=== PATIENT | female | born 1950 | race Caucasian/White ===

== ENCOUNTER → 2016-11-18 | Outpatient (CLI) | payer MEDICARE, BC ==
[2016-11-18 08:10] LABS: Blood Urea Nitrogen 23 mg/dL (7-17); Non-African American GFR(MDRD) 58 (>60 ml/min/1.73 sqM)
--- NOTE | 2016-11-18 09:01 | CT ---
EXAMINATION TYPE: CT chest w con DATE OF EXAM: 11/18/2016 8:43 AM COMPARISON: Previous study dated 09/03/2013 HISTORY: Patient complains of difficulty breathing. CT DLP: 230.9 mGycm Automated exposure control for dose reduction was used. CONTRAST: CT scan of the chest is performed with IV Contrast, patient injected with 80 mL of Visipaque 320. FINDINGS: Masslike density in the right apex is stable and has been considerable scarring in the past . There is diffuse emphysematous change throughout the lungs. This is unchanged from previous. There is dependent atelectasis at the lung bases. No parenchymal mass is seen. There is no significant axillary, internal mammary, mediastinal or hilar adenopathy. There is no pleu ral or pericardial fluid. The heart is not enlarged. There is colonic interposition on the right. The right kidney is not imaged. No osseous lesion is seen. IMPRESSION: 1. Stable right apical scarring. 2. Emphysematous change. 3. Colonic interposition on the right. 4. Failure to visualize the right kidney.
== END | disposition home or self-care (01) ==
LOC: RADCTMAIN 07:23
PROVIDERS: ATTEND Internal Medicine Critical Care Medicine
DX: J43.9 Emphysema, unspecified (principal); J98.4 Other disorders of lung
CPT/HCPCS: 82565; 84520; 71260; 36415; Q9967

== ENCOUNTER → 2017-07-12 | Outpatient (CLI) | payer MEDICARE, BC ==
[2017-07-12 08:39] LABS: Blood Urea Nitrogen 18 mg/dL (7-17); Non-African American GFR(MDRD) 51 (>60 ml/min/1.73 sqM)
--- NOTE | 2017-07-12 10:30 | CT ---
EXAMINATION TYPE: CT abdomen pelvis w con DATE OF EXAM: 07/12/2017 HISTORY: Abd pain. Status post right-sided nephrectomy. CT DLP: 555.6mGycm Automated Exposure Control for Dose Reduction was Utilized. CONTRAST: CT scan of the abdomen and pelvis is performed with IV Contrast, patient injected with 80 mL of Visip aque 320. COMPARISON: None. FINDINGS: LUNG BASES: Minimal bibasilar subsegmental dependent atelectasis is noted. LIVER/GB: Colonic interposition deviates the liver medially. Hepatic parenchyma enhances homogeneousl y. No intrahepatic biliary ductal dilatation. Hepatic contour is smooth. Gallbladder is unremarkable. Additionally the liver is shifted medially due to surgical absence of the right kidney and prolapse. PANCREAS: No significant abnormality is seen. No ductal dilatation. SPLEEN: No significant abnormality is seen. ADRENALS: No significant abnormality is seen. KIDNEYS: Right kidney is surgically absent. Descending duodenum and liver prolapse into the postsurgi osvaldo bed. No abnormal new soft tissue density is seen within the postsurgical bed. The left kidney is unremarkable without evidence of hydronephrosis and enhances as well as excretes normally. BOWEL: Small hiatal hernia is noted. Numerous sigmoid diverticula are present without pericolonic fat stranding. Appendix is within normal limits. No evidence of dilated bowel to indicate obstruction. UTERUS/ADNEXA: Uterus is either surgically absent or severely atrophied. Nonvisualization of the ovar ies is also either related to postsurgical absence or atrophy. LYMPH NODES: No greater than 1cm abdominal or pelvic lymph nodes are appreciated. OSSEOUS STRUCTURES: Mild multilevel degenerative changes of the thoracolumbar spine are noted. OTHER: Small fat filled umbilical hernia is present. Moderate calcific atheromatous changes are seen of the abdominal aorta and its branches. IMPRESSION: 1. No CT finding to correlate with the patient's clinical symptom of left upper quadrant pain. 2. Small hiatal hernia. 3. Sigmoid diverticulosis without evidence of diverticulitis. 4. Surgical absence of the right kidney with no new soft tissue nodularity within the posterior surgi osvaldo bed.
== END | disposition home or self-care (01) ==
LOC: RADCTMAIN 07:49
PROVIDERS: ATTEND Family Medicine
DX: K44.9 Diaphragmatic hernia without obstruction or gangrene (principal); K57.30 Diverticulosis of large intestine without perforation or abscess without bleeding; Z90.5 Acquired absence of kidney
CPT/HCPCS: 82565; 84520; 74177; 36415; Q9967

== ENCOUNTER → 2017-09-29 | Outpatient (CLI) | payer MEDICARE, BC ==
--- NOTE | 2017-09-30 10:35 | MM ---
Reason for exam: screening (asymptomatic). Last mammogram was performed 1 year and 6 months ago. History: Patient is postmenopausal. Took estrogen for 20 years beginning at age 30. Took unspecified hormones beginning at age 47. Physical Findings: A clinical breast exam by your physician is recommended on an annual basis and results should be correlated with mammographic findings. MG 3D Screening Mammo W/Cad Bilateral CC and MLO view(s) were taken. Prior study comparison: April 06, 2016, mammogram, performed at [facility]. October 27, 2014, mammogram, performed at [facility]. August 04, 2009, bilateral digital screening mammogram. May 16, 2008, bilateral digital screening mammogram. No significant changes when compared with prior studies. ASSESSMENT: Benign, BI-RAD 2 RECOMMENDATION: Routine screening mammogram of both breasts in 1 year.
== END | disposition home or self-care (01) ==
LOC: RADMAMWWP 07:51
PROVIDERS: ATTEND Obstetrics & Gynecology
DX: Z12.31 Encounter for screening mammogram for malignant neoplasm of breast (principal)
CPT/HCPCS: 77063; 77067

== ENCOUNTER → 2017-10-27 | Outpatient (CLI) | payer MEDICARE, BC ==
--- NOTE | 2017-10-27 14:35 | CT ---
EXAMINATION TYPE: CT chest w con DATE OF EXAM: 10/27/2017 COMPARISON: NONE HISTORY: Patient complains of difficulty breathing. CT DLP: 259.8 mGycm, Automated exposure control for dose reduction was used. CONTRAST: Performed injected with 80 mL of Visipaque 320. TECHNIQUE: Axial images were obtained at 5 mm thick sections. Reconstructed images are reviewed on [employer] computer in the coronal plane. FINDINGS: Portion of the thyroid visualized is normal. No suspicious lung nodules or focal infiltrates are present. There right apical focal scarring is unc hanged. No enlarged mediastinal or hilar adenopathy is evident. 0.7 cm lymph node is near the level of the carmen in the pretracheal space. The ascending aorta diameter at the level of the main pulmonary chloé ry is 2.8 cm. The main pulmonary artery diameter at the bifurcation is 2.1 cm. Coronary artery calci fications present. Limited CT sections are obtained through the upper abdomen. Abdomen is essentially unremarkable. IMPRESSIONS: 1. No acute pulmonary embolism.
== END | disposition home or self-care (01) ==
LOC: RADCTMAIN 12:03
PROVIDERS: ATTEND Internal Medicine Critical Care Medicine
DX: J44.9 Chronic obstructive pulmonary disease, unspecified (principal)
CPT/HCPCS: 82565; 84520; 71260; 36415; Q9967

== ENCOUNTER → 2018-05-09 | Outpatient (CLI) | payer MEDICARE, BC ==
--- NOTE | 2018-05-09 10:23 | US ---
EXAMINATION TYPE: US gallbladder DATE OF EXAM: 05/09/2018 COMPARISON: CT ABD CLINICAL HISTORY: R10.11 RUQ Abdominal Pain. Epigastric and RUQ pain; right kidney removed; previous stomach ulcers per patient EXAM MEASUREMENTS: Liver Length: 9.7 cm Gallbladder Wall: 0.2 cm CBD: 0.5 cm Right Kidney: surgically removed Pancreas: Hyperechoic as seen. Liver: wnl Gallbladder: wnl Evidence for sonographic John's sign: yes CBD: wnl There is no ascites. IMPRESSION: Positive sonographic John's sign. Postop change.
== END | disposition home or self-care (01) ==
LOC: RADUSWWP 08:05
PROVIDERS: ATTEND Surgery
DX: R10.11 Right upper quadrant pain (principal); Z98.890 Other specified postprocedural states
CPT/HCPCS: 76705

== ENCOUNTER → 2018-05-17 | Outpatient (CLI) | payer MEDICARE, BC ==
--- NOTE | 2018-05-17 16:48 | NM ---
EXAMINATION TYPE: NM hepatobiliary w CCK DATE OF EXAM: 05/17/2018 COMPARISON: NONE HISTORY: TECHNIQUE: After the intravenous administration of 5.07 mCi Tc 99m Mebrofenin hepatobiliary scintigra phy is performed. Immediate images post injection. FINDINGS: There is satisfactory initial accumulation of tracer by the liver. The gallbladder is visualized wit hin 6 minutes. The small bowel activity is noted within 14 minutes. At one hour CCK was administere d, patient was injected with 1.3 mcg of Kinevac, and gallbladder ejection fraction is calculated at 9 0 %, in the normal range. Therefore there is no scintigraphic evidence of cystic or common bile duct obstruction to suggest acute cholecystitis or gallbladder dyskinesia. There is no focal liver defect. IMPRESSION: Normal exam. Normal gallbladder ejection fraction.
== END ==
LOC: RADNMMAIN 14:22
PROVIDERS: ATTEND Surgery
DX: R10.11 Right upper quadrant pain (principal)
CPT/HCPCS: 78227; A9537; J2805

== ENCOUNTER → 2018-07-10 | Outpatient (CLI) | payer MEDICARE, BC ==
[2018-07-10 14:27] LABS: Basophils # (A) 0.1 k/uL (0-0.2); Basophils % (A) 1 %; Eosinophils # (A) 0.1 k/uL (0-0.7); Eosinophils % (A) 1 %; HCT 43.7 % (34.0-46.0); HGB 14.1 gm/dL (11.4-16.0); Lymphocytes % (A) 40 %; MCH 30.2 pg (25.0-35.0); MCHC 32.3 g/dL (31.0-37.0); MCV 93.5 fL (80.0-100.0); Mean Platelet Volume 6.8; Monocytes # (A) 0.4 k/uL (0-1.0); Monocytes % (A) 5 %; Neutrophils # (A) 3.8 k/uL (1.3-7.7); Neutrophils % (A) 51 %; Platelet Count 237 k/uL (150-450); RBC 4.67 m/uL (3.80-5.40); RDW 13.8 % (11.5-15.5); WBC 7.4 k/uL (3.8-10.6)
[2018-07-10 14:34] LABS: Albumin 3.7 g/dL (3.5-5.0); Potassium 4.6 mmol/L (3.5-5.1); Total Bilirubin 0.5 mg/dL (0.2-1.3); Total Protein 6.3 g/dL (6.3-8.2)
--- NOTE | 2018-07-10 14:34 | CT ---
EXAMINATION TYPE: CT abdomen pelvis wo con DATE OF EXAM: 07/10/2018 COMPARISON: 07/12/2017 HISTORY: Lower abdominal pain. hx of diverticulosis CT DLP: 393.9 mGycm Examination of the solid and hollow viscera is limited given the lack of contrast. FINDINGS: LUNG BASES: No evidence for nodule. No evidence for infiltrate. LIVER/GB: The gallbladder is unremarkable. No space-occupying hepatic lesion. PANCREAS: No pancreatic mass identified. No inflammatory process seen. SPLEEN: No evidence for splenomegaly. No intrasplenic lesions seen. ADRENALS: No adrenal nodules identified. No evidence for thickening. KIDNEYS: Surgical absence of the right kidney without recurrent or residual mass at the level of the right renal fossa. No evidence for renal mass. No nephrolithiasis. No hydronephrosis. BOWEL: Appendix has a normal appearance. No evidence of bowel obstruction. No inflammatory process. S mall hiatal hernia. Sigmoid diverticulosis without diverticulitis. Lymph nodes: No evidence for adenopathy greater than 1 cm. Abdominal aorta: Atheromatous changes seen. No evidence for aneurysm. Genital organs: No significant abnormality. Other: No significant abnormality. IMPRESSION: 1. No acute process identified at this time.
== END | disposition home or self-care (01) ==
LOC: RADCTMAIN 13:53
PROVIDERS: ATTEND Nurse Practitioner Family
DX: R10.30 Lower abdominal pain, unspecified (principal); Z88.1 Allergy status to other antibiotic agents; Z88.6 Allergy status to analgesic agent
CPT/HCPCS: 36415; 74176; 80053; 82150; 83690; 85025

== ENCOUNTER → 2018-10-03 | Outpatient (CLI) | payer MEDICARE, BC | LOC: CPPFTMAIN 09:57 | PROVIDERS: ATTEND Family Medicine | DX: I99.8 Other disorder of circulatory system (principal); D50.9 Iron deficiency anemia, unspecified | CPT/HCPCS: 94060; 94726; 94729 ==

== ENCOUNTER → 2018-12-06 | Outpatient (CLI) | payer MEDICARE, BC ==
--- NOTE | 2018-12-06 14:10 | MM ---
Reason for exam: screening (asymptomatic). Last mammogram was performed 1 year and 2 months ago. History: Patient is postmenopausal. Took estrogen for 20 years beginning at age 30. Took unspecified hormones beginning at age 47. Physical Findings: A clinical breast exam by your physician is recommended on an annual basis and results should be correlated with mammographic findings. MG 3D Screening Mammo W/Cad Bilateral CC and MLO view(s) were taken. Prior study comparison: September 29, 2017, bilateral MG 3d screening mammo w/cad. April 06, 2016, mammogram, performed at [facility]. There are scattered fibroglandular densities. There are benign appearing vascular calcifications bilaterally. Asymmetric breast tissue in the left breast, stable. There is no discrete abnormality. ASSESSMENT: Benign, BI-RAD 2 RECOMMENDATION: Routine screening mammogram of both breasts in 1 year.
== END ==
LOC: RADMAMWWP 07:32
PROVIDERS: ATTEND Obstetrics & Gynecology
DX: Z12.31 Encounter for screening mammogram for malignant neoplasm of breast (principal)
CPT/HCPCS: 77063; 77067

== ENCOUNTER → 2018-12-27 | Outpatient (CLI) | payer MEDICARE, BC ==
--- NOTE | 2018-12-27 16:35 | BD ---
EXAMINATION TYPE: Axial Bone Density DATE OF EXAM: 12/27/2018 COMPARISON; 2011 CLINICAL HISTORY: 68-year-old female specified disorders of bone density Height: 4'11 1/2 Weight: 144 FRAX RISK QUESTIONS: Secondary Osteoporosis: 3. Menopause before 45: y RISK FACTORS HISTORY OF: Postmenopausal woman: y Frequent falls: y MEDICATIONS: Thyroid Medications: Which medication: Levothyroxine How Lon years Additional Medications: potassium, Lasix, Additional History: EXAM MEASUREMENTS: Bone mineral densitometry was performed using the [employer]. Bone mineral density as measured about the Lumbar spine is: ----- L1-L4(G/cm2): 0.978 T Score Values are as follows: ----- L2: -2.0 ----- L3: -0.6 ----- L4: -1.6 ----- L1-L4: -1.7 Bone mineral density has: Decreased -3.4% since study of: 10/19/2011 Bone mineral density about the R hip (g/cm2): 0.898 Bone mineral density about the L hip (g/cm2): 0.973 T Score values are as follows: -----R Neck: -1.0 -----L Neck: -0.5 -----R Total: -0.9 -----L Total: -0.6 Bone mineral density has: Decreased -7.4% since study of: 10/19/2011 IMPRESSION: Osteopenia (T Score between -2.5 and -1). There is slightly increased risk of fracture and the patient may be considered for treatment. Re-Screen 2-5 years. NOTE: T-SCORE=SD OF THE YOUNG ADULT MEAN.
== END | disposition home or self-care (01) ==
LOC: RADBDWWP 07:50
PROVIDERS: ATTEND Obstetrics & Gynecology
DX: M85.80 Other specified disorders of bone density and structure, unspecified site (principal)
CPT/HCPCS: 77080

== ENCOUNTER → 2019-02-27 | Outpatient (CLI) | payer MEDICARE, BC ==
--- NOTE | 2019-02-27 12:48 | XR ---
EXAM TYPE: LUMBAR SPINE X RAY SERIES COMPARISON: 10/31/2015 HISTORY: Pain TECHNIQUE: 4 views are submitted. FINDINGS: Alignment is anatomic. The pedicles are intact. The transverse processes are intact. There is no s pondylolysis or spondylolisthesis. Diffuse osteopenia with multilevel degenerative disc disease and facet arthropathy. Vascular calcifications noted. IMPRESSION: 1. Diffuse osteopenia and multilevel degenerative disc disease with facet arthropathy.
--- NOTE | 2019-02-27 12:50 | XR ---
EXAMINATION TYPE: XR sacrum coccyx DATE OF EXAM: 02/27/2019 COMPARISON: NONE HISTORY: Pain Three views are submitted. Sacrum is intact. SI joints are symmetric. There is mild sclerosis invo lving the SI joints. Arthropathy of the hip joints. Coccyx appears to be intact. Visualized pelvic s tructures intact. IMPRESSION: 1. Correlate for sacroiliitis..
== END | disposition home or self-care (01) ==
LOC: RADXRMAIN 11:56
PROVIDERS: ATTEND Nurse Practitioner Family
DX: M51.36 Other intervertebral disc degeneration, lumbar region (principal); M46.96 Unspecified inflammatory spondylopathy, lumbar region; M85.88 Other specified disorders of bone density and structure, other site; M54.5 Low back pain
CPT/HCPCS: 72110; 72220

== ENCOUNTER → 2019-03-26 | Outpatient (CLI) | payer MEDICARE, BC ==
--- NOTE | 2019-03-26 07:42 | MR ---
EXAMINATION TYPE: MR lumbar spine wo con DATE OF EXAM: 03/26/2019 COMPARISON: 01/31/2016 HISTORY: Low back pain, Fall CONTRAST: 0 mL intravenous Gadavist. TECHNIQUE: Multiplanar, multisequence images of the lumbar spine were acquired. FINDINGS: Cord terminates at the L1 level. Disc heights are preserved. Disc desiccation is present t hroughout the lumbar spine. L5-S1: Minimal disc bulge is present with anterior thecal sac contact. No AP spinal canal stenosis pr esent. Neural foramen are patent. Facet hypertrophy is present, greater on the left. L4-L5: Minimal disc bulge is anterior thecal sac flattening. No AP spinal canal stenosis is present. On T2-weighted images there is some minimal linear signal present along the posterior right disc spac e could represent a small annular tear. Facet hypertrophy is present. This causes moderate bilateral posterior lateral thecal sac compression. Some lateral canal narrowing from ligamentum flavum laxity is present. Neural foramen are patent. L3-L4: No significant disc bulge is evident. No spinal canal stenosis present. Facet hypertrophy is p osterior lateral thecal sac compression. Neural foramen are patent. L2-L3: No significant disc bulge or disc herniation. No spinal canal stenosis. No foraminal stenosi s. L1-L2: No significant disc bulge or disc herniation. No spinal canal stenosis. No foraminal stenosi s. T12-L1: No significant disc bulge or disc herniation. No spinal canal stenosis. No foraminal stenos is. IMPRESSION: 1. Facet hypertrophy and ligamentum flavum laxity present L3-4, L4-5 and is causing some lateral pepe l narrowing at the L4-5 level. These Findings are stable from comparison. 2. Minimal disc bulge L4-5 with possible annular tear. This may be new although no significant thecal sac compression is evident.
== END | disposition home or self-care (01) ==
LOC: RADMRIMAIN 06:04
PROVIDERS: ATTEND Family Medicine
DX: M48.061 Spinal stenosis, lumbar region without neurogenic claudication (principal); M51.26 Other intervertebral disc displacement, lumbar region
CPT/HCPCS: 72148

== ENCOUNTER 2019-08-16 07:20 | Emergency (ER) | payer MEDICARE, BC ==
[2019-08-16 07:26] VITALS: TEMP 97.8
--- NOTE | 2019-08-16 07:38 | ED ---
Extremity Problem HPI - General Chief complaint: Extremity Problem,Nontraumatic Stated complaint: Knee pain, fall Time Seen by Provider: 08/16/19 07:26 Source: patient Mode of arrival: wheelchair Limitations: no limitations - History of Present Illness Initial comments: 68-year-old female with history of varicose veins, TIA, one kidney, presenting to the ER for cc of b/l below the knee pain both at rest and with movement. Patient states that for the past 2-3 days she noticed a slight discomfort in the LE b/l just below the knee. SHe states she has difficulty describing the pain but states that last night it was 10/10 at rest and with walking >10. She states it kept her up at night and she couldnt fall asleep. This morning patient fell due to the pain below the knees her legs gave out. Patient states she fell on the rigth side of her body, mostly right hip. Patient denies any numbness tingling or loss sensation of the lower extremities denies loss of bowel/bladder control, urinary retention. Patient denies any recent fevers she states she has had a recent upper respiratory infection. Flu and pneumonia vaccinations UTD> Denies symptoms of the hands. States she has chronic back pain with no change. Patient denies any other specific alleviating or aggrevating factors. - Related Data Home Medications Medication Instructions Recorded Confirmed ALPRAZolam [Xanax] 0.5 mg PO HS PRN 02/25/14 08/02/17 Esomeprazole Magnesium [NexIUM] 40 mg PO HS 02/25/14 08/02/17 Levothyroxine Sodium [Synthroid] 50 mcg PO DAILY 02/25/14 08/02/17 Aspirin EC [Ecotrin Low Dose] 81 mg PO DAILY 06/27/14 08/02/17 Budesonide-Formot 160-4.5 Mcg 2 puff INHALATION RT-BID PRN 06/27/14 08/02/17 [Symbicort 160-4.5 Mcg Inhaler] Eszopiclone [Lunesta] 3 mg PO HS PRN 06/27/14 08/02/17 Furosemide [Lasix] 20 mg PO DAILY 07/28/17 08/02/17 Magnesium Oxide 400 mg PO DAILY 07/28/17 08/02/17 Pitavastatin Calcium [Livalo] 4 mg PO HS 07/28/17 08/02/17 Potassium Chloride ER [K-Dur 10] 20 meq PO BID 07/28/17 08/02/17 predniSONE See Taper PO DAILY 07/28/17 08/02/17 Previous Rx's Medication Instructions Recorded Isosorbide Mononitrate ER [Imdur] 60 mg PO DAILY #30 tab.er.24h 07/29/17 Allergies Allergy/AdvReac Type Severity Reaction Status Date / Time acetaminophen Allergy Itching Verified 07/28/17 23:07 [From Tylenol-Codeine #3] albuterol Allergy Rapid Verified 07/28/17 23:07 Heart Rate barium sulfate Allergy Rash/Hives Verified 07/28/17 23:07 codeine phosphate Allergy Itching Verified 07/28/17 23:07 [From Tylenol-Codeine #3] Iodinated Contrast Media Allergy Rash/Hives Verified 07/28/17 23:07 [Iodinated Contrast Media - Oral and] nitrofurantoin Allergy Itching Verified 07/28/17 23:07 [From Macrobid] nitrofurantoin Allergy Itching Verified 07/28/17 23:07 macrocrystalline [From Macrobid] Review of Systems ROS Statement: Those systems with pertinent positive or pertinent negative responses have been documented in the HPI. ROS Other: All systems not noted in ROS Statement are negative. Past Medical History Past Medical History: Asthma, COPD, CVA/TIA, GERD/Reflux, Osteoarthritis (OA), Skin Disorder, Thyroid Disorder Additional Past Medical History / Comment(s): Heart palpitations, Varicose veins, Hx of kidney stones (only Lt kidney), diverticulitis, hiatal hernia, hemorrhoids, "under active gallbladder", sun damaged skin, pt states she had a TIA on 2015. History of Any Multi-Drug Resistant Organisms: None Reported Past Surgical History: Hysterectomy, Orthopedic Surgery, Tonsillectomy Additional Past Surgical History / Comment(s): L and R foot surgery, right nephrectomy, laparascopy, skin lesions, rt hand trigger finger, rt shoulder rotator cuff Past Anesthesia/Blood Transfusion Reactions: No Reported Reaction Past Psychological History: Anxiety Smoking Status: Former smoker Past Alcohol Use History: None Reported Past Drug Use History: None Reported - Past Family History Father Family Medical History: Cancer General Exam - General Exam Comments Initial Comments: General: The patient is awake and alert, in no distress Eye: Pupils are equal, round and reactive to light, extra-ocular movements are intact. No nystagmus. There is normal conjunctiva bilaterally. No signs of icterus. Ears, nose, mouth and throat: There are moist mucous membranes and no oral lesions. Neck: The neck is supple, there is no tenderness or JVD. Cardiovascular: There is a regular rate and rhythm. No murmur, rub or gallop is appreciated. Respiratory: Lungs are clear to auscultation, respirations are non-labored, breath sounds are equal. No wheezes, stridor, rales, or rhonchi. Gastrointestinal: Soft, non-distended, non-tender abdomen without masses or organomegaly noted. There is no rebound or guarding present. Musculoskeletal: No point localized pain to palpation of the legs above or below the knee. Normal inspection, warm no pallor. Normal ROM at the knees b/l. Strength 5/5 of the LE b/l including distal to the knees. Sensation intact proximal and distal to knees b/l and UE b/l. Radial and DP pulses equal bilaterally 2+. Normal inspection of thoracic and lumbar spine some midline tenderness noted of the upper lumbar aspect. Neurological: A&O x 3. CN II-XII intact grossly, There are no obvious motor or sensory deficits. Coordination appears grossly intact. Speech is normal. Skin: Skin is warm and dry and no rashes or lesions are noted. Psychiatric: Cooperative, appropriate mood & affect, normal judgment. Limitations: no limitations Course Vital Signs 08/16/19 07:23 Temperature 97.8 F Pulse Rate 82 Respiratory 20 Rate Blood Pressure 155/67 O2 Sat by Pulse 96 Oximetry - Reevaluation(s) Reevaluation #1: After reevaluation patient is able to fully weight-bear walk and states the pain is gone. This is after one small dose of morphine. Patient states she feels this is due to go back as she has had issues with this in the past. Patient requesting discharge laboratory studies canceled. 08/16/19 09:15 Medical Decision Making - Medical Decision Making 68-year-old female presenting for bilateral leg pain distal to the knees. History of chronic back pain. Patient has no symptoms or clinical findings suggestive of cauda equina. Patient able to walk and ambulate without difficulty after one dose of IV medication. Patient states she is agreeable to discharge at this time she will try to rest apply heat to the area and was given orthopedic follow-up. Return parameters were discussed at length the patient verbalized understanding and she was discharged appearing well after discussed the case at length with my attending provider Dr. Kapadia Disposition Clinical Impression: Back pain, Leg pain, bilateral Disposition: HOME SELF-CARE Condition: Good Instructions (If sedation given, give patient instructions): Lumbar Radiculopathy (ED) Additional Instructions: PLease follow-up in [address] Lucero. Take medications as discussed. Return for any worsening or persistent symptoms, loss of bowel bladder control or inability to urinate, feel legs, fevers as discussed Is patient prescribed a controlled substance at d/c from ED?: No Referrals: Avery Epps Jr, DO [Primary Care Provider] - 1-2 days Miri Lucero DO [Doctor of Osteopathic Medicine] - 1-2 days Time of Disposition: 09:00
[2019-08-16] MEDS ORDERED: MORPHINE SULFATE 4 MG/ML SYRINGE IVP STA (07:40)
--- NOTE | 2019-08-16 08:19 | XR ---
EXAMINATION TYPE: XR Hip Complete RT DATE OF EXAM: 08/16/2019 COMPARISON: NONE HISTORY: 68-year-old female fall and right hip pain TECHNIQUE: 2 views FINDINGS: Osteopenia. Mild degenerative spurring at the right hip. No acute fracture, subluxation, or dislocati on seen. IMPRESSION: Osteopenia without acute osseous abnormality seen. If the patient is nonweightbearing, MRI can provid e more sensitive evaluation.
--- NOTE | 2019-08-16 08:23 | XR ---
EXAMINATION TYPE: XR lumbar spine 2 or 3V DATE OF EXAM: 08/16/2019 Comparison: 02/27/2019 Clinical History: 68-year-old female PAIN AFTER FALL Findings: Osteopenia. 5 lumbar type vertebral bodies. Hypertrophic facet arthropathy mid and lower lumbar spine , particularly on the left. Mild multilevel degenerative disc disease. Vertebral body heights are pre served and alignment is maintained. At the scattered calcifications within the abdominal aorta. Impression: Advanced hypertrophic facet arthropathy and mild multilevel degenerative disc disease. No vertebral c ompression collapse or malalignment.
[2019-08-16 10:33] VITALS: BP 122/80; PULSE 67; RESP 18
== END 2019-08-16 10:28 | disposition home or self-care (01) ==
LOC: EC 07:20
DX: M25.561 Pain in right knee (principal); M25.562 Pain in left knee; M54.9 Dorsalgia, unspecified; J44.9 Chronic obstructive pulmonary disease, unspecified; K21.9 Gastro-esophageal reflux disease without esophagitis; E07.9 Disorder of thyroid, unspecified; Z86.73 Personal history of transient ischemic attack (TIA), and cerebral infarction without residual deficits; Z87.891 Personal history of nicotine dependence; Z87.39 Personal history of other diseases of the musculoskeletal system and connective tissue; Z79.890 Hormone replacement therapy; Z79.82 Long term (current) use of aspirin; Z79.51 Long term (current) use of inhaled steroids; Z79.52 Long term (current) use of systemic steroids; Z79.899 Other long term (current) drug therapy; Z88.6 Allergy status to analgesic agent; Z88.8 Allergy status to other drugs, medicaments and biological substances; Z88.5 Allergy status to narcotic agent; Z91.041 Radiographic dye allergy status; Z88.1 Allergy status to other antibiotic agents; W19.XXXA Unspecified fall, initial encounter
CPT/HCPCS: 72100; 73502; 99283; 96374; J2270

== ENCOUNTER → 2019-08-21 | Outpatient (CLI) | payer MEDICARE, BC ==
--- NOTE | 2019-08-21 11:47 | CT ---
EXAMINATION TYPE: CT chest wo con DATE OF EXAM: 08/21/2019 COMPARISON: 10/27/2017 CT chest, CT abdomen 07/10/2018, CT chest 09/03/2013 HISTORY: Chronic cough, raspy voice CT DLP: 563 mGycm. Automated Exposure Control for Dose Reduction was Utilized. TECHNIQUE: CT scan of the thorax is performed without IV contrast. FINDINGS: LUNGS: There is a right apical pleural-based 1.8 cm density stable from the prior exam. This may be p ostinflammatory. Neoplastic process not excluded. Additional 5 mm subpleural nodule or thickening in the right upper lobe laterally. There are additional scattered subpleural 1 to 2 mm nodules bilateral ly which are too small to characterize. Diffuse emphysematous changes are seen. Groundglass changes seen in the left upper lobe are noted on the prior examination have resolved on the current exam. There is interstitial septal interstitial th ickening compatible with chronic interstitial lung disease and likely a degree of pulmonary fibrosis. No consolidative pneumonia.. There is no pleural effusion or pneumothorax seen. The tracheobronch ial tree is patent. MEDIASTINUM: Lack of IV contrast is noted to limit evaluation for mediastinal and especially hilar ad enopathy. There are no definitive greater than 1 cm hilar or mediastinal lymph nodes. No cardiomega ly or pericardial effusion is seen. Coronary artery calcification noted. OTHER: Retroperitoneal calcification on the right stable likely postsurgical. Absence of the right ki dney and the visualized images suggest previous nephrectomy correlate clinically.. There is a small h iatal hernia. Hypertrophic changes of the vertebral column. IMPRESSION: 1. Diffuse COPD with no acute process. 2. Right apical 1.8 cm thickening or nodularity is stable dating back to 2013 and therefore likely in flammatory. 3. Coronary artery calcifications. 4. Stable subpleural 5 mm right apical pulmonary nodule or thickening. 5. Correlate for chronic interstitial lung disease. 6. There are additional scattered 1 to 2 mm subpleural nodules which are too small to characterize bu t likely benign.
== END | disposition home or self-care (01) ==
LOC: RADCTMAIN 11:05
PROVIDERS: ATTEND Internal Medicine Critical Care Medicine
DX: J44.9 Chronic obstructive pulmonary disease, unspecified (principal); J84.89 Other specified interstitial pulmonary diseases; R91.8 Other nonspecific abnormal finding of lung field; I25.10 Atherosclerotic heart disease of native coronary artery without angina pectoris; Z88.3 Allergy status to other anti-infective agents
CPT/HCPCS: 71250

== ENCOUNTER → 2019-10-04 | Outpatient (CLI) | payer MEDICARE, BC | END | disposition home or self-care (01) | LOC: LABWHC1 13:02 | PROVIDERS: ATTEND Nurse Practitioner Family | DX: Z01.818 Encounter for other preprocedural examination (principal); J44.1 Chronic obstructive pulmonary disease with (acute) exacerbation; J84.10 Pulmonary fibrosis, unspecified; J96.21 Acute and chronic respiratory failure with hypoxia; E78.00 Pure hypercholesterolemia, unspecified | CPT/HCPCS: 93005 ==

== ENCOUNTER → 2019-10-17 | Day surgery (SDC) | payer MEDICARE, BC ==
[2019-10-15 12:54] VITALS: BMI 29.0
[~2019-10-17] MED LIST: BUPIVACAINE (PF) 0.25% 30 ML VIAL SQ ONE; DEXAMETHASONE SOD PHOSPHATE 10 MG/ML 1 ML VIAL IV ONE; HYDROmorphone 0.5 MG/0.5 ML SYRINGE IVP PRN; LACTATED RINGERS 1,000 ML IV SCH; LIDOCAINE 1% 20 ML VIAL (10MG/ML) FOR IV START INTRADERMA PRN; MIDAZOLAM 2 MG/2 ML VIAL IV PRN; ONDANSETRON 4 MG/2 ML VIAL IVP ONE; Pre Op ABX Message 1 EACH MISC MISCELLANE ONE; SCOPOLAMINE 1.5MG/72HR PATCH TRANSDERM ONE
[2019-10-17 14:02] VITALS: TEMP 97.7
[2019-10-17 14:37] LABS: Glucose,Whole Blood 96 mg/dL (75-99)
--- NOTE | 2019-10-17 17:15 | P.OP ---
Date of Procedure: 10/17/19 Preoperative Diagnosis: Hypertrophied bone causing heloma molle lesion fifth digit left foot Postoperative Diagnosis: Same Procedure(s) Performed: Partial phalangectomy fifth digit left foot Anesthesia: local Surgeon: Kulwinder José Estimated Blood Loss (ml): 1 Indications for Procedure: Painful soft corn toe left foot Operative Findings: Unremarkable Description of Procedure: On the date of surgery the patient was taken to the operating room in good condition placed on the operating table supine position where 2 mL of 0.25% plain Marcaine were administered in a digital block fifth digit of the patient's left foot the patient's left foot and ankle were then prepped and draped the usual aseptic manner and over heavy web roll padding an ankle tourniquet was placed above the malleoli of the patient's left ankle patient's left foot and ankle were then elevated and exsanguinated of blood utilizing an Esmarch bandage and the ankle tourniquet was inflated to 200 mmHg. At this time attention was directed to the dorsal distal aspect of the distal interphalangeal joint area fifth digit left foot where an approximately neuro 0.5 cm linear incision was made the incision was deepened down through the level of subcutaneous tissue layers to the capsule and periosteal structures overlying the terminal tuft of the terminal phalanx fifth digit left foot rotary bur was introduced and the hyperostosis present craterized and adequate bone had been removed the surgical site was flushed with copious amounts sterile saline solution and the skin edges were coaptated and maintained utilizing 4-0 nylon simple interrupted suture Adaptic Kerlix fluffs four-inch conformer and 4 inch Coban was used to form a compression dressing and the ankle tourniquet to the left foot was deflated adequate hemostatic return was seen in all digits of the left foot the patient tolerated the surgery and anesthesia well was taken to the recovery room in good postoperative condition
[2019-10-17 17:17] VITALS: RESP 16
[2019-10-17 17:40] VITALS: BP 127/70; PULSE 81
== END ==
LOC: OR 13:29
PROVIDERS: ATTEND Podiatrist Foot & Ankle Surgery
DX: L84 Corns and callosities (principal); J44.9 Chronic obstructive pulmonary disease, unspecified; E07.9 Disorder of thyroid, unspecified; E78.5 Hyperlipidemia, unspecified; K21.9 Gastro-esophageal reflux disease without esophagitis; Z79.51 Long term (current) use of inhaled steroids; Z86.73 Personal history of transient ischemic attack (TIA), and cerebral infarction without residual deficits; Z87.891 Personal history of nicotine dependence; Z79.890 Hormone replacement therapy; Z79.899 Other long term (current) drug therapy; Z91.041 Radiographic dye allergy status; Z88.5 Allergy status to narcotic agent; Z88.6 Allergy status to analgesic agent; Z88.8 Allergy status to other drugs, medicaments and biological substances; Z90.710 Acquired absence of both cervix and uterus; Z98.41 Cataract extraction status, right eye; Z82.49 Family history of ischemic heart disease and other diseases of the circulatory system; Z80.9 Family history of malignant neoplasm, unspecified

== ENCOUNTER → 2020-03-03 | Outpatient (CLI) | payer MEDICARE, BC ==
--- NOTE | 2020-03-05 10:32 | MM ---
Reason for exam: screening (asymptomatic). Last mammogram was performed 1 year and 3 months ago. History: Patient is postmenopausal. Took hormonal contraceptives for 20 years. Took estrogen for 20 years beginning at age 30. Took unspecified hormones beginning at age 47. Physical Findings: A clinical breast exam by your physician is recommended on an annual basis and results should be correlated with mammographic findings. MG 3D Screening Mammo W/Cad Bilateral CC and MLO view(s) were taken. Prior study comparison: December 06, 2018, bilateral MG 3d screening mammo w/cad. September 29, 2017, bilateral MG 3d screening mammo w/cad. No significant changes when compared with prior studies. ASSESSMENT: Benign, BI-RAD 2 RECOMMENDATION: Routine screening mammogram of both breasts in 1 year.
== END | disposition home or self-care (01) ==
LOC: RADMAMWWP 08:31
PROVIDERS: ATTEND Family Medicine
DX: Z12.31 Encounter for screening mammogram for malignant neoplasm of breast (principal)
CPT/HCPCS: 77063; 77067

== ENCOUNTER → 2020-04-04 | Outpatient (CLI) | payer MEDICARE, BC ==
--- NOTE | 2020-04-05 06:00 | NM ---
EXAMINATION TYPE: NM hepatobiliary w CCK DATE OF EXAM: 04/04/2020 COMPARISON: Prior nuclear medicine HIDA scan May 17, 2018. HISTORY: Right upper quadrant pain per order. Additional symptoms of epigastric pain and heartburn re flux and nausea per patient. TECHNIQUE: After the intravenous administration of 4.4 mCi Tc 99m Mebrofenin hepatobiliary scintigrap hy is performed. Immediate images post injection. FINDINGS: There is satisfactory initial accumulation of tracer by the liver. The gallbladder is visualized wit hin 1 8 minutes. The small bowel activity is noted within 35 minutes. At one hour CCK was administe red, patient was injected with 1.3 mcg of Kinevac, and gallbladder ejection fraction is calculated at 93 %, not deviated from the normal range. Therefore there is no scintigraphic evidence of cystic or common bile duct obstruction to suggest acute cholecystitis or gallbladder dyskinesia. IMPRESSION: Ejection fraction remains greater than 90%, some consider this abnormal or a hyperkinetic response.
== END | disposition home or self-care (01) ==
LOC: RADNMMAIN 14:59
PROVIDERS: ATTEND Family Medicine
DX: R10.11 Right upper quadrant pain (principal); Z88.6 Allergy status to analgesic agent
CPT/HCPCS: 78227; A9537; J2805

== ENCOUNTER 2020-05-19 07:23 | Day surgery (SDC) | payer MEDICARE, BC ==
[2020-05-15 13:27] VITALS: BMI 28.1
[~2020-05-19 07:23] MED LIST changes: -BUPIVACAINE (PF) 0.25% 30 ML VIAL SQ ONE; +HEPARIN SODIUM,PORCINE 5,000 UNIT/ML 1 ML VIAL SQ ONE; -HYDROmorphone 0.5 MG/0.5 ML SYRINGE IVP PRN; -LACTATED RINGERS 1,000 ML IV SCH; -LIDOCAINE 1% 20 ML VIAL (10MG/ML) FOR IV START INTRADERMA PRN; -MIDAZOLAM 2 MG/2 ML VIAL IV PRN; -ONDANSETRON 4 MG/2 ML VIAL IVP ONE; -Pre Op ABX Message 1 EACH MISC MISCELLANE ONE
[2020-05-19] MEDS: LACTATED RINGERS 1,000 ML IV SCH ×2 (08:10→10:39)
[2020-05-19] MEDS ORDERED: LIDOCAINE 1% (10MG/ML) FOR IV START INTRADERMA ONE (08:10)
[2020-05-19] MEDS: ACETAMINOPHEN TAB 500 MG TAB PO ONE ×2 (08:18→14:22)
[2020-05-19] MEDS: ONDANSETRON 4 MG/2 ML VIAL IVP ONE ×2 (08:19→11:07)
[2020-05-19] MEDS ORDERED: NEOSTIGMINE 1 MG/ML 10 ML VIAL ONE (09:16)
[2020-05-19] MEDS ORDERED: PHENYLEPHRINE-0.9% NACL SYG 1 MG/10 ML SYRINGE ONE (09:16)
[2020-05-19] MEDS ORDERED: LIDOCAINE 1% INJ 10MG/ML (20 ML MDV) ONE (09:16)
[2020-05-19] MEDS ORDERED: fentaNYL (PF) 50 MCG/ML 2 ML AMP ONE (09:16)
[2020-05-19] MEDS ORDERED: MIDAZOLAM 2 MG/2 ML VIAL ONE (09:16)
[2020-05-19] MEDS ORDERED: SUCCINYLCHOLINE CHLORIDE 100 MG/5 ML SYR IV ONE (09:16)
[2020-05-19] MEDS ORDERED: PROPOFOL 10 MG/ML 20 ML VIAL IV ONE (09:16)
[2020-05-19] MEDS ORDERED: ROCURONIUM BROMIDE 10 MG/ML 5 ML VIAL IV ONE (09:16)
[2020-05-19] MEDS ORDERED: BUPIVACAINE (PF) 0.25% 30 ML VIAL SQ ONE (09:44)
[2020-05-19] MEDS: HYDROmorphone 0.5 MG/0.5 ML SYRINGE IVP PRN ×4 (10:20→10:36)
--- NOTE | 2020-05-19 10:30 | P.OP ---
Date of Procedure: 05/19/20 Procedure(s) Performed: PREOPERATIVE DIAGNOSIS: Chronic cholecystitis POSTOPERATIVE DIAGNOSIS: Same PROCEDURE: Laparoscopic cholecystectomy SURGEON: Fadumo EBL: Minimal see anesthesia record ANESTHESIA: Gen. COMPLICATIONS: None OPERATIVE PROCEDURE: The patient was brought and placed on the operating room table in the supine position. The patient was placed under general anesthesia at that time. The abdomen was prepped and draped in the usual sterile fashion. A small vertical infraumbilical incision was made. The fascia was grasped with the Maxim forceps. The fascia was retracted anteriorly. The Veress needle was advanced into the peritoneal cavity. The saline drop test was normal. Insufflation took place up to 15 mmHg. A 5 mm optical trocar was advanced and the peritoneal cavity. 2 additional 5 mm trochars were placed in the right upper quadrant under direct visualization. A 12 mm trocar was advanced into the epigastric incision site. The gallbladder was retracted superiorly and laterally. The peritoneum overlying the infundibulum was bluntly dissected. The patient's cystic duct was visualized. The junction between the cystic duct common and hepatic duct was identified. The cystic duct was then divided after placement of 3 12 mm clips on the patient's side and one on the specimen side. The cystic artery was identified and clipped as well. A small vessel was seen along the gallbladder fossa and clipped as well. The gallbladder was then removed from the liver bed using electrocautery. The gallbladder was then removed from the epigastric trocar site with an Endo Catch bag. The gallbladder fossa was irrigated with saline. There was no evidence of any bleeding or biliary drainage seen. The fascia at the 12 millimeter site was closed using a Vin-Alexander 0 Vicryl stitch. The trochars were then removed. The skin at all 4 sites was closed using a 4-0 Monocryl stitch. Skin glue was utilized on the incision sites. At the end of this procedure the sponge and needle counts were correct. DISPOSITION: Stable to the recovery room
[2020-05-19] MEDS ORDERED: fentaNYL (PF) 50 MCG/ML 2 ML AMP IV ONE (10:47)
[2020-05-19] MEDS ORDERED: PROMETHAZINE INJ 25 MG/ML 1 ML VIAL IVPB ONE (11:15)
[2020-05-19] MEDS: traMADol 50 MG TAB PO SCH ×3 (12:15→20:22)
[2020-05-19] MEDS ORDERED: FAMOTIDINE 20 MG/2 ML VIAL IVP ONE (13:00)
[2020-05-19] MEDS ORDERED: ACETAMINOPHEN TAB 500 MG TAB ONE (14:16)
[2020-05-19] MEDS ORDERED: CALCIUM CARBONATE 500 MG CHEWABLE PO PRN (15:00)
[2020-05-19] MEDS: IBUPROFEN 600 MG TAB PO SCH ×4 (15:35→23:45)
[2020-05-19] MEDS: ACETAMINOPHEN TAB 325 MG TAB PO SCH ×2 (15:36→20:21)
[2020-05-19] MEDS ORDERED: ALPRAZolam 0.5 MG TAB PO PRN (16:33)
[2020-05-19] MEDS: ISOSORBIDE MONONITRATE ER 60 MG TAB.ER.24H PO SCH (17:56)
[2020-05-19] MEDS: SYMBICORT 160-4.5 MCG INHALER INHALATION PRN (18:57)
[2020-05-19] MEDS ORDERED: ATORVASTATIN 10 MG TAB PO SCH (21:00)
[2020-05-19] MEDS ORDERED: PANTOPRAZOLE 40 MG TABLET PO SCH (21:00)
[2020-05-20] MEDS: ACETAMINOPHEN TAB 325 MG TAB PO SCH ×3 (02:18→15:20)
[2020-05-20] MEDS: IBUPROFEN 600 MG TAB PO SCH ×2 (05:19→07:23)
[2020-05-20] MEDS ORDERED: LEVOTHYROXINE 50 MCG TAB PO SCH (06:30)
[2020-05-20] MEDS: SYMBICORT 160-4.5 MCG INHALER INHALATION PRN (07:36)
[2020-05-20 07:59] VITALS: PULSE 69; RESP 16
[2020-05-20] MEDS: ISOSORBIDE MONONITRATE ER 60 MG TAB.ER.24H PO SCH (07:59)
[2020-05-20] MEDS: traMADol 50 MG TAB PO SCH ×2 (08:00→13:45)
[2020-05-20] MEDS ORDERED: CHOLECALCIFEROL 1,000 UNIT TAB PO SCH (09:00)
[2020-05-20] MEDS ORDERED: ASPIRIN 81 MG PO SCH (09:00)
[2020-05-20 11:00] LABS: ALT 31 U/L (4-34); AST 46 U/L (14-36); African American GFR (CKD) >90 (>60 ml/min/1.73 sqM); Albumin 3.2 g/dL (3.5-5.0); Alkaline Phosphatase 48 U/L (38-126); Anion Gap 4 mmol/L; Blood Urea Nitrogen 13 mg/dL (7-17); Carbon Dioxide 29 mmol/L (22-30); Chloride 102 mmol/L (98-107); Glucose 142 mg/dL (74-99); Non-African American GFR(CKD) 80 (>60 ml/min/1.73 sqM); Potassium 4.8 mmol/L (3.5-5.1); Sodium 135 mmol/L (137-145); Total Bilirubin 0.5 mg/dL (0.2-1.3); Total Protein 5.4 g/dL (6.3-8.2)
[2020-05-20 11:04] LABS: Basophils % (A) 0 %; Eosinophils % (A) 0 %; HCT 38.4 % (34.0-46.0); Lymphocytes # (A) 1.1 k/uL (1.0-4.8); Lymphocytes % (A) 9 %; MCH 30.2 pg (25.0-35.0); MCHC 31.3 g/dL (31.0-37.0); MCV 96.5 fL (80.0-100.0); Mean Platelet Volume 7.4; Monocytes # (A) 0.4 k/uL (0-1.0); Monocytes % (A) 3 %; Neutrophils # (A) 9.9 k/uL (1.3-7.7); Neutrophils % (A) 87 %; Platelet Count 166 k/uL (150-450); RBC 3.98 m/uL (3.80-5.40); RDW 13.5 % (11.5-15.5); WBC 11.4 k/uL (3.8-10.6)
[2020-05-20 15:21] VITALS: BP 125/68; TEMP 98.4
--- NOTE | 2020-05-20 15:38 | P.DS ---
<Lesia Pruitt - Last Filed: 05/20/20 15:35> Providers Expected date of discharge: 05/20/20 Hospital Course: Discharge diagnosis 1. Chronic cholecystitis status post laparoscopic cholecystectomy Hospital course This is a 69-year-old female who had worsening right upper quadrant abdominal p ain. Ultrasound showed a positive John sign. No stones. Recent HIDA scan showed an elevated ejection fraction of 93%. Patient underwent laparoscopic cholecystectomy for chronic cholecystitis with Dr. Zuleta. Patient's nausea has resolved. She's had no vomiting. She tolerated diet. She is afebrile. She is passing gas. She's been up and ambulating. She is stable for discharge. Physician Benefits Representative note has been reviewed by physician. Signing provider agrees with the documented findings, assessment, and plan of care. Patient Condition at Discharge: Stable Plan - Discharge Summary Discharge Rx Participant: No New Discharge Prescriptions: New traMADol HCl [Ultram] 50 mg PO Q6H PRN #6 tab PRN Reason: Pain Continue Levothyroxine Sodium [Synthroid] 50 mcg PO DAILY Esomeprazole Magnesium [NexIUM] 40 mg PO HS ALPRAZolam [Xanax] 0.5 mg PO HS PRN PRN Reason: sleep Eszopiclone [Lunesta] 3 mg PO HS PRN PRN Reason: sleep Budesonide-Formot 160-4.5 Mcg [Symbicort 160-4.5 Mcg Inhaler] 2 puff INHALATION RT-BID PRN PRN Reason: Shortness Of Breath Aspirin EC [Ecotrin Low Dose] 81 mg PO DAILY Pitavastatin Calcium [Livalo] 2 mg PO HS Isosorbide Mononitrate ER [Imdur] 60 mg PO DAILY #30 tab.er.24h Cholecalciferol (Vitamin D3) [Vitamin D3] 2,000 unit PO DAILY Lidocaine 5% Patch [Lidoderm 5% Patch] 1 patch TOPICAL DAILY PRN PRN Reason: Pain Discharge Medication List ALPRAZolam [Xanax] 0.5 mg PO HS PRN 02/25/14 [History] Esomeprazole Magnesium [NexIUM] 40 mg PO HS 02/25/14 [History] Levothyroxine Sodium [Synthroid] 50 mcg PO DAILY 02/25/14 [History] Aspirin EC [Ecotrin Low Dose] 81 mg PO DAILY 06/27/14 [History] Budesonide-Formot 160-4.5 Mcg [Symbicort 160-4.5 Mcg Inhaler] 2 puff INHALATION RT-BID PRN 06/27/14 [History] Eszopiclone [Lunesta] 3 mg PO HS PRN 06/27/14 [History] Pitavastatin Calcium [Livalo] 2 mg PO HS 07/28/17 [History] Isosorbide Mononitrate ER [Imdur] 60 mg PO DAILY #30 tab.er.24h 07/29/17 [Rx] Cholecalciferol (Vitamin D3) [Vitamin D3] 2,000 unit PO DAILY 10/15/19 [History] Lidocaine 5% Patch [Lidoderm 5% Patch] 1 patch TOPICAL DAILY PRN 10/15/19 [History] traMADol HCl [Ultram] 50 mg PO Q6H PRN #6 tab 05/19/20 [Rx] Follow up Appointment(s)/Referral(s): Aaron Zuleta MD [Medical Doctor] - 05/28/20 1:45 pm Patient Instructions/Handouts: *[facility] - Laparoscopic Cholecystectomy Discharge Instructions, *[facility] - Managing Your Pain After Surgery Without Opioids, *[facility] - (Anesthesia) Discharge Instructions Outpatient Surgery, Laparoscopic Cholecystectomy (DC) Activity/Diet/Wound Care/Special Instructions: REST AND NO DRIVING THE NEXT COUPLE OF DAYS, NO HEAVY LIFTING, BENDING, OR STRAINING. CALL DR ZULETA IF ANY PROBLEMS. MAY SHOWER IN 24-48 HOURS. LEAVE THE GLUE IN PLACE TILL IT FALLS OFF. soft diet Discharge Disposition: HOME SELF-CARE <Aaron Zuleta - Last Filed: 05/20/20 17:13> Providers Attending physician: Aaron Zuleta Primary care physician: [facility] Course: As above. Patient doing well. May discharge. Follow-up one week.
== END 2020-05-20 16:38 | disposition home or self-care (01) ==
LOC: OR 07:23 → 1SOBS 10:24 → OR 05-20 16:38
PROVIDERS: ATTEND Surgery
DX: K81.1 Chronic cholecystitis (principal); K82.8 Other specified diseases of gallbladder; J44.9 Chronic obstructive pulmonary disease, unspecified; K21.9 Gastro-esophageal reflux disease without esophagitis; E07.9 Disorder of thyroid, unspecified; F41.9 Anxiety disorder, unspecified; Z87.19 Personal history of other diseases of the digestive system; M19.90 Unspecified osteoarthritis, unspecified site; Z91.041 Radiographic dye allergy status; Z88.5 Allergy status to narcotic agent; Z88.6 Allergy status to analgesic agent; Z88.8 Allergy status to other drugs, medicaments and biological substances; Z86.73 Personal history of transient ischemic attack (TIA), and cerebral infarction without residual deficits; Z79.82 Long term (current) use of aspirin; Z79.890 Hormone replacement therapy; Z79.899 Other long term (current) drug therapy; Z90.710 Acquired absence of both cervix and uterus; Z90.89 Acquired absence of other organs; Z98.890 Other specified postprocedural states; Z90.5 Acquired absence of kidney; Z87.891 Personal history of nicotine dependence; Z80.9 Family history of malignant neoplasm, unspecified
CPT/HCPCS: 94640 ×2; 88304; 80053; 85025; 47562; J2250; J1644; J1100; J2550; J2710; J0690; J2405; J2001; J3010; J2370; J0330; J2704; J1170

== ENCOUNTER 2020-05-21 00:48 | Inpatient (IN) | payer MEDICARE, BC ==
[2020-05-21] MEDS ORDERED: IPRATROPIUM-ALBUTEROL 3 ML NEB INHALATION STA (01:05)
[2020-05-21 01:36] LABS: Basophils % (A) 0 %; Eosinophils % (A) 0 %; HCT 39.7 % (34.0-46.0); HGB 12.6 gm/dL (11.4-16.0); Lymphocytes # (A) 1.9 k/uL (1.0-4.8); Lymphocytes % (A) 16 %; MCH 30.1 pg (25.0-35.0); MCHC 31.7 g/dL (31.0-37.0); MCV 94.9 fL (80.0-100.0); Mean Platelet Volume 7.5; Monocytes # (A) 0.5 k/uL (0-1.0); Monocytes % (A) 4 %; Neutrophils # (A) 9.6 k/uL (1.3-7.7); Neutrophils % (A) 79 %; Platelet Count 197 k/uL (150-450); RBC 4.18 m/uL (3.80-5.40); RDW 13.3 % (11.5-15.5); WBC 12.1 k/uL (3.8-10.6)
[2020-05-21 01:47] LABS: Albumin 3.7 g/dL (3.5-5.0); Calcium 9.5 mg/dL (8.4-10.2); Partial Thromboplastin Time 22.2 sec (22.0-30.0); Potassium 4.4 mmol/L (3.5-5.1); Total Bilirubin 0.8 mg/dL (0.2-1.3)
--- NOTE | 2020-05-21 01:57 | XR ---
EXAMINATION TYPE: XR chest 2V DATE OF EXAM: 05/21/2020 COMPARISON: 05/09/2019 HISTORY: Chest pain TECHNIQUE: 2 views FINDINGS: There is pulmonary interstitial edema. Heart size is within normal limits. Thoracic aorta i s atheromatous. There is very minimal pleural fluid. IMPRESSION: There is new pulmonary interstitial edema compared to old exam. This could be acute heart failure.
--- NOTE | 2020-05-21 02:05 | ED ---
General Adult HPI - General Chief complaint: GI Bleed Stated complaint: Post Op Abd Pain Source: patient Mode of arrival: ambulatory Limitations: no limitations - History of Present Illness Initial comments: Luciana is a pleasant 69-year-old female with a history of COPD who is 2 days postop from a nonemergent lap jonathan for biliary dyskinesia. Patient had some complications postop and spent one night in the hospital she was discharged home yesterday. Patient reports that she was doing okay she had some persistent shortness of breath. She states that last night she had a coughing episode and noted that she coughed up 3 pea-sized blood clots. She got these were likely due to being intubated or having a bloody nose postoperatively. However patient persistent shortness of breath anesthetic come the ER for evaluation. She denies any chest pain or palpitations. She does have some pain in her abdomen postoperatively but it's not worsening. No fevers or chills. No nausea vomiting or diarrhea. - Related Data Home Medications Medication Instructions Recorded Confirmed ALPRAZolam [Xanax] 0.5 mg PO HS PRN 02/25/14 05/19/20 Esomeprazole Magnesium [NexIUM] 40 mg PO HS 02/25/14 05/15/20 Levothyroxine Sodium [Synthroid] 50 mcg PO DAILY 02/25/14 05/15/20 Aspirin EC [Ecotrin Low Dose] 81 mg PO DAILY 06/27/14 05/15/20 Budesonide-Formot 160-4.5 Mcg 2 puff INHALATION RT-BID PRN 06/27/14 05/15/20 [Symbicort 160-4.5 Mcg Inhaler] Eszopiclone [Lunesta] 3 mg PO HS PRN 06/27/14 05/19/20 Pitavastatin Calcium [Livalo] 2 mg PO HS 07/28/17 05/15/20 Cholecalciferol (Vitamin D3) 2,000 unit PO DAILY 10/15/19 05/15/20 [Vitamin D3] Lidocaine 5% Patch [Lidoderm 5% 1 patch TOPICAL DAILY PRN 10/15/19 05/15/20 Patch] Previous Rx's Medication Instructions Recorded Isosorbide Mononitrate ER [Imdur] 60 mg PO DAILY #30 tab.er.24h 07/29/17 traMADol HCl [Ultram] 50 mg PO Q6H PRN #6 tab 05/19/20 Allergies Allergy/AdvReac Type Severity Reaction Status Date / Time albuterol Allergy Rapid Verified 05/21/20 00:54 Heart Rate barium sulfate Allergy Rash/Hives Verified 05/21/20 00:54 codeine phosphate Allergy Itching Verified 05/21/20 00:54 [From Tylenol-Codeine #3] Iodinated Contrast Media Allergy Rash/Hives Verified 05/21/20 00:54 [Iodinated Contrast Media - Oral and] nitrofurantoin Allergy Itching Verified 05/21/20 00:54 [From Macrobid] nitrofurantoin Allergy Itching Verified 05/21/20 00:54 macrocrystalline [From Macrobid] ibuprofen AdvReac ONLY HAS 1 Verified 05/21/20 00:54 KIDNEY-TOLD NEVER TO TAKE Review of Systems ROS Statement: Those systems with pertinent positive or pertinent negative responses have been documented in the HPI. ROS Other: All systems not noted in ROS Statement are negative. Past Medical History Past Medical History: Asthma, COPD, CVA/TIA, GERD/Reflux, Osteoarthritis (OA), Skin Disorder, Thyroid Disorder Additional Past Medical History / Comment(s): Heart palpitations, Varicose veins, Hx of kidney stones (only Lt kidney), diverticulitis, hiatal hernia, hemorrhoids, "under active gallbladder", sun damaged skin, pt states she had a TIA on 2015, History of Any Multi-Drug Resistant Organisms: None Reported Past Surgical History: Cholecystectomy, Hysterectomy, Orthopedic Surgery, Tonsillectomy Additional Past Surgical History / Comment(s): L and R foot surgery, right nephrectomy, laparascopy, skin lesions, rt hand trigger finger, rt shoulder rotator cuff, CALLUS REMOVED FROM LT SMALL TOE, COLONOSCOPY, BILAT CATARACTS REMOVED WITH LENS IMPLANTS Past Anesthesia/Blood Transfusion Reactions: No Reported Reaction Past Psychological History: Anxiety Smoking Status: Former smoker Past Alcohol Use History: None Reported Past Drug Use History: None Reported - Past Family History Father Family Medical History: Cancer General Exam - General Exam Comments Initial Comments: Physical Exam GENERAL: Patient is well-developed and well-nourished. Patient is nontoxic and well-hydrated and is in no distress. HENT: Normocephalic, Atraumatic. EYES: PERRL, EOMI PULMONARY: Expiratory wheezing in upper lung harmon Rales bilaterally CARDIOVASCULAR: There is a regular rate and rhythm without any murmurs gallops or rubs. ABDOMEN: Soft, minimal tenderness to palpation Non peritoneal SKIN: Well healing surgical incisions : Deferred NEUROLOGIC: Patient is alert and oriented x3. Moving all extremities spontaneously MUSCULOSKELETAL: Normal extremities with adequate strength and full range of motion. No lower extremity swelling or edema. No calf tenderness. PSYCHIATRIC: Normal psychiatric evaluation. Limitations: no limitations Course Vital Signs 05/21/20 05/21/20 05/21/20 00:51 01:11 01:29 Temperature 98.4 F Pulse Rate 84 65 Respiratory 18 Rate Blood Pressure 177/52 O2 Sat by Pulse 88 L Oximetry 05/21/20 05/21/20 01:38 02:13 Temperature Pulse Rate 80 Respiratory Rate Blood Pressure O2 Sat by Pulse 94 L Oximetry EKG Findings - EKG Comments: EKG Findings:: EKG was obtained due to findings of heart failure, EKG was obtained at 2:55 AM, rate is 82 rhythm is sinus, normal axis, normal intervals IL 130, QRS 86, QTC [address] elevations or depressions no evidence of acute ischemia or infarction. Medical Decision Making - Medical Decision Making The patient was seen and evaluated history is obtained from patient Patient was noted to be hypoxic with oxygen saturation of 86-87% she reports she checked her home pulse ox and noted that it was 70% Breathing treatment and workup was initiated Patient's suplemental oxygen was increased to 3 L Patient's oxygenation improved mildly after breathing treatment Chest x-rays concerning for pulmonary congestion acute heart failure Labs with mild leukocytosis, BNP is elevated at 3200 this is new for the patient likely related to fluid overload due to surgery Patient's advanced age and findings of heart failure we will plan to admit her for respiratory support, Lasix and evaluation by cardiology, patient is agreeable Patient care was discussed with Dr. Roman who agrees with plan for admission for postoperative congestive heart failure Cardiology, pulmonology and Gen. surgery will be consult for this patient - Lab Data Result diagrams: 05/21/20 01:07 05/21/20 01:07 Lab Results 05/21/20 05/21/20 05/21/20 Range/Units 01:07 01:07 01:07 WBC 12.1 H (3.8-10.6) k/uL RBC 4.18 (3.80-5.40) m/uL Hgb 12.6 (11.4-16.0) gm/dL Hct 39.7 (34.0-46.0) % MCV 94.9 (80.0-100.0) fL MCH 30.1 (25.0-35.0) pg MCHC 31.7 (31.0-37.0) g/dL RDW 13.3 (11.5-15.5) % Plt Count 197 (150-450) k/uL Neutrophils % 79 % Lymphocytes % 16 % Monocytes % 4 % Eosinophils % 0 % Basophils % 0 % Neutrophils # 9.6 H (1.3-7.7) k/uL Lymphocytes # 1.9 (1.0-4.8) k/uL Monocytes # 0.5 (0-1.0) k/uL Eosinophils # 0.0 (0-0.7) k/uL Basophils # 0.0 (0-0.2) k/uL PT 10.0 (9.0-12.0) sec INR 1.0 (<1.2) APTT 22.2 (22.0-30.0) sec Sodium 136 L (137-145) mmol/L Potassium 4.4 (3.5-5.1) mmol/L Chloride 104 (98-107) mmol/L Carbon Dioxide 27 (22-30) mmol/L Anion Gap 5 mmol/L BUN 19 H (7-17) mg/dL Creatinine 0.88 (0.52-1.04) mg/dL Est GFR (CKD-EPI)AfAm 77 (>60 ml/min/1.73 sqM) Est GFR (CKD-EPI)NonAf 67 (>60 ml/min/1.73 sqM) Glucose 95 (74-99) mg/dL Calcium 9.5 (8.4-10.2) mg/dL Total Bilirubin 0.8 (0.2-1.3) mg/dL AST 43 H (14-36) U/L ALT 33 (4-34) U/L Alkaline Phosphatase 58 (38-126) U/L Troponin I (0.000-0.034) ng/mL NT-Pro-B Natriuret Pep pg/mL Total Protein 6.0 L (6.3-8.2) g/dL Albumin 3.7 (3.5-5.0) g/dL 05/21/20 05/21/20 Range/Units 01:07 01:07 WBC (3.8-10.6) k/uL RBC (3.80-5.40) m/uL Hgb (11.4-16.0) gm/dL Hct (34.0-46.0) % MCV (80.0-100.0) fL MCH (25.0-35.0) pg MCHC (31.0-37.0) g/dL RDW (11.5-15.5) % Plt Count (150-450) k/uL Neutrophils % % Lymphocytes % % Monocytes % % Eosinophils % % Basophils % % Neutrophils # (1.3-7.7) k/uL Lymphocytes # (1.0-4.8) k/uL Monocytes # (0-1.0) k/uL Eosinophils # (0-0.7) k/uL Basophils # (0-0.2) k/uL PT (9.0-12.0) sec INR (<1.2) APTT (22.0-30.0) sec Sodium (137-145) mmol/L Potassium (3.5-5.1) mmol/L Chloride (98-107) mmol/L Carbon Dioxide (22-30) mmol/L Anion Gap mmol/L BUN (7-17) mg/dL Creatinine (0.52-1.04) mg/dL Est GFR (CKD-EPI)AfAm (>60 ml/min/1.73 sqM) Est GFR (CKD-EPI)NonAf (>60 ml/min/1.73 sqM) Glucose (74-99) mg/dL Calcium (8.4-10.2) mg/dL Total Bilirubin (0.2-1.3) mg/dL AST (14-36) U/L ALT (4-34) U/L Alkaline Phosphatase (38-126) U/L Troponin I 0.023 (0.000-0.034) ng/mL NT-Pro-B Natriuret Pep 3280 pg/mL Total Protein (6.3-8.2) g/dL Albumin (3.5-5.0) g/dL Disposition Clinical Impression: Heart failure, COPD (chronic obstructive pulmonary disease) with chronic bronchitis Disposition: ADMITTED IP TO THIS HOSP Condition: Stable
[2020-05-21] MEDS: FUROSEMIDE 10 MG/ML 4 ML VIAL IV SCH ×2 (03:03→14:48)
[2020-05-21] MEDS ORDERED: traMADol 50 MG TAB PO PRN (06:00)
[2020-05-21] MEDS: LEVOTHYROXINE 50 MCG TAB PO SCH (06:35)
[2020-05-21] MEDS ORDERED: ACETAMINOPHEN TAB 500 MG TAB PO STA (08:35)
[2020-05-21] MEDS: lisinopriL 10 MG TAB PO SCH ×2 (08:38→08:42)
[2020-05-21] MEDS: METOPROLOL TARTRATE 25 MG TAB PO SCH ×3 (08:38→20:13)
[2020-05-21] MEDS: ASPIRIN 81 MG PO SCH (08:38)
[2020-05-21] MEDS ORDERED: ISOSORBIDE MONONITRATE ER 60 MG TAB.ER.24H PO SCH (09:00)
[2020-05-21] MEDS ORDERED: IPRATROPIUM-ALBUTEROL 3 ML NEB INHALATION PRN (10:58)
[2020-05-21] MEDS ORDERED: FLUTICASONE 50MCG/SPRAY NASAL 16GM EA NOSTRIL PRN (11:20)
[2020-05-21] MEDS ORDERED: TEMAZEPAM 15 MG CAP PO PRN (11:21)
[2020-05-21] MEDS ORDERED: LIDOCAINE 5% PATCH TOPICAL PRN (11:21)
[2020-05-21] MEDS ORDERED: ISOSORBIDE MONONITRATE ER 30 MG TAB.ER.24H PO SCH (11:30)
--- NOTE | 2020-05-21 12:00 | ECHOF ---
Referral Reason:chf MEASUREMENTS -------- HEIGHT: 152.4 cm WEIGHT: 65.3 kg BP: RVIDd: 2.6 cm (< 3.3) IVSd: 0.7 cm (0.6 - 1.1) LVIDd: 3.8 cm (3.9 - 5.3) LVPWd: 1.1 cm (0.6 - 1.1) IVSs: 1.4 cm LVIDs: 2.7 cm LVPWs: 1.2 cm LA Diam: 3.8 cm (2.7 - 3.8) LAESV Index (A-L): 27.72 ml/m Ao Diam: 2.8 cm (2.0 - 3.7) AV Cusp: 1.9 cm (1.5 - 2.6) LA Diam: 3.9 cm (2.7 - 3.8) MV EXCURSION: 19.436 mm (> 18.000) MV EF SLOPE: 100 mm/s (70 - 150) EPSS: 0.2 cm MV E Raul: 0.64 m/s MV DecT: 199 ms MV A Raul: 0.72 m/s MV E/A Ratio: 0.89 RAP: 5.00 mmHg RVSP: 26.33 mmHg TAPSE: 21.17 mm FINDINGS -------- Sinus rhythm. This was a technically good study. LV size, wall thickness and systolic function are normal, with an EF greater than 55%. The left tyrell tricular size is normal. The diastolic filling pattern is normal for the age of the patient 9.53. The right ventricle is normal in size. The left atrial size is normal. Normal LA size by volume 22+/-6 ml/m2. The right atrial size is normal. Aortic valve is trileaflet and is mildly thickened. Mild mitral regurgitation is present. Mild tricuspid regurgitation present. Right ventricular systolic pressure is normal at < 35 mmHg. There is no pulmonic regurgitation present. The aortic root size is normal. There is no pericardial effusion. CONCLUSIONS -------- 1. LV size, wall thickness and systolic function are normal, with an EF greater than 55%. 2. The left ventricular size is normal. 3. The diastolic filling pattern is normal for the age of the patient 9.53 4. The right ventricle is normal in size. 5. The left atrial size is normal. 6. Normal LA size by volume 22+/-6 ml/m2. 7. The right atrial size is normal. 8. Aortic valve is trileaflet and is mildly thickened. 9. Mild mitral regurgitation is present. 10. Mild tricuspid regurgitation present. 11. There is no pericardial effusion. ENT CONSULTANT: Bijal Funk RDCS
--- NOTE | 2020-05-21 12:06 | P.GSCN ---
History of Present Illness Consult date: 05/21/20 Reason for Consult: Cholecystitis History of present illness: Patient underwent laparoscopic cholecystectomy 2 days ago. She was kept overnight because of nausea and pain. Yesterday she was discharged. Last night she had a episode of hematemesis where she coughed up to small clots. She began experiencing some chest pain and some shortness of breath. She came to the hospital for evaluation. Being treated currently for CHF. Feels much better currently. Denies any significant pain. Tolerating diet. Review of Systems The patient denies any acute changes in vision or hearing, no dysphagia or odynophagia, no dysuria or hematuria, no headache, no runny nose, no rectal bleeding or melena, no unexplained weight loss Past Medical History Past Medical History: Asthma, COPD, CVA/TIA, GERD/Reflux, Osteoarthritis (OA), Skin Disorder, Thyroid Disorder Additional Past Medical History / Comment(s): Heart palpitations, Varicose veins, Hx of kidney stones (only Lt kidney), diverticulitis, hiatal hernia, hemorrhoids, "under active gallbladder", sun damaged skin, pt states she had a TIA on 2015, History of Any Multi-Drug Resistant Organisms: None Reported Past Surgical History: Cholecystectomy, Hysterectomy, Orthopedic Surgery, Tonsillectomy Additional Past Surgical History / Comment(s): L and R foot surgery, right nephrectomy, laparascopy, skin lesions, rt hand trigger finger, rt shoulder rotator cuff, CALLUS REMOVED FROM LT SMALL TOE, COLONOSCOPY, BILAT CATARACTS REMOVED WITH LENS IMPLANTS Past Anesthesia/Blood Transfusion Reactions: No Reported Reaction Past Psychological History: Anxiety Smoking Status: Former smoker Past Alcohol Use History: None Reported Past Drug Use History: None Reported - Past Family History Father Family Medical History: Cancer Additional Family Medical History / Comment(s): Prostate cancer, brain tumor. Father is . Mother Family Medical History: Cancer, Renal Disease Additional Family Medical History / Comment(s): Mother when pt was 9yrs old and pt does not know much of mother's health hx. Mother had cancer-pt unaware of type, had kidney removed. Medications and Allergies Home Medications Medication Instructions Recorded Confirmed Type ALPRAZolam [Xanax] 0.75 mg PO HS PRN 02/25/14 05/21/20 History Levothyroxine Sodium [Synthroid] 50 mcg PO DAILY 02/25/14 05/21/20 History Aspirin EC [Ecotrin Low Dose] 81 mg PO DAILY 06/27/14 05/21/20 History Budesonide-Formot 160-4.5 Mcg 2 puff INHALATION RT-BID 06/27/14 05/21/20 History [Symbicort 160-4.5 Mcg Inhaler] Eszopiclone [Lunesta] 3 mg PO HS PRN 06/27/14 05/21/20 History Pitavastatin Calcium [Livalo] 2 mg PO HS 07/28/17 05/21/20 History Cholecalciferol (Vitamin D3) 2,000 unit PO DAILY 10/15/19 05/21/20 History [Vitamin D3] Lidocaine 5% Patch [Lidoderm 5% 1 patch TOPICAL DAILY PRN 10/15/19 05/21/20 Hi story Patch] traMADol HCl [Ultram] 50 mg PO Q6H PRN #6 tab 05/19/20 05/21/20 Rx Famotidine/Ca Carb/Mag Hydrox 1 tab PO BID PRN 05/21/20 05/21/20 History [Pepcid Complete Tablet Chew] Fluticasone Nasal [place] [Flonase 2 spr EA NOSTRIL DAILY PRN 05/21/20 05/21/20 History Nasal [place]] Isosorbide Mononitrate ER [Imdur] 30 mg PO DAILY 05/21/20 05/21/20 History Levalbuterol HCl [Xopenex] 1.25 mg INHALATION RT-QID PRN 05/21/20 05/21/20 History Levalbuterol Hfa Inhaler [Xopenex 2 puff INHALATION RT-Q6H PRN 05/21/20 05/21/20 History Hfa Inhaler] Loratadine [Claritin] 10 mg PO DAILY 05/21/20 05/21/20 History Montelukast [Singulair] 10 mg PO HS 05/21/20 05/21/20 History Allergies Allergy/AdvReac Type Severity Reaction Status Date / Time barium sulfate Allergy Rash/Hives Verified 05/21/20 07:27 Iodinated Contrast Media Allergy Rash/Hives Verified 05/21/20 07:27 [Iodinated Contrast Media - Oral and] albuterol AdvReac Rapid Verified 05/21/20 07:27 Heart Rate codeine phosphate AdvReac Itching Verified 05/21/20 07:27 [From Tylenol-Codeine #3] ibuprofen AdvReac ONLY HAS 1 Verified 05/21/20 07:27 KIDNEY-TOLD NEVER TO TAKE nitrofurantoin AdvReac Itching Verified 05/21/20 07:27 [From Macrobid] nitrofurantoin AdvReac Itching Verified 05/21/20 07:27 macrocrystalline [From Macrobid] Surgical - Exam Vital Signs Pulse Resp BP Pulse Ox 84 18 177/52 88 L 05/21/20 00:51 05/21/20 00:51 05/21/20 00:51 05/21/20 00:51 Physical exam: General: Well-developed, well-nourished HEENT: Normocephalic, sclerae nonicteric Abdomen: Mild incisional tenderness, incisions clean and dry, nondistended Extremities: No edema Neuro: Alert and oriented Results - Labs 05/21/20 01:07 05/21/20 01:07 Abnormal Lab Results - Last 24 Hours (Table) 05/21/20 05/21/20 Range/Units 01:07 01:07 WBC 12.1 H (3.8-10.6) k/uL Neutrophils # 9.6 H (1.3-7.7) k/uL Sodium 136 L (137-145) mmol/L BUN 19 H (7-17) mg/dL AST 43 H (14-36) U/L Total Protein 6.0 L (6.3-8.2) g/dL Diabetes panel 05/21/20 Range/Units 01:07 Sodium 136 L (137-145) mmol/L Potassium 4.4 (3.5-5.1) mmol/L Chloride 104 (98-107) mmol/L Carbon Dioxide 27 (22-30) mmol/L BUN 19 H (7-17) mg/dL Creatinine 0.88 (0.52-1.04) mg/dL Glucose 95 (74-99) mg/dL Calcium 9.5 (8.4-10.2) mg/dL AST 43 H (14-36) U/L ALT 33 (4-34) U/L Alkaline Phosphatase 58 (38-126) U/L Total Protein 6.0 L (6.3-8.2) g/dL Albumin 3.7 (3.5-5.0) g/dL Calcium panel 05/21/20 Range/Units 01:07 Calcium 9.5 (8.4-10.2) mg/dL Albumin 3.7 (3.5-5.0) g/dL Pituitary panel 05/21/20 Range/Units 01:07 Sodium 136 L (137-145) mmol/L Potassium 4.4 (3.5-5.1) mmol/L Chloride 104 (98-107) mmol/L Carbon Dioxide 27 (22-30) mmol/L BUN 19 H (7-17) mg/dL Creatinine 0.88 (0.52-1.04) mg/dL Glucose 95 (74-99) mg/dL Calcium 9.5 (8.4-10.2) mg/dL Adrenal panel 05/21/20 Range/Units 01:07 Sodium 136 L (137-145) mmol/L Potassium 4.4 (3.5-5.1) mmol/L Chloride 104 (98-107) mmol/L Carbon Dioxide 27 (22-30) mmol/L BUN 19 H (7-17) mg/dL Creatinine 0.88 (0.52-1.04) mg/dL Glucose 95 (74-99) mg/dL Calcium 9.5 (8.4-10.2) mg/dL Total Bilirubin 0.8 (0.2-1.3) mg/dL AST 43 H (14-36) U/L ALT 33 (4-34) U/L Alkaline Phosphatase 58 (38-126) U/L Total Protein 6.0 L (6.3-8.2) g/dL Albumin 3.7 (3.5-5.0) g/dL Assessment and Plan (1) Cholecystitis Narrative/Plan: Overall patient doing fairly well. Continue low-fat diet. Await pulmonary and cardiac evaluation. We'll follow. Current Visit: Yes Status: Acute Code(s): K81.9 - CHOLECYSTITIS, UNSPECIFIED SNOMED Code(s): 77838068
[2020-05-21] MEDS: PANTOPRAZOLE 40 MG/10 ML VIAL IVP SCH (12:31)
--- NOTE | 2020-05-21 12:55 | P.HPIM ---
History of Present Illness H&P Date: 05/21/20 Chief Complaint: Shortness of breath This is a 69-year-old female with history of asthma, COPD, CVA/TIA, gastroesophageal reflux disease, osteoarthritis, right nephrectomy hypo thyroidism, anxiety, chronic hypoxic respiratory failureuses 1-2 L nasal cannula oxygen at night, former nicotine dependent, CAD, recent laparoscopic cholecystectomy .Patient reports she felt great on the day of discharge, later in the evening she proceeded to cough up 4 small sized blood clots-brown in color and attributed those to her postop nosebleed, went to bed and awakened by worsening shortness of breath, accompanied by coughing. On arrival to the ER ,O2 sat was 88% on room air, hypertensive with systolic blood pressure in the 170s. Denies any chest pain, palpitations. Denies lightheadedness, dizziness or focal deficits. Denies nausea vomiting or diarrhea. Reports surgical tenderness, no abdominal pain. Denies fever, chills. Denies cough congestion. BNP 3280. Chest x-ray reported new pulmonary interstitial edema, possible CHF. Echo ordered. EKG reported sinus rhythm with fusion complexes. Troponin 0.023. Afebrile, WBC 12.1, neutrophils 9.6. Hemoglobin 12.6, platelets 197, coagulation unremarkable, sodium 136 potassium 4.4, BUN 19, creatinine 0.88. T bili and LFTs within normal limits with the exception of mild elevation of AST,43. Received supplemental oxygen, nebulized bronchodilators, with IV push diuretics Initiated. Review of Systems ROS Statement: Those systems with pertinent positive or pertinent negative responses have been documented in the HPI. ROS Other: All systems not noted in ROS Statement are negative. Past Medical History Past Medical History: Asthma, COPD, CVA/TIA, GERD/Reflux, Osteoarthritis (OA), Skin Disorder, Thyroid Disorder Additional Past Medical History / Comment(s): Heart palpitations, Varicose veins, Hx of kidney stones (only Lt kidney), diverticulitis, hiatal hernia, hemorrhoids, "under active gallbladder", sun damaged skin, pt states she had a TIA on 2015, History of Any Multi-Drug Resistant Organisms: None Reported Past Surgical History: Cholecystectomy, Hysterectomy, Orthopedic Surgery, Tonsillectomy Additional Past Surgical History / Comment(s): L and R foot surgery, right nephr ectomy, laparascopy, skin lesions, rt hand trigger finger, rt shoulder rotator cuff, CALLUS REMOVED FROM LT SMALL TOE, COLONOSCOPY, BILAT CATARACTS REMOVED WITH LENS IMPLANTS Past Anesthesia/Blood Transfusion Reactions: No Reported Reaction Past Psychological History: Anxiety Smoking Status: Former smoker Past Alcohol Use History: None Reported Past Drug Use History: None Reported - Past Family History Father Family Medical History: Cancer Mother Family Medical History: Cancer, Renal Disease Additional Family Medical History / Comment(s): Mother when pt was 9yrs old and pt does not know much of mother's health hx. Mother had cancer-pt unaware of type, had kidney removed. Medications and Allergies Home Medications Medication Instructions Recorded Confirmed Type ALPRAZolam [Xanax] 0.75 mg PO HS PRN 02/25/14 05/21/20 History Levothyroxine Sodium [Synthroid] 50 mcg PO DAILY 02/25/14 05/21/20 History Aspirin EC [Ecotrin Low Dose] 81 mg PO DAILY 06/27/14 05/21/20 History Budesonide-Formot 160-4.5 Mcg 2 puff INHALATION RT-BID 06/27/14 05/21/20 History [Symbicort 160-4.5 Mcg Inhaler] Eszopiclone [Lunesta] 3 mg PO HS PRN 06/27/14 05/21/20 History Pitavastatin Calcium [Livalo] 2 mg PO HS 07/28/17 05/21/20 History Cholecalciferol (Vitamin D3) 2,000 unit PO DAILY 10/15/19 05/21/20 History [Vitamin D3] Lidocaine 5% Patch [Lidoderm 5% 1 patch TOPICAL DAILY PRN 10/15/19 05/21/20 History Patch] traMADol HCl [Ultram] 50 mg PO Q6H PRN #6 tab 05/19/20 05/21/20 Rx Famotidine/Ca Carb/Mag Hydrox 1 tab PO BID PRN 05/21/20 05/21/20 History [Pepcid Complete Tablet Chew] Fluticasone Nasal [place] [Flonase 2 spr EA NOSTRIL DAILY PRN 05/21/20 05/21/20 History Nasal [place]] Isosorbide Mononitrate ER [Imdur] 30 mg PO DAILY 05/21/20 05/21/20 History Levalbuterol HCl [Xopenex] 1.25 mg INHALATION RT-QID PRN 05/21/20 05/21/20 History Levalbuterol Hfa Inhaler [Xopenex 2 puff INHALATION RT-Q6H PRN 05/21/20 05/21/20 History Hfa Inhaler] Loratadine [Claritin] 10 mg PO DAILY 05/21/20 05/21/20 History Montelukast [Singulair] 10 mg PO HS 05/21/20 05/21/20 History Allergies Allergy/AdvReac Type Severity Reaction Status Date / Time barium sulfate Allergy Rash/Hives Verified 05/21/20 07:27 Iodinated Contrast Media Allergy Rash/Hives Verified 05/21/20 07:27 [Iodinated Contrast Media - Oral and] albuterol AdvReac Rapid Verified 05/21/20 07:27 Heart Rate codeine phosphate AdvReac Itching Verified 05/21/20 07:27 [From Tylenol-Codeine #3] ibuprofen AdvReac ONLY HAS 1 Verified 05/21/20 07:27 KIDNEY-TOLD NEVER TO TAKE nitrofurantoin AdvReac Itching Verified 05/21/20 07:27 [From Macrobid] nitrofurantoin AdvReac Itching Verified 05/21/20 07:27 macrocrystalline [From Macrobid] Physical Exam Vitals: Vital Signs Temp Pulse Resp BP Pulse Ox 05/21/20 08:39 82 18 120/52 94 L 05/21/20 07:57 98.3 F 82 16 132/92 93 L 05/21/20 02:13 94 L 05/21/20 01:38 80 05/21/20 01:29 65 05/21/20 01:11 98.4 F 05/21/20 00:51 84 18 177/52 88 L Intake and Output 05/20/20 05/21/20 05/21/20 22:59 06:59 14:59 Other: Weight 65.317 kg PHYSICAL EXAM: VITAL SIGNS: As above GENERAL: Sitting up in stretcher, no acute distress HEENT: Conjunctivae normal. eyes normal. NECK: No JVD. No thyroid enlargement. No LNs CARDIOVASCULAR: S1, S2 regular. No murmur RESPIRATION: Breath sounds diminished in the bases. No rhonchi , fine bibasilar crackles worse on the left. No bronchial breathing. ABDOMEN: Soft, status post laparoscopic surgery , laparoscopic sites clean ,dry, well approximated.surgical tenderness .No guarding.Bowel sounds heard. LEGS: Mild lower extremity edema, no calf tenderness. PSYCHIATRY: Alert and oriented X3, mood and affect normal. NERVOUS SYSTEM: Cranial N 2-12 grossly normal. Moves all 4 limbs. No focal deficits. Strength and sensation grossly intact.. Skin: Warm and dry, no rash Lymphatic system. No LN neck axilla. Results CBC & Chem 7: 05/21/20 01:07 05/21/20 01:07 Labs: Abnormal Lab Results - Last 24 Hours (Table) 05/21/20 05/21/20 Range/Units 01:07 01:07 WBC 12.1 H (3.8-10.6) k/uL Neutrophils # 9.6 H (1.3-7.7) k/uL Sodium 136 L (137-145) mmol/L BUN 19 H (7-17) mg/dL AST 43 H (14-36) U/L Total Protein 6.0 L (6.3-8.2) g/dL Assessment and Plan Assessment: Worsening shortness of breath, dyspnea, suspect acute CHF exacerbation secondary to fluid overload from recent surgery, possible COPD with bronchitis Acute on chronic hypoxic respiratory failure secondary to the above Recent laparoscopic cholecystectomy for chronic cholecystitis Chronic intermittent asthma History of CVA, TIA Gastroesophageal reflux disease Osteoarthritis Hypothyroidism History of right nephrectomy Anxiety Former nicotine dependence Plan: Continue on current medication regime ,monitoring and symptomatic treatment. Maintain diuresing. Close monitoring of renal function, electrolytes with repeat labs ordered for a.m. nebulized bronchodilators ordered. Aggressive pulmonary toileting with incentive spirometer ordered. Cardiology, pulmonary and surgery consults in place, recommendations pending. The impression and plan of care has been dictated as directed. : I performed a history and examination of this patient, discussed the same with the dictator. I agree with the dictator's note ,documented as a scribe. Any additional findings or plans will be noted.
--- NOTE | 2020-05-21 13:39 | CT ---
EXAMINATION TYPE: CT angio chest DATE OF EXAM: 05/21/2020 COMPARISON: Chest CT August 21, 2019 and older CTs HISTORY: Heart failure CT DLP: 286.7 mGycm. Automated Exposure Control for Dose Reduction was Utilized. CONTRAST: CTA scan of the thorax is performed with IV Contrast, patient injected with 100, wasted 40 ml mL of I sovue 370, pulmonary embolism protocol. MIP Images are created on CT scanner and reviewed. FINDINGS: LUNGS: There is increasing peripheral reticulation and fibrotic change bilaterally. There are additio nal multifocal areas of groundglass opacity throughout both lungs greatest in the lower lobes bilater ally well seen. No pleural effusion or pneumothorax. MEDIASTINUM: There is satisfactory enhancement of the pulmonary artery and its branches, there is no CT evidence for pulmonary embolism. There are no greater than 1 cm hilar or mediastinal lymph nodes. No cardiomegaly or pericardial effusion is seen. Small-sized thyroid OTHER: Cholecystectomy clips. IMPRESSION: 1. No CTA evidence for acute pulmonary embolism. 2. Worsening pulmonary fibrotic changes from most recent CT. New or worsening central multifocal grou ndglass opacities. Suspect acute infectious process including atypical infections on background chron ic fibrotic changes. Correlate clinically.
--- NOTE | 2020-05-21 15:12 | P.CRDCN ---
History of Present Illness Consult date: 05/21/20 Consult reason: shortness of breath Chief complaint: Shortness of breath History of present illness: This is a pleasant 69-year-old female who follows regularly with Dr. Mejia in the office. She has a known history of peripheral vascular disease, hyperlipidemia, carotid disease, COPD, hypothyroidism, prior TIA, patient also has history of cardiac catheterization in 2017 which revealed mild LAD and mild circumflex disease. She underwent a laparoscopic cholecystectomy on the of this month, went home and overall was feeling well. She states that she developed a cough, on 2 separate occasions coughed up a blood clot. She gave Dr. rivas a call, he asked her she was having any shortness of breath and at that time she denied having any. Shortly thereafter however patient states that she started to become quite short of breath and concerned, and came to the emergency room for further evaluation and treatment. Patient does state that she's been getting some left-sided chest pressure as well with or without exertion over the past couple of weeks. Her EKG on presentation here shows a normal sinus rhythm with no acute changes. Chest x-ray did show new pulmonary edema. Her blood pressure 132/90, heart rate in the 80s, respirations 16, temperature 98.3. Sodium 135 on admission, potassium 4.8, BUN 13, creatinine 0.7. White blood cell count 11.4, hemoglobin 12.0, platelet count 166. Troponin 0.023, BNP level 3280. A d-dimer was drawn which came back to be 0.9. Patient then underwent a CTA which did not reveal any evidence of a pulmonary embolism. It did show some worsening pulmonary fibrotic changes from most recent CT. She also had an echocardiogram with Doppler study performed which revealed a normal left ventricular systolic function, no evidence of pericardial effusion. At the time of my examination in the emergency room, patient states that her breathing was improving, however she had not ambulated much. She has been diuresing well on IV Lasix. She continues at this time to be on IV Lasix, baby aspirin, Imdur 60 mg daily, lisinopril 10 mg daily and metoprolol 25 mg one tablet by mouth twice a day. Past Medical History Past Medical History: Asthma, COPD, CVA/TIA, GERD/Reflux, Osteoarthritis (OA), Skin Disorder, Thyroid Disorder Additional Past Medical History / Comment(s): Heart palpitations, Varicose veins, Hx of kidney stones (only Lt kidney), diverticulitis, hiatal hernia, hemorrhoids, "under active gallbladder", sun damaged skin, pt states she had a TIA on 2015, History of Any Multi-Drug Resistant Organisms: None Reported Past Surgical History: Cholecystectomy, Hysterectomy, Orthopedic Surgery, Tonsillectomy Additional Past Surgical History / Comment(s): L and R foot surgery, right nephrectomy, laparascopy, skin lesions, rt hand trigger finger, rt shoulder rotator cuff, CALLUS REMOVED FROM LT SMALL TOE, COLONOSCOPY, BILAT CATARACTS REMOVED WITH LENS IMPLANTS Past Anesthesia/Blood Transfusion Reactions: No Reported Reaction Past Psychological History: Anxiety Smoking Status: Former smoker Past Alcohol Use History: None Reported Past Drug Use History: None Reported - Past Family History Father Family Medical History: Cancer Additional Family Medical History / Comment(s): Prostate cancer, brain tumor. Father is . Mother Family Medical History: Cancer, Renal Disease Additional Family Medical History / Comment(s): Mother when pt was 9yrs old and pt does not know much of mother's health hx. Mother had cancer-pt unaware of type, had kidney removed. Medications and Allergies Home Medications Medication Instructions Recorded Confirmed Type ALPRAZolam [Xanax] 0.75 mg PO HS PRN 02/25/14 05/21/20 History Levothyroxine Sodium [Synthroid] 50 mcg PO DAILY 02/25/14 05/21/20 History Aspirin EC [Ecotrin Low Dose] 81 mg PO DAILY 06/27/14 05/21/20 History Budesonide-Formot 160-4.5 Mcg 2 puff INHALATION RT-BID 06/27/14 05/21/20 History [Symbicort 160-4.5 Mcg Inhaler] Eszopiclone [Lunesta] 3 mg PO HS PRN 06/27/14 05/21/20 History Pitavastatin Calcium [Livalo] 2 mg PO HS 07/28/17 05/21/20 History Cholecalciferol (Vitamin D3) 2,000 unit PO DAILY 10/15/19 05/21/20 History [Vitamin D3] Lidocaine 5% Patch [Lidoderm 5% 1 patch TOPICAL DAILY PRN 10/15/19 05/21/20 History Patch] traMADol HCl [Ultram] 50 mg PO Q6H PRN #6 tab 05/19/20 05/21/20 Rx Famotidine/Ca Carb/Mag Hydrox 1 tab PO BID PRN 05/21/20 05/21/20 History [Pepcid Complete Tablet Chew] Fluticasone Nasal [place] [Flonase 2 spr EA NOSTRIL DAILY PRN 05/21/20 05/21/20 History Nasal [place]] Isosorbide Mononitrate ER [Imdur] 30 mg PO DAILY 05/21/20 05/21/20 History Levalbuterol HCl [Xopenex] 1.25 mg INHALATION RT-QID PRN 05/21/20 05/21/20 History Levalbuterol Hfa Inhaler [Xopenex 2 puff INHALATION RT-Q6H PRN 05/21/20 05/21/20 History Hfa Inhaler] Loratadine [Claritin] 10 mg PO DAILY 05/21/20 05/21/20 History Montelukast [Singulair] 10 mg PO HS 05/21/20 05/21/20 History Allergies Allergy/AdvReac Type Severity Reaction Status Date / Time barium sulfate Allergy Rash/Hives Verified 05/21/20 07:27 Iodinated Contrast Media Allergy Rash/Hives Verified 05/21/20 07:27 [Iodinated Contrast Media - Oral and] albuterol AdvReac Rapid Verified 05/21/20 07:27 Heart Rate codeine phosphate AdvReac Itching Verified 05/21/20 07:27 [From Tylenol-Codeine #3] ibuprofen AdvReac ONLY HAS 1 Verified 05/21/20 07:27 KIDNEY-TOLD NEVER TO TAKE nitrofurantoin AdvReac Itching Verified 05/21/20 07:27 [From Macrobid] nitrofurantoin AdvReac Itching Verified 05/21/20 07:27 macrocrystalline [From Macrobid] Physical Exam Vitals: Vital Signs Temp Pulse Pulse Resp BP BP Pulse Ox 05/21/20 14:46 70 16 123/63 98 05/21/20 11:25 73 18 115/60 95 05/21/20 10:30 75 16 132/62 05/21/20 10:00 70 16 151/62 05/21/20 09:30 76 16 151/62 05/21/20 09:27 80 16 151/62 94 L 05/21/20 09:00 74 16 120/52 05/21/20 08:39 82 18 120/52 94 L 05/21/20 08:30 75 16 121/46 05/21/20 08:00 76 16 132/92 05/21/20 07:57 98.3 F 82 16 132/92 93 L 05/21/20 07:30 153/70 05/21/20 07:00 153/70 05/21/20 06:30 153/70 05/21/20 06:00 153/70 05/21/20 05:30 153/70 05/21/20 05:00 153/70 05/21/20 04:30 153/70 05/21/20 04:00 153/70 05/21/20 03:30 153/70 05/21/20 03:00 153/70 88 L 05/21/20 02:30 153/70 88 L 05/21/20 02:13 94 L 05/21/20 02:00 153/70 95 05/21/20 01:38 80 05/21/20 01:30 153/70 94 L 05/21/20 01:29 65 05/21/20 01:11 98.4 F 05/21/20 01:00 88 L 05/21/20 00:51 84 18 177/52 88 L Intake and Output 05/21/20 05/21/20 05/21/20 06:59 14:59 22:59 Intake Total 200 Balance 200 Intake: Oral 200 Other: Weight 65.317 kg 65.317 kg PHYSICAL EXAMINATION: GENERAL: 69-year-old female in no acute distress at the time of my examination HEENT: Head is atraumatic, normocephalic. Pupils equal, round. Sclera anicteric. Conjunctiva are clear. Mucous membranes of the mouth are moist. Neck is supple. There is no elevated jugular venous pressure. No carotid bruit is heard. HEART EXAMINATION: Heart S1 S2 1 systolic ejection murmur is heard CHEST EXAMINATION: Lungs reveal diminished air entry to the bases bilaterally ABDOMEN: Soft, nontender. Bowel sounds are heard. No organomegaly noted. EXTREMITIES: 2+ peripheral pulses with no evidence of peripheral edema and no calf tenderness noted. NEUROLOGIC patient is awake, alert and oriented 3 . Results 05/21/20 01:07 05/21/20 01:07 Cardiac Enzymes 05/21/20 05/21/20 05/21/20 Range/Units 01:07 01:07 11:43 AST 43 H (14-36) U/L Troponin I 0.023 0.019 (0.000-0.034) ng/mL Coagulation 05/21/20 Range/Units 01:07 PT 10.0 (9.0-12.0) sec APTT 22.2 (22.0-30.0) sec CBC 05/21/20 Range/Units 01:07 WBC 12.1 H (3.8-10.6) k/uL RBC 4.18 (3.80-5.40) m/uL Hgb 12.6 (11.4-16.0) gm/dL Hct 39.7 (34.0-46.0) % Plt Count 197 (150-450) k/uL Comprehensive Metabolic Panel 05/21/20 Range/Units 01:07 Sodium 136 L (137-145) mmol/L Potassium 4.4 (3.5-5.1) mmol/L Chloride 104 (98-107) mmol/L Carbon Dioxide 27 (22-30) mmol/L BUN 19 H (7-17) mg/dL Creatinine 0.88 (0.52-1.04) mg/dL Glucose 95 (74-99) mg/dL Calcium 9.5 (8.4-10.2) mg/dL AST 43 H (14-36) U/L ALT 33 (4-34) U/L Alkaline Phosphatase 58 (38-126) U/L Total Protein 6.0 L (6.3-8.2) g/dL Albumin 3.7 (3.5-5.0) g/dL Current Medications Generic Name Dose Route Start Last Admin Trade Name Freq PRN Reason Stop Dose Admin Albuterol/Ipratropium 3 ml 05/21/20 12:00 Ipratropium-Albuterol 3 Ml Neb INHALATION RT-QID MAURICE Albuterol/Ipratropium 3 ml 05/21/20 10:58 Ipratropium-Albuterol 3 Ml Neb INHALATION RT-Q2H PRN Shortness Of Breath Or Wheezing Alprazolam 0.75 mg 05/21/20 11:21 Alprazolam 0.5 Mg Tab PO HS PRN sleep Aspirin 81 mg 05/21/20 09:00 05/21/20 08:38 Aspirin 81 Mg PO 81 mg DAILY MAURICE Administration Atorvastatin Calcium 10 mg 05/21/20 21:00 Atorvastatin 10 Mg Tab PO HS [facility] Budesonide/Formoterol Fumarate 2 puff 05/21/20 11:30 Symbicort 160-4.5 Mcg Inhaler INHALATION RT-BID [facility] Cholecalciferol 2,000 unit 05/22/20 09:00 Cholecalciferol 1,000 Unit Tab PO DAILY [facility] Fluticasone Propionate 2 spray 05/21/20 11:20 Fluticasone 50mcg/[place] Nasal 16gm EA NOSTRIL DAILY PRN Congestion Furosemide 40 mg 05/21/20 02:30 05/21/20 14:48 Furosemide 10 Mg/Ml 4 Ml Vial IV 40 mg Q12H [facility] Administration Isosorbide Mononitrate 30 mg 05/22/20 09:00 Isosorbide Mononitrate Er 30 Mg Tab.Er.24h PO DAILY [facility] Levothyroxine Sodium 50 mcg 05/21/20 06:30 05/21/20 06:35 Levothyroxine 50 Mcg Tab PO 50 mcg DAILY@0630 [facility] Administration Lidocaine 1 patch 05/21/20 11:21 Lidocaine 5% Patch TOPICAL DAILY PRN Pain Lisinopril 10 mg 05/21/20 09:00 05/21/20 08:42 Lisinopril 10 Mg Tab PO Not Given DAILY [facility] Loratadine 10 mg 05/22/20 09:00 Loratadine 10 Mg Tab PO DAILY [facility] Metoprolol Tartrate 25 mg 05/21/20 09:00 05/21/20 08:41 Metoprolol Tartrate 25 Mg Tab PO Not Given BID [facility] Montelukast Sodium 10 mg 05/21/20 21:00 Montelukast 10 Mg Tab PO HS [facility] Pantoprazole Sodium 40 mg 05/21/20 11:00 05/21/20 12:31 Pantoprazole 40 Mg/10 Ml Vial IVP 40 mg DAILY [facility] Administration Temazepam 15 mg 05/21/20 11:21 Temazepam 15 Mg Cap PO HS PRN sleep Tramadol HCl 50 mg 05/21/20 06:00 Tramadol 50 Mg Tab PO Q6H PRN Pain Intake and Output 05/21/20 05/21/20 05/21/20 06:59 14:59 22:59 Intake Total 200 Balance 200 Intake: Oral 200 Other: Weight 65.317 kg 65.317 kg Patient Weight 05/22/20 06:59 Weight 65.317 kg 05/21/20 01:07 05/21/20 01:07 EKG Interpretations (text) EKG shows a normal sinus rhythm with nonspecific ST-T wave changes Assessment and Plan Plan: Assessment and plan #1 diastolic congestive heart failure acute on chronic #2 recent laparoscopic cholecystectomy #3 hyperlipidemia #4 peripheral vascular disease # 5Family history of premature coronary artery disease #6 history of nicotine dependence #7 mild coronary artery disease by cardiac catheterization performed in 2017 #8 hypertension Plan We will continue current dose of IV Lasix, continue to monitor the intake and output along with daily weights and daily lytes BUN and creatinine. We will also order 2 subsequent troponins. Further recommendations to follow. DNP note has been reviewed, I agree with a documented findings and plan of care. Patient was seen and examined.
[2020-05-21] MEDS: SYMBICORT 160-4.5 MCG INHALER INHALATION SCH ×2 (15:56→19:38)
[2020-05-21] MEDS: IPRATROPIUM-ALBUTEROL 3 ML NEB INHALATION SCH ×3 (15:56→19:38)
[2020-05-21] MEDS ORDERED: SYMBICORT 160-4.5 MCG INHALER INHALATION SCH (20:00)
[2020-05-21] MEDS: ATORVASTATIN 10 MG TAB PO SCH (20:13)
[2020-05-21] MEDS: ALPRAZolam 0.5 MG TAB PO PRN (20:13)
[2020-05-21] MEDS: MONTELUKAST 10 MG TAB PO SCH (20:13)
--- NOTE | 2020-05-21 23:10 | CONS ---
CONSULTATION PULMONARY/CRITICAL CARE CONSULTATION: DATE OF SERVICE: 05/21/2020 This is a patient who presented to the emergency room on May 21. The patient apparently came in with complaints of shortness of breath and coughing up blood. The patient states that she coughed up blood 4 times. There were small dark brown or red clots. She was also very very short of breath. The patient had a laparoscopic cholecystectomy with Dr. Aaron Thorne on Tuesday. She stayed overnight and was discharged home on Tuesday. When she got home, she hopped into bed and then she developed shortness of breath and coughing up of blood, which caused her to come back into the hospital to be evaluated. She has been in the ER pretty much all day, waiting for a bed on the floor. Other than that, she is doing reasonably well. She denies any fever or chills. She is feeling much better now. She denies any chest pain or chest discomfort. The patient has never coughed up blood before. Chest x-ray and CT scan suggest some interstitial changes, possibly interstitial edema as well as some ground-glass changes. The patient did not have a pulmonary embolism. Other than that, the patient is doing reasonably well. Again, she is feeling much better now than she did when she first came into the emergency room. The patient was admitted to room 374. This is where I saw her. HOME MEDICATIONS: Home medications are reviewed. She is on Xanax, Nexium, Synthroid, Ecotrin, Symbicort, Lunesta, Livalo, vitamin D3, lidocaine patch and Imdur. ALLERGIES: ALLERGIES include ALBUTEROL, BARIUM, CODEINE, IVP DYE, MACROBID and IBUPROFEN. MEDICAL HISTORY: Medical history is positive for a mild case of asthma and COPD. She sees my partner Dr. White for that. She does use oxygen, only at nighttime. Other medical history includes CVA, GERD, osteoarthritis, hypothyroidism, varicose veins, palpitations, kidney stones, diverticular disease, hiatal hernia, hemorrhoids and sun-damaged skin. SURGICAL HISTORY: Surgical history includes cholecystectomy, hysterectomy, tonsillectomy, left and right foot surgery, right nephrectomy, right hand trigger finger release, right rotator cuff surgery, colonoscopy, bilateral cataract surgery with lens implants. SOCIAL HISTORY: Positive for previous tobacco use. She denies any alcohol or illicit drug use. FAMILY HISTORY: Positive for father with cancer. REVIEW OF SYSTEMS: CONSTITUTIONAL: Negative. NEUROLOGIC: Negative. HEENT: Negative. CARDIOVASCULAR: Negative. PULMONARY: Shortness of breath and hemoptysis. GI: Abdominal pain from recent laparoscopic cholecystectomy. : Negative. RHEUMATOLOGIC: Negative. IMMUNOLOGIC: Negative. ENDOCRINOLOGIC: Negative. DERMATOLOGIC: Negative. PHYSICAL EXAMINATION: VITAL SIGNS: Current vital signs are reviewed. Temperature is 98.3, heart rate is 80, respiratory rate 16, blood pressure 123/63, mean 83, two-liter saturation 98%. GENERAL APPEARANCE: She appears in absolutely no distress. There is no conversational dyspnea, use of accessory muscles or audible wheezing. HEENT: Examination is grossly unremarkable. NECK: Supple. Full range of motion. No adenopathy. Neck veins are flat. CARDIOVASCULAR: Examination reveals a regular rhythm and rate. S1, S2 normal. Heart rate about 80 beats per minute. No murmur. LUNGS: Lungs reveal a few scattered crackles at the bases. No wheezes. A few scattered rhonchi. Breath sounds equal bilaterally. ABDOMEN: Soft. Bowel sounds are heard. EXTREMITIES: Intact. No cyanosis, clubbing or edema. SKIN: Without rash. NEUROLOGIC: Neurologic examination is nonfocal. LABS/IMAGING: Reviewed. White count 12.1, hemoglobin 12.6, hematocrit 39.7, platelet count 197,000. PT/INR/PTT all normal. D-dimer 0.99. Sodium 136, potassium 4.4, chloride 104, CO2 27. Anion gap is 5. BUN and creatinine were 19 and 0.88. N-terminal proBNP 3280. Troponin was 0.015, 0.019 and 0.023. Microbiology is negative. A chest x-ray done on May 21 shows interstitial edema. CTA on May 21 failed to reveal any pulmonary embolism. Again there were seen interstitial changes. There was no evidence of PE as mentioned. The changes on CT scan are likely related to underlying fluid overload. CURRENT MEDICATIONS: Medications are reviewed. She is currently on Xanax, aspirin, Lipitor, Symbicort, vitamin D3, Flonase nasal spray, Lasix, DuoNeb, Imdur, levothyroxine, lidocaine, lisinopril, loratadine, metoprolol, Singulair, Protonix, Restoril and Tramadol. ASSESSMENT: 1. Shortness of breath with hemoptysis, likely related to underlying interstitial edema/fluid overload/congestive heart failure. 2. History of asthma and chronic obstructive pulmonary disease, both relatively mild according to patient. 3. History of cerebrovascular accident. 4. History of gastroesophageal reflux disease. 5. Osteoarthritis. 6. Hypothyroidism. 7. Hiatal hernia. 8. History of cardiac palpitations. 9. History of varicose veins. 10.Previous right nephrectomy. 11.Multiple other medical problems and comorbidities. PLAN: The patient seems to be doing relatively well. I suspect she had some fluid overload. If not recently done, the patient should have an echocardiogram to check cardiac function. Will continue to follow. Current breathing treatments are fine. No additional recommendations are made. Would suspect the patient could be discharged in the next 24 to 48 hours. MMODL / IJN: [id number] /
[2020-05-22] MEDS: FUROSEMIDE 10 MG/ML 4 ML VIAL IV SCH (03:19)
[2020-05-22] MEDS: LEVOTHYROXINE 50 MCG TAB PO SCH (06:21)
[2020-05-22] MEDS: SYMBICORT 160-4.5 MCG INHALER INHALATION SCH ×2 (07:08→19:29)
[2020-05-22] MEDS: IPRATROPIUM-ALBUTEROL 3 ML NEB INHALATION SCH ×4 (07:08→19:28)
[2020-05-22] MEDS ORDERED: FUROSEMIDE 10 MG/ML 4 ML VIAL IV SCH (09:00)
[2020-05-22] MEDS: METOPROLOL TARTRATE 25 MG TAB PO SCH ×2 (10:32→22:48)
[2020-05-22] MEDS: ISOSORBIDE MONONITRATE ER 30 MG TAB.ER.24H PO SCH (10:33)
[2020-05-22] MEDS: PANTOPRAZOLE 40 MG/10 ML VIAL IVP SCH (10:33)
[2020-05-22] MEDS: lisinopriL 10 MG TAB PO SCH (10:33)
[2020-05-22] MEDS: ACETAMINOPHEN TAB 325 MG TAB PO PRN (10:34)
[2020-05-22] MEDS: LORATADINE 10 MG TAB PO SCH (10:36)
[2020-05-22] MEDS: DOCUSATE 100 MG CAP PO SCH ×2 (10:37→22:47)
[2020-05-22] MEDS: ASPIRIN 81 MG PO SCH (10:37)
[2020-05-22] MEDS: predniSONE 20 MG TAB PO SCH (10:37)
[2020-05-22] MEDS: CHOLECALCIFEROL 1,000 UNIT TAB PO SCH (10:38)
[2020-05-22 11:36] VITALS: BMI 27.5
--- NOTE | 2020-05-22 12:10 | P.PN ---
Subjective Progress Note Date: 05/22/20 This is a pleasant 69-year-old female who follows regularly with Dr. Mejia in the office. She has a known history of peripheral vascular disease, hyperlipidemia, carotid disease, COPD, hypothyroidism, prior TIA, patient also has history of cardiac catheterization in 2017 which revealed mild LAD and mild circumflex disease. She underwent a laparoscopic cholecystectomy on the of this month, went home and overall was feeling well. She states that she developed a cough, on 2 separate occasions coughed up a blood clot. She gave Dr. rivas a call, he asked her she was having any shortness of breath and at that time she denied having any. Shortly thereafter however patient states that she started to become quite short of breath and concerned, and came to the emergency room for further evaluation and treatment. Patient does state that she's been getting some left-sided chest pressure as well with or without exertion over the past couple of weeks. Her EKG on presentation here shows a normal sinus rhythm with no acute changes. Chest x-ray did show new pulmonary edema. Her blood pressure 132/90, heart rate in the 80s, respirations 16, temperature 98.3. Sodium 135 on admission, potassium 4.8, BUN 13, creatinine 0.7. White blood cell count 11.4, hemoglobin 12.0, platelet count 166. Troponin 0.023, BNP level 3280. A d-dimer was drawn which came back to be 0.9. Patient then underwent a CTA which did not reveal any evidence of a pulmonary embolism. It did show some worsening pulmonary fibrotic changes from most recent CT. She also had an echocardiogram with Doppler study performed which revealed a normal left ventricular systolic function, no evidence of pericardial effusion. At the time of my examination in the emergency room, patient states that her breathing was improving, however she had not ambulated much. She has been diuresing well on IV Lasix. She continues at this time to be on IV Lasix, baby aspirin, Imdur 60 mg daily, lisinopril 10 mg daily and metoprolol 25 mg one tablet by mouth twice a day. 05/22/2020 Patient was seen and examined this morning, she states that she doesn't feel as well as she did yesterday however her breathing from admission is significantly improved. Blood pressure 116/56 with a heart rate in the 70s, 96% on 3 L of oxygen. Echocardiogram with Doppler study revealed an ejection fraction of 55%. We'll discontinue her IV Lasix today and start her on oral diuretics. Objective - Vital Signs Vital signs: Vital Signs Temp 97.9 F 05/22/20 08:25 Pulse 76 05/22/20 11:39 Resp 16 05/22/20 11:47 BP 116/56 05/22/20 08:25 Pulse Ox 96 05/22/20 08:25 Intake & Output 05/21/20 05/22/20 05/22/20 18:59 06:59 18:59 Intake Total 440 120 Output Total 2140 500 Balance 440 -2140 -380 Weight 65.317 kg 64 kg 64 kg Intake: Oral 440 120 Output: Urine 2140 500 - Exam PHYSICAL EXAMINATION: GENERAL: 69-year-old female in no acute distress at the time of my examination HEENT: Head is atraumatic, normocephalic. Pupils equal, round. Sclera anicteric. Conjunctiva are clear. Mucous membranes of the mouth are moist. Neck is supple. There is no elevated jugular venous pressure. No carotid bruit is heard. HEART EXAMINATION: Heart S1 S2 1 systolic ejection murmur is heard CHEST EXAMINATION: Lungs reveal diminished air entry to the bases bilaterally ABDOMEN: Soft, nontender. Bowel sounds are heard. No organomegaly noted. EXTREMITIES: 2+ peripheral pulses with no evidence of peripheral edema and no calf tenderness noted. NEUROLOGIC patient is awake, alert and oriented 3 . - Labs CBC & Chem 7: 05/21/20 01:07 05/21/20 01:07 Labs: Abnormal Lab Results - Last 24 Hours (Table) 05/21/20 Range/Units 11:43 D-Dimer 0.99 H (<0.60) mg/L FEU Assessment and Plan Plan: Assessment and plan #1 diastolic congestive heart failure acute on chronic #2 recent laparoscopic cholecystectomy #3 hyperlipidemia #4 peripheral vascular disease # 5Family history of premature coronary artery disease #6 history of nicotine dependence #7 mild coronary artery disease by cardiac catheterization performed in 2017 #8 hypertension Plan We will discontinue IV Lasix and start the patient on oral diuretics. Continue to monitor for 24 hours. DNP note has been reviewed, I agree with a documented findings and plan of care. Patient was seen and examined.
[2020-05-22] MEDS: AZITHROMYCIN 500 MG in SODIUM CHLORIDE 0.9% 250 ML IVPB SCH (12:14)
[2020-05-22] MEDS: INSULIN ASPART (NovoLOG) 100 UNIT/ML VIAL SQ SCH ×3 (12:37→22:47)
--- NOTE | 2020-05-22 12:38 | P.PN ---
Subjective Progress Note Date: 05/22/20 This is a 69-year-old female with history of asthma, COPD, CVA/TIA, gastroesophageal reflux disease, osteoarthritis, right nephrectomy hypothyroidism, anxiety, chronic hypoxic respiratory failureuses 1-2 L nasal cannula oxygen at night, former nicotine dependent, CAD, recent laparoscopic cholecystectomy .Patient reports she felt great on the day of discharge, later in the evening she proceeded to cough up 4 small sized blood clots-brown in color and attributed those to her postop nosebleed, went to bed and awakened by worsening shortness of breath, accompanied by coughing. On arrival to the ER ,O2 sat was 88% on room air, hypertensive with systolic blood pressure in the 170s. Denies any chest pain, palpitations. Denies lightheadedness, dizziness or focal deficits. Denies nausea vomiting or diarrhea. Reports surgical tenderness, no abdominal pain. Denies fever, chills. Denies cough congestion. BNP 3280. Chest x-ray reported new pulmonary interstitial edema, possible CHF. Echo ordered. EKG reported sinus rhythm with fusion complexes. Troponin 0.023. Afebrile, WBC 12.1, neutrophils 9.6. Hemoglobin 12.6, platelets 197, coagulation unremarkable, sodium 136 potassium 4.4, BUN 19, creatinine 0.88. T bili and LFTs within normal limits with the exception of mild elevation of AST,43. Received supplemental oxygen, nebulized bronchodilators, with IV push diuretics Initiated. Patient also stated she had been on Lasix and potassium for many years, which had been stopped over the last few months. Echo pending.\ 05/22/2020 patient reports feels worse this morning, increased fatigue, persistent nonproductive coughing with persistent bibasilar crackles worse on the left side. Requesting stool softener reporting no bowel movement since Tuesday. Denies chest pain, palpitations. Maintaining O2 sats in the 90s on 3 L nasal cannula. Blood pressure controlled. Echo reported normal LV function, EF 55% .diuresing well on Lasix IV push with 24-hour I&O reflecting a negative f luid balance. Afebrile, labs pending. Objective - Vital Signs Vital signs: Vital Signs Temp 97.9 F 05/22/20 08:25 Pulse 79 05/22/20 08:25 Resp 16 05/22/20 08:25 BP 116/56 05/22/20 08:25 Pulse Ox 96 05/22/20 08:25 Intake & Output 05/21/20 05/22/20 05/22/20 18:59 06:59 18:59 Intake Total 440 120 Output Total 2140 500 Balance 440 -2140 -380 Weight 65.317 kg 64 kg Intake: Oral 440 120 Output: Urine 2140 500 - Exam PHYSICAL EXAM: VITAL SIGNS: As above GENERAL: Alert and oriented 3, lying in bed, tired appearing, no acute distress HEENT: Conjunctivae normal. eyes normal. Oral mucosa moist. NECK: No JVD. No thyroid enlargement. No LNs CARDIOVASCULAR: S1, S2 regular. Systolic murmur. RESPIRATION: Breath sounds diminished in the bases. No rhonchi , fine bibasilar crackles worse on the left. ABDOMEN: Soft, status post laparoscopic surgery , laparoscopic sites clean ,dry, well approximated.surgical tenderness .No guarding.Bowel sounds heard. LEGS: Trace lower extremity edema, no calf tenderness. PSYCHIATRY: Alert and oriented X3, mood and affect normal. NERVOUS SYSTEM: Cranial N 2-12 grossly normal. Moves all 4 limbs. No focal deficits. Strength and sensation grossly intact.. Skin: Warm and dry, no rash - Labs CBC & Chem 7: 05/21/20 01:07 05/21/20 01:07 Labs: Abnormal Lab Results - Last 24 Hours (Table) 05/21/20 Range/Units 11:43 D-Dimer 0.99 H (<0.60) mg/L FEU Assessment and Plan Assessment: Acute CHF exacerbation,diastolic dysfunction and suspected underlying acute COPD exacerbation as well Acute on chronic hypoxic respiratory failure secondary to the above Recent laparoscopic cholecystectomy for chronic cholecystitis Chronic intermittent asthma History of CVA, TIA Gastroesophageal reflux disease Osteoarthritis Hypothyroidism History of right nephrectomy Anxiety Former nicotine dependence Peripheral vascular disease CAD Hypertension Plan: Continue on current medication regime ,monitoring and symptomatic treatment. Chest x-ray, antibiotics of Rocephin and Zithromax and prednisone initiated. Pulmonary consult in place, recommendations pending. Stool softener added to regimen. Diuretics as per cardiology-converted to oral. Maintain nebulized bronchodilators, aggressive pulmonary toileting with incentive spirometer reinforced. Labs pending. Discharge planning in the next 24-48 hours. The impression and plan of care has been dictated as directed. : I performed a history and examination of this patient, discussed the same with the dictator. I agree with the dictator's note ,documented as a scribe. Any additional findings or plans will be noted.
--- NOTE | 2020-05-22 12:38 | XR ---
EXAMINATION TYPE: XR chest 2V DATE OF EXAM: 05/22/2020 COMPARISON: 05/21/2020 TECHNIQUE: PA and lateral views submitted. HISTORY: Chest pain FINDINGS: The lungs are clear and there is no pneumothorax, pleural effusion, or focal pneumonia. Right apica l pleural thickening with diffuse hyperinflation and coarsened interstitium correlate for chronic int erstitial pulmonary fibrosis. Surgical clips in the upper abdomen. Atherosclerotic change aorta. IMPRESSION: 1. No acute process. Correlate for pulmonary fibrosis. Right apical nodular pleural asymmetric thicke mariam. Dilated this was also noted on the recent present on the right and chest CT. Appears stable fro 2017. 2. Correlate for COPD
[2020-05-22 12:41] LABS: HCT 45.1 % (34.0-46.0); HGB 14.3 gm/dL (11.4-16.0); MCH 30.1 pg (25.0-35.0); MCHC 31.7 g/dL (31.0-37.0); Mean Platelet Volume 7.8; Platelet Count 220 k/uL (150-450); RBC 4.75 m/uL (3.80-5.40); RDW 13.4 % (11.5-15.5); WBC 12.5 k/uL (3.8-10.6)
[2020-05-22 12:51] LABS: Calcium 9.6 mg/dL (8.4-10.2); Potassium 3.6 mmol/L (3.5-5.1)
--- NOTE | 2020-05-22 13:48 | P.PN ---
Subjective Progress Note Date: 05/22/20 Principal diagnosis: Shortness of breath, hemoptysis Patient is seen today 05/22/2020 in follow-up on the selective care unit. She is currently resting comfortably in bed. Awake and alert in no acute distress. No further episodes of hemoptysis. She is maintaining O2 saturations in the upper 90s on 2 L/m per nasal cannula. She's afebrile. Hemodynamically stable. White count 12.5. Hemoglobin 14.3. Sodium 136. Potassium 3.6. Creatinine 1.00. Currently on DuoNeb inhalations, Symbicort, antibiotics in the form of ceftriaxone and azithromycin, IV diuretics today. Objective - Vital Signs Vital signs: Vital Signs Temp 98.3 F 05/22/20 12:43 Pulse 75 05/22/20 12:43 Resp 14 05/22/20 13:19 BP 132/85 05/22/20 12:43 Pulse Ox 97 05/22/20 12:43 Intake & Output 05/21/20 05/22/20 05/22/20 18:59 06:59 18:59 Intake Total 440 120 Output Total 2140 900 Balance 440 -2140 -780 Weight 65.317 kg 64 kg 64 kg Intake: Oral 440 120 Output: Urine 2140 900 Other: # Voids 1 - Exam GENERAL EXAM: Alert, pleasant 69-year-old female patient on 2 L nasal cannula, comfortable in no apparent distress. HEAD: Normocephalic. EYES: Normal reaction of pupils, equal size. NOSE: Clear with pink turbinates. THROAT: No erythema or exudates. NECK: No masses, no JVD. CHEST: No chest wall deformity. LUNGS: Equal air entry with no crackles, wheeze, rhonchi or dullness. CVS: S1 and S2 normal with no audible murmur, regular rhythm. ABDOMEN: Recent laparoscopic surgery sites clean dry well approximated. No hepatosplenomegaly, normal bowel sounds, no guarding or rigidity. SPINE: No scoliosis or deformity SKIN: No rashes CENTRAL NERVOUS SYSTEM: No focal deficits, tone is normal in all 4 extremities. EXTREMITIES: There is no peripheral edema. No clubbing, no cyanosis. Peripheral pulses are intact. - Labs CBC & Chem 7: 05/22/20 11:45 05/22/20 11:45 Labs: Abnormal Lab Results - Last 24 Hours (Table) 05/22/20 05/22/20 Range/Units 11:45 11:45 WBC 12.5 H (3.8-10.6) k/uL Sodium 136 L (137-145) mmol/L Chloride 93 L (98-107) mmol/L Carbon Dioxide 32 H (22-30) mmol/L BUN 23 H (7-17) mg/dL Glucose 113 H (74-99) mg/dL Assessment and Plan Assessment: 1 Acute exacerbation of diastolic congestive heart failure 2 Acute exacerbation of chronic obstructive pulmonary disease 3 Hemoptysis, resolved 4 Acute on chronic hypoxic respiratory failure secondary to above 5 History of chronic mild intermittent chronic bronchial asthma 6 Peripheral vascular disease 7 History of right nephrectomy 8 Hypothyroidism 9 Esophageal reflux disease 10 Coronary disease 11 Hypertension Plan: The patient was seen and evaluated by Dr. Velasquez Chest x-ray reveals no acute process Improve from the pulmonary standpoint Continue the current treatment plan Increase her activity as tolerated We'll continue to follow I, the cosigning physician, performed a history & physical examination of the patient. Lungs sounds are clear. Maintaining good O2 saturations in the 90s on 2 L/m nasal cannula. I discussed the assessment and plan of care with my nurse practitioner, Sandra Lizarraga. I attest to the above note as dictated by her.
--- NOTE | 2020-05-22 15:42 | PN ---
PROGRESS NOTE Mrs. Mcgrath is a 69-year-old female who presented with symptoms of acute dyspnea and evidence of congestive heart failure. She is feeling better today but continues not to feel as well. She denies any chest discomfort. She has occasional palpitation. She has no dizziness. She continues to have some dyspnea when she is ambulating, although better compared to yesterday. She underwent CT scan of the chest that showed no evidence of pulmonary embolism. There was pulmonary fibrotic changes that are worsened. She continues to be on aspirin once a day, Lipitor 10 mg daily, furosemide 40 mg IV q.12 hours, lisinopril 10 mg daily, metoprolol tartrate 25 mg twice a day. PHYSICAL EXAMINATION: Blood pressure 116/60 with a heart rate in the 80s. LUNGS: With few crackles bilaterally, no wheezes. HEART: Regular rate and rhythm S1, S2. No S3. No rub. ABDOMEN: Soft. No organomegaly. Positive bowel sounds. EXTREMITIES: No edema. LAB DATA: Her echocardiogram revealed a normal systolic function with mild mitral and tricuspid regurgitation. IMPRESSION: 1. Symptoms of dyspnea with finding of congestive heart failure with fluid overload with preserved systolic function. 2. Abnormal CT scan of the chest. 3. History of asthma and chronic obstructive lung disease. 4. Recent cholecystectomy. 5. History of cerebrovascular accident. 6. History of osteoarthritis. 7. History of arrhythmia, stable. RECOMMENDATION: From the cardiac standpoint, I will switch her to oral diuretics. Continue to follow her renal function. Increase her level activity. Will await the input of Dr. Velasquez and depending on her progress, further recommendation will be made. MMODL / IJN: [id number] /
--- NOTE | 2020-05-22 16:27 | P.PN ---
Subjective Progress Note Date: 05/22/20 Principal diagnosis: Cholecystitis Patient feels better today. Terms of breath is improved. Denies abdominal pain. Tolerating diet. Objective - Vital Signs Vital signs: Vital Signs Temp 98.3 F 05/22/20 12:43 Pulse 72 05/22/20 15:45 Resp 14 05/22/20 13:19 BP 132/85 05/22/20 12:43 Pulse Ox 97 05/22/20 12:43 Intake & Output 05/21/20 05/22/20 05/22/20 18:59 06:59 18:59 Intake Total 440 120 Output Total 2140 900 Balance 440 -2140 -780 Weight 65.317 kg 64 kg 64 kg Intake: Oral 440 120 Output: Urine 2140 900 Other: # Voids 1 - Exam Abdomen: Soft, nondistended, incisions clean and dry - Labs CBC & Chem 7: 05/22/20 11:45 05/22/20 11:45 Labs: Abnormal Lab Results - Last 24 Hours (Table) 05/22/20 05/22/20 Range/Units 11:45 11:45 WBC 12.5 H (3.8-10.6) k/uL Sodium 136 L (137-145) mmol/L Chloride 93 L (98-107) mmol/L Carbon Dioxide 32 H (22-30) mmol/L BUN 23 H (7-17) mg/dL Glucose 113 H (74-99) mg/dL Assessment and Plan (1) Cholecystitis Narrative/Plan: Patient doing well from our standpoint. Continue diet as tolerated. Ambulate. Home per primary. Current Visit: Yes Status: Acute Code(s): K81.9 - CHOLECYSTITIS, UNSPECIFIED SNOMED Code(s): 12745332
[2020-05-22 16:56] LABS: Glucose,Whole Blood 210 mg/dL (75-99)
[2020-05-22] MEDS: FUROSEMIDE 20 MG TAB PO SCH (17:17)
[2020-05-22 20:49] LABS: Glucose,Whole Blood 152 mg/dL (75-99)
[2020-05-22] MEDS: ALPRAZolam 0.5 MG TAB PO PRN (22:41)
[2020-05-22] MEDS: MONTELUKAST 10 MG TAB PO SCH (22:48)
[2020-05-22] MEDS: ATORVASTATIN 10 MG TAB PO SCH (22:48)
[2020-05-22] MEDS: SENNOSIDES-DOCUSATE SODIUM 1 EACH TAB PO SCH (22:49)
[2020-05-23 06:02] LABS: Glucose,Whole Blood 119 mg/dL (75-99)
[2020-05-23] MEDS: LEVOTHYROXINE 50 MCG TAB PO SCH (07:02)
[2020-05-23] MEDS: INSULIN ASPART (NovoLOG) 100 UNIT/ML VIAL SQ SCH ×3 (07:55→17:17)
[2020-05-23] MEDS: predniSONE 20 MG TAB PO SCH (09:04)
[2020-05-23] MEDS: ISOSORBIDE MONONITRATE ER 30 MG TAB.ER.24H PO SCH (09:04)
[2020-05-23] MEDS: METOPROLOL TARTRATE 25 MG TAB PO SCH ×2 (09:04→23:26)
[2020-05-23] MEDS: FUROSEMIDE 20 MG TAB PO SCH ×2 (09:04→17:17)
[2020-05-23] MEDS: ASPIRIN 81 MG PO SCH (09:04)
[2020-05-23] MEDS: CHOLECALCIFEROL 1,000 UNIT TAB PO SCH (09:04)
[2020-05-23] MEDS: DOCUSATE 100 MG CAP PO SCH ×2 (09:04→23:26)
[2020-05-23] MEDS: lisinopriL 10 MG TAB PO SCH (09:04)
[2020-05-23] MEDS: LORATADINE 10 MG TAB PO SCH (09:04)
[2020-05-23] MEDS: PANTOPRAZOLE 40 MG/10 ML VIAL IVP SCH (09:05)
[2020-05-23] MEDS: AZITHROMYCIN 500 MG in SODIUM CHLORIDE 0.9% 250 ML IVPB SCH (09:05)
[2020-05-23 10:09] LABS: Calcium 9.4 mg/dL (8.4-10.2)
[2020-05-23] MEDS: SYMBICORT 160-4.5 MCG INHALER INHALATION SCH ×2 (10:09→20:31)
[2020-05-23] MEDS: IPRATROPIUM-ALBUTEROL 3 ML NEB INHALATION SCH ×4 (10:09→20:31)
[2020-05-23 10:14] LABS: Basophils # (A) 0.1 k/uL (0-0.2); Basophils % (A) 1 %; Eosinophils % (A) 0 %; HCT 47.2 % (34.0-46.0); HGB 14.8 gm/dL (11.4-16.0); Hypochromasia Slight; Lymphocytes # (A) 2.3 k/uL (1.0-4.8); Lymphocytes % (A) 20 %; MCH 30.5 pg (25.0-35.0); MCHC 31.3 g/dL (31.0-37.0); MCV 97.5 fL (80.0-100.0); Mean Platelet Volume 8.4; Monocytes # (A) 0.6 k/uL (0-1.0); Monocytes % (A) 5 %; Neutrophils # (A) 8.1 k/uL (1.3-7.7); Neutrophils % (A) 72 %; Platelet Count 146 k/uL (150-450); RBC 4.84 m/uL (3.80-5.40); RDW 13.1 % (11.5-15.5); WBC 11.3 k/uL (3.8-10.6)
[2020-05-23 12:21] LABS: Glucose,Whole Blood 126 mg/dL (75-99)
--- NOTE | 2020-05-23 13:19 | PN ---
PROGRESS NOTE Mrs. Mcgrath is a 69-year-old female who presented with symptoms of progressive dyspnea. She recently underwent cholecystectomy. She is feeling better today. She has a cough without any significant productive sputum. She denies any chest pain except when she coughs. She denies any dizziness. She feels that her breathing is better overall. She denies any nausea. She continues to be at this time on aspirin once a day, Lipitor 10 mg daily, Zithromax, Symbicort, Imdur, Zestril 10 mg daily, metoprolol tartrate 25 mg twice a day, prednisone and tramadol. PHYSICAL EXAMINATION: Blood pressure 104/50 with a heart rate in 70s. LUNGS: With scattered rhonchi, no wheezes. HEART: Regular rate and rhythm. S1, S2. No S3. No rub appreciated. ABDOMEN: Soft, nontender. EXTREMITIES: No edema. LAB DATA: Revealed BUN and creatinine 29 and 0.88, potassium 4.0, hemoglobin of 14.8. IMPRESSION: 1. Symptoms of progressive dyspnea with probable combination of exacerbation of chronic obstructive pulmonary disease and bronchitis with mild fluid overload related to diastolic dysfunction. 2. History of peripheral disease. 3. History of smoking. 4. Mild coronary artery disease. 5. Hypertension. RECOMMENDATION: From the cardiac standpoint, the patient is on oral diuretics. She is stable from the cardiac standpoint. Will continue present therapy. Will see her on an as-needed basis. I would expect she should be able to be discharged home soon and will see her in the office in followup. MMODL / IJN: [id number] /
--- NOTE | 2020-05-23 13:39 | P.PN ---
Subjective Progress Note Date: 05/23/20 This is a 69-year-old female with history of asthma, COPD, CVA/TIA, gastroesophageal reflux disease, osteoarthritis, right nephrectomy hypothyroidism, anxiety, chronic hypoxic respiratory failureuses 1-2 L nasal cannula oxygen at night, former nicotine dependent, CAD, recent laparoscopic cholecystectomy .Patient reports she felt great on the day of discharge, later in the evening she proceeded to cough up 4 small sized blood clots-brown in color and attributed those to her postop nosebleed, went to bed and awakened by worsening shortness of breath, accompanied by coughing. On arrival to the ER ,O2 sat was 88% on room air, hypertensive with systolic blood pressure in the 170s. Denies any chest pain, palpitations. Denies lightheadedness, dizziness or focal deficits. Denies nausea vomiting or diarrhea. Reports surgical tenderness, no abdominal pain. Denies fever, chills. Denies cough congestion. BNP 3280. Chest x-ray reported new pulmonary interstitial edema, possible CHF. Echo ordered. EKG reported sinus rhythm with fusion complexes. Troponin 0.023. Afebrile, WBC 12.1, neutrophils 9.6. Hemoglobin 12.6, platelets 197, coagulation unremarkable, sodium 136 potassium 4.4, BUN 19, creatinine 0.88. T bili and LFTs within normal limits with the exception of mild elevation of AST,43. Received supplemental oxygen, nebulized bronchodilators, with IV push diuretics Initiated. Patient also stated she had been on Lasix and potassium for many years, which had been stopped over the last few months. Echo pending.\ 05/22/2020 patient reports feels worse this morning, increased fatigue, persistent nonproductive coughing with persistent bibasilar crackles worse on the left side. Requesting stool softener reporting no bowel movement since Tuesday. Denies chest pain, palpitations. Maintaining O2 sats in the 90s on 3 L nasal cannula. Blood pressure controlled. Echo reported normal LV function, EF 55% .diuresing well on Lasix IV push with 24-hour I&O reflecting a negative f luid balance. Afebrile, labs pending. 05/23/20 reports she feels worse today. Hoarse with nonproductive cough. Diuresing well on oral Lasix with 24-hour I&O reporting a negative fluid balance, decreased weight. Denies chest pain, palpitations or increasing shortness of breath. Denies nausea or vomiting. Afebrile, WBC trending down to 11.3. Maintaining O2 sats in the 90s on 2 L nasal cannula. Objective - Vital Signs Vital signs: Vital Signs Temp 98 F 05/23/20 11:25 Pulse 76 05/23/20 11:25 Resp 14 05/23/20 11:27 BP 119/56 05/23/20 12:00 Pulse Ox 98 05/23/20 11:25 Intake & Output 05/22/20 05/23/20 05/23/20 18:59 06:59 18:59 Intake Total 240 596 Output Total 900 400 Balance -660 -400 596 Weight 64 kg 63.1 kg Intake: Oral 240 596 Output: Urine 900 400 Other: # Voids 1 - Exam PHYSICAL EXAM: VITAL SIGNS: As above GENERAL: Alert and oriented 3, sitting up in bed,NAD, hoarse voice HEENT: Conjunctivae normal. eyes normal. Oral mucosa moist. NECK: No JVD. No thyroid enlargement. CARDIOVASCULAR: S1, S2 regular. Systolic murmur. RESPIRATION: Increasing coarseness, bibasilar crackles improving. ABDOMEN: Soft, status post laparoscopic surgery , laparoscopic sites clean ,dry, well approximated.surgical tenderness .No guarding.Bowel sounds heard. LEGS: Trace lower extremity edema, no calf tenderness. NERVOUS SYSTEM: Cranial N 2-12 grossly normal. No focal deficits. Strength and sensation grossly intact. Skin: Warm and dry, no rash - Labs CBC & Chem 7: 05/23/20 08:42 05/23/20 08:42 Labs: Abnormal Lab Results - Last 24 Hours (Table) 05/22/20 05/22/20 05/23/20 Range/Units 16:51 20:48 06:00 WBC (3.8-10.6) k/uL Hct (34.0-46.0) % Plt Count (150-450) k/uL Neutrophils # (1.3-7.7) k/uL Sodium (137-145) mmol/L Chloride (98-107) mmol/L Carbon Dioxide (22-30) mmol/L BUN (7-17) mg/dL Glucose (74-99) mg/dL POC Glucose (mg/dL) 210 H 152 H 119 H (75-99) mg/dL 05/23/20 05/23/20 05/23/20 Range/Units 08:42 08:42 11:49 WBC 11.3 H (3.8-10.6) k/uL Hct 47.2 H (34.0-46.0) % Plt Count 146 L (150-450) k/uL Neutrophils # 8.1 H (1.3-7.7) k/uL Sodium 136 L (137-145) mmol/L Chloride 96 L (98-107) mmol/L Carbon Dioxide 32 H (22-30) mmol/L BUN 29 H (7-17) mg/dL Glucose 68 L (74-99) mg/dL POC Glucose (mg/dL) 126 H (75-99) mg/dL Assessment and Plan Assessment: Acute CHF exacerbation,diastolic dysfunction and suspect underlying acute COPD e xacerbation as well Acute on chronic hypoxic respiratory failure secondary to the above Recent laparoscopic cholecystectomy for chronic cholecystitis Chronic intermittent asthma History of CVA, TIA Gastroesophageal reflux disease Osteoarthritis Hypothyroidism History of right nephrectomy Anxiety Former nicotine dependence Peripheral vascular disease CAD Hypertension Plan: Continue on current medication regime ,monitoring and symptomatic treatment. Maintain antibiotics, nebulized bronchodilators. Currently on oral steroids, will convert to Solu-Medrol IV push. Diuretics as per cardiology. Discharge planning in the next 24-48 hours. The impression and plan of care has been dictated as directed. : I performed a history and examination of this patient, discussed the same with the dictator. I agree with the dictator's note ,documented as a scribe. Any additional findings or plans will be noted.
--- NOTE | 2020-05-23 13:59 | P.PN ---
<Lesia Pruitt - Last Filed: 05/23/20 13:53> Subjective Progress Note Date: 05/23/20 CHIEF COMPLAINT: Shortness of breath HISTORY OF PRESENT ILLNESS: We are following patient due to her recent laparoscopic cholecystectomy. She reports only minimal abdominal pain with movement. Reports having bowel movements. Denies any nausea or vomiting. She is tolerating diet. She is more hoarse today. Still having some shortness of breath. She is being treated for congestive heart failure exacerbation and COPD exacerbation. Medicine did place patient on IV Solu-Medrol today and cardiology is placed patient on oral Lasix PHYSICAL EXAM: VITAL SIGNS: Reviewed. GENERAL: Well-developed in no acute distress. HEENT: No sclera icterus. Extraocular movements grossly intact. Moist buccal mucosa. Head is atraumatic, normocephalic. ABDOMEN: Soft. Nondistended. Nontender. Incision sites clean dry and intact NEUROLOGIC: Alert and oriented. Cranial nerves II through XII grossly intact. ASSESSMENT: 1. Cholecystitis status post laparoscopic cholecystectomy on 05/19/2020 PLAN: -Patient is doing well from surgical standpoint -Continue heart healthy, low-fat diet -Encourage patient to ambulate Physician Technical Support Engineer note has been reviewed by physician. Signing provider agrees with the documented findings, assessment, and plan of care. Objective - Vital Signs Vital signs: Vital Signs Temp 98 F 05/23/20 11:25 Pulse 74 05/23/20 13:52 Resp 14 05/23/20 11:27 BP 119/56 05/23/20 12:00 Pulse Ox 98 05/23/20 11:25 Intake & Output 05/22/20 05/23/20 05/23/20 18:59 06:59 18:59 Intake Total 240 596 Output Total 900 400 Balance -660 -400 596 Weight 64 kg 63.1 kg Intake: Oral 240 596 Output: Urine 900 400 Other: # Voids 1 - Labs CBC & Chem 7: 05/23/20 08:42 05/23/20 08:42 Labs: Abnormal Lab Results - Last 24 Hours (Table) 05/22/20 05/22/20 05/23/20 Range/Units 16:51 20:48 06:00 WBC (3.8-10.6) k/uL Hct (34.0-46.0) % Plt Count (150-450) k/uL Neutrophils # (1.3-7.7) k/uL Sodium (137-145) mmol/L Chloride (98-107) mmol/L Carbon Dioxide (22-30) mmol/L BUN (7-17) mg/dL Glucose (74-99) mg/dL POC Glucose (mg/dL) 210 H 152 H 119 H (75-99) mg/dL 05/23/20 05/23/20 05/23/20 Range/Units 08:42 08:42 11:49 WBC 11.3 H (3.8-10.6) k/uL Hct 47.2 H (34.0-46.0) % Plt Count 146 L (150-450) k/uL Neutrophils # 8.1 H (1.3-7.7) k/uL Sodium 136 L (137-145) mmol/L Chloride 96 L (98-107) mmol/L Carbon Dioxide 32 H (22-30) mmol/L BUN 29 H (7-17) mg/dL Glucose 68 L (74-99) mg/dL POC Glucose (mg/dL) 126 H (75-99) mg/dL <Aaron Thorne - Last Filed: 05/23/20 15:46> Subjective As above. Patient doing well. No pain. Shortness of breath is improving. We'll sign off. Follow-up next week. Objective - Vital Signs Vital signs: Vital Signs Temp 98 F 05/23/20 11:25 Pulse 74 05/23/20 13:52 Resp 14 05/23/20 11:27 BP 119/56 05/23/20 12:00 Pulse Ox 98 05/23/20 11:25 Intake & Output 05/22/20 05/23/20 05/23/20 18:59 06:59 18:59 Intake Total 240 596 Output Total 900 400 900 Balance -660 -400 -304 Weight 64 kg 63.1 kg Intake: Oral 240 596 Output: Urine 900 400 900 Other: # Voids 1 2 - Labs CBC & Chem 7: 05/23/20 08:42 05/23/20 08:42 Labs: Abnormal Lab Results - Last 24 Hours (Table) 05/22/20 05/22/20 05/23/20 Range/Units 16:51 20:48 06:00 WBC (3.8-10.6) k/uL Hct (34.0-46.0) % Plt Count (150-450) k/uL Neutrophils # (1.3-7.7) k/uL Sodium (137-145) mmol/L Chloride (98-107) mmol/L Carbon Dioxide (22-30) mmol/L BUN (7-17) mg/dL Glucose (74-99) mg/dL POC Glucose (mg/dL) 210 H 152 H 119 H (75-99) mg/dL 05/23/20 05/23/20 05/23/20 Range/Units 08:42 08:42 11:49 WBC 11.3 H (3.8-10.6) k/uL Hct 47.2 H (34.0-46.0) % Plt Count 146 L (150-450) k/uL Neutrophils # 8.1 H (1.3-7.7) k/uL Sodium 136 L (137-145) mmol/L Chloride 96 L (98-107) mmol/L Carbon Dioxide 32 H (22-30) mmol/L BUN 29 H (7-17) mg/dL Glucose 68 L (74-99) mg/dL POC Glucose (mg/dL) 126 H (75-99) mg/dL Assessment and Plan (1) Cholecystitis Current Visit: Yes Status: Acute Code(s): K81.9 - CHOLECYSTITIS, UNSPECIFIED SNOMED Code(s): 29897774
--- NOTE | 2020-05-23 15:14 | PN ---
PROGRESS NOTE PULMONARY/CRITICAL CARE PROGRESS NOTE: DATE OF SERVICE: May 23, 2020 This is a 69-year-old female who we saw initially in consultation for acute exacerbation of diastolic congestive heart failure and acute exacerbation of COPD. She came in with hemoptysis. The patient had a laparoscopic cholecystectomy on Tuesday. She stayed overnight and was discharged home on Tuesday. Tuesday evening, she developed shortness of breath and started coughing up blood. She has had no further hemoptysis. She is feeling a bit better, but not back to baseline. In addition, she has a history of peripheral vascular occlusive disease, right nephrectomy, hypothyroidism, gastroesophageal reflux disease, coronary artery disease, and hypertension. The patient has been evaluated by Cardiology and medications have been adjusted accordingly. PHYSICAL EXAMINATION: VITAL SIGNS: Current vital signs are reviewed. Temperature is 98, heart rate 76, respiratory rate 14, blood pressure is 119/56, mean 77 and 2 L saturations 98%. GENERAL: She appears in no acute distress. HEENT: Examination is grossly unremarkable. NECK: Supple. Full range of motion. No adenopathy. Neck veins are flat. CARDIOVASCULAR: Examination reveals regular rhythm and rate. Heart rate 76 beats per minute. S1, S2 normal. No S3, S4, or murmur. LUNGS: Reveal some bibasilar crackles. A few scattered rhonchi. No wheezes. ABDOMEN: Soft. Bowel sounds are heard. EXTREMITIES are intact. No cyanosis, clubbing, or edema. SKIN: Without rash. NEUROLOGIC: Examination is nonfocal. LABS: Reviewed. White count 11.3, hemoglobin 14.8, hematocrit 27.2, platelet count is a 146,000, sodium 136, potassium 4, chloride 96, CO2 32, anion gap is 8, BUN and creatinine were 29 and 0.88. Microbiologic studies are negative. The most recent chest x-ray was dated May 22 and shows interstitial changes. There also may be some changes consistent with underlying COPD. Nothing acute was really seen. Medications are reviewed. ASSESSMENT: 1. Acute exacerbation of diastolic congestive heart failure, with interstitial edema and interstitial changes. 2. Acute exacerbation of chronic obstructive pulmonary disease, improved. 3. Hemoptysis, resolved. 4. Acute on chronic hypoxemic respiratory failure, stable. 5. Chronic mild intermittent chronic bronchial asthma. 6. Peripheral vascular occlusive disease. 7. History of right nephrectomy. 8. Hypothyroidism. 9. Gastroesophageal reflux disease. 10.Coronary artery disease. 11.Hypertension. PLAN: Currently, the patient seems to be doing better. She apparently did have a hypotensive episode last night. There are still in the process of adjusting her medications. She denies any further hemoptysis. No plans for discharge at this time. We will continue to follow. Prognosis is guarded. MMMELVIN / SIMN: [id number] /
[2020-05-23 16:39] LABS: Glucose,Whole Blood 148 mg/dL (75-99)
[2020-05-23] MEDS: methylPREDNISolone SOD SUCCI 125 MG/2 ML VIAL IV SCH ×2 (17:17→23:27)
[2020-05-23 21:03] LABS: Glucose,Whole Blood 138 mg/dL (75-99)
[2020-05-23] MEDS: ATORVASTATIN 10 MG TAB PO SCH (23:27)
[2020-05-23] MEDS: MONTELUKAST 10 MG TAB PO SCH (23:27)
[2020-05-23] MEDS: SENNOSIDES-DOCUSATE SODIUM 1 EACH TAB PO SCH (23:28)
[2020-05-23] MEDS: ALPRAZolam 0.5 MG TAB PO PRN (23:28)
[2020-05-24 06:21] LABS: Glucose,Whole Blood 161 mg/dL (75-99)
[2020-05-24] MEDS: LEVOTHYROXINE 50 MCG TAB PO SCH (07:04)
[2020-05-24] MEDS: ACETAMINOPHEN TAB 325 MG TAB PO PRN ×2 (07:04→20:47)
[2020-05-24] MEDS: INSULIN ASPART (NovoLOG) 100 UNIT/ML VIAL SQ SCH ×5 (07:05→22:49)
[2020-05-24] MEDS: IPRATROPIUM-ALBUTEROL 3 ML NEB INHALATION SCH ×4 (08:46→20:36)
[2020-05-24] MEDS: SYMBICORT 160-4.5 MCG INHALER INHALATION SCH ×2 (08:46→20:36)
[2020-05-24 09:16] LABS: Basophils % (A) 0 %; Eosinophils % (A) 0 %; HCT 44.8 % (34.0-46.0); HGB 14.5 gm/dL (11.4-16.0); Lymphocytes # (A) 0.6 k/uL (1.0-4.8); Lymphocytes % (A) 7 %; MCH 30.3 pg (25.0-35.0); MCHC 32.3 g/dL (31.0-37.0); MCV 93.8 fL (80.0-100.0); Monocytes # (A) 0.1 k/uL (0-1.0); Monocytes % (A) 2 %; Neutrophils # (A) 7.7 k/uL (1.3-7.7); Neutrophils % (A) 91 %; Platelet Count 221 k/uL (150-450); RBC 4.78 m/uL (3.80-5.40); RDW 13.3 % (11.5-15.5); WBC 8.4 k/uL (3.8-10.6)
[2020-05-24 09:29] LABS: Calcium 9.7 mg/dL (8.4-10.2)
[2020-05-24 09:37] LABS: Potassium 4.7 mmol/L (3.5-5.1)
[2020-05-24] MEDS: FUROSEMIDE 20 MG TAB PO SCH (10:08)
[2020-05-24] MEDS: DOCUSATE 100 MG CAP PO SCH ×2 (10:08→22:48)
[2020-05-24] MEDS: ASPIRIN 81 MG PO SCH (10:08)
[2020-05-24] MEDS: lisinopriL 10 MG TAB PO SCH (10:08)
[2020-05-24] MEDS: methylPREDNISolone SOD SUCCI 125 MG/2 ML VIAL IV SCH ×3 (10:08→22:48)
[2020-05-24] MEDS: ISOSORBIDE MONONITRATE ER 30 MG TAB.ER.24H PO SCH ×2 (10:09→10:10)
[2020-05-24] MEDS: AZITHROMYCIN 500 MG TAB PO SCH (10:09)
[2020-05-24] MEDS: METOPROLOL TARTRATE 25 MG TAB PO SCH ×2 (10:09→22:49)
[2020-05-24] MEDS: PANTOPRAZOLE 40 MG TABLET PO SCH (10:09)
[2020-05-24] MEDS: CHOLECALCIFEROL 1,000 UNIT TAB PO SCH (10:09)
[2020-05-24] MEDS: LORATADINE 10 MG TAB PO SCH (10:10)
--- NOTE | 2020-05-24 12:01 | P.PN ---
Subjective his is a 69-year-old female with history of asthma, COPD, CVA/TIA, gastroesophageal reflux disease, osteoarthritis, right nephrectomy hypothyroidism, anxiety, chronic hypoxic respiratory failureuses 1-2 L nasal cannula oxygen at night, former nicotine dependent, CAD, recent laparoscopic cholecystectomy .Patient reports she felt great on the day of discharge, later in the evening she proceeded to cough up 4 small sized blood clots-brown in color and attributed those to her postop nosebleed, went to bed and awakened by worsening shortness of breath, accompanied by coughing. On arrival to the ER ,O2 sat was 88% on room air, hypertensive with systolic blood pressure in the 170s. Denies any chest pain, palpitations. Denies lightheadedness, dizziness or focal deficits. Denies nausea vomiting or diarrhea. Reports surgical tenderness, no abdominal pain. Denies fever, chills. Denies cough congestion. BNP 3280. Chest x-ray reported new pulmonary interstitial edema, possible CHF. Echo ordered. EKG reported sinus rhythm with fusion complexes. Troponin 0.023. Afebrile, WBC 12.1, neutrophils 9.6. Hemoglobin 12.6, platelets 197, coag ulation unremarkable, sodium 136 potassium 4.4, BUN 19, creatinine 0.88. T bili and LFTs within normal limits with the exception of mild elevation of AST,43. Received supplemental oxygen, nebulized bronchodilators, with IV push diuretics Initiated. Patient also stated she had been on Lasix and potassium for many years, which had been stopped over the last few months. Echo pending.\ 05/22/2020 patient reports feels worse this morning, increased fatigue, persistent nonproductive coughing with persistent bibasilar crackles worse on the left side. Requesting stool softener reporting no bowel movement since Tuesday. Denies chest pain, palpitations. Maintaining O2 sats in the 90s on 3 L nasal cannula. Blood pressure controlled. Echo reported normal LV function, EF 55% .diuresing well on Lasix IV push with 24-hour I&O reflecting a negative fluid balance. Afebrile, labs pending. 05/23/20 reports she feels worse today. Hoarse with nonproductive cough. Diuresing well on oral Lasix with 24-hour I&O reporting a negative fluid balance, decreased weight. Denies chest pain, palpitations or increasing shortness of breath. Denies nausea or vomiting. Afebrile, WBC trending down to 11.3. Maintaining O2 sats in the 90s on 2 L nasal cannula. 05/24/2020: Patient feels slightly better today. She continues to be somewhat hoarse but it clears. She is to have nonproductive cough. Complains occasional chest heaviness after coughing. She remains on 2 L oxygen via nasal cannula. Sats are between 97 and 99% currently. She denies any nausea vomiting diarrhea constipation was time. She remains on azithromycin and ceftriaxone for antibiotic coverage. She has budesonide, ipratropium, singular, and Solu-Medrol 60 every 8 ordered for her breathing. She remains on furosemide for CHF. Objective - Vital Signs Vital signs: Vital Signs Temp 98.2 F 05/24/20 08:20 Pulse 72 05/24/20 09:02 Resp 18 05/24/20 08:20 BP 125/59 05/24/20 08:20 Pulse Ox 99 05/24/20 08:20 Intake & Output 05/23/20 05/24/20 05/24/20 18:59 06:59 18:59 Intake Total 1076 240 Output Total 900 750 Balance 176 -510 Weight 64 kg Intake: Oral 1076 240 Output: Urine 900 750 Other: # Voids 2 - Exam General: The patient is awake and alert, in no distress, and appears fatigued Neck: The neck is supple, there is no thyromegaly, lymphadenopathy, tenderness or JVD. Cardiovascular: S1S2 is normal, There is a regular rate and rhythm. No murmur, rub or gallop is appreciated. Respiratory: Lungs are coarse but improved aeration. There is left greater than right basilar crackles noted today. They're somewhat improved. This consi stent with her pulmonary fibrosis history. No fine crackles consistent with CHF are auscultated this time. Gastrointestinal: Soft, non-distended, non-tender abdomen without masses or organomegaly noted. There is no rebound or guarding present. Bowel sounds are unremarkable. Musculoskeletal: Normal ROM, no tenderness, There is no pedal edema. There is no calf tenderness or swelling. No cords were appreciated. Neurological: CN II-XII intact, there are no obvious motor or sensory deficits. Coordination appears grossly intact. Speech is normal. Skin: Skin is warm and dry and no rashes or lesions are noted. - Labs CBC & Chem 7: 05/24/20 08:14 05/24/20 08:14 Labs: Abnormal Lab Results - Last 24 Hours (Table) 05/23/20 05/23/20 05/23/20 Range/Units 11:49 16:31 21:01 Lymphocytes # (1.0-4.8) k/uL BUN (7-17) mg/dL Glucose (74-99) mg/dL POC Glucose (mg/dL) 126 H 148 H 138 H (75-99) mg/dL 05/24/20 05/24/20 05/24/20 Range/Units 06:20 08:14 08:14 Lymphocytes # 0.6 L (1.0-4.8) k/uL BUN 40 H (7-17) mg/dL Glucose 152 H (74-99) mg/dL POC Glucose (mg/dL) 161 H (75-99) mg/dL Assessment and Plan (1) Acute diastolic (congestive) heart failure Current Visit: Yes Status: Acute Priority: High Code(s): I50.31 - ACUTE DIASTOLIC (CONGESTIVE) HEART FAILURE SNOMED Code(s): 049127544 (2) Acute and chronic respiratory failure ([id number]) Current Visit: Yes Status: Acute Priority: High Code(s): J96.20 - ACUTE AND CHR RESP FAILURE, UNSP W HYPOXIA OR HYPERCAPNIA SNOMED Code(s): 39434344 (3) Hypothyroidism Current Visit: Yes Status: Chronic Priority: Low Code(s): E03.9 - HYPOTHYROIDISM, UNSPECIFIED SNOMED Code(s): 79589350 (4) GERD (gastroesophageal reflux disease) Current Visit: Yes Status: Chronic Priority: Low Code(s): K21.9 - GASTRO- ESOPHAGEAL REFLUX DISEASE WITHOUT ESOPHAGITIS SNOMED Code(s): 242272182 (5) H/O right nephrectomy Current Visit: Yes Status: Chronic Priority: Low Code(s): Z90.5 - ACQUIRED ABSENCE OF KIDNEY SNOMED Code(s): 53049899612303 (6) EVA (generalized anxiety disorder) Current Visit: Yes Status: Chronic Priority: Medium Code(s): F41.1 - GENERALIZED ANXIETY DISORDER SNOMED Code(s): 02203925 (7) Essential (primary) hypertension Current Visit: Yes Status: Chronic Priority: Low Code(s): I10 - ESSENTIAL (PRIMARY) HYPERTENSION SNOMED Code(s): 58524937 (8) Personal history of nicotine dependence Current Visit: Yes Status: Chronic Priority: Low Code(s): Z87.891 - PERSONAL HISTORY OF NICOTINE DEPENDENCE SNOMED Code(s): 423669861 (9) H/O: CVA (cerebrovascular accident) Current Visit: Yes Status: Chronic Priority: Medium Code(s): Z86.73 - PRSNL HX OF TIA (TIA), AND CEREB INFRC W/O RESID DEFICITS SNOMED Code(s): 496713146 (10) S/P laparoscopic cholecystectomy Current Visit: Yes Status: Acute Priority: Medium Code(s): Z90.49 - ACQUIRED ABSENCE OF OTHER SPECIFIED PARTS OF DIGESTIVE TRACT SNOMED Code(s): 050653003 (11) COPD (chronic obstructive pulmonary disease) with chronic bronchitis Current Visit: Yes Status: Acute Priority: High Code(s): J44.9 - CHRONIC OBSTRUCTIVE PULMONARY DISEASE, UNSPECIFIED SNOMED Code(s): 085365421 (12) Chest pain Current Visit: No Status: Acute Priority: Medium Code(s): R07.9 - CHEST PAIN, UNSPECIFIED SNOMED Code(s): 10583565 Plan: For her COPD: She'll remain on Rocephin and azithromycin, Solu-Medrol, Singulair, budesonide, weight on further pulmonology recommendations For her CHF, she'll remain on Lasix, wait on further cardiology recommendations Continue Accu-Cheks and NovoLog scale needed due to steroid use. Repeat labs in am. Continue her other home meds. We will reevaluate her in the next 24 hours.
[2020-05-24 12:26] LABS: Glucose,Whole Blood 87 mg/dL (75-99)
--- NOTE | 2020-05-24 15:15 | P.PN ---
Subjective Progress Note Date: 05/24/20 Principal diagnosis: Shortness of breath, hemoptysis The patient is seen today 05/24/2020 in follow-up on the selective care unit. She is currently resting comfortably in bed. Awake and alert in no acute distress. She does complain of a headache this morning. No worsening shortness of breath cough or congestion. Maintaining O2 saturations up to 100% on 2 L/m per nasal cannula. She's been afebrile. White count 8.4. Hemoglobin 14.5. Sodium 138. Potassium 4.7. Creatinine 0.82. She remains on antibiotics in form of ceftriaxone and azithromycin. Continue on Symbicort and DuoNeb inhalations, IV Solu-Medrol. Objective - Vital Signs Vital signs: Vital Signs Temp 98.2 F 05/24/20 08:20 Pulse 72 05/24/20 13:24 Resp 17 05/24/20 12:35 BP 130/63 05/24/20 12:35 Pulse Ox 100 05/24/20 12:35 Intake & Output 05/23/20 05/24/20 05/24/20 18:59 06:59 18:59 Intake Total 1076 240 Output Total 900 750 Balance 176 -510 Weight 64 kg Intake: Oral 1076 240 Output: Urine 900 750 Other: # Voids 2 - Exam GENERAL EXAM: Alert, pleasant 69-year-old female patient on 2 L nasal cannula, O2 saturation 100% comfortable in no apparent distress. HEAD: Normocephalic. EYES: Normal reaction of pupils, equal size. NOSE: Clear with pink turbinates. THROAT: No erythema or exudates. NECK: No masses, no JVD. CHEST: No chest wall deformity. LUNGS: Equal air entry with faint crackles in the posterior bases. CVS: S1 and S2 normal with no audible murmur, regular rhythm. ABDOMEN: Recent laparoscopic surgery sites clean dry well approximated. No hepatosplenomegaly, normal bowel sounds, no guarding or rigidity. SPINE: No scoliosis or deformity SKIN: No rashes CENTRAL NERVOUS SYSTEM: No focal deficits, tone is normal in all 4 extremities. EXTREMITIES: There is no peripheral edema. No clubbing, no cyanosis. Perip heral pulses are intact. - Labs CBC & Chem 7: 05/24/20 08:14 05/24/20 08:14 Labs: Abnormal Lab Results - Last 24 Hours (Table) 05/23/20 05/23/20 05/24/20 Range/Units 16:31 21:01 06:20 Lymphocytes # (1.0-4.8) k/uL BUN (7-17) mg/dL Glucose (74-99) mg/dL POC Glucose (mg/dL) 148 H 138 H 161 H (75-99) mg/dL 05/24/20 05/24/20 Range/Units 08:14 08:14 Lymphocytes # 0.6 L (1.0-4.8) k/uL BUN 40 H (7-17) mg/dL Glucose 152 H (74-99) mg/dL POC Glucose (mg/dL) (75-99) mg/dL Assessment and Plan Assessment: 1 Acute exacerbation of diastolic congestive heart failure 2 Acute exacerbation of chronic obstructive pulmonary disease 3 Hemoptysis, resolved 4 Acute on chronic hypoxic respiratory failure secondary to above 5 History of chronic mild intermittent chronic bronchial asthma 6 Peripheral vascular disease 7 History of right nephrectomy 8 Hypothyroidism 9 Esophageal reflux disease 10 Coronary disease 11 Hypertension Plan: The patient was seen and evaluated by Dr. Velasquez Improved from the pulmonary standpoint Continue the current treatment plan Increase her activity as tolerated Titrate down the FiO2 as tolerated Probable discharge in the a.m. We'll continue to follow I, the cosigning physician, performed a history & physical examination of the patient. Lungs sounds with faint crackles in the posterior bases Maintaining good O2 saturations in the 90s on 2 L/m nasal cannula. I discussed the assessment and plan of care with my nurse practitioner, Sandra Lizarraga. I attest to the above note as dictated by her.
--- NOTE | 2020-05-24 15:32 | PN ---
PROGRESS NOTE Mrs. Mcgrath is a 69-year-old female with a history of hypertension, history of chronic obstructive lung disease, who presented with symptoms of progressive dyspnea. She is feeling better today. She continues to cough but not as bad. She has hoarseness in her voice. She denies any dizziness or palpitation. Her cough is nonproductive. She continues to be at this time on aspirin once a day Lipitor 10 mg daily, furosemide 20 mg twice a day, isosorbide mononitrate 30 mg daily, lisinopril 10 mg daily, metoprolol tartrate 25 mg twice a day. PHYSICAL EXAMINATION: Blood pressure 125/59 with a heart rate in the 80s. LUNGS: With a few crackles at the right base. HEART: Regular rate and rhythm. S1, S2. No S3. No rub. ABDOMEN: Soft, nontender. EXTREMITIES: No edema. LAB DATA: BUN and creatinine of 40 and 0.82. Potassium 4.7, hemoglobin of 14.5. IMPRESSION: 1. Symptoms of progressive dyspnea, probably with exacerbation of chronic obstructive pulmonary disease and bronchitis. 2. Mild coronary artery disease. 3. Status recent cholecystectomy. 4. History of peripheral disease. RECOMMENDATION: I will cut down the dose of her Lasix. Continue the rest of her medical regimen. Increase her level activity. I am hopeful that she will be able to be discharged in the next 24 hours. MMODL / IJN: [id number] /
[2020-05-24 16:49] LABS: Glucose,Whole Blood 180 mg/dL (75-99)
[2020-05-24 17:34] VITALS: RESP 18
[2020-05-24 20:49] LABS: Glucose,Whole Blood 143 mg/dL (75-99)
[2020-05-24] MEDS: MONTELUKAST 10 MG TAB PO SCH (22:48)
[2020-05-24] MEDS: ATORVASTATIN 10 MG TAB PO SCH (22:49)
[2020-05-24] MEDS: SENNOSIDES-DOCUSATE SODIUM 1 EACH TAB PO SCH (23:03)
[2020-05-25 06:10] LABS: Glucose,Whole Blood 122 mg/dL (75-99)
[2020-05-25] MEDS: LEVOTHYROXINE 50 MCG TAB PO SCH (06:42)
[2020-05-25 07:56] LABS: Basophils % (A) 0 %; Eosinophils % (A) 0 %; HCT 43.4 % (34.0-46.0); HGB 14.1 gm/dL (11.4-16.0); Lymphocytes # (A) 0.6 k/uL (1.0-4.8); Lymphocytes % (A) 4 %; MCH 30.7 pg (25.0-35.0); MCHC 32.5 g/dL (31.0-37.0); MCV 94.6 fL (80.0-100.0); Mean Platelet Volume 7.5; Monocytes # (A) 0.2 k/uL (0-1.0); Monocytes % (A) 2 %; Neutrophils # (A) 13.8 k/uL (1.3-7.7); Neutrophils % (A) 94 %; Platelet Count 238 k/uL (150-450); RBC 4.59 m/uL (3.80-5.40); WBC 14.6 k/uL (3.8-10.6)
[2020-05-25 08:07] LABS: Calcium 9.4 mg/dL (8.4-10.2); Magnesium 1.9 mg/dL (1.6-2.3); Potassium 3.7 mmol/L (3.5-5.1)
[2020-05-25] MEDS ORDERED: FUROSEMIDE 20 MG TAB PO SCH (09:00)
[2020-05-25] MEDS: IPRATROPIUM-ALBUTEROL 3 ML NEB INHALATION SCH ×2 (09:28→09:37)
[2020-05-25] MEDS: SYMBICORT 160-4.5 MCG INHALER INHALATION SCH (09:28)
--- NOTE | 2020-05-25 09:55 | PN ---
PROGRESS NOTE Mrs. Mcgrath is a 69-year-old female with a history of bronchial asthma, history of recent cholecystectomy, who presented with symptoms of progressive dyspnea and cough. She is feeling much better at this time. Her breathing is better. She denies any dizziness. She denies any palpitation. She had a preserved systolic function. She feels that she is stable to go home. Continues to be on aspirin once a day, Lipitor 10 mg daily, furosemide 20 mg daily, isosorbide mononitrate 30 mg daily, lisinopril 10 mg daily, metoprolol tartrate 25 mg twice a day. PHYSICAL EXAMINATION: Blood pressure 113/50 with a heart rate in the 80s. LUNGS: A few crackles at the bases. No wheezes. HEART: Regular rate and rhythm S1, S2. No S3. No rub. ABDOMEN: Soft. Nontender. EXTREMITIES: No edema. LAB DATA: BUN and creatinine of 40 and 0.84. Potassium 3.7, hemoglobin 14.1. IMPRESSION: 1. Progressive dyspnea with a combination of exacerbation of chronic obstructive pulmonary disease and mild heart failure with preserved systolic function. 2. Status post recent cholecystectomy. 3. Mild coronary artery disease. 4. History of peripheral vascular disease. RECOMMENDATION: From the cardiac standpoint she is stable. She should be able to be discharged home today and followed as an outpatient. MMODL / IJN: [id number] /
[2020-05-25] MEDS: INSULIN ASPART (NovoLOG) 100 UNIT/ML VIAL SQ SCH ×2 (10:08→12:50)
[2020-05-25] MEDS: ISOSORBIDE MONONITRATE ER 30 MG TAB.ER.24H PO SCH (10:08)
[2020-05-25] MEDS: PANTOPRAZOLE 40 MG TABLET PO SCH (10:08)
[2020-05-25] MEDS: ASPIRIN 81 MG PO SCH (10:08)
[2020-05-25] MEDS: lisinopriL 10 MG TAB PO SCH (10:09)
[2020-05-25] MEDS: AZITHROMYCIN 500 MG TAB PO SCH (10:09)
[2020-05-25] MEDS: CHOLECALCIFEROL 1,000 UNIT TAB PO SCH (10:09)
[2020-05-25] MEDS: DOCUSATE 100 MG CAP PO SCH (10:09)
[2020-05-25] MEDS: METOPROLOL TARTRATE 25 MG TAB PO SCH (10:09)
[2020-05-25] MEDS: methylPREDNISolone SOD SUCCI 125 MG/2 ML VIAL IV SCH (10:10)
[2020-05-25] MEDS: LORATADINE 10 MG TAB PO SCH (10:11)
[2020-05-25 10:39] VITALS: TEMP 97.9
[2020-05-25 12:11] LABS: Glucose,Whole Blood 120 mg/dL (75-99)
--- NOTE | 2020-05-25 12:36 | P.DS ---
Providers Date of admission: 05/21/20 02:28 Expected date of discharge: 05/25/20 Attending physician: Jorge Luis Roman Consults: 05/21/20 02:28 Consult Physician Routine Consulting Provider: Ricarda White Consult Reason/Comments: COPD Do you want consulting provider notified?: Yes, Notify in am Consult Physician Routine Consulting Provider: [facility] Consult Reason/Comments: new heart failure, 2 days post op from lap jonathan Do you want consulting provider notified?: Yes, Notify in am 05/21/20 03:03 Consult Physician Routine Consulting Provider: Aaron Thorne Consult Reason/Comments: postop heart failure Do you want consulting provider notified?: Yes, Notify in am Primary care physician: Avery Epps - [place] Diagnosis(es) (1) Acute and chronic respiratory failure ([id number]) Current Visit: Yes Status: Acute Priority: High (2) Acute diastolic (congestive) heart failure Current Visit: Yes Status: Acute Priority: High (3) Acute exacerbation of COPD with asthma Current Visit: Yes Status: Acute (4) COPD (chronic obstructive pulmonary disease) with chronic bronchitis Current Visit: Yes Status: Acute Priority: High (5) Hypothyroidism Current Visit: Yes Status: Chronic Priority: Low (6) GERD (gastroesophageal reflux disease) Current Visit: Yes Status: Chronic Priority: Low (7) H/O right nephrectomy Current Visit: Yes Status: Chronic Priority: Low (8) EVA (generalized anxiety disorder) Current Visit: Yes Status: Chronic Priority: Medium (9) Essential (primary) hypertension Current Visit: Yes Status: Chronic Priority: Low (10) Personal history of nicotine dependence Current Visit: Yes Status: Chronic Priority: Low (11) H/O: CVA (cerebrovascular accident) Current Visit: Yes Status: Chronic Priority: Medium (12) S/P laparoscopic cholecystectomy Current Visit: Yes Status: Acute Priority: Medium (13) Chest pain Current Visit: No Status: Acute Priority: Medium Hospital Course: this is a 69-year-old female with history of asthma, COPD, CVA/TIA, gastroesophageal reflux disease, osteoarthritis, right nephrectomy hypothyroidism, anxiety, chronic hypoxic respiratory failureuses 1-2 L nasal cannula oxygen at night, former nicotine dependent, CAD, recent laparoscopic cholecystectomy .Patient reports she felt great on the day of discharge, later in the evening she proceeded to cough up 4 small sized blood clots-brown in color and attributed those to her postop nosebleed, went to bed and awakened by worsening shortness of breath, accompanied by coughing. On arrival to the ER ,O2 sat was 88% on room air, hypertensive with systolic blood pressure in the 170s. Denies any chest pain, palpitations. Denies lightheadedness, dizziness or focal deficits. Denies nausea vomiting or diarrhea. Reports surgical tenderness, no abdominal pain. Denies fever, chills. Denies cough congestion. BNP 3280. Chest x-ray reported new pulmonary interstitial edema, possible CHF. Echo ordered. EKG reported sinus rhythm with fusion complexes. Troponin 0.023. Afebrile, WBC 12.1, neutrophils 9.6. Hemoglobin 12.6, platelets 197, coagulation unremarkable, sodium 136 potassium 4.4, BUN 19, creatinine 0.88. T bili and LFTs within normal limits with the exception of mild elevation of AST,43. Received supplemental oxygen, nebulized bronchodilators, with IV push diuretics Initiated. Patient also stated she had been on Lasix and potassium for many years, which had been stopped over the last few months. Echo pending.\ 05/22/2020 patient reports feels worse this morning, increased fatigue, pers istent nonproductive coughing with persistent bibasilar crackles worse on the left side. Requesting stool softener reporting no bowel movement since Tuesday. Denies chest pain, palpitations. Maintaining O2 sats in the 90s on 3 L nasal cannula. Blood pressure controlled. Echo reported normal LV function, EF 55% .diuresing well on Lasix IV push with 24-hour I&O reflecting a negative fluid balance. Afebrile, labs pending. 05/23/20 reports she feels worse today. Hoarse with nonproductive cough. Diuresing well on oral Lasix with 24-hour I&O reporting a negative fluid balance, decreased weight. Denies chest pain, palpitations or increasing shortness of breath. Denies nausea or vomiting. Afebrile, WBC trending down to 11.3. Maintaining O2 sats in the 90s on 2 L nasal cannula. 05/24/2020: Patient feels slightly better today. She continues to be somewhat hoarse but it clears. She is to have nonproductive cough. Complains occasional chest heaviness after coughing. She remains on 2 L oxygen via nasal cannula. Sats are between 97 and 99% currently. She denies any nausea vomiting diarrhea constipation was time. She remains on azithromycin and ceftriaxone for antibiotic coverage. She has budesonide, ipratropium, singular, and Solu-Medrol 60 every 8 ordered for her breathing. She remains on furosemide for CHF. 05/25/2020: Patient is remained stable overnight and feels improved today. Pulse oximetry stayed above 95% With 2 L of oxygen for the past 24 hours. Lung sounds are improved today. Laboratory studies remained stable. She is been cleared by consultants for discharge. Patient Condition at Discharge: Stable Plan - Discharge Summary Discharge Rx Participant: No New Discharge Prescriptions: New predniSONE 10 mg PO DIRECTED #30 tab Furosemide [Lasix] 20 mg PO DAILY #30 tab Metoprolol Tartrate [Lopressor] 25 mg PO BID #60 tab Cefdinir [Omnicef] 300 mg PO Q12HR #10 capsule lisinopriL [Zestril] 10 mg PO DAILY #30 tab Continue Levothyroxine Sodium [Synthroid] 50 mcg PO DAILY ALPRAZolam [Xanax] 0.75 mg PO HS PRN PRN Reason: sleep Eszopiclone [Lunesta] 3 mg PO HS PRN PRN Reason: sleep Budesonide-Formot 160-4.5 Mcg [Symbicort 160-4.5 Mcg Inhaler] 2 puff INHALATION RT-BID Aspirin EC [Ecotrin Low Dose] 81 mg PO DAILY Pitavastatin Calcium [Livalo] 2 mg PO HS Cholecalciferol (Vitamin D3) [Vitamin D3] 2,000 unit PO DAILY Lidocaine 5% Patch [Lidoderm 5% Patch] 1 patch TOPICAL DAILY PRN PRN Reason: Pain traMADol HCl [Ultram] 50 mg PO Q6H PRN #6 tab PRN Reason: Pain Levalbuterol Hfa Inhaler [Xopenex Hfa Inhaler] 2 puff INHALATION RT-Q6H PRN PRN Reason: Shortness Of Breath Montelukast [Singulair] 10 mg PO HS Loratadine [Claritin] 10 mg PO DAILY Fluticasone Nasal [place] [Flonase Nasal [place]] 2 spr EA NOSTRIL DAILY PRN PRN Reason: Congestion Famotidine/Ca Carb/Mag Hydrox [Pepcid Complete Tablet Chew] 1 tab PO BID PRN PRN Reason: GERD Isosorbide Mononitrate ER [Imdur] 30 mg PO DAILY Levalbuterol HCl [Xopenex] 1.25 mg INHALATION RT-QID PRN PRN Reason: Shortness Of Breath Discharge Medication List ALPRAZolam [Xanax] 0.75 mg PO HS PRN 02/25/14 [History] Levothyroxine Sodium [Synthroid] 50 mcg PO DAILY 02/25/14 [History] Aspirin EC [Ecotrin Low Dose] 81 mg PO DAILY 06/27/14 [History] Budesonide-Formot 160-4.5 Mcg [Symbicort 160-4.5 Mcg Inhaler] 2 puff INHALATION RT-BID 06/27/14 [History] Eszopiclone [Lunesta] 3 mg PO HS PRN 06/27/14 [History] Pitavastatin Calcium [Livalo] 2 mg PO HS 07/28/17 [History] Cholecalciferol (Vitamin D3) [Vitamin D3] 2,000 unit PO DAILY 10/15/19 [History] Lidocaine 5% Patch [Lidoderm 5% Patch] 1 patch TOPICAL DAILY PRN 10/15/19 [History] traMADol HCl [Ultram] 50 mg PO Q6H PRN #6 tab 05/19/20 [Rx] Famotidine/Ca Carb/Mag Hydrox [Pepcid Complete Tablet Chew] 1 tab PO BID PRN 05/21/20 [History] Fluticasone Nasal [place] [Flonase Nasal [place]] 2 spr EA NOSTRIL DAILY PRN 05/21/20 [History] Isosorbide Mononitrate ER [Imdur] 30 mg PO DAILY 05/21/20 [History] Levalbuterol HCl [Xopenex] 1.25 mg INHALATION RT-QID PRN 05/21/20 [History] Levalbuterol Hfa Inhaler [Xopenex Hfa Inhaler] 2 puff INHALATION RT-Q6H PRN 05/21/20 [History] Loratadine [Claritin] 10 mg PO DAILY 05/21/20 [History] Montelukast [Singulair] 10 mg PO HS 05/21/20 [History] predniSONE 10 mg PO DIRECTED #30 tab 05/23/20 [Rx] Cefdinir [Omnicef] 300 mg PO Q12HR #10 capsule 05/25/20 [Rx] Furosemide [Lasix] 20 mg PO DAILY #30 tab 05/25/20 [Rx] Metoprolol Tartrate [Lopressor] 25 mg PO BID #60 tab 05/25/20 [Rx] lisinopriL [Zestril] 10 mg PO DAILY #30 tab 05/25/20 [Rx] Follow up Appointment(s)/Referral(s): Aaron Thorne MD [Medical Doctor] - 1 Week (Already has an appointment for next week made. ) Darrion Mejia MD [STAFF PHYSICIAN] - 2 Weeks Jorge Luis Roman MD [STAFF PHYSICIAN] - 1 Week Ricarda White MD [STAFF PHYSICIAN] - 1 Week Activity/Diet/Wound Care/Special Instructions: Continue to use oxygen at night and as needed Discharge Disposition: HOME SELF-CARE
[2020-05-25 13:29] VITALS: BP 133/61; PULSE 71
--- NOTE | 2020-05-25 14:56 | P.PN ---
Subjective Progress Note Date: 05/25/20 Principal diagnosis: Shortness of breath, hemoptysis The patient is seen today 05/24/2020 in follow-up on the selective care unit. She is currently resting comfortably in bed. Awake and alert in no acute distress. She does complain of a headache this morning. No worsening shortness of breath cough or congestion. Maintaining O2 saturations up to 100% on 2 L/m per nasal cannula. She's been afebrile. White count 8.4. Hemoglobin 14.5. Sodium 138. Potassium 4.7. Creatinine 0.82. She remains on antibiotics in form of ceftriaxone and azithromycin. Continue on Symbicort and DuoNeb inhalations, IV Solu-Medrol. The patient is seen today 05/25/2020 in follow-up on the selective care unit. She is currently sitting up in a chair at the bedside. Awake and alert in no acute distress. Tolerating her diet. Denies any worsening shortness of breath, cough or congestion. Still with a dry nonproductive cough. White count 14.6. Hemoglobin 14.1. Sodium 138. Potassium 3.7. Creatinine 0.84. Continued on Symbicort, DuoNeb inhalations, IV Solu-Medrol, antibiotics in the form of ceftriaxone and azithromycin. Objective - Vital Signs Vital signs: Vital Signs Temp 97.9 F 05/25/20 08:40 Pulse 71 05/25/20 12:15 Resp 18 05/25/20 12:15 BP 133/61 05/25/20 12:15 Pulse Ox 98 05/25/20 12:15 Intake & Output 05/24/20 05/25/20 05/25/20 18:59 06:59 18:59 Intake Total 530 240 240 Output Total 1050 1000 Balance -520 -760 240 Weight 64 kg Intake: Intake, IV Titration 50 Amount cefTRIAXone 1 gm In 50 Sodium Chloride 0.9% 50 ml @ 100 mls/hr IVPB Q24HR [facility] Rx#:[id number] Oral 480 240 240 Output: Urine 1050 1000 - Exam GENERAL EXAM: Alert, pleasant 69-year-old female patient on 2 L nasal cannula, O2 saturation 100% comfortable in no apparent distress. HEAD: Normocephalic. EYES: Normal reaction of pupils, equal size. NOSE: Clear with pink turbinates. THROAT: No erythema or exudates. NECK: No masses, no JVD. CHEST: No chest wall deformity. LUNGS: Equal air entry with faint crackles in the posterior bases. CVS: S1 and S2 normal with no audible murmur, regular rhythm. ABDOMEN: Recent laparoscopic surgery sites clean dry well approximated. No hepatosplenomegaly, normal bowel sounds, no guarding or rigidity. SPINE: No scoliosis or deformity SKIN: No rashes CENTRAL NERVOUS SYSTEM: No focal deficits, tone is normal in all 4 extremities. EXTREMITIES: There is no peripheral edema. No clubbing, no cyanosis. Peripheral pulses are intact. - Labs CBC & Chem 7: 05/25/20 07:12 05/25/20 07:12 Labs: Abnormal Lab Results - Last 24 Hours (Table) 05/24/20 05/24/20 05/25/20 Range/Units 16:48 20:48 06:09 WBC (3.8-10.6) k/uL Neutrophils # (1.3-7.7) k/uL Lymphocytes # (1.0-4.8) k/uL BUN (7-17) mg/dL Glucose (74-99) mg/dL POC Glucose (mg/dL) 180 H 143 H 122 H (75-99) mg/dL 05/25/20 05/25/20 05/25/20 Range/Units 07:12 07:12 11:47 WBC 14.6 H (3.8-10.6) k/uL Neutrophils # 13.8 H (1.3-7.7) k/uL Lymphocytes # 0.6 L (1.0-4.8) k/uL BUN 40 H (7-17) mg/dL Glucose 136 H (74-99) mg/dL POC Glucose (mg/dL) 120 H (75-99) mg/dL Assessment and Plan Assessment: 1 Acute exacerbation of diastolic congestive heart failure 2 Acute exacerbation of chronic obstructive pulmonary disease 3 Hemoptysis, resolved 4 Acute on chronic hypoxic respiratory failure secondary to above 5 History of chronic mild intermittent chronic bronchial asthma 6 Peripheral vascular disease 7 History of right nephrectomy 8 Hypothyroidism 9 Esophageal reflux disease 10 Coronary disease 11 Hypertension Plan: The patient was seen and evaluated by Dr. Velasquez For discharge from the pulmonary standpoint Complete a prednisone taper Complete a course of antibiotics Continue home pulmonary medications Follow-up in the office in 1-2 weeks' time I, the cosigning physician, performed a history & physical examination of the patient. Lungs sounds with faint crackles in the posterior bases Maintaining good O2 saturations in the 90s on 2 L/m nasal cannula. I discussed the assessment and plan of care with my nurse practitioner, Sandra Lizarraga. I attest to the above note as dictated by her.
== END 2020-05-25 14:28 | disposition home or self-care (01) | DRG 291 ==
LOC: EC 00:48 → 3SCARD 02:28
PROVIDERS: ADMIT Family Medicine; ATTEND Family Medicine
DX: I11.0 Hypertensive heart disease with heart failure (principal); J96.21 Acute and chronic respiratory failure with hypoxia; J44.1 Chronic obstructive pulmonary disease with (acute) exacerbation; J45.21 Mild intermittent asthma with (acute) exacerbation; R04.2 Hemoptysis; I50.33 Acute on chronic diastolic (congestive) heart failure; I95.9 Hypotension, unspecified; I08.1 Rheumatic disorders of both mitral and tricuspid valves; I73.9 Peripheral vascular disease, unspecified; Z20.828 Contact with and (suspected) exposure to other viral communicable diseases; F41.1 Generalized anxiety disorder; E03.9 Hypothyroidism, unspecified; E78.5 Hyperlipidemia, unspecified; I25.10 Atherosclerotic heart disease of native coronary artery without angina pectoris; R04.0 Epistaxis; K44.9 Diaphragmatic hernia without obstruction or gangrene; K21.9 Gastro-esophageal reflux disease without esophagitis; K57.90 Diverticulosis of intestine, part unspecified, without perforation or abscess without bleeding; K64.9 Unspecified hemorrhoids; I83.90 Asymptomatic varicose veins of unspecified lower extremity; M19.90 Unspecified osteoarthritis, unspecified site; L98.9 Disorder of the skin and subcutaneous tissue, unspecified; Z79.82 Long term (current) use of aspirin; Z79.51 Long term (current) use of inhaled steroids; Z79.890 Hormone replacement therapy; Z79.899 Other long term (current) drug therapy; Z87.891 Personal history of nicotine dependence; Z90.49 Acquired absence of other specified parts of digestive tract; Z87.19 Personal history of other diseases of the digestive system; Z86.73 Personal history of transient ischemic attack (TIA), and cerebral infarction without residual deficits; Z87.442 Personal history of urinary calculi; Z90.710 Acquired absence of both cervix and uterus; Z87.42 Personal history of other diseases of the female genital tract; Z90.89 Acquired absence of other organs; Z90.5 Acquired absence of kidney; Z87.448 Personal history of other diseases of urinary system; Z87.39 Personal history of other diseases of the musculoskeletal system and connective tissue; Z96.1 Presence of intraocular lens; Z98.41 Cataract extraction status, right eye; Z98.42 Cataract extraction status, left eye; Z98.890 Other specified postprocedural states; Z88.5 Allergy status to narcotic agent; Z88.8 Allergy status to other drugs, medicaments and biological substances; Z88.6 Allergy status to analgesic agent; Z88.1 Allergy status to other antibiotic agents; Z91.041 Radiographic dye allergy status; Z80.42 Family history of malignant neoplasm of prostate; Z80.8 Family history of malignant neoplasm of other organs or systems; Z80.9 Family history of malignant neoplasm, unspecified; Z82.49 Family history of ischemic heart disease and other diseases of the circulatory system
CPT/HCPCS: 36415; 71046; 71275; 80048; 80053; 83735; 83880; 84484; 85025; 85027; 85379; 85610; 85730; 93005; 93306; 94640; 96374; 99285

== ENCOUNTER → 2020-07-15 | Outpatient (CLI) | payer BC, MEDICARE ==
[2020-07-15 16:26] LABS: Total Volume 24 Hour,Urine 3120 mls (250-2400)
[2020-07-15 16:31] LABS: Total Protein 24 Hour,Urine 343 mg/24hr (42.0-225.0)
[2020-07-15 16:57] LABS: Basophils % (A) 1 %; Eosinophils # (A) 0.1 k/uL (0-0.7); Eosinophils % (A) 1 %; HCT 40.1 % (34.0-46.0); HGB 12.9 gm/dL (11.4-16.0); Lymphocytes # (A) 2.9 k/uL (1.0-4.8); Lymphocytes % (A) 35 %; MCH 30.4 pg (25.0-35.0); MCHC 32.1 g/dL (31.0-37.0); MCV 94.6 fL (80.0-100.0); Mean Platelet Volume 7.5; Monocytes # (A) 0.4 k/uL (0-1.0); Monocytes % (A) 5 %; Neutrophils # (A) 4.8 k/uL (1.3-7.7); Neutrophils % (A) 58 %; Platelet Count 216 k/uL (150-450); RBC 4.24 m/uL (3.80-5.40); RDW 13.7 % (11.5-15.5); WBC 8.3 k/uL (3.8-10.6)
[2020-07-15 17:05] LABS: Albumin 3.7 g/dL (3.5-5.0); Calcium 9.4 mg/dL (8.4-10.2); Phosphorus 2.8 mg/dL (2.5-4.5); Potassium 4.3 mmol/L (3.5-5.1); Total Bilirubin 0.6 mg/dL (0.2-1.3); Total Protein 6.3 g/dL (6.3-8.2)
[2020-07-15 17:09] LABS: Appearance,Urine Clear (Clear); Bacteria,Urine Rare /hpf; Bilirubin,Urine Negative (Negative); Blood,Urine Negative (Negative); Color,Urine Colorless; Glucose,Urine (UA) Negative (Negative); Ketones,Urine Negative (Negative); Leukocyte Esterase,Urine Moderate (Negative); Mucus,Urine Rare /hpf; Nitrite,Urine Negative (Negative); Protein,Urine Negative (Negative); RBC,Urine 2 /hpf (0-5); Specific Gravity,Urine 1.002 (1.001-1.035); Squamous Epithelial Cell,Urine 1 /hpf (0-4); Urobilinogen,Urine <2.0 mg/dL (<2.0); WBC,Urine 1 /hpf (0-5)
[2020-07-15 17:15] LABS: Creatinine 24 Hour,Urine 683.3 mg/24hr (800.0-1800.0)
--- NOTE | 2020-07-15 17:54 | US ---
EXAMINATION TYPE: US kidneys/renal and bladder DATE OF EXAM: 07/15/2020 COMPARISON: None CLINICAL HISTORY: 69-year-old female R94.4 ABN RENAL KIDNEY FUNCTION STUDIES. TECHNIQUE: Multiple sonographic images of the kidneys and bladder are obtained. FINDINGS: EXAM MEASUREMENTS: Left Kidney: 11.1 x 5.3 x 4.5 cm Right Kidney: surgically absent Left Kidney: no hydronephrosis. Bladder: wnl Bilateral Jets seen: no IMPRESSION: The skimmer scoop operator reports the right kidney to be surgically absent. No hydronephrosis on the left.
== END | disposition home or self-care (01) ==
LOC: RADUSWWP 15:08
PROVIDERS: ATTEND Family Medicine
DX: R94.4 Abnormal results of kidney function studies (principal); Z90.5 Acquired absence of kidney
CPT/HCPCS: 76770; 80053; 81001; 81050; 82575; 84100; 84156; 85025

== ENCOUNTER → 2020-07-29 | Outpatient (CLI) | payer MEDICARE ==
--- NOTE | 2020-08-18 09:30 | EM ---
14 day event monitor note: Procedure details: Patient wore an event monitor for a total of 12 days from 07/29/2020 until 08/09/2028. This represented 63% compliance. Findings: Patient had a total of 31 automatically captured and patient activated events. Patient activated events corresponded with normal sinus rhythm most part and occasional PVCs and PACs. There were 2 events of paroxysmal atrial tachycardia for 4 beats. There is no significant pauses greater than 2 seconds, no atrial fibrillation or atrial flutter. No significant ventricular tachycardia. Conclusions: 2 Very brief runs of paroxysmal atrial tachycardia for 4 beats. Rare PVCs and PACs. Majority of patient activated events corresponding with sinus rhythm and occasionally with PVCs. [facility]
== END | disposition home or self-care (01) ==
LOC: RADECHMAIN 12:10
PROVIDERS: ATTEND Family Medicine
DX: I49.3 Ventricular premature depolarization (principal); I49.1 Atrial premature depolarization; I47.1 Supraventricular tachycardia
CPT/HCPCS: 93270

== ENCOUNTER → 2020-09-10 | Outpatient (CLI) | payer MEDICARE ==
--- NOTE | 2020-09-10 15:48 | XR ---
EXAMINATION TYPE: XR chest 2V DATE OF EXAM: 09/10/2020 COMPARISON: Chest x-ray 05/22/[address] 05/21/2020 HISTORY: R07.89, J 44.9, R07.81 TECHNIQUE: Frontal and lateral views of the chest are obtained. FINDINGS: There is no focal air space opacity, pleural effusion, or pneumothorax seen. The cardiac silhouette size is within normal limits. The aorta is dense. There are overlying artifacts. Interstit ium is increased. Biapical pleural thickening is noted. Surgical clips present in the right upper osiris drant. There is thoracic spondylosis. The osseous structures are intact. IMPRESSION: There is interstitial lung disease. There is underlying emphysema.
== END | disposition home or self-care (01) ==
LOC: LABWHC1 14:37
PROVIDERS: ATTEND Family Medicine
DX: R07.81 Pleurodynia (principal); R07.89 Other chest pain; J43.9 Emphysema, unspecified; J84.9 Interstitial pulmonary disease, unspecified
CPT/HCPCS: 36415; 71046; 93005

== ENCOUNTER → 2020-09-15 | Outpatient (CLI) | payer MEDICARE ==
[~2020-09-15] MED LIST changes: -DEXAMETHASONE SOD PHOSPHATE 10 MG/ML 1 ML VIAL IV ONE; +DOBUTamine DRIP for NUC MED 500 MG in DEXTROSE/WATER 1 250ML.BAG IV PRN; -HEPARIN SODIUM,PORCINE 5,000 UNIT/ML 1 ML VIAL SQ ONE; -SCOPOLAMINE 1.5MG/72HR PATCH TRANSDERM ONE
--- NOTE | 2020-09-15 13:54 | ECHOS ---
STRESS ECHOCARDIOGRAM DATE OF SERVICE: 09/15/2020 AGE: 70 SEX: Female HT: 60" WT: 141 lbs. LUMASON: 0 Vial INDICATIONS: Chest pain. MEDICATIONS: See list. BASELINE HEART RATE: 82 BASELINE BLOOD PRESSURE: 96/44 MAXIMUM HEART RATE: 13. MAXIMUM BLOOD PRESSURE: 103/34 85% MPHR: 126 100% MPHR: 148 METS: MAXIMUM STAGE REACHED: TOTAL EXERCISE TIME: RESULTS: Baseline rhythm is sinus mechanism, rate of 76, normal axis and intervals, rare PVCs. Baseline blood pressure 96/44 mmHg. Patient received infusion of dobutamine per protocol reaching a peak rate of 138 beats per minute which is equal to 93% maximum predicted heart rate. Peak blood pressure 103/34 mmHg. Electrocardiograph monitoring revealed occasional PVCs. There was no evidence of diagnostic ischemic ST deviation. FINDINGS: Baseline echocardiogram revealed normal wall motion. At peak infusion, there was normal wall motion augmentation with no hypokinesis or dyskinesia. CONCLUSION: 1. Normal electrocardiograph response to dobutamine infusion with occasional PVCs. 2. Normal stress echocardiogram with no evidence of stress-induced ischemia. MMODL / IJN: [id number] /
== END | disposition home or self-care (01) ==
LOC: RADNMMAIN 08:51
PROVIDERS: ATTEND Family Medicine
DX: R07.89 Other chest pain (principal); Z88.1 Allergy status to other antibiotic agents; Z88.6 Allergy status to analgesic agent
CPT/HCPCS: 93351

== ENCOUNTER → 2020-12-02 | Outpatient (CLI) | payer MEDICARE ==
--- NOTE | 2020-12-03 08:53 | CT ---
EXAMINATION TYPE: CT chest w con DATE OF EXAM: 12/02/2020 COMPARISON: CT chest 05/21/2020, chest x-ray 11/19/2020 HISTORY: cough, SOB, COPD CT DLP: 473 mGycm Automated exposure control for dose reduction was used. CONTRAST: CT scan of the chest is performed with IV Contrast, patient injected with 100 mL of Isovue 300. FINDINGS: LUNGS: The lungs are remarkable for emphysematous changes, centrilobular emphysema is seen as on prio r exam, there is some apical scarring as on prior CT. Interlobular septal pleural thickening changes are again noted. Some minimal basilar traction bronchiectatic changes are present peripherally. There is no pleural effusion or pneumothorax seen. The tracheobronchial tree is patent. MEDIASTINUM: Prevascular nodes enlarged as on prior exam, some retrocaval pretracheal nodes are again noted with borderline enlargement noted in one of the nodes, aorticopulmonary window nodes are not e nlarged AORTA: No additional significant abnormality is seen. OTHER: There is a hiatal hernia. Colonic interposition noted incidentally anterior to the liver. Pat ient is post cholecystectomy.. IMPRESSION: Findings consistent with interstitial lung disease, idiopathic pulmonary fibrosis, emphy sema, additional findings above.
== END | disposition home or self-care (01) ==
LOC: RADCTMAIN 14:54
PROVIDERS: ATTEND Internal Medicine Critical Care Medicine
DX: J44.9 Chronic obstructive pulmonary disease, unspecified (principal)
CPT/HCPCS: 82565; 84520; 71260; 36415; Q9967

== ENCOUNTER → 2021-02-23 | Outpatient (CLI) | payer MEDICARE | END | disposition home or self-care (01) | CPT/HCPCS: 71250 ==

== ENCOUNTER → 2021-03-04 | Outpatient (CLI) | payer MEDICARE ==
--- NOTE | 2021-03-05 09:14 | MM ---
Reason for exam: screening (asymptomatic). Last mammogram was performed 1 year ago. History: Patient is postmenopausal. Took hormonal contraceptives for 20 years. Took estrogen for 20 years beginning at age 30. Took unspecified hormones beginning at age 47. Physical Findings: A clinical breast exam by your physician is recommended on an annual basis and results should be correlated with mammographic findings. MG 3D Screening Mammo W/Cad Bilateral CC and MLO view(s) were taken. Prior study comparison: March 03, 2020, bilateral MG 3d screening mammo w/cad. December 06, 2018, bilateral MG 3d screening mammo w/cad. The breast tissue is heterogeneously dense. This may lower the sensitivity of mammography. ASSESSMENT: Negative, BI-RAD 1 RECOMMENDATION: Routine screening mammogram of both breasts in 1 year.
== END | disposition home or self-care (01) ==
LOC: RADMAMWWP 07:10
PROVIDERS: ATTEND Obstetrics & Gynecology
DX: Z12.31 Encounter for screening mammogram for malignant neoplasm of breast (principal); Z78.0 Asymptomatic menopausal state; Z79.3 Long term (current) use of hormonal contraceptives
CPT/HCPCS: 77063; 77067

== ENCOUNTER → 2021-06-23 | Outpatient (CLI) | payer MEDICARE ==
[2021-06-23 15:43] LABS: Appearance,Urine Clear (Clear); Bilirubin,Urine Negative (Negative); Blood,Urine Negative (Negative); Color,Urine Colorless; Glucose,Urine (UA) Negative (Negative); Ketones,Urine Negative (Negative); Leukocyte Esterase,Urine Negative (Negative); Nitrite,Urine Negative (Negative); Protein,Urine Negative (Negative); Specific Gravity,Urine 1.003 (1.001-1.035); Urobilinogen,Urine <2.0 mg/dL (<2.0)
[2021-06-23 19:51] LABS: HGB 12.2 g/dL (12.0-15.0); MCH 31.1 pg (27.0-32.0); MCHC 31.3 g/dL (32.0-37.0); MCV 99.5 fL (80.0-97.0); Mean Platelet Volume 10.2 fL (9.5-12.2); Platelet Count 201 X 10*3/uL (140-440); RBC 3.92 X 10*6/uL (4.10-5.20); RDW 14.2 % (11.5-14.5); WBC 9.05 X 10*3/uL (4.50-10.00)
[2021-06-23 20:07] LABS: Uric Acid 5.3 mg/dL (2.9-7.7)
[2021-06-23 20:08] LABS: % Iron Saturation 19.65 (12.00-45.00); African American GFR (CKD) 58.1 (60.0-200.0); Albumin/Globulin Ratio 1.9 (1.60-3.17); Anion Gap 10.2 mmol/L (4.00-12.00); BUN/Creat Ratio 16.82 Ratio (12.00-20.00); Blood Urea Nitrogen 18.5 mg/dL (9.0-27.0); Calcium 9.4 mg/dL (8.7-10.3); Carbon Dioxide 23.8 mmol/L (21.6-31.8); Ferritin 95.6 ng/mL (10.0-291.0); Globulin 2.1 g/dL (1.6-3.3); Magnesium 1.8 mg/dL (1.5-2.4); Non-African American GFR(CKD) 50.1 (60.0-200.0); Phosphorus 3.2 mg/dL (2.4-5.1); Potassium 4.3 mmol/L (3.5-5.5); Total Bilirubin 0.3 mg/dL (0.30-1.20); Total Protein 6.1 g/dL (6.2-8.2)
[2021-06-24 13:49] LABS: Microalbumin Creatinine Ratio <30 mg/g Creat (0-30); Urine Creatinine 23.5 mg/dL (28.0-217.0)
== END | disposition home or self-care (01) ==
LOC: LABWHC1 14:36
PROVIDERS: ATTEND Internal Medicine
DX: N18.2 Chronic kidney disease, stage 2 (mild) (principal); M10.9 Gout, unspecified; E55.9 Vitamin D deficiency, unspecified; N25.81 Secondary hyperparathyroidism of renal origin; N39.0 Urinary tract infection, site not specified; D64.9 Anemia, unspecified
CPT/HCPCS: 36415; 80053; 81003; 82043; 82306; 82570; 82728; 83540; 83550; 83735; 83970; 84100; 84550; 85027

== ENCOUNTER → 2021-07-21 | Outpatient (CLI) | payer MEDICARE ==
[2021-07-21 13:20] LABS: Appearance,Urine Clear (Clear); Bilirubin,Urine Negative (Negative); Blood,Urine Negative (Negative); Color,Urine Light Yellow; Glucose,Urine (UA) Negative (Negative); Ketones,Urine Negative (Negative); Leukocyte Esterase,Urine Moderate (Negative); Mucus,Urine Rare /hpf; Nitrite,Urine Negative (Negative); Protein,Urine Negative (Negative); Specific Gravity,Urine 1.006 (1.001-1.035); Urobilinogen,Urine <2.0 mg/dL (<2.0); WBC,Urine 9 /hpf (0-5)
[2021-07-21 18:44] LABS: Basophils # (A) 0.03 X 10*3/uL (0.00-0.10); Basophils % (A) 0.3 %; Eosinophils # (A) 0.05 X 10*3/uL (0.04-0.35); Eosinophils % (A) 0.6 %; HCT 38.8 % (37.2-46.3); HGB 12.8 g/dL (12.0-15.0); Lymphocytes # (A) 1.97 X 10*3/uL (0.90-5.00); Lymphocytes % (A) 22.2 %; MCH 30.5 pg (27.0-32.0); MCV 92.6 fL (80.0-97.0); Mean Platelet Volume 10.3 fL (9.5-12.2); Monocytes # (A) 0.43 X 10*3/uL (0.20-1.00); Monocytes % (A) 4.8 %; Neutrophils # (A) 6.38 X 10*3/uL (1.80-7.70); Neutrophils % (A) 71.9 %; Platelet Count 219 X 10*3/uL (140-440); RBC 4.19 X 10*6/uL (4.10-5.20); RDW 13.7 % (11.5-14.5); WBC 8.88 X 10*3/uL (4.50-10.00)
[2021-07-21 20:58] LABS: African American GFR (CKD) 70.3 (60.0-200.0); Anion Gap 13.3 mmol/L (10.00-18.00); BUN/Creat Ratio 23.64 Ratio (12.00-20.00); Blood Urea Nitrogen 22.2 mg/dL (9.0-27.0); Calcium 9.6 mg/dL (8.7-10.3); Carbon Dioxide 20.8 mmol/L (20.0-27.5); Non-African American GFR(CKD) 60.7 (60.0-200.0); Potassium 4.7 mmol/L (3.5-5.5)
== END | disposition home or self-care (01) ==
LOC: LABWHC1 11:52
PROVIDERS: ATTEND Internal Medicine
DX: N18.31 Chronic kidney disease, stage 3a (principal)
CPT/HCPCS: 36415; 80048; 81001; 85025; 87086

== ENCOUNTER → 2021-08-05 | Outpatient (CLI) | payer MEDICARE ==
--- NOTE | 2021-08-05 14:12 | US ---
EXAMINATION TYPE: US kidneys/renal and bladder DATE OF EXAM: 08/05/2021 COMPARISON: 07/15/2020 CLINICAL HISTORY: N18.31 STAGE 3 CHR KIDNEY DISEASE. Hx right kidney removed 2008. EXAM MEASUREMENTS: Left Kidney: 9.8 x 4.2 x 5.0 cm Right Kidney: Surgically absent Left Kidney: No hydronephrosis or masses seen Bladder: mildly distended, anechoic Left jet seen IMPRESSION: Post right nephrectomy with no evidence of hydronephrosis or nephrolithiasis involving the left kidne y.
== END | disposition home or self-care (01) ==
LOC: RADUSWWP 13:17
PROVIDERS: ATTEND Internal Medicine
DX: N18.31 Chronic kidney disease, stage 3a (principal); Z90.5 Acquired absence of kidney
CPT/HCPCS: 76770

== ENCOUNTER → 2021-09-07 | Outpatient (CLI) | payer MEDICARE ==
--- NOTE | 2021-09-07 10:29 | XR ---
EXAMINATION TYPE: XR abdomen complete w decub DATE OF EXAM: 09/07/2021 COMPARISON: CT chest 02/23/2021 HISTORY: R 10.84 TECHNIQUE: Supine, upright, and left side down lateral decubitus views of the abdomen are obtained. FINDINGS: Suspect some interstitial changes at the lung bases. There is a spinal curvature, degenera tive disc change in the visualized spine, bone mineralization is reduced. Surgical clips are present in the right upper quadrant. There are overlying artifacts. There is no evidence for pneumoperitoneum. The bowel gas pattern is unremarkable as there is air throughout nondilated small and large bowel. No sizeable air fluid levels. No mass effects are seen. No unusual calcifications, suspect vascular calcifications within the pelvis, nephrolithiasis not duy ntified with certainty, calcifications seen in the left kidney on prior CT not seen definitively on t yoshi's exam. IMPRESSION: There is interstitial lung disease. Nonobstructed bowel gas pattern. Postop changes
== END | disposition home or self-care (01) ==
LOC: RADXRMAIN 08:50
PROVIDERS: ATTEND Family Medicine
DX: J84.9 Interstitial pulmonary disease, unspecified (principal); Z98.890 Other specified postprocedural states
CPT/HCPCS: 74021

== ENCOUNTER → 2021-10-08 | Outpatient (CLI) | payer MEDICARE ==
--- NOTE | 2021-10-08 11:12 | MR ---
EXAMINATION TYPE: MR angio head wo/neck wo/w con DATE OF EXAM: 10/08/2021 COMPARISON: NONE HISTORY: I65.23 [place] CAROTID STENOSIS, Memory loss, right hearing loss TECHNIQUE: Utilizing 3-D [id number] intracranial MRA of the [place] of [place] was performed. FINDINGS: The vertebrobasilar and carotid systems are patent. There is no sizable aneurysm or vascular malform ation. Left vertebral artery is dominant. Posterior cerebral artery in the right originates from the right internal carotid artery. Assessment of the right bifurcation is limited due to extreme motion artifact. Grossly the visualized portions of the common carotid arteries, vertebral artery and subclavian arteries are patent. Assess ment of the carotid bifurcation is limited. Suspect bilateral atherosclerotic changes greater on the left with approximately 50-60% stenosis. Less than 50% stenosis on the right. IMPRESSION: 1. No evidence of vascular malformation or sizable aneurysm. 2. Limited assessment of carotid bifurcations due to motion artifact. No definite significant stenosi s present. Suspect 50% or less stenosis on the right and 1560% or less stenosis on the left. Recommen d correlation with CTA of the carotid bifurcations given the limitation of the exam.
== END | disposition home or self-care (01) ==
LOC: RADMRIMAIN 08:53
PROVIDERS: ATTEND Psychiatry & Neurology Neurology
DX: H91.91 Unspecified hearing loss, right ear (principal); R41.3 Other amnesia
CPT/HCPCS: 70544; 70549; A9585

== ENCOUNTER → 2021-10-20 | Outpatient (CLI) | payer MEDICARE | END | disposition home or self-care (01) | LOC: LABWHC1 07:16 | PROVIDERS: ATTEND Psychiatry & Neurology Neurology | DX: Z00.00 Encounter for general adult medical examination without abnormal findings (principal); N18.31 Chronic kidney disease, stage 3a; D44.9 Neoplasm of uncertain behavior of unspecified endocrine gland | CPT/HCPCS: 36415; 82550; 82607; 85652; 86038 ==

== ENCOUNTER → 2021-10-28 | Outpatient (CLI) | payer MEDICARE ==
--- NOTE | 2021-10-28 12:04 | CT ---
EXAMINATION TYPE: CT chest wo con DATE OF EXAM: 10/28/2021 INDICATION: COPD, pulmonary fibrosis CT DLP: 223.1 mGy.cm Automated Exposure Control for Dose Reduction was Utilized. TECHNIQUE AND CONTRAST: CT scan of the chest without IV contrast administration. COMPARISON: CT dated 02/23/2021 FINDINGS: Redemonstration of the previously seen chronic bilateral pulmonary fibrotic changes with peripheral p ulmonary reticulations, microcystic changes mainly in the bases, minimal groundglass opacities and bi lateral apical fibrotic changes. The fibrotic changes have not significantly changed compared to the previous CT scan. Background of COPD changes most evident in the upper lobes. No obvious honeycombing. Mild peripheral traction bronchiectasis is also noted mainly in the lung bases. Patent trachea and main bronchi. No p leural or pericardial effusion. No gross cardiomegaly. Arterial and coronary atherosclerotic calcific ations. Prominent mediastinal lymph nodes, stable without interval progression. Small thyroid gland. Previous cholecystectomy. 2 mm nonobstructing calculi within the left kidney. Previous right nephrectomy. Hia jolene hernia containing a small portion of the stomach. Osteopenia. No gross aggressive bone lesion. Ma rked degenerative changes of the lower cervical spine. IMPRESSION: COPD and chronic pulmonary fibrotic changes as described above, not significantly changed compared to the previous CT scan. This is suggestive of possible UIP pattern. Recommend clinical correlation and pulmonology consultation. Other incidental findings as described above.
== END | disposition home or self-care (01) ==
LOC: RADCTMAIN 11:02
PROVIDERS: ATTEND Family Medicine
DX: J44.9 Chronic obstructive pulmonary disease, unspecified (principal); J84.10 Pulmonary fibrosis, unspecified
CPT/HCPCS: 71250

== ENCOUNTER → 2021-12-21 | Outpatient (CLI) | payer MEDICARE ==
[2021-12-21 14:27] LABS: Appearance,Urine Clear (Clear); Bilirubin,Urine Negative (Negative); Blood,Urine Negative (Negative); Color,Urine Light Yellow; Glucose,Urine (UA) Negative (Negative); Ketones,Urine Negative (Negative); Leukocyte Esterase,Urine Negative (Negative); Nitrite,Urine Negative (Negative); Protein,Urine Negative (Negative); Specific Gravity,Urine 1.005 (1.001-1.035); Urobilinogen,Urine <2.0 mg/dL (<2.0)
[2021-12-21 18:05] LABS: Basophils # (A) 0.03 X 10*3/uL (0.00-0.10); Basophils % (A) 0.4 %; Eosinophils # (A) 0.03 X 10*3/uL (0.04-0.35); Eosinophils % (A) 0.4 %; HCT 43.3 % (37.2-46.3); HGB 14.2 g/dL (12.0-15.0); Immature Grans, Automated 0.3 %; Lymphocytes % (A) 28.3 %; MCH 31.3 pg (27.0-32.0); MCHC 32.8 g/dL (32.0-37.0); MCV 95.4 fL (80.0-97.0); Mean Platelet Volume 10.2 fL (9.5-12.2); Monocytes # (A) 0.44 X 10*3/uL (0.20-1.00); Monocytes % (A) 5.9 %; NRBC Per 100 WBC 0 /100 WBCS (0.0-0.0); Neutrophils # (A) 4.79 X 10*3/uL (1.80-7.70); Neutrophils % (A) 64.7 %; Platelet Count 255 X 10*3/uL (140-440); RBC 4.54 X 10*6/uL (4.10-5.20); RDW 12.8 % (11.5-14.5); WBC 7.41 X 10*3/uL (4.50-10.00)
[2021-12-21 20:24] LABS: % Iron Saturation 18.63 (12.00-45.00); African American GFR (CKD) 73.5 (60.0-200.0); Albumin 4.2 g/dL (3.8-4.9); Albumin/Globulin Ratio 1.56 (1.60-3.17); Anion Gap 12.2 mmol/L (10.00-18.00); BUN/Creat Ratio 15.78 Ratio (12.00-20.00); Blood Urea Nitrogen 14.2 mg/dL (9.0-27.0); Calcium 9.8 mg/dL (8.7-10.3); Carbon Dioxide 23.8 mmol/L (20.0-27.5); Globulin 2.7 g/dL (1.6-3.3); Magnesium 1.8 mg/dL (1.5-2.4); Non-African American GFR(CKD) 63.4 (60.0-200.0); Potassium 4.5 mmol/L (3.5-5.5); Total Bilirubin 0.4 mg/dL (0.30-1.20); Total Protein 6.9 g/dL (6.2-8.2)
[2021-12-22 00:25] LABS: Microalbumin Creatinine Ratio <30 mg/g Creat (0-30); Urine Creatinine 27.5 mg/dL (28.0-217.0)
== END | disposition home or self-care (01) ==
LOC: LABWHC1 11:46
PROVIDERS: ATTEND Nurse Practitioner Family
DX: E55.9 Vitamin D deficiency, unspecified (principal); E21.3 Hyperparathyroidism, unspecified; D64.9 Anemia, unspecified; N39.0 Urinary tract infection, site not specified; N18.31 Chronic kidney disease, stage 3a; M10.9 Gout, unspecified; R80.9 Proteinuria, unspecified
CPT/HCPCS: 36415; 80053; 81003; 82043; 82306; 82570; 82728; 83540; 83550; 83735; 83970; 84100; 84550; 85025

== ENCOUNTER → 2022-01-06 | Outpatient (CLI) | payer MEDICARE ==
--- NOTE | 2022-01-06 11:36 | CT ---
EXAMINATION TYPE: CT chest wo con DATE OF EXAM: 01/06/2022 COMPARISON: 10/28/2021 HISTORY: F/U PULMONARY FIBROSIS CT DLP: 380 mGycm. Automated Exposure Control for Dose Reduction was Utilized. TECHNIQUE: CT scan of the thorax is performed without IV contrast. FINDINGS: LUNGS: Apical pleural thickening stable. There are persistent interlobular septal thickening compatib le with pulmonary chronic interstitial lung disease such as pulmonary fibrosis. No pleural effusion o r pneumothorax. No focal pneumonia. There are subpleural nodule 5 mm which are stable. MEDIASTINUM: Lack of IV contrast is noted to limit evaluation for mediastinal and especially hilar ad enopathy. There are no definitive greater than 1 cm hilar or mediastinal lymph nodes. Atherosclerotic change of the aorta. Coronary artery calcification noted. Calcification of the aortic valve. Heart s ize normal. Moderate hiatal hernia. OTHER: Hypertrophic and degenerative change spine. Punctate nonobstructing left renal calculus. Sugge stion of previous right nephrectomy and cholecystectomy.. IMPRESSION: 1. COPD with changes of chronic interstitial lung disease similar to the prior exam correlate for UIP .
== END | disposition home or self-care (01) ==
LOC: RADCTMAIN 10:44
PROVIDERS: ATTEND Internal Medicine Critical Care Medicine
DX: J44.9 Chronic obstructive pulmonary disease, unspecified (principal); J84.10 Pulmonary fibrosis, unspecified
CPT/HCPCS: 71250

== ENCOUNTER → 2022-01-14 | Outpatient (CLI) | payer MEDICARE ==
[~2022-01-14] MED LIST changes: -DOBUTamine DRIP for NUC MED 500 MG in DEXTROSE/WATER 1 250ML.BAG IV PRN; +SODIUM CHLORIDE 0.9% 500 ML 500 ML IV NR; +SODIUM CHLORIDE 0.9% 500 ML 500 ML in EMPTY BAG 1 BAG IV PRN
[2022-01-14 08:11] VITALS: BP 167/65; PULSE 83; RESP 16; TEMP 97.8
== END ==
LOC: PROCWHC3 08:00
PROVIDERS: ATTEND Family Medicine
DX: R10.84 Generalized abdominal pain (principal); Z88.8 Allergy status to other drugs, medicaments and biological substances; Z91.041 Radiographic dye allergy status; Z88.5 Allergy status to narcotic agent; Z88.1 Allergy status to other antibiotic agents; Z79.891 Long term (current) use of opiate analgesic
CPT/HCPCS: 36415; 82565; 84520; 96360

== ENCOUNTER → 2022-01-21 | Outpatient (CLI) | payer MEDICARE ==
[~2022-01-21] MED LIST changes: -SODIUM CHLORIDE 0.9% 500 ML 500 ML IV NR
[2022-01-21 09:41] VITALS: BP 152/74; PULSE 100; RESP 16; TEMP 98.5
--- NOTE | 2022-01-21 12:40 | CT ---
EXAMINATION TYPE: CT abdomen pelvis w con DATE OF EXAM: 01/21/2022 COMPARISON: 07/10/2018 HISTORY: 71-year-old female R10.84, lower abd pain TECHNIQUE: Contiguous axial scanning of the abdomen and pelvis following administration of 100 ml Iso wendy 300 IV contrast. Delayed images through the kidneys and coronal/sagittal reconstructions perform ed. CT DLP: 507.7 mGycm Automated exposure control for dose reduction was used. FINDINGS: Heart normal size without pericardial effusion. Fibrotic changes with a subpleural microcystic change , mild bronchiolectasis, and some patchy subpleural groundglass is redemonstrated. Slight progression from 2018. No pleural effusion. Small hiatal hernia. No focal liver lesion or biliary ductal dilatation. Portal venous system is patent. Cholecystectomy c lips. Adrenal glands, left kidney, spleen, and pancreas within normal limits. Right kidney again noted to be absent. Moderate atherosclerotic calcifications infrarenal abdominal aorta without aneurysm. No dilated small bowel, free fluid, or free air. No mesenteric or retroperitoneal lymphadenopathy. Normal appendix. Oral contrast progressed to the mid transverse colon. Moderate stool burden. Sigmoi d diverticulosis. Fat stranding here likely relates to prominent pericolonic vessels rather than mild inflammation. Fur ther clinical correlation is recommended. Bladder is collapsed. Mild pelvic floor relaxation. Uterus surgically absent. Neither ovary clearly s een. No abnormal fluid collection in the pelvis or pelvic lymphadenopathy. Bones: Osteopenia. Mild degenerative change of the hips. Hypertrophic facet arthropathy mid to lower lumbar spine. IMPRESSION: 1. INTERSTITIAL CHANGES IN THE LOWER LUNGS. CONSIDER NSIP WITH SOME PROGRESSION COMPARED TO 2018. PUL MONARY MEDICINE REFERRAL IF THERE IS NO ESTABLISHED DIAGNOSIS. 2. SIGMOID DIVERTICULOSIS. SOME FAT STRANDING AROUND THE MID TO DISTAL SIGMOID LIKELY RELATES TO PROM INENT PERICOLONIC VESSELS. CORRELATE TO EXCLUDE MILD INFLAMMATION RELATED TO AN ACUTE DIVERTICULITIS. NO ABSCESS OR FREE AIR. 3. MILD PELVIC FLOOR RELAXATION. 4. RIGHT KIDNEY IS ABSENT.
== END ==
LOC: PROCWHC3 09:17
PROVIDERS: ATTEND Family Medicine
DX: R10.84 Generalized abdominal pain (principal); Z88.8 Allergy status to other drugs, medicaments and biological substances; Z91.041 Radiographic dye allergy status; Z88.5 Allergy status to narcotic agent; Z88.1 Allergy status to other antibiotic agents; Z88.6 Allergy status to analgesic agent; Z87.891 Personal history of nicotine dependence
CPT/HCPCS: 74177; 96360; 96361; Q9967

== ENCOUNTER → 2022-03-22 | Outpatient (CLI) | payer MEDICARE ==
--- NOTE | 2022-03-23 16:21 | MM ---
Reason for Exam: Screening (asymptomatic). Last mammogram was performed 1 year(s) and 1 month(s) ago. Patient History: Menarche at age 12. First Full-Term at age 16. Left ovary removed at age 33. Right ovary removed at age 33. Hysterectomy at age 33. Postmenopausal. Estrogen for 20 years from age 30 until age 50. Patient used Hormonal Contraceptives for 20 years. Unspecified Hormone, from age 47 until age 55. Risk Values: Gloria 5 year model risk: 1.2%. NCI Lifetime model risk: 2.9%. Prior Study Comparison: 12/06/2018 Bilateral Screening Mammogram, [facility]. 03/03/2020 Bilateral Screening Mammogram, [facility]. 03/04/2021 Bilateral Screening Mammogram, [facility]. Tissue Density: There are scattered fibroglandular densities. Findings: Analyzed By CAD. Benign vascular calcifications present bilaterally. No suspicious groups of microcalcifications, spiculated or lobular masses, architectural distortion or other secondary signs of malignancy are mammographically apparent. Overall Assessment: Benign, BI-RAD 2 Management: Screening Mammogram of both breasts in 1 year. A negative mammogram report should not preclude additional follow up of suspicious palpable abnormalities. Patient should continue monthly self breast exam. A clinical breast exam by your physician is recommended on an annual basis and results should be correlated with mammographic findings. Electronically signed and approved by: Juan Jackson D.O. Radiologis
== END | disposition home or self-care (01) ==
LOC: RADMAMWWP 07:55
PROVIDERS: ATTEND Obstetrics & Gynecology
DX: Z12.31 Encounter for screening mammogram for malignant neoplasm of breast (principal); Z78.0 Asymptomatic menopausal state
CPT/HCPCS: 77063; 77067

== ENCOUNTER → 2022-06-29 | Outpatient (CLI) | payer MEDICARE ==
[2022-06-29 14:35] LABS: HCT 42.2 % (37.2-46.3); HGB 13.7 g/dL (12.0-15.0); MCH 31.4 pg (27.0-32.0); MCHC 32.5 g/dL (32.0-37.0); MCV 96.8 fL (80.0-97.0); Mean Platelet Volume 10.5 fL (9.5-12.2); NRBC Per 100 WBC 0 /100 WBCS (0.0-0.0); Platelet Count 188 X 10*3/uL (140-440); RBC 4.36 X 10*6/uL (4.10-5.20); RDW 14.6 % (11.5-14.5); WBC 9.39 X 10*3/uL (4.50-10.00)
[2022-06-29 14:37] LABS: % Iron Saturation 23.57 (12.00-45.00); African American GFR (CKD) 57.7 (60.0-200.0); Albumin 4.2 g/dL (3.8-4.9); Albumin/Globulin Ratio 1.62 (1.60-3.17); Anion Gap 11.7 mmol/L (10.00-18.00); BUN/Creat Ratio 15.64 Ratio (12.00-20.00); Blood Urea Nitrogen 17.2 mg/dL (9.0-27.0); Calcium 9.8 mg/dL (8.7-10.3); Carbon Dioxide 24.3 mmol/L (20.0-27.5); Globulin 2.6 g/dL (1.6-3.3); Magnesium 1.9 mg/dL (1.5-2.4); Non-African American GFR(CKD) 49.8 (60.0-200.0); Phosphorus 2.9 mg/dL (2.4-5.1); Potassium 4.7 mmol/L (3.5-5.5); Total Bilirubin 0.6 mg/dL (0.30-1.20); Total Protein 6.8 g/dL (6.2-8.2); Uric Acid 5.1 mg/dL (2.9-7.7)
[2022-06-29 15:54] LABS: Appearance,Urine Clear (Clear); Bilirubin,Urine Negative (Negative); Blood,Urine Negative (Negative); Color,Urine Yellow (Yellow); Ketones,Urine Negative (Negative); Nitrite,Urine Negative (Negative); PH, Urine 5.5 (5.0-8.0); Specific Gravity,Urine 1.016 (1.001-1.030); Urobilinogen,Urine 0.2 (0.2,1.0)
[2022-06-29 18:59] LABS: Microalbumin Creatinine Ratio <30 mg/g Creat (0-30); Urine Creatinine 93.5 mg/dL (28.0-217.0)
== END | disposition home or self-care (01) ==
LOC: LABWHC1 08:36
PROVIDERS: ATTEND Nurse Practitioner Family
DX: D63.1 Anemia in chronic kidney disease (principal); N18.31 Chronic kidney disease, stage 3a; N39.0 Urinary tract infection, site not specified; N25.81 Secondary hyperparathyroidism of renal origin; E55.9 Vitamin D deficiency, unspecified
CPT/HCPCS: 36415; 80053; 81003; 82043; 82306; 82570; 82728; 83540; 83550; 83735; 83970; 84100; 84550; 85027

== ENCOUNTER → 2022-11-08 | Outpatient (CLI) | payer MEDICARE ==
--- NOTE | 2022-11-08 15:18 | US ---
EXAMINATION TYPE: US kidneys/renal and bladder DATE OF EXAM: 11/08/2022 COMPARISON: CT abdomen and pelvis January 21, 2022 CLINICAL HISTORY: N18.31 STAGE 3 CKD. Right kidney remove CKD EXAM MEASUREMENTS: Right Kidney: Surgically absent Left Kidney: 10.2 x 4.9 x 4.0 cm Right Kidney: Surgically absent Left Kidney: No hydronephrosis or masses seen Bladder: Anechoic Bilateral Jets seen: no Right kidney is surgically absent. Left kidney remains normal in size without hydronephrosis. Cortica l medullary differentiation is maintained. No concerning masses seen on images same. Bladder not grea tly distended and suboptimally evaluated. IMPRESSION: No hydronephrosis in the remnant left kidney.
== END | disposition home or self-care (01) ==
LOC: RADUSWWP 14:31
PROVIDERS: ATTEND Internal Medicine Nephrology
DX: N18.31 Chronic kidney disease, stage 3a (principal)
CPT/HCPCS: 76770

== ENCOUNTER 2023-01-12 09:14 | Emergency (ER) | payer MEDICARE ==
[2023-01-12] MEDS ORDERED: SODIUM CHLORIDE 0.9% 1,000 ML IV STA (10:11)
[2023-01-12 10:24] LABS: Basophils % (A) 0 %; Eosinophils # (A) 0.4 k/uL (0-0.7); Eosinophils % (A) 5 %; HCT 42.4 % (34.0-46.0); HGB 13.9 gm/dL (11.4-16.0); Lymphocytes # (A) 1.3 k/uL (1.0-4.8); Lymphocytes % (A) 16 %; MCH 31.7 pg (25.0-35.0); MCHC 32.9 g/dL (31.0-37.0); MCV 96.5 fL (80.0-100.0); Mean Platelet Volume 7.3; Monocytes # (A) 0.4 k/uL (0-1.0); Monocytes % (A) 4 %; Neutrophils # (A) 5.8 k/uL (1.3-7.7); Neutrophils % (A) 72 %; Platelet Count 188 k/uL (150-450); RBC 4.39 m/uL (3.80-5.40); RDW 12.9 % (11.5-15.5)
[2023-01-12 10:25] LABS: Appearance,Urine Clear (Clear); Bilirubin,Urine Negative (Negative); Blood,Urine Negative (Negative); Color,Urine Light Yellow; Glucose,Urine (UA) Negative (Negative); Ketones,Urine Negative (Negative); Leukocyte Esterase,Urine Negative (Negative); Nitrite,Urine Negative (Negative); Protein,Urine Negative (Negative); Specific Gravity,Urine 1.002 (1.001-1.035); Urobilinogen,Urine <2.0 mg/dL (<2.0)
[2023-01-12 10:42] LABS: ALT 21 U/L (4-34); AST 31 U/L (14-36); African American GFR (CKD) >90 (>60 ml/min/1.73 sqM); Albumin 3.9 g/dL (3.5-5.0); Alkaline Phosphatase 79 U/L (38-126); Anion Gap 6 mmol/L; Blood Urea Nitrogen 16 mg/dL (7-17); Calcium 9.5 mg/dL (8.4-10.2); Carbon Dioxide 29 mmol/L (22-30); Chloride 102 mmol/L (98-107); Glucose 97 mg/dL (74-99); Lipase 54 U/L (23-300); Non-African American GFR(CKD) 79 (>60 ml/min/1.73 sqM); Sodium 137 mmol/L (137-145); Total Bilirubin 0.7 mg/dL (0.2-1.3); Total Protein 6.6 g/dL (6.3-8.2)
[2023-01-12 10:47] LABS: Potassium 4.7 mmol/L (3.5-5.1)
--- NOTE | 2023-01-12 11:07 | US ---
EXAMINATION TYPE: US kidneys/renal and bladder DATE OF EXAM: 01/12/2023 COMPARISON: US 11/08/22. CT January 21, 2022 CLINICAL INDICATION: Female, 72 years old with history of pain; Pain. Hx of right nephrectomy, kidney stones. EXAM MEASUREMENTS: Right Kidney: Surgically absent Left Kidney: 11.5 x 5.0 x 5.5 cm Right Kidney: Surgically absent Left Kidney: No hydronephrosis or masses seen Bladder: Appears wnl Bilateral Jets seen: No Right kidney is surgically absent. Left kidney normal in size without hydronephrosis. Bladder adequat benito distended without intraluminal mass. IMPRESSION: No left-sided hydronephrosis. No significant change from recent ultrasound.
--- NOTE | 2023-01-12 11:20 | ED ---
Abdominal Pain HPI - General Chief Complaint: Abdominal Pain Stated Complaint: Dr Laguna - kidney Time Seen by Provider: 01/12/23 09:41 Source: patient, RN notes reviewed Mode of arrival: ambulatory Limitations: no limitations - History of Present Illness Initial Comments: 72 -year-old female transferred Department with chief complaint abdominal pain, dysuria. Patient is concerned that she has a UTI. Patient was placed on antibiotics days ago. Patient is also given Pyridium. She states the Pyridium was making her sick. Patient states she only has one kidney so she was concerned. Patient denies any nausea vomiting diarrhea constipation. Patient offers no associated symptoms. - Related Data Home Medications Medication Instructions Recorded Confirmed ALPRAZolam [Xanax] 0.75 mg PO HS PRN 02/25/14 01/21/22 Levothyroxine Sodium [Synthroid] 50 mcg PO DAILY 02/25/14 01/21/22 Aspirin EC [Ecotrin Low Dose] 81 mg PO DAILY 06/27/14 01/21/22 Budesonide-Formot 160-4.5 Mcg 2 puff INHALATION RT-BID 06/27/14 01/21/22 [Symbicort 160-4.5 Mcg Inhaler] Eszopiclone [Lunesta] 3 mg PO HS PRN 06/27/14 01/21/22 Pitavastatin Calcium [Livalo] 2 mg PO HS 07/28/17 01/21/22 Cholecalciferol (Vitamin D3) 2,000 unit PO DAILY 10/15/19 01/21/22 [Vitamin D3] Lidocaine 5% Patch [Lidoderm 5% 1 patch TOPICAL DAILY PRN 10/15/19 01/21/22 Patch] Famotidine/Ca Carb/Mag Hydrox 1 tab PO BID PRN 05/21/20 01/21/22 [Pepcid Complete Tablet Chew] Fluticasone Nasal [place] [Flonase 2 spr EA NOSTRIL DAILY PRN 05/21/20 01/21/22 Nasal [place]] Isosorbide Mononitrate ER [Imdur] 30 mg PO DAILY 05/21/20 01/21/22 Levalbuterol Hfa Inhaler [Xopenex 2 puff INHALATION RT-Q6H PRN 05/21/20 01/21/22 Hfa Inhaler] Loratadine [Claritin] 10 mg PO DAILY 05/21/20 01/21/22 Montelukast [Singulair] 10 mg PO HS 05/21/20 01/21/22 levalbuterol HCL [Xopenex] 1.25 mg INHALATION RT-QID PRN 05/21/20 01/21/22 Previous Rx's Medication Instructions Recorded predniSONE 10 mg PO DIRECTED #30 tab 05/23/20 Cefdinir [Omnicef] 300 mg PO Q12HR #10 capsule 05/25/20 Furosemide [Lasix] 20 mg PO DAILY #30 tab 05/25/20 Metoprolol Tartrate [Lopressor] 25 mg PO BID #60 tab 05/25/20 lisinopriL [Zestril] 10 mg PO DAILY #30 tab 05/25/20 traMADol HCl [Ultram] 50 mg PO Q6H PRN #12 tab 05/28/20 Allergies Allergy/AdvReac Type Severity Reaction Status Date / Time barium sulfate Allergy Rash/Hives Verified 01/12/23 09:30 Iodinated Contrast Media Allergy Rash/Hives Verified 01/12/23 09:30 [Iodinated Contrast Media - Oral and] albuterol AdvReac Rapid Verified 01/12/23 09:30 Heart Rate codeine phosphate AdvReac Itching Verified 01/12/23 09:30 [From Tylenol-Codeine #3] ibuprofen AdvReac ONLY HAS 1 Verified 01/12/23 09:30 KIDNEY-TOLD NEVER TO TAKE nitrofurantoin AdvReac Itching Verified 01/12/23 09:30 [From Macrobid] nitrofurantoin AdvReac Itching Verified 01/12/23 09:30 macrocrystalline [From Macrobid] Review of Systems ROS Statement: Those systems with pertinent positive or pertinent negative responses have been documented in the HPI. ROS Other: All systems not noted in ROS Statement are negative. Past Medical History Past Medical History: Asthma, COPD, CVA/TIA, GERD/Reflux, Osteoarthritis (OA), Skin Disorder, Thyroid Disorder Additional Past Medical History / Comment(s): Heart palpitations, Varicose veins, Hx of kidney stones (only Lt kidney), diverticulitis, hiatal hernia, hemorrhoids, "under active gallbladder", sun damaged skin, pt states she had a TIA on 2015, History of Any Multi-Drug Resistant Organisms: None Reported Past Surgical History: Cholecystectomy, Hysterectomy, Orthopedic Surgery, Tonsillectomy Additional Past Surgical History / Comment(s): L and R foot surgery, right nephrectomy, laparascopy, skin lesions, rt hand trigger finger, rt shoulder rotator cuff, CALLUS REMOVED FROM LT SMALL TOE, COLONOSCOPY, BILAT CATARACTS REMOVED WITH LENS IMPLANTS Past Anesthesia/Blood Transfusion Reactions: No Reported Reaction Past Psychological History: Anxiety Smoking Status: Former smoker Past Alcohol Use History: None Reported Past Drug Use History: None Reported - Past Family History Father Family Medical History: Cancer Additional Family Medical History / Comment(s): Prostate cancer, brain tumor. Father is . Mother Family Medical History: Cancer, Renal Disease Additional Family Medical History / Comment(s): Mother when pt was 9yrs old and pt does not know much of mother's health hx. Mother had cancer-pt unaware of type, had kidney removed. General Exam Limitations: no limitations General appearance: alert, in no apparent distress Head exam: Present: atraumatic, normocephalic, normal inspection Eye exam: Present: normal appearance, PERRL, EOMI. Absent: scleral icterus, conjunctival injection, periorbital swelling ENT exam: Present: normal exam, mucous membranes moist Neck exam: Present: normal inspection, full ROM. Absent: tenderness, meningismus, lymphadenopathy Respiratory exam: Present: normal lung sounds bilaterally. Absent: respiratory distress, wheezes, rales, rhonchi, stridor Cardiovascular Exam: Present: regular rate, normal rhythm, normal heart sounds. Absent: systolic murmur, diastolic murmur, rubs, gallop, clicks GI/Abdominal exam: Present: soft, normal bowel sounds. Absent: distended, tenderness, guarding, rebound, rigid Course Vital Signs 01/12/23 01/12/23 09:27 11:42 Temperature 97.3 F L 97.7 F Pulse Rate 87 79 Respiratory 18 16 Rate Blood Pressure 157/69 149/78 O2 Sat by Pulse 96 98 Oximetry Medical Decision Making - Medical Decision Making Was pt. sent in by a medical professional or institution (, PA, BAROMETERS CALIBRATOR, urgent c are, hospital, or correction...) When possible be specific @ -Urgent care Did you speak to anyone other than the patient for history (EMS, parent, family, police, friend...)? What history was obtained from this source @ -No Did you review nursing and triage notes (agree or disagree)? Why? @ -I reviewed and agree with nursing and triage notes Were old charts reviewed (outside hosp., previous admission, EMS record, old EKG, old radiological studies, urgent care reports/EKG's, correction records)? Report findings @ -No old charts were reviewed Differential Diagnosis (chest pain, altered mental status, abdominal pain women, abdominal pain men, vaginal bleeding, weakness, fever, dyspnea, syncope, headache, dizziness, GI bleed, back pain, seizure, CVA, palpatations, mental health, musculoskeletal)? @ -Differential Abdominal Pain Women: Appendicitis, Cholecystitis, diverticulosis, ischemic bowel, pancreatitis, he patitis, UTI, gastroenteritis, AAA, incarcerated hernia, bowel obstruction, constipation, inflammatory bowel, hepatitis, peptic ulcer disease, splenic infarction, perforated viscus, vulvitis, ovarian torsion, PID, kidney stone, placenta abruption, this is not meant to be an all-inclusive listble EKG interpreted by me (3pts min.). @ -None X-rays interpreted by me (1pt min.). @ -None done CT interpreted by me (1pt min.). @ -None done U/S interpreted by me (1pt. min.). @ -All son kidney, bladder shows no acute processes no hydronephrosis no masses What testing was considered but not performed or refused? (CT, X-rays, U/S, lab s)? Why? @ -None What meds were considered but not given or refused? Why? @ -None Did you discuss the management of the patient with other professionals (professionals i.e. , PA, BAROMETERS CALIBRATOR, lab, RT, psych nurse, social human services assistants, doctor of dental medicine, teacher, juvenile correctional officer, immigration case manager)? Give summary @ -No Was smoking cessation discussed for >3mins.? @ -No Was critical care preformed (if so, how long)? @ -No Were there social determinants of health that impacted care today? How? (Homelessness, low income, unemployed, alcoholism, drug addiction, transportation, low edu. Level, literacy, decrease access to med. care, group home, rehab)? @ -No Was there de-escalation of care discussed even if they declined (Discuss DNR or withdrawal of care, Hospice)? DNR status @ -No What co-morbidities impacted this encounter? (DM, HTN, Smoking, COPD, CAD, Cancer, CVA, ARF, Chemo, Hep., AIDS, mental health diagnosis, sleep apnea, morbid obesity)? @ -None Was patient admitted / discharged? Hospital course, mention meds given and route, prescriptions, significant lab abnormalities, going to OR and other pertinent info. @ -Discharge patient laboratory studies are unremarkable urinalysis unremarkable she feels greatly improved patient discharged in stable condition Undiagnosed new problem with uncertain prognosis? @ -No Drug Therapy requiring intensive monitoring for toxicity (Heparin, Nitro, Insulin, Cardizem)? @ -No Were any procedures done? @ -No Diagnosis/symptom? @ -Abdominal pain Acute, or Chronic, or Acute on Chronic? @ -Acute Uncomplicated (without systemic symptoms) or Complicated (systemic symptoms)? @ -Uncomplicated Side effects of treatment? @ -No Exacerbation, Progression, or Severe Exacerbation? @ -No Poses a threat to life or bodily function? How? (Chest pain, USA, LA, pneumonia, PE, COPD, DKA, ARF, appy, cholecystitis, CVA, Diverticulitis, Homicidal, Suicidal, threat to staff... and all critical care pts) @ -No - Lab Data Result diagrams: 01/12/23 10:14 01/12/23 10:14 Lab Results 01/12/23 01/12/23 01/12/23 Range/Units 10:14 10:14 10:14 WBC 8.0 (3.8-10.6) k/uL RBC 4.39 (3.80-5.40) m/uL Hgb 13.9 (11.4-16.0) gm/dL Hct 42.4 (34.0-46.0) % MCV 96.5 (80.0-100.0) fL MCH 31.7 (25.0-35.0) pg MCHC 32.9 (31.0-37.0) g/dL RDW 12.9 (11.5-15.5) % Plt Count 188 (150-450) k/uL MPV 7.3 Neutrophils % 72 % Lymphocytes % 16 % Monocytes % 4 % Eosinophils % 5 % Basophils % 0 % Neutrophils # 5.8 (1.3-7.7) k/uL Lymphocytes # 1.3 (1.0-4.8) k/uL Monocytes # 0.4 (0-1.0) k/uL Eosinophils # 0.4 (0-0.7) k/uL Basophils # 0.0 (0-0.2) k/uL Sodium 137 (137-145) mmol/L Potassium 4.7 (3.5-5.1) mmol/L Chloride 102 (98-107) mmol/L Carbon Dioxide 29 (22-30) mmol/L Anion Gap 6 mmol/L BUN 16 (7-17) mg/dL Creatinine 0.75 (0.52-1.04) mg/dL Est GFR (CKD-EPI)AfAm >90 (>60 ml/min/1.73 sqM) Est GFR (CKD-EPI)NonAf 79 (>60 ml/min/1.73 sqM) Glucose 97 (74-99) mg/dL Plasma Lactic Acid Ilan (0.7-2.0) mmol/L Calcium 9.5 (8.4-10.2) mg/dL Total Bilirubin 0.7 (0.2-1.3) mg/dL AST 31 (14-36) U/L ALT 21 (4-34) U/L Alkaline Phosphatase 79 (38-126) U/L Total Protein 6.6 (6.3-8.2) g/dL Albumin 3.9 (3.5-5.0) g/dL Lipase 54 (23-300) U/L Urine Color Light Yellow Urine Appearance Clear (Clear) Urine pH 6.0 (5.0-8.0) Ur Specific [place] 1.002 (1.001-1.035) Urine Protein Negative (Negative) Urine Glucose (UA) Negative (Negative) Urine Ketones Negative (Negative) Urine Blood Negative (Negative) Urine Nitrite Negative (Negative) Urine Bilirubin Negative (Negative) Urine Urobilinogen <2.0 (<2.0) mg/dL Ur Leukocyte Esterase Negative (Negative) 01/12/23 Range/Units 10:14 WBC (3.8-10.6) k/uL RBC (3.80-5.40) m/uL Hgb (11.4-16.0) gm/dL Hct (34.0-46.0) % MCV (80.0-100.0) fL MCH (25.0-35.0) pg MCHC (31.0-37.0) g/dL RDW (11.5-15.5) % Plt Count (150-450) k/uL MPV Neutrophils % % Lymphocytes % % Monocytes % % Eosinophils % % Basophils % % Neutrophils # (1.3-7.7) k/uL Lymphocytes # (1.0-4.8) k/uL Monocytes # (0-1.0) k/uL Eosinophils # (0-0.7) k/uL Basophils # (0-0.2) k/uL Sodium (137-145) mmol/L Potassium (3.5-5.1) mmol/L Chloride (98-107) mmol/L Carbon Dioxide (22-30) mmol/L Anion Gap mmol/L BUN (7-17) mg/dL Creatinine (0.52-1.04) mg/dL Est GFR (CKD-EPI)AfAm (>60 ml/min/1.73 sqM) Est GFR (CKD-EPI)NonAf (>60 ml/min/1.73 sqM) Glucose (74-99) mg/dL Plasma Lactic Acid Ilan 2.0 (0.7-2.0) mmol/L Calcium (8.4-10.2) mg/dL Total Bilirubin (0.2-1.3) mg/dL AST (14-36) U/L ALT (4-34) U/L Alkaline Phosphatase (38-126) U/L Total Protein (6.3-8.2) g/dL Albumin (3.5-5.0) g/dL Lipase (23-300) U/L Urine Color Urine Appearance (Clear) Urine pH (5.0-8.0) Ur Specific [place] (1.001-1.035) Urine Protein (Negative) Urine Glucose (UA) (Negative) Urine Ketones (Negative) Urine Blood (Negative) Urine Nitrite (Negative) Urine Bilirubin (Negative) Urine Urobilinogen (<2.0) mg/dL Ur Leukocyte Esterase (Negative) Disposition Clinical Impression: Abdominal pain Disposition: HOME SELF-CARE Condition: Stable Instructions (If sedation given, give patient instructions): Abdominal Pain (ED) Additional Instructions: Please return to the Emergency Department if symptoms worsen or any other concerns. Is patient prescribed a controlled substance at d/c from ED?: No Referrals: Avery Epps Jr, DO [Primary Care Provider] - 1-2 days Time of Disposition: 11:20
[2023-01-12 11:43] VITALS: BP 149/78; PULSE 79; RESP 16; TEMP 97.7
== END 2023-01-12 11:45 | disposition home or self-care (01) ==
LOC: EC 09:14
DX: R10.9 Unspecified abdominal pain (principal); J44.9 Chronic obstructive pulmonary disease, unspecified; K21.9 Gastro-esophageal reflux disease without esophagitis; E07.9 Disorder of thyroid, unspecified; F41.9 Anxiety disorder, unspecified; M19.90 Unspecified osteoarthritis, unspecified site; Z79.51 Long term (current) use of inhaled steroids; Z79.82 Long term (current) use of aspirin; Z79.899 Other long term (current) drug therapy; Z88.1 Allergy status to other antibiotic agents; Z88.5 Allergy status to narcotic agent; Z88.6 Allergy status to analgesic agent; Z91.041 Radiographic dye allergy status; Z90.49 Acquired absence of other specified parts of digestive tract; Z88.8 Allergy status to other drugs, medicaments and biological substances; Z86.73 Personal history of transient ischemic attack (TIA), and cerebral infarction without residual deficits; Z87.891 Personal history of nicotine dependence
CPT/HCPCS: 36415; 76770; 80053; 81003; 83605; 83690; 85025; 96360; 99284

== ENCOUNTER 2023-02-11 13:09 | Emergency (ER) | payer MEDICARE ==
[2023-02-11 13:17] VITALS: TEMP 98
[2023-02-11] MEDS ORDERED: KETOROLAC 15 MG/ML 1 ML VIAL IVP STA (13:48)
[2023-02-11] MEDS ORDERED: SODIUM CHLORIDE 0.9% 1,000 ML IV STA (13:48)
[2023-02-11] MEDS ORDERED: diphenhydrAMINE 50 MG/ML 1 ML VIAL IVP STA (13:48)
[2023-02-11] MEDS ORDERED: ONDANSETRON 4 MG/2 ML VIAL IVP STA (13:48)
--- NOTE | 2023-02-11 14:10 | ED ---
General Adult HPI - General Chief complaint: Headache Stated complaint: Headache Time Seen by Provider: 02/11/23 13:18 Source: patient Mode of arrival: ambulatory Limitations: no limitations - History of Present Illness Initial comments: Dictation was produced using Fluid dictation software. please excuse any grammatical, word or spelling errors. Chief Complaint: 72-year-old female past medical history of migraines presents emergency department for 1 week of headache History of Present Illness: Patient 72-year-old female she has past medical history of migraine headaches for the last week she's been having a serious onset of headache. She has history of migraines states that feels like her usual migraine symptoms just slightly more severe. She states that the headache is severe. Denies any vision loss. She does report that the pain seems to be in her right forehead and right temporalis area. Denies any vision changes. Chart to make an appointment with her neurologist and primary care doctor however the were not able to see her in the office The ROS documented in this emergency department record has been reviewed and confirmed by me. Those systems with pertinent positive or negative responses have been documented in the HPI. All other systems are other negative and/or noncontributory. - Related Data Home Medications Medication Instructions Recorded Confirmed ALPRAZolam [Xanax] 0.75 mg PO HS PRN 02/25/14 01/21/22 Levothyroxine Sodium [Synthroid] 50 mcg PO DAILY 02/25/14 01/21/22 Aspirin EC [Ecotrin Low Dose] 81 mg PO DAILY 06/27/14 01/21/22 Budesonide-Formot 160-4.5 Mcg 2 puff INHALATION RT-BID 06/27/14 01/21/22 [Symbicort 160-4.5 Mcg Inhaler] Eszopiclone [Lunesta] 3 mg PO HS PRN 06/27/14 01/21/22 Pitavastatin Calcium [Livalo] 2 mg PO HS 07/28/17 01/21/22 Cholecalciferol (Vitamin D3) 2,000 unit PO DAILY 10/15/19 01/21/22 [Vitamin D3] Lidocaine 5% Patch [Lidoderm 5% 1 patch TOPICAL DAILY PRN 10/15/19 01/21/22 Patch] Famotidine/Ca Carb/Mag Hydrox 1 tab PO BID PRN 05/21/20 01/21/22 [Pepcid Complete Tablet Chew] Fluticasone Nasal [place] [Flonase 2 spr EA NOSTRIL DAILY PRN 05/21/20 01/21/22 Nasal [place]] Isosorbide Mononitrate ER [Imdur] 30 mg PO DAILY 05/21/20 01/21/22 Levalbuterol Hfa Inhaler [Xopenex 2 puff INHALATION RT-Q6H PRN 05/21/20 01/21/22 Hfa Inhaler] Loratadine [Claritin] 10 mg PO DAILY 05/21/20 01/21/22 Montelukast [Singulair] 10 mg PO HS 05/21/20 01/21/22 levalbuterol HCL [Xopenex] 1.25 mg INHALATION RT-QID PRN 05/21/20 01/21/22 Previous Rx's Medication Instructions Recorded predniSONE 10 mg PO DIRECTED #30 tab 05/23/20 Cefdinir [Omnicef] 300 mg PO Q12HR #10 capsule 05/25/20 Furosemide [Lasix] 20 mg PO DAILY #30 tab 05/25/20 Metoprolol Tartrate [Lopressor] 25 mg PO BID #60 tab 05/25/20 lisinopriL [Zestril] 10 mg PO DAILY #30 tab 05/25/20 traMADol HCl [Ultram] 50 mg PO Q6H PRN #12 tab 05/28/20 Allergies Allergy/AdvReac Type Severity Reaction Status Date / Time barium sulfate Allergy Rash/Hives Verified 02/11/23 13:17 Iodinated Contrast Media Allergy Rash/Hives Verified 02/11/23 13:17 [Iodinated Contrast Media - Oral and] albuterol AdvReac Rapid Verified 02/11/23 13:17 Heart Rate codeine phosphate AdvReac Itching Verified 02/11/23 13:17 [From Tylenol-Codeine #3] ibuprofen AdvReac ONLY HAS 1 Verified 02/11/23 13:17 KIDNEY-TOLD NEVER TO TAKE nitrofurantoin AdvReac Itching Verified 02/11/23 13:17 [From Macrobid] nitrofurantoin AdvReac Itching Verified 02/11/23 13:17 macrocrystalline [From Macrobid] Review of Systems ROS Statement: Those systems with pertinent positive or pertinent negative responses have been documented in the HPI. ROS Other: All systems not noted in ROS Statement are negative. Past Medical History Past Medical History: Asthma, COPD, CVA/TIA, GERD/Reflux, Osteoarthritis (OA), Skin Disorder, Thyroid Disorder Additional Past Medical History / Comment(s): Heart palpitations, Varicose veins, Hx of kidney stones (only Lt kidney), diverticulitis, hiatal hernia, hemorrhoids, "under active gallbladder", sun damaged skin, pt states she had a TIA on 2015, History of Any Multi-Drug Resistant Organisms: None Reported Past Surgical History: Cholecystectomy, Hysterectomy, Orthopedic Surgery, Tonsillectomy Additional Past Surgical History / Comment(s): L and R foot surgery, right nephrectomy, laparascopy, skin lesions, rt hand trigger finger, rt shoulder rotator cuff, CALLUS REMOVED FROM LT SMALL TOE, COLONOSCOPY, BILAT CATARACTS REMOVED WITH LENS IMPLANTS Past Anesthesia/Blood Transfusion Reactions: No Reported Reaction Past Psychological History: Anxiety Smoking Status: Former smoker Past Alcohol Use History: None Reported Past Drug Use History: None Reported - Past Family History Father Family Medical History: Cancer Additional Family Medical History / Comment(s): Prostate cancer, brain tumor. Father is . Mother Family Medical History: Cancer, Renal Disease Additional Family Medical History / Comment(s): Mother when pt was 9yrs old and pt does not know much of mother's health hx. Mother had cancer-pt unaware of type, had kidney removed. General Exam - General Exam Comments Initial Comments: PHYSICAL EXAM: General Impression: Alert and oriented x3, not in acute distress HEENT: Normocephalic atraumatic, extra-ocular movements intact, pupils equal and reactive to light bilaterally, mucous membranes moist. Cardiovascular: Heart regular rate and rhythm Chest: Able to complete full sentences, no retractions, no tachypnea Abdomen: abdomen soft, non-tender, non-distended, no organomegaly Musculoskeletal: Pulses present and equal in all extremities, no peripheral edema Motor: no focal deficits noted Neurological: CN II-XII grossly intact, no focal motor or sensory deficits noted Skin: Intact with no visualized rashes Psych: Normal affect and mood Limitations: no limitations Course Vital Signs 02/11/23 02/11/23 02/11/23 13:14 14:17 16:00 Temperature 98.0 F Pulse Rate 80 77 68 Respiratory 17 20 20 Rate Blood Pressure 147/74 136/71 145/68 O2 Sat by Pulse 95 98 98 Oximetry 02/11/23 17:00 Temperature Pulse Rate 75 Respiratory 16 Rate Blood Pressure 135/60 O2 Sat by Pulse 98 Oximetry Medical Decision Making - Medical Decision Making Was pt. sent in by a medical professional or institution (, PA, ADMINISTRATIVE PROGRAM SPECIALIST, urgent care, hospital, or penitentiary...) When possible be specific @ -No Did you speak to anyone other than the patient for history (EMS, parent, family, police, friend...)? What history was obtained from this source @ -No Did you review nursing and triage notes (agree or disagree)? Why? @ -I reviewed and agree with nursing and triage notes Were old charts reviewed (outside hosp., previous admission, EMS record, old EKG, old radiological studies, urgent care reports/EKG's, penitentiary records)? Report findings @ -No old charts were reviewed Differential Diagnosis (chest pain, altered mental status, abdominal pain women, abdominal pain men, vaginal bleeding, musculoskeletal, weakness, fever, dyspnea, syncope, headache, dizziness, GI bleed, back pain, seizure, CVA, palpatations, mental health)? @ -Differential Headache: Migraine, tension, cluster, carbon monoxide, central venous thrombosis, pension karma temporal arteritis, acute closure glaucoma, intercranial hemorrhage, mastoiditis, sinusitis, head injury, this is not meant to be an all-inclusive list. EKG interpreted by me (3pts min.). @ -None done X-rays interpreted by me (1pt min.). @ -None done CT interpreted by me (1pt min.). @ -Computed tomography scan of rate is unremarkable. U/S interpreted by me (1pt. min.). @ -None done What testing was considered but not performed or refused? (CT, X-rays, U/S, labs)? Why? @ -None What meds were considered but not given or refused? Why? @ -None Did you discuss the management of the patient with other professionals (professionals i.e. , PA, ADMINISTRATIVE PROGRAM SPECIALIST, lab, RT, psych nurse, social services coordinator, licensed psychologist manager, teacher, casino surveillance officer, medical case worker)? Give summary @ -No Was smoking cessation discussed for >3mins.? @ -No Was critical care preformed (if so, how long)? @ -No Were there social determinants of health that impacted care today? How? (Homelessness, low income, unemployed, alcoholism, drug addiction, transportation, low edu. Level, literacy, decrease access to med. care, shelter, rehab)? @ -No Was there de-escalation of care discussed even if they declined (Discuss DNR or withdrawal of care, Hospice)? DNR status @ -No What co-morbidities impacted this encounter? (DM, HTN, Smoking, COPD, CAD, Cancer, CVA, ARF, Chemo, Hep., AIDS, mental health diagnosis, sleep apnea, morbid obesity)? @ -None Was patient admitted / discharged? Hospital course, mention meds given and route, prescriptions, significant lab abnormalities, going to OR and other pertinent info. @ -72-year-old female presents emergency Department with insidious onset headache. It seems to be localized to the right temporal forehead area. No associated visual loss. No acute worsening with mastication. Vital signs upon arrival are within acceptable limits. No neuro deficits. Patient's well- appearing. She does have a history of migraines. States that this headache feels like one of her more severe migraine headaches. No neck stiffness. No symptoms of meningitis. Denies any fever or constitutional symptoms. Computed tomography scan of brain is negative. CRP and inflammatory markers are negative. Patient given headache cocktail. patient improved. patient discharged. no high risk features. Undiagnosed new problem with uncertain prognosis? @ -No Drug Therapy requiring intensive monitoring for toxicity (Heparin, Nitro, Insulin, Cardizem)? @ -No Were any procedures done? @ -No Diagnosis/symptom? Acute, or Chronic, or Acute on Chronic? Uncomplicated (without systemic symptoms) or Complicated (systemic symptoms)? @ -1. Migraine headache Side effects of treatment? @ -No Exacerbation, Progression, or Severe Exacerbation? @ -No Poses a threat to life or bodily function? How? (Chest pain, USA, VT, pneumonia, PE, COPD, DKA, ARF, appy, cholecystitis, CVA, Diverticulitis, Homicidal, Suicidal, threat to staff... and all critical care pts) @ -No - Lab Data Result diagrams: 02/11/23 13:48 02/11/23 13:48 Lab Results 02/11/23 02/11/23 Range/Units 13:48 13:48 WBC 8.3 (3.8-10.6) k/uL RBC 4.42 (3.80-5.40) m/uL Hgb 14.2 (11.4-16.0) gm/dL Hct 43.7 (34.0-46.0) % MCV 98.9 (80.0-100.0) fL MCH 32.1 (25.0-35.0) pg MCHC 32.4 (31.0-37.0) g/dL RDW 13.3 (11.5-15.5) % Plt Count 197 (150-450) k/uL MPV 7.3 Neutrophils % 61 % Lymphocytes % 30 % Monocytes % 5 % Eosinophils % 2 % Basophils % 1 % Neutrophils # 5.0 (1.3-7.7) k/uL Lymphocytes # 2.5 (1.0-4.8) k/uL Monocytes # 0.4 (0-1.0) k/uL Eosinophils # 0.2 (0-0.7) k/uL Basophils # 0.0 (0-0.2) k/uL ESR 10 (0-20) mm/hr Sodium 139 (137-145) mmol/L Potassium 4.4 (3.5-5.1) mmol/L Chloride 103 (98-107) mmol/L Carbon Dioxide 28 (22-30) mmol/L Anion Gap 8 mmol/L BUN 17 (7-17) mg/dL Creatinine 0.94 (0.52-1.04) mg/dL Est GFR (CKD-EPI)AfAm 69 (>60 ml/min/1.73 sqM) Est GFR (CKD-EPI)NonAf 60 (>60 ml/min/1.73 sqM) Glucose 102 H (74-99) mg/dL Calcium 9.2 (8.4-10.2) mg/dL C-Reactive Protein <0.5 (<1.0) mg/dL Disposition Clinical Impression: Migraine Disposition: HOME SELF-CARE Condition: Good Instructions (If sedation given, give patient instructions): Acute Headache (ED) Is patient prescribed a controlled substance at d/c from ED?: No Referrals: Avery Epps Jr, [Primary Care Provider] - 1-2 days
[2023-02-11 14:48] LABS: Basophils % (A) 1 %; Eosinophils # (A) 0.2 k/uL (0-0.7); Eosinophils % (A) 2 %; HCT 43.7 % (34.0-46.0); HGB 14.2 gm/dL (11.4-16.0); Lymphocytes # (A) 2.5 k/uL (1.0-4.8); Lymphocytes % (A) 30 %; MCH 32.1 pg (25.0-35.0); MCHC 32.4 g/dL (31.0-37.0); MCV 98.9 fL (80.0-100.0); Mean Platelet Volume 7.3; Monocytes # (A) 0.4 k/uL (0-1.0); Monocytes % (A) 5 %; Neutrophils % (A) 61 %; Platelet Count 197 k/uL (150-450); RBC 4.42 m/uL (3.80-5.40); RDW 13.3 % (11.5-15.5); WBC 8.3 k/uL (3.8-10.6)
[2023-02-11 15:02] LABS: African American GFR (CKD) 69 (>60 ml/min/1.73 sqM); Anion Gap 8 mmol/L; Blood Urea Nitrogen 17 mg/dL (7-17); C Reactive Protein <0.5 mg/dL (<1.0); Calcium 9.2 mg/dL (8.4-10.2); Carbon Dioxide 28 mmol/L (22-30); Chloride 103 mmol/L (98-107); Glucose 102 mg/dL (74-99); Non-African American GFR(CKD) 60 (>60 ml/min/1.73 sqM); Potassium 4.4 mmol/L (3.5-5.1); Sodium 139 mmol/L (137-145)
--- NOTE | 2023-02-11 15:04 | CT ---
EXAMINATION TYPE: CT brain wo con DATE OF EXAM: 02/11/2023 COMPARISON: 10/08/2021 HISTORY: Headache. CT DLP: 1099.4 mGycm Automated exposure control for dose reduction was used. FINDINGS: There is basal ganglia calcifications. There is nonspecific moderate low attenuation in the white mat ter. Moderate degenerative changes. No midline shift or mass effect. No acute hemorrhage. Calvarium i ntact. Orbits are symmetric. Craniocervical junction maintained. Sella turcica has a normal appearance. IMPRESSION: DEGENERATIVE AND REMOTE ISCHEMIC WHITE MATTER CHANGE WITH NO EVIDENCE OF ACUTE HEMORRHAGE OR MASS AFF ECT.
[2023-02-11 15:58] LABS: Erythrocyte Sedimentation Rate 10 mm/hr (0-20)
[2023-02-11 17:01] VITALS: BP 135/60; PULSE 75; RESP 16
== END 2023-02-11 17:02 | disposition home or self-care (01) ==
LOC: EC 13:09
DX: G43.909 Migraine, unspecified, not intractable, without status migrainosus (principal); I67.82 Cerebral ischemia; J44.9 Chronic obstructive pulmonary disease, unspecified; K21.9 Gastro-esophageal reflux disease without esophagitis; M19.90 Unspecified osteoarthritis, unspecified site; E07.9 Disorder of thyroid, unspecified; F41.9 Anxiety disorder, unspecified; Z87.891 Personal history of nicotine dependence; Z79.890 Hormone replacement therapy; Z79.51 Long term (current) use of inhaled steroids; Z79.899 Other long term (current) drug therapy; Z79.1 Long term (current) use of non-steroidal anti-inflammatories (NSAID); Z86.73 Personal history of transient ischemic attack (TIA), and cerebral infarction without residual deficits; Z79.82 Long term (current) use of aspirin; Z91.041 Radiographic dye allergy status; Z88.6 Allergy status to analgesic agent; Z88.8 Allergy status to other drugs, medicaments and biological substances; Z88.5 Allergy status to narcotic agent; Z88.1 Allergy status to other antibiotic agents
CPT/HCPCS: 36415; 93005; 80048; 85652; 85025; 86140; 70450; 99284; 96374; 96375 ×2; 96361 ×2; J1200; J2405; J1885

== ENCOUNTER → 2023-04-15 | Outpatient (CLI) | payer MEDICARE ==
--- NOTE | 2023-04-15 21:42 | BD ---
EXAMINATION TYPE: Axial Bone Density DATE OF EXAM: 04/15/2023 CLINICAL HISTORY: 72 years old Female. ICD-10 CODE: M85.88 OSTEOPENIA Height: 60" Weight: 120.4 FRAX RISK QUESTIONS: Alcohol (3 or more units per day): No Family History (Parent hip fracture): No Glucocorticoids (More than 3mos): No (Ex: prednisone, prednisolone, methylprednisolone, dexamethasone, and hydrocortisone). History of Fracture in Adulthood: No Secondary Osteoporosis: No 1. Type 1 Diabetes: No 2. Hyperthyroidism: No 3. Menopause before 45: 23 4. Malnutrition: No 5. Chronic liver disease: No Rheumatoid Arthritis: No Current Tobacco Use: No RISK FACTORS HISTORY OF: Hip Fracture (Right/Left): No Spine Fracture: No History of Wrist Fracture: No Surgery to Spine/Hip(right/left)/Wrist (right/left): No Family History of Osteoporosis: No Active: Yes Diet low in dairy products/other sources of calcium: No Postmenopausal woman: Yes Lost more than 2 inches in height since high school: No Frequent falls: No Poor Health: No Hyperparathyroidism: No Adrenal Insufficiency: Patient has one kidney MEDICATIONS: Prednisone or other steroids: No Thyroid Medications: Yes Which medication: Synthroid How Lon years Osteoporosis Medications: No Additional Medications: Synthroid, heart meds, cholesterol meds, occasional xanax, kidney vitamin, fo late, aspirin Additional History: EXAM MEASUREMENTS: Bone mineral densitometry was performed using the [employer] System. Bone mineral density as measured about the Lumbar spine is: ----- L1-L4(G/cm2): 0.892 T Score Values are as follows: ----- L1: -3.8 ----- L2: -3.0 ----- L3: -1.5 ----- L4: -1.9 ----- L1-L4: -2.4 Z Score Values are as follows: ----- L1: -2.1 ----- L2: -1.3 ----- L3: 0.2 ----- L4: -0.2 ----- L1-L4: -0.7 Bone mineral density has: decreased -8.8% since study of: 12/27/2018 Bone mineral density about the R hip (g/cm2): 0.789 Bone mineral density about the L hip (g/cm2): 0.814 T Score values are as follows: -----R Neck: -1.3 -----L Neck: -1.0 -----R Total: -1.7 -----L Total: -1.5 Z Score values are as follows: -----R Neck: -1.3 -----L Neck: -1.0 -----R Total: 0.0 -----L Total: 0.2 Bone mineral density has: decreased -11.4% since study of: 12/27/2018 FRAX%s: The graph provided illustrates a 10.4% chance for a major osteoporotic fx and a 1.8% chance f or the hips probability for fx in 10 years time. IMPRESSION: Osteoporosis (T Score less than -2.5). There is increased fracture risk and therapy is usually indicated based on age. Re-Screen 1-2 years. NOTE: T-SCORE=SD OF THE YOUNG ADULT MEAN.
--- NOTE | 2023-04-18 12:01 | MM ---
EXAM: MG 3D screening mammo w/cad DATE OF EXAM: 04/15/2023 9:37 AM COMPARISON STUDIES: 04/06/2016 Screening Mammogram, [facility]. 09/29/2017 Bilateral Screening Mammogram, [facility]. 12/06/2018 Bilateral Screening Mammogram, [facility]. 03/03/2020 Bilateral Screening Mammogram, [facility]. 03/04/2021 Bilateral Screening Mammogram, [facility]. 03/22/2022 Bilateral MG 3D screening mammo w/cad, [facility]. PATIENT HISTORY: Menarche at age 12. First Full-Term at age 16. Left ovary removed at age 33. Right ovary removed at age 33. Hysterectomy at age 33. Postmenopausal. Estrogen for 20 years from age 30 until age 50. Patient used Hormonal Contraceptives for 20 years. Unspecified Hormone, from age 47 until age 55. RISK CALCULATION: Gloria 5 year model risk: 1.2%. NCI Lifetime model risk: 2.7%. TISSUE DENSITY: Scattered fibroglandular densities FINDINGS: There is a new 6 mm circumscribed and round nodule at the 12-1 o'clock anterior left breast. A cyst is possible. Further evaluation is recommended. Otherwise, no significant change. ASSESSMENT: 0 - Incomplete: Need additional imaging evaluation RECOMMENDATION: 1. Special View Mammogram Left . 2. Ultrasound Left COMMENTS: Additional views left breast to include 3-D ML. Targeted ultrasound based on positioning on the additional view. [facility] will attempt to contact patient to return for supplemental views and ultrasound if indicated. [facility] CENTERGretchen
== END | disposition home or self-care (01) ==
LOC: RADMAMWWP 06:54
PROVIDERS: ATTEND Obstetrics & Gynecology
DX: Z12.31 Encounter for screening mammogram for malignant neoplasm of breast (principal); M81.0 Age-related osteoporosis without current pathological fracture; M85.89 Other specified disorders of bone density and structure, multiple sites; Z78.0 Asymptomatic menopausal state
CPT/HCPCS: 77063; 77067; 77080

== ENCOUNTER → 2023-04-27 | Outpatient (CLI) | payer MEDICARE ==
--- NOTE | 2023-04-27 07:42 | MM ---
Reason for Exam: Additional evaluation requested from abnormal screening. Last screening mammogram was performed less than 1 month ago. Patient History: Menarche at age 12. First Full-Term at age 16. Left ovary removed at age 33. Right ovary removed at age 33. Hysterectomy at age 33. Postmenopausal. Estrogen for 20 years from age 30 until age 50. Patient used Hormonal Contraceptives for 20 years. Unspecified Hormone, from age 47 until age 55. Risk Values: Gloria 5 year model risk: 1.2%. NCI Lifetime model risk: 2.7%. Prior Study Comparison: 09/29/2017 Bilateral Screening Mammogram, [facility]. 12/06/2018 Bilateral Screening Mammogram, [facility]. 03/03/2020 Bilateral Screening Mammogram, [facility]. 03/04/2021 Bilateral Screening Mammogram, [facility]. 03/22/2022 Bilateral MG 3D screening mammo w/cad, [facility]. 04/15/2023 Bilateral MG 3D screening mammo w/cad, [facility]. Tissue Density: Left: There are scattered fibroglandular densities. Findings: Analyzed By CAD. There is persistent circumscribed rounded density measuring 6 0.7 cm located 5 cm from the nipple upper outer quadrant anterior position. Additional evaluation with ultrasound is recommended. Overall Assessment: Incomplete: need additional imaging evaluation, BI-RAD 0 Management: Diagnostic Breast Ultrasound of the left breast. A negative mammogram report should not preclude additional follow up of suspicious palpable abnormalities. Patient should continue monthly self breast exam. A clinical breast exam by your physician is recommended on an annual basis and results should be correlated with mammographic findings. Electronically signed and approved by: Juan Jackson D.O. Radiologis
--- NOTE | 2023-04-27 08:22 | USB ---
Reason for Exam: Additional evaluation requested from abnormal screening. Patient History: Menarche at age 12. First Full-Term at age 16. Left ovary removed at age 33. Right ovary removed at age 33. Hysterectomy at age 33. Postmenopausal. Estrogen for 20 years from age 30 until age 50. Patient used Hormonal Contraceptives for 20 years. Unspecified Hormone, from age 47 until age 55. Risk Values: Gloria 5 year model risk: 1.2%. NCI Lifetime model risk: 2.7%. Technique: Method: Targeted. Prior Study Comparison: 03/04/2021 Bilateral Screening Mammogram, [facility]. 03/22/2022 Bilateral MG 3D screening mammo w/cad, [facility]. 04/15/2023 Bilateral MG 3D screening mammo w/cad, [facility]. Findings: The upper outer quadrant of the left breast, the axilla of the left breast and the retroareolar of the left breast were scanned. There is a 0.6 x 0.5 x 0.8 cm cyst at the 12:00 position left breast 5 cm nipple. This appears to correlate with the mammographic findings.. Overall Assessment: Benign, BI-RAD 2 Management: Screening Mammogram of both breasts in 1 year. A clinical breast exam by your physician is recommended on an annual basis and results should be correlated with mammographic findings. This exam should not preclude additional follow-up of suspicious palpable abnormalities. Results were given to the patient verbally at the time of exam. Electronically signed and approved by: Juan Jackson D.O. Radiologis
== END | disposition home or self-care (01) ==
LOC: RADMAMWWP 06:48
PROVIDERS: ATTEND Obstetrics & Gynecology
DX: R92.8 Other abnormal and inconclusive findings on diagnostic imaging of breast (principal); Z78.0 Asymptomatic menopausal state
CPT/HCPCS: 77065; 76642; G0279; 77061

== ENCOUNTER 2023-06-07 09:30 | Inpatient (IN) | payer MEDICARE ==
--- NOTE | 2023-06-07 10:15 | XR ---
EXAMINATION TYPE: XR chest 2V DATE OF EXAM: 06/07/2023 COMPARISON: 09/10/2020 TECHNIQUE: PA and lateral views submitted. HISTORY: Fever FINDINGS: The lungs are clear and there is no pneumothorax, pleural effusion, or focal pneumonia. Heart size normal and no overt failure. Osseous structures demonstrate hypertrophic and degenerative changes of the spine. Coarsened interstitium. Biapical pleural thickening. Limited inspiration. Diffuse osteopen ia with AC joint arthropathy. IMPRESSION: 1. No acute process. Correlate for pulmonary fibrosis.
[2023-06-07] MEDS ORDERED: ACETAMINOPHEN TAB 500 MG TAB PO STA (10:24)
[2023-06-07] MEDS ORDERED: SODIUM CHLORIDE 0.9% 500 ML 500 ML IV ONE (10:25)
--- NOTE | 2023-06-07 10:27 | ED ---
General Adult HPI - General Chief complaint: Fever Stated complaint: body aches Time Seen by Provider: 06/07/23 09:32 Source: patient, RN notes reviewed, old records reviewed Mode of arrival: ambulatory Limitations: no limitations - History of Present Illness Initial comments: 72-year-old female presenting for evaluation of fever, cough, dyspnea. Symptoms began yesterday evening. She has associated nausea without vomiting. No chest pain. No abdominal pain. She does report urinary frequency. No dysuria. History of COPD and pulmonary fibrosis. No known exposure. - Related Data Home Medications Medication Instructions Recorded Confirmed ALPRAZolam [Xanax] 0.75 mg PO HS PRN 02/25/14 06/07/23 Levothyroxine Sodium [Synthroid] 50 mcg PO DAILY 02/25/14 06/07/23 Aspirin EC [Ecotrin Low Dose] 81 mg PO DAILY 06/27/14 06/07/23 Budesonide-Formot 160-4.5 Mcg 2 puff INHALATION RT-BID 06/27/14 06/07/23 [Symbicort 160-4.5 Mcg Inhaler] Loratadine [Claritin] 10 mg PO DAILY 05/21/20 06/07/23 levalbuterol HCL [Xopenex] 1.25 mg INHALATION RT-QID PRN 05/21/20 06/07/23 Albuterol Inhaler [Ventolin Hfa 1 - 2 puff INHALATION RT-Q6H PRN 06/07/23 06/07/23 Inhaler] Alendronate Sodium 70 mg PO DIRECTED 06/07/23 06/07/23 Esomeprazole Magnesium [NexIUM 40 mg PO HS 06/07/23 06/07/23 24Hr] Folic Acid 0.4 mg PO DAILY 06/07/23 06/07/23 Losartan [Cozaar] 12.5 mg PO DAILY 06/07/23 06/07/23 Pitavastatin Calcium [Livalo] 2 mg PO DAILY 06/07/23 06/07/23 Ubrogepant [Ubrelvy] 50 mg PO DAILY PRN 06/07/23 06/07/23 predniSONE 5 mg PO DIRECTED PRN 06/07/23 06/07/23 Allergies Allergy/AdvReac Type Severity Reaction Status Date / Time barium sulfate Allergy Rash/Hives Verified 06/07/23 09:42 Iodinated Contrast Media Allergy Rash/Hives Verified 06/07/23 09:42 [Iodinated Contrast Media - Oral and] albuterol AdvReac Rapid Verified 06/07/23 09:42 Heart Rate codeine phosphate AdvReac Itching Verified 06/07/23 09:42 [From Tylenol-Codeine #3] ibuprofen AdvReac ONLY HAS 1 Verified 06/07/23 09:42 KIDNEY-TOLD NEVER TO TAKE nitrofurantoin AdvReac Itching Verified 06/07/23 09:42 [From Macrobid] nitrofurantoin AdvReac Itching Verified 06/07/23 09:42 macrocrystalline [From Macrobid] Review of Systems ROS Statement: Those systems with pertinent positive or pertinent negative responses have been documented in the HPI. ROS Other: All systems not noted in ROS Statement are negative. Past Medical History Past Medical History: Asthma, COPD, CVA/TIA, GERD/Reflux, Osteoarthritis (OA), Skin Disorder, Thyroid Disorder Additional Past Medical History / Comment(s): Heart palpitations, Varicose veins, Hx of kidney stones (only Lt kidney), diverticulitis, hiatal hernia, hemorrhoids, "under active gallbladder", sun damaged skin, pt states she had a TIA on 2015, History of Any Multi-Drug Resistant Organisms: None Reported Past Surgical History: Cholecystectomy, Hysterectomy, Orthopedic Surgery, Tonsillectomy Additional Past Surgical History / Comment(s): L and R foot surgery, right nephrectomy, laparascopy, skin lesions, rt hand trigger finger, rt shoulder rotator cuff, CALLUS REMOVED FROM LT SMALL TOE, COLONOSCOPY, BILAT CATARACTS REMOVED WITH LENS IMPLANTS Past Anesthesia/Blood Transfusion Reactions: No Reported Reaction Past Psychological History: Anxiety Smoking Status: Former smoker Past Alcohol Use History: None Reported Past Drug Use History: None Reported - Past Family History Father Family Medical History: Cancer Additional Family Medical History / Comment(s): Prostate cancer, brain tumor. Father is . Mother Family Medical History: Cancer, Renal Disease Additional Family Medical History / Comment(s): Mother when pt was 9yrs old and pt does not know much of mother's health hx. Mother had cancer-pt unaware of type, had kidney removed. General Exam Limitations: no limitations General appearance: alert, in no apparent distress Head exam: Present: atraumatic, normocephalic Eye exam: Present: normal appearance, PERRL ENT exam: Present: mucous membranes dry Neck exam: Present: normal inspection. Absent: tenderness, meningismus Respiratory exam: Present: decreased breath sounds. Absent: respiratory distress, wheezes Cardiovascular Exam: Present: normal rhythm, tachycardia GI/Abdominal exam: Present: soft. Absent: distended, tenderness, guarding Extremities exam: Present: normal inspection Neurological exam: Present: alert, oriented X3, CN II-XII intact. Absent: motor sensory deficit Psychiatric exam: Present: normal affect, normal mood Skin exam: Present: warm, dry, intact. Absent: cyanosis, diaphoretic Course Vital Signs 06/07/23 06/07/23 09:42 13:37 Temperature 102.3 F H 99.1 F Pulse Rate 109 H 100 Respiratory 18 Rate Blood Pressure 117/62 O2 Sat by Pulse 92 L Oximetry Medical Decision Making - Medical Decision Making Was pt. sent in by a medical professional or institution (, PA, WELFARE SPECIALIST, urgent care, hospital, or intermediate...) When possible be specific @ -No Did you speak to anyone other than the patient for history (EMS, parent, family, police, friend...)? What history was obtained from this source @ -No Did you review nursing and triage notes (agree or disagree)? Why? @ -I reviewed and agree with nursing and triage notes Were old charts reviewed (outside hosp., previous admission, EMS record, old EKG, old radiological studies, urgent care reports/EKG's, intermediate records)? Report findings @ -No old charts were reviewed Differential Diagnosis (chest pain, altered mental status, abdominal pain women, abdominal pain men, vaginal bleeding, weakness, fever, dyspnea, syncope, heada ashok, dizziness, GI bleed, back pain, seizure, CVA, palpatations, mental health, musculoskeletal)? @ -Differential Fever: Pneumonia, viral URI, endocarditis, myocarditis, pericarditis, otitis, sinusitis, peritonsillar Abscess, retropharyngeal Abscess, epiglottitis, peritonitis, appendicitis, Rachelle cystitis, diverticulitis, hepatitis, colitis, UTI, PID, TOA, pyelonephritis, prostatitis, epididymitis, meningitis, encephalitis, pulmonary embolism, CVA, thyroid storm, pancreatitis, adrenal crisis, cavernous sinus thrombosis, this is not meant to be an all-inclusive list. EKG interpreted by me (3pts min.). @ -As above X-rays interpreted by me (1pt min.). @ -[Chest x-ray negative for focal pneumonia CT interpreted by me (1pt min.). @ -None done U/S interpreted by me (1pt. min.). @ -None done What testing was considered but not performed or refused? (CT, X-rays, U/S, labs)? Why? @ -None What meds were considered but not given or refused? Why? @ -None Did you discuss the management of the patient with other professionals (professionals i.e. DrStephenie, PA, WELFARE SPECIALIST, lab, RT, psych nurse, clinical social worker, umbrella tipper machine, teacher, uniform patrol police officer, child support case officer)? Give summary @Dr. Roman Was smoking cessation discussed for >3mins.? @ -No Was critical care preformed (if so, how long)? @ -No Were there social determinants of health that impacted care today? How? (Homelessness, low income, unemployed, alcoholism, drug addiction, transportation, low edu. Level, literacy, decrease access to med. care, penitentiary, rehab)? @ -No Was there de-escalation of care discussed even if they declined (Discuss DNR or withdrawal of care, Hospice)? DNR status @ -No What co-morbidities impacted this encounter? (DM, HTN, Smoking, COPD, CAD, Cancer, CVA, ARF, Chemo, Hep., AIDS, mental health diagnosis, sleep apnea, morbid obesity)? @ -[Pulmonary fibrosis Was patient admitted / discharged? Hospital course, mention meds given and route, prescriptions, significant lab abnormalities, going to OR and other pertinent info. @ -72-year-old female admitted with fever, dehydration, generalized weakness. Fever workup in the emergency department is essentially unremarkable. There is leukocyte Estrace on urinalysis without other signs of significant infection. She has no pneumonia on x-ray. Viral panels are negative. She will be admitted for hydration Undiagnosed new problem with uncertain prognosis? @ -No Drug Therapy requiring intensive monitoring for toxicity (Heparin, Nitro, Insulin, Cardizem)? @ -No Were any procedures done? @ -No Diagnosis/symptom? @ Fever, generalized weakness, dehydration Acute, or Chronic, or Acute on Chronic? @ -Acute Uncomplicated (without systemic symptoms) or Complicated (systemic symptoms)? @ -default Side effects of treatment? @ -No Exacerbation, Progression, or Severe Exacerbation? @ -No Poses a threat to life or bodily function? How? (Chest pain, USA, VT, pneumonia, PE, COPD, DKA, ARF, appy, cholecystitis, CVA, Diverticulitis, Homicidal, Suicidal, threat to staff... and all critical care pts) @ Yes, sepsis - Lab Data Result diagrams: 06/07/23 10:47 06/07/23 10:47 Lab Results 06/07/23 06/07/23 06/07/23 Range/Units 09:46 10:47 10:47 WBC 10.6 (3.8-10.6) k/uL RBC 4.44 (3.80-5.40) m/uL Hgb 14.5 (11.4-16.0) gm/dL Hct 42.2 (34.0-46.0) % MCV 95.2 (80.0-100.0) fL MCH 32.6 (25.0-35.0) pg MCHC 34.3 (31.0-37.0) g/dL RDW 13.6 (11.5-15.5) % Plt Count 171 (150-450) k/uL MPV 7.7 Neutrophils % 83 % Lymphocytes % 13 % Monocytes % 2 % Eosinophils % 0 % Basophils % 0 % Neutrophils # 8.8 H (1.3-7.7) k/uL Lymphocytes # 1.3 (1.0-4.8) k/uL Monocytes # 0.3 (0-1.0) k/uL Eosinophils # 0.0 (0-0.7) k/uL Basophils # 0.0 (0-0.2) k/uL Sodium (137-145) mmol/L Potassium (3.5-5.1) mmol/L Chloride (98-107) mmol/L Carbon Dioxide (22-30) mmol/L Anion Gap mmol/L BUN (7-17) mg/dL Creatinine (0.52-1.04) mg/dL Est GFR (CKD-EPI)AfAm (>60 ml/min/1.73 sqM) Est GFR (CKD-EPI)NonAf (>60 ml/min/1.73 sqM) Glucose (74-99) mg/dL Plasma Lactic Acid Ilan (0.7-2.0) mmol/L Calcium (8.4-10.2) mg/dL Total Bilirubin (0.2-1.3) mg/dL AST (14-36) U/L ALT (4-34) U/L Alkaline Phosphatase (38-126) U/L Total Protein (6.3-8.2) g/dL Albumin (3.5-5.0) g/dL Urine Color Yellow Urine Appearance Cloudy H (Clear) Urine pH 6.0 (5.0-8.0) Ur Specific [place] 1.017 (1.001-1.035) Urine Protein 1+ H (Negative) Urine Glucose (UA) Negative (Negative) Urine Ketones Negative (Negative) Urine Blood Small H (Negative) Urine Nitrite Negative (Negative) Urine Bilirubin Negative (Negative) Urine Urobilinogen <2.0 (<2.0) mg/dL Ur Leukocyte Esterase Large H (Negative) Urine RBC 5 (0-5) /hpf Urine WBC 5 (0-5) /hpf Ur Squamous Epith Cells 6 H (0-4) /hpf Amorphous Sediment Rare H (None) /hpf Urine Bacteria Rare H (None) /hpf Urine Mucus Rare H (None) /hpf Influenza Type A (PCR) Not Detected (Not Detectd) Influenza Type B (PCR) Not Detected (Not Detectd) RSV (PCR) Not Detected (Not Detectd) SARS-CoV-2 (PCR) Not Detected (Not Detectd) 06/07/23 06/07/23 Range/Units 10:47 10:47 WBC (3.8-10.6) k/uL RBC (3.80-5.40) m/uL Hgb (11.4-16.0) gm/dL Hct (34.0-46.0) % MCV (80.0-100.0) fL MCH (25.0-35.0) pg MCHC (31.0-37.0) g/dL RDW (11.5-15.5) % Plt Count (150-450) k/uL MPV Neutrophils % % Lymphocytes % % Monocytes % % Eosinophils % % Basophils % % Neutrophils # (1.3-7.7) k/uL Lymphocytes # (1.0-4.8) k/uL Monocytes # (0-1.0) k/uL Eosinophils # (0-0.7) k/uL Basophils # (0-0.2) k/uL Sodium 131 L (137-145) mmol/L Potassium 3.3 L (3.5-5.1) mmol/L Chloride 96 L (98-107) mmol/L Carbon Dioxide 27 (22-30) mmol/L Anion Gap 8 mmol/L BUN 21 H (7-17) mg/dL Creatinine 0.84 (0.52-1.04) mg/dL Est GFR (CKD-EPI)AfAm 79 (>60 ml/min/1.73 sqM) Est GFR (CKD-EPI)NonAf 69 (>60 ml/min/1.73 sqM) Glucose 110 H (74-99) mg/dL Plasma Lactic Acid Ilan 1.1 (0.7-2.0) mmol/L Calcium 8.8 (8.4-10.2) mg/dL Total Bilirubin 0.7 (0.2-1.3) mg/dL AST 57 H (14-36) U/L ALT 38 H (4-34) U/L Alkaline Phosphatase 67 (38-126) U/L Total Protein 6.5 (6.3-8.2) g/dL Albumin 3.8 (3.5-5.0) g/dL Urine Color Urine Appearance (Clear) Urine pH (5.0-8.0) Ur Specific [place] (1.001-1.035) Urine Protein (Negative) Urine Glucose (UA) (Negative) Urine Ketones (Negative) Urine Blood (Negative) Urine Nitrite (Negative) Urine Bilirubin (Negative) Urine Urobilinogen (<2.0) mg/dL Ur Leukocyte Esterase (Negative) Urine RBC (0-5) /hpf Urine WBC (0-5) /hpf Ur Squamous Epith Cells (0-4) /hpf Amorphous Sediment (None) /hpf Urine Bacteria (None) /hpf Urine Mucus (None) /hpf Influenza Type A (PCR) (Not Detectd) Influenza Type B (PCR) (Not Detectd) RSV (PCR) (Not Detectd) SARS-CoV-2 (PCR) (Not Detectd) Disposition Clinical Impression: Fever, Dehydration Disposition: ADMITTED IP TO THIS HOSP Condition: Stable Is patient prescribed a controlled substance at d/c from ED?: No Referrals: Avery Epps Jr, [Primary Care Provider] - 1-2 days Time of Disposition: 15:07
[2023-06-07 11:45] LABS: Basophils % (A) 0 %; Eosinophils % (A) 0 %; HCT 42.2 % (34.0-46.0); HGB 14.5 gm/dL (11.4-16.0); Lymphocytes # (A) 1.3 k/uL (1.0-4.8); Lymphocytes % (A) 13 %; MCH 32.6 pg (25.0-35.0); MCHC 34.3 g/dL (31.0-37.0); MCV 95.2 fL (80.0-100.0); Mean Platelet Volume 7.7; Monocytes # (A) 0.3 k/uL (0-1.0); Monocytes % (A) 2 %; Neutrophils # (A) 8.8 k/uL (1.3-7.7); Neutrophils % (A) 83 %; Platelet Count 171 k/uL (150-450); RBC 4.44 m/uL (3.80-5.40); RDW 13.6 % (11.5-15.5); WBC 10.6 k/uL (3.8-10.6)
[2023-06-07 11:54] LABS: ALT 38 U/L (4-34); AST 57 U/L (14-36); African American GFR (CKD) 79 (>60 ml/min/1.73 sqM); Albumin 3.8 g/dL (3.5-5.0); Alkaline Phosphatase 67 U/L (38-126); Anion Gap 8 mmol/L; Blood Urea Nitrogen 21 mg/dL (7-17); Calcium 8.8 mg/dL (8.4-10.2); Carbon Dioxide 27 mmol/L (22-30); Chloride 96 mmol/L (98-107); Glucose 110 mg/dL (74-99); Non-African American GFR(CKD) 69 (>60 ml/min/1.73 sqM); Potassium 3.3 mmol/L (3.5-5.1); Sodium 131 mmol/L (137-145); Total Bilirubin 0.7 mg/dL (0.2-1.3); Total Protein 6.5 g/dL (6.3-8.2)
[2023-06-07 14:32] LABS: Amorphous Sediment,Urine Rare /hpf; Appearance,Urine Cloudy (Clear); Bacteria,Urine Rare /hpf; Bilirubin,Urine Negative (Negative); Blood,Urine Small (Negative); Color,Urine Yellow; Glucose,Urine (UA) Negative (Negative); Ketones,Urine Negative (Negative); Leukocyte Esterase,Urine Large (Negative); Mucus,Urine Rare /hpf; Nitrite,Urine Negative (Negative); Protein,Urine 1+ (Negative); RBC,Urine 5 /hpf (0-5); Specific Gravity,Urine 1.017 (1.001-1.035); Squamous Epithelial Cell,Urine 6 /hpf (0-4); Urobilinogen,Urine <2.0 mg/dL (<2.0); WBC,Urine 5 /hpf (0-5)
[2023-06-07] MEDS ORDERED: NALOXONE 0.4 MG/ML 1 ML VIAL IV PRN (15:04)
[2023-06-07] MEDS: SODIUM CHLORIDE 0.9% 1,000 ML IV SCH (16:06)
[2023-06-07] MEDS: ACETAMINOPHEN TAB 325 MG TAB PO PRN (21:40)
[2023-06-08] MEDS: SODIUM CHLORIDE 0.9% 1,000 ML IV SCH ×2 (01:37→11:57)
[2023-06-08] MEDS: ACETAMINOPHEN TAB 325 MG TAB PO PRN ×2 (05:56→12:02)
[2023-06-08] MEDS ORDERED: LEVALBUTEROL HCL 1.25 MG/3 ML INHALATION PRN (07:57)
[2023-06-08] MEDS ORDERED: ALBUTEROL NEBULIZED 2.5 MG/3 ML INHALATION PRN (07:58)
[2023-06-08] MEDS ORDERED: NON FORMULARY DRUG (Alendronate Sodium [Alendronate Sodium] 70 MG Tablet) PO SCH (08:00)
[2023-06-08] MEDS: LOSARTAN 25 MG TAB PO SCH (09:27)
[2023-06-08] MEDS: ASPIRIN 81 MG PO SCH (09:29)
[2023-06-08] MEDS: ATORVASTATIN 10 MG TAB PO SCH (09:29)
[2023-06-08] MEDS: LORATADINE 10 MG TAB PO SCH (09:29)
[2023-06-08] MEDS: FOLIC ACID 1 MG TAB PO SCH (09:30)
[2023-06-08] MEDS: SYMBICORT 160-4.5 MCG INHALER INHALATION SCH ×2 (09:41→19:54)
[2023-06-08] MEDS: LEVOTHYROXINE 50 MCG TAB PO SCH (09:44)
[2023-06-08 09:49] LABS: Basophils % (A) 0 %; Eosinophils # (A) 0.1 k/uL (0-0.7); Eosinophils % (A) 1 %; HCT 39.7 % (34.0-46.0); HGB 13.4 gm/dL (11.4-16.0); Lymphocytes # (A) 0.7 k/uL (1.0-4.8); Lymphocytes % (A) 10 %; MCH 32.6 pg (25.0-35.0); MCHC 33.8 g/dL (31.0-37.0); MCV 96.5 fL (80.0-100.0); Mean Platelet Volume 7.6; Monocytes # (A) 0.2 k/uL (0-1.0); Monocytes % (A) 2 %; Neutrophils # (A) 6.5 k/uL (1.3-7.7); Neutrophils % (A) 87 %; Platelet Count 127 k/uL (150-450); RBC 4.11 m/uL (3.80-5.40); RDW 12.8 % (11.5-15.5); WBC 7.5 k/uL (3.8-10.6)
[2023-06-08 10:00] LABS: African American GFR (CKD) >90 (>60 ml/min/1.73 sqM); Anion Gap 7 mmol/L; Blood Urea Nitrogen 17 mg/dL (7-17); Calcium 8.3 mg/dL (8.4-10.2); Carbon Dioxide 27 mmol/L (22-30); Chloride 98 mmol/L (98-107); Glucose 161 mg/dL (74-99); Non-African American GFR(CKD) 86 (>60 ml/min/1.73 sqM); Potassium 2.9 mmol/L (3.5-5.1); Sodium 132 mmol/L (137-145)
[2023-06-08] MEDS ORDERED: Potassium Replacement Protocol 1 EACH MISC MISCELLANE PRN (11:10)
--- NOTE | 2023-06-08 12:00 | P.HPIM ---
History of Present Illness H&P Date: 06/08/23 Chief Complaint: Fatigue, weakness, cough This is a 72-year-old female well-known to me. She has a history of interstitial pulmonary fibrosis COPD, hypertension. She reports increasing cough shortness of breath that started 1-1/2 days ago. She had profound fatigue, fever. She denied any chest pains or pressures or nausea or vomiting. She was so fatigued she could barely stand and walk and be cared by her . She saw emergency room to be dehydrated and hypokalemic. Covid, influenza testing is been negative. Vijaya after IV fluid she feels a little bit improved. She does complain of worsening cough. Her home medications have been reordered of Symbicort and albuterol updrafts. She has an 8 for anxiety, levothyroxine for hypothyroidism, loratadine for allergies, losartan for hypertension. Vital signs are stable heart rate stable she's been afebrile since her initial admission but she's remained on Tylenol regularly, she's currently on 4 L of oxygen via nasal cannula 94%. CBC is normal. Labs show potassium 2.9 sodium 132. Glucose is 161. Chest x-ray showed no acute process. Review of Systems All systems: negative Past Medical History Past Medical History: Asthma, COPD, CVA/TIA, GERD/Reflux, Osteoarthritis (OA), Skin Disorder, Thyroid Disorder Additional Past Medical History / Comment(s): Heart palpitations, Varicose veins, Hx of kidney stones (only Lt kidney), diverticulitis, hiatal hernia, hemorrhoids, "under active gallbladder", sun damaged skin, pt states she had a TIA on 2015, Pulmonary fibrosis History of Any Multi-Drug Resistant Organisms: None Reported Past Surgical History: Cholecystectomy, Hysterectomy, Orthopedic Surgery, Tonsillectomy Additional Past Surgical History / Comment(s): L and R foot surgery, right nephrectomy, laparascopy, skin lesions, rt hand trigger finger, rt shoulder rotator cuff, CALLUS REMOVED FROM LT SMALL TOE, COLONOSCOPY, BILAT CATARACTS REMOVED WITH LENS IMPLANTS Past Anesthesia/Blood Transfusion Reactions: No Reported Reaction Past Psychological History: Anxiety Additional Psychological History / Comment(s): Pt resides with her spouse. She has home oxygen for HS. She occasionally drives but spouse does most of the dr iving. No assistive devices. Pt is independent. Smoking Status: Former smoker Past Alcohol Use History: None Reported Additional Past Alcohol Use History / Comment(s): Pt started smoking in 1 and quit in 1976. Past Drug Use History: None Reported - Past Family History Father Family Medical History: Cancer Additional Family Medical History / Comment(s): Prostate cancer, brain tumor. Father is . Mother Family Medical History: Cancer, Renal Disease Additional Family Medical History / Comment(s): Mother when pt was 9yrs old and pt does not know much of mother's health hx. Mother had cancer-pt unaware of type, had kidney removed. Medications and Allergies Home Medications Medication Instructions Recorded Confirmed Type ALPRAZolam [Xanax] 0.75 mg PO HS PRN 02/25/14 06/07/23 History Levothyroxine Sodium [Synthroid] 50 mcg PO DAILY 02/25/14 06/07/23 History Aspirin EC [Ecotrin Low Dose] 81 mg PO DAILY 06/27/14 06/07/23 History Budesonide-Formot 160-4.5 Mcg 2 puff INHALATION RT-BID 06/27/14 06/07/23 History [Symbicort 160-4.5 Mcg Inhaler] Loratadine [Claritin] 10 mg PO DAILY 05/21/20 06/07/23 History levalbuterol HCL [Xopenex] 1.25 mg INHALATION RT-QID PRN 05/21/20 06/07/23 History Albuterol Inhaler [Ventolin Hfa 1 - 2 puff INHALATION RT-Q6H PRN 06/07/23 06/07/23 History Inhaler] Alendronate Sodium 70 mg PO DIRECTED 06/07/23 06/07/23 History Esomeprazole Magnesium [NexIUM 40 mg PO HS 06/07/23 06/07/23 History 24Hr] Folic Acid 0.4 mg PO DAILY 06/07/23 06/07/23 History Losartan [Cozaar] 12.5 mg PO DAILY 06/07/23 06/07/23 History Pitavastatin Calcium [Livalo] 2 mg PO DAILY 06/07/23 06/07/23 History Ubrogepant [Ubrelvy] 50 mg PO DAILY PRN 06/07/23 06/07/23 History predniSONE 5 mg PO DIRECTED PRN 06/07/23 06/07/23 History Allergies Allergy/AdvReac Type Severity Reaction Status Date / Time barium sulfate Allergy Rash/Hives Verified 06/07/23 09:42 Iodinated Contrast Media Allergy Rash/Hives Verified 06/07/23 09:42 [Iodinated Contrast Media - Oral and] albuterol AdvReac Rapid Verified 06/07/23 09:42 Heart Rate codeine phosphate AdvReac Itching Verified 06/07/23 09:42 [From Tylenol-Codeine #3] ibuprofen AdvReac ONLY HAS 1 Verified 06/07/23 09:42 KIDNEY-TOLD NEVER TO TAKE nitrofurantoin AdvReac Itching Verified 06/07/23 09:42 [From Macrobid] nitrofurantoin AdvReac Itching Verified 06/07/23 09:42 macrocrystalline [From Macrobid] Physical Exam Vitals: Vital Signs Temp Pulse Pulse Resp BP BP Pulse Ox 06/08/23 09:44 94 L 06/08/23 08:00 17 06/08/23 07:00 98.0 F 54 L 17 129/70 96 06/08/23 04:17 99.0 F 82 18 134/71 100 06/07/23 21:42 98.5 F 85 20 139/53 94 L 06/07/23 20:17 98.4 F 75 18 124/59 96 06/07/23 17:02 98.1 F 71 16 95/46 96 06/07/23 15:44 98.4 F 84 92/52 95 06/07/23 13:37 99.1 F 100 Intake and Output 06/07/23 06/08/23 06/08/23 22:59 06:59 14:59 Intake Total 118 Output Total 4 Balance -4 118 Intake: Oral 118 Output: Urine 4 Other: Weight 47.627 kg GENERAL: Fatigued elderly female HEAD: Atraumatic, normocephalic. EYES: Pupils equal round and reactive to light, extraocular movements intact, sclera anicteric, conjunctiva are normal. ENT:nares patent, oropharynx clear without exudates. Moist mucous membranes. NECK: Normal range of motion, supple without lymphadenopathy or JVD, no thyromegaly LUNGS: Breath sounds coarse with the bronchoscope bases consistent with her interstitial pulmonary fibrosis. HEART: Regular rate and rhythm without murmurs, rubs or gallops.S1S2 Normal ABDOMEN: Soft, nontender, normoactive bowel sounds. No guarding, no rebound. No masses appreciated. EXTREMITIES: Normal range of motion, no pitting or edema. No clubbing or cyanosis. NEUROLOGICAL: Cranial nerves II through XII grossly intact. Normal speech, normal gait. PSYCH: Normal mood, normal affect. SKIN: Warm, Dry, normal turgor, no rashes or lesions noted. Results CBC & Chem 7: 06/08/23 09:24 06/08/23 09:24 Labs: Abnormal Lab Results - Last 24 Hours (Table) 06/07/23 06/07/23 06/08/23 Range/Units 10:47 10:47 09:24 Plt Count 127 L (150-450) k/uL Lymphocytes # 0.7 L (1.0-4.8) k/uL Sodium 131 L (137-145) mmol/L Potassium 3.3 L (3.5-5.1) mmol/L Chloride 96 L (98-107) mmol/L BUN 21 H (7-17) mg/dL Glucose 110 H (74-99) mg/dL Calcium (8.4-10.2) mg/dL AST 57 H (14-36) U/L ALT 38 H (4-34) U/L Urine Appearance Cloudy H (Clear) Urine Protein 1+ H (Negative) Urine Blood Small H (Negative) Ur Leukocyte Esterase Large H (Negative) Ur Squamous Epith Cells 6 H (0-4) /hpf Amorphous Sediment Rare H (None) /hpf Urine Bacteria Rare H (None) /hpf Urine Mucus Rare H (None) /hpf 06/08/23 Range/Units 09:24 Plt Count (150-450) k/uL Lymphocytes # (1.0-4.8) k/uL Sodium 132 L (137-145) mmol/L Potassium 2.9 L (3.5-5.1) mmol/L Chloride (98-107) mmol/L BUN (7-17) mg/dL Glucose 161 H (74-99) mg/dL Calcium 8.3 L (8.4-10.2) mg/dL AST (14-36) U/L ALT (4-34) U/L Urine Appearance (Clear) Urine Protein (Negative) Urine Blood (Negative) Ur Leukocyte Esterase (Negative) Ur Squamous Epith Cells (0-4) /hpf Amorphous Sediment (None) /hpf Urine Bacteria (None) /hpf Urine Mucus (None) /hpf Chest x-ray: report reviewed Thrombosis Risk Factor Assmnt - Choose All That Apply Each Risk Factor Represents 2 Points: Age 61-74 years Thrombosis Risk Factor Assessment Total Risk Factor Score: 2 Thrombosis Risk Factor Assessment Level: Low Risk Assessment and Plan (1) Fatigue Current Visit: Yes Status: Acute Code(s): R53.83 - OTHER FATIGUE SNOMED Code(s): 11937339 (2) Dehydration Current Visit: Yes Status: Acute Code(s): E86.0 - DEHYDRATION SNOMED Code(s): 14547581 (3) Fever Current Visit: Yes Status: Acute Code(s): R50.9 - FEVER, UNSPECIFIED SNOMED Code(s): 831552801 (4) Acute and chronic respiratory failure ([id number]) Current Visit: No Status: Acute Priority: High Code(s): J96.20 - ACUTE AND CHR RESP FAILURE, UNSP W HYPOXIA OR HYPERCAPNIA SNOMED Code(s): 31856209 (5) COPD (chronic obstructive pulmonary disease) with chronic bronchitis Current Visit: No Status: Acute Priority: High Code(s): J44.9 - CHRONIC OBSTRUCTIVE PULMONARY DISEASE, UNSPECIFIED SNOMED Code(s): 188522515 (6) Essential (primary) hypertension Current Visit: No Status: Chronic Priority: Low Code(s): I10 - ESSENTIAL (PRIMARY) HYPERTENSION SNOMED Code(s): 19712950 (7) EVA (generalized anxiety disorder) Current Visit: No Status: Chronic Priority: Medium Code(s): F41.1 - GENERALIZED ANXIETY DISORDER SNOMED Code(s): 91446147 (8) Hypothyroidism Current Visit: No Status: Chronic Priority: Low Code(s): E03.9 - HYPOTHYROIDISM, UNSPECIFIED SNOMED Code(s): 38886709 (9) Personal history of nicotine dependence Current Visit: No Status: Chronic Priority: Low Code(s): Z87.891 - PERSONAL HISTORY OF NICOTINE DEPENDENCE SNOMED Code(s): 8477707041 (10) Hypokalemia Current Visit: Yes Status: Acute Code(s): E87.6 - HYPOKALEMIA SNOMED Code(s): 43963996 Plan: Replace potassium at this time, will add consult for pulmonology to shape of a fibrosis. I will re-test her for covid, influenza and RSV, repeat labs in a.m., restart her home medications, reevaluate next 24 hours.
[2023-06-08] MEDS: HEPARIN SODIUM,PORCINE 5,000 UNIT/ML 1 ML VIAL SQ SCH ×2 (12:49→20:38)
[2023-06-08] MEDS: methylPREDNISolone SOD SUCCI 125 MG/2 ML VIAL IV SCH ×2 (12:50→18:29)
[2023-06-08] MEDS: POTASSIUM CHLORIDE ER 20 MEQ TAB.ER PO SCH ×3 (13:15→15:54)
[2023-06-08] MEDS ORDERED: CALCIUM CARBONATE 500 MG CHEWABLE PO ONE (16:34)
[2023-06-08] MEDS: PANTOPRAZOLE 40 MG TABLET PO SCH ×2 (20:38→20:41)
[2023-06-08] MEDS: ALPRAZolam 0.25 MG TAB PO PRN (20:39)
[2023-06-09] MEDS: methylPREDNISolone SOD SUCCI 125 MG/2 ML VIAL IV SCH ×4 (05:54→17:47)
[2023-06-09 06:19] LABS: Basophils % (A) 0 %; Eosinophils % (A) 0 %; HCT 42.8 % (34.0-46.0); HGB 13.9 gm/dL (11.4-16.0); Lymphocytes # (A) 0.4 k/uL (1.0-4.8); Lymphocytes % (A) 7 %; MCH 32.1 pg (25.0-35.0); MCHC 32.5 g/dL (31.0-37.0); MCV 98.8 fL (80.0-100.0); Mean Platelet Volume 8.1; Monocytes # (A) 0.1 k/uL (0-1.0); Monocytes % (A) 2 %; Neutrophils # (A) 5.6 k/uL (1.3-7.7); Neutrophils % (A) 90 %; Platelet Count 130 k/uL (150-450); RBC 4.34 m/uL (3.80-5.40); RDW 12.9 % (11.5-15.5); WBC 6.2 k/uL (3.8-10.6)
[2023-06-09] MEDS: SODIUM CHLORIDE 0.9% 1,000 ML IV SCH ×2 (06:31→12:51)
[2023-06-09] MEDS: LEVOTHYROXINE 50 MCG TAB PO SCH (06:31)
[2023-06-09 06:36] LABS: African American GFR (CKD) >90 (>60 ml/min/1.73 sqM); Anion Gap 9 mmol/L; Blood Urea Nitrogen 17 mg/dL (7-17); Carbon Dioxide 23 mmol/L (22-30); Chloride 107 mmol/L (98-107); Glucose 140 mg/dL (74-99); Non-African American GFR(CKD) 89 (>60 ml/min/1.73 sqM); Potassium 4.8 mmol/L (3.5-5.1); Sodium 139 mmol/L (137-145)
[2023-06-09] MEDS ORDERED: guaiFENesin-DM 100-10MG/5ML 10 ML CUP PO PRN (07:05)
[2023-06-09] MEDS ORDERED: IPRATROPIUM-ALBUTEROL 3 ML NEB INHALATION PRN (07:43)
--- NOTE | 2023-06-09 08:51 | P.CNPUL ---
History of Present Illness Consult date: 06/09/23 Requesting physician: Jorge Luis Roman Reason for consult: dyspnea, cough, COPD, hypoxemia, pulmonary fibrosis, abnormal CXR/CT Chief complaint: Shortness of breath and cough. History of present illness: Pulmonary consult dated 06/09/2023. 72-year-old female with a history of chronic lung disease, who presents to the emergency department on June 07, at 9:30 in the morning, complaining of sh ortness of breath, cough, and fever. Apparently the symptoms developed the night before. She also admitted to some nausea without vomiting. No chest pain or chest discomfort. She does report some urinary frequency, without dysuria. She apparently sees one of my partners for interstitial lung disease and emphysema. She does use home oxygen at 2.5 L/m. Currently, she is on 4 L here in the hospital, and receiving saline at 75 mL an hour. The patient did smoke for many years. She has a history of COPD, pulmonary fibrosis, CVA, GERD, osteoarthritis, hypothyroidism, hyperlipidemia, and only one functioning kidney. White count 6.2, hemoglobin 13.9, hematocrit 42.8, and platelet count 130,000. Sodium 139, potassium 4.8, chlorides 107, CO2 23, BUN 17, creatinine 0.62. Her urine is yellow and cloudy. 1+ protein. Leukocyte esterase was large positive. WBCs were 5. There were rare bacteria. She tested negative for influenza, RSV, and coronavirus. Chest x-ray showed only diffuse interstitial changes. Review of Systems REVIEW OF SYSTEMS: CONSTITUTIONAL: Fever NEUROLOGIC: [ Negative.] HEENT: [ Negative.] CARDIAC: [Negative.] PULMONARY: Shortness of breath and nonproductive cough. GI: Nausea without emesis. : [Negative.] RHEUMATOLOGIC: [ Negative.] IMMUNOLOGIC: [ Negative.] ENDOCRINE: [Negative. ] DERMATOLOGIC: [Negative.] Past Medical History Past Medical History: Asthma, COPD, CVA/TIA, GERD/Reflux, Osteoarthritis (OA), Skin Disorder, Thyroid Disorder Additional Past Medical History / Comment(s): Heart palpitations, Varicose veins, Hx of kidney stones (only Lt kidney), diverticulitis, hiatal hernia, hemorrhoids, "under active gallbladder", sun damaged skin, pt states she had a TIA on 2015, Pulmonary fibrosis History of Any Multi-Drug Resistant Organisms: None Reported Past Surgical History: Cholecystectomy, Hysterectomy, Orthopedic Surgery, Tonsillectomy Additional Past Surgical History / Comment(s): L and R foot surgery, right nephrectomy, laparascopy, skin lesions, rt hand trigger finger, rt shoulder rotator cuff, CALLUS REMOVED FROM LT SMALL TOE, COLONOSCOPY, BILAT CATARACTS REMOVED WITH LENS IMPLANTS Past Anesthesia/Blood Transfusion Reactions: No Reported Reaction Past Psychological History: Anxiety Additional Psychological History / Comment(s): Pt resides with her spouse. She has home oxygen for HS. She occasionally drives but spouse does most of the driving. No assistive devices. Pt is independent. Smoking Status: Former smoker Past Alcohol Use History: None Reported Additional Past Alcohol Use History / Comment(s): Pt started smoking in 1961 and quit in 1976. Past Drug Use History: None Reported - Past Family History Father Family Medical History: Cancer Additional Family Medical History / Comment(s): Prostate cancer, brain tumor. Father is . Mother Family Medical History: Cancer, Renal Disease Additional Family Medical History / Comment(s): Mother when pt was 9yrs old and pt does not know much of mother's health hx. Mother had cancer-pt unaware of type, had kidney removed. Medications and Allergies Home Medications Medication Instructions Recorded Confirmed Type ALPRAZolam [Xanax] 0.75 mg PO HS PRN 02/25/14 06/07/23 History Levothyroxine Sodium [Synthroid] 50 mcg PO DAILY 02/25/14 06/07/23 History Aspirin EC [Ecotrin Low Dose] 81 mg PO DAILY 06/27/14 06/07/23 History Budesonide-Formot 160-4.5 Mcg 2 puff INHALATION RT-BID 06/27/14 06/07/23 History [Symbicort 160-4.5 Mcg Inhaler] Loratadine [Claritin] 10 mg PO DAILY 05/21/20 06/07/23 History levalbuterol HCL [Xopenex] 1.25 mg INHALATION RT-QID PRN 05/21/20 06/07/23 History Albuterol Inhaler [Ventolin Hfa 1 - 2 puff INHALATION RT-Q6H PRN 06/07/23 06/07/23 History Inhaler] Alendronate Sodium 70 mg PO DIRECTED 06/07/23 06/07/23 History Esomeprazole Magnesium [NexIUM 40 mg PO HS 06/07/23 06/07/23 History 24Hr] Folic Acid 0.4 mg PO DAILY 06/07/23 06/07/23 History Losartan [Cozaar] 12.5 mg PO DAILY 06/07/23 06/07/23 History Pitavastatin Calcium [Livalo] 2 mg PO DAILY 06/07/23 06/07/23 History Ubrogepant [Ubrelvy] 50 mg PO DAILY PRN 06/07/23 06/07/23 History predniSONE 5 mg PO DIRECTED PRN 06/07/23 06/07/23 History Allergies Allergy/AdvReac Type Severity Reaction Status Date / Time barium sulfate Allergy Rash/Hives Verified 06/07/23 09:42 Iodinated Contrast Media Allergy Rash/Hives Verified 06/07/23 09:42 [Iodinated Contrast Media - Oral and] albuterol AdvReac Rapid Verified 06/07/23 09:42 Heart Rate codeine phosphate AdvReac Itching Verified 06/07/23 09:42 [From Tylenol-Codeine #3] ibuprofen AdvReac ONLY HAS 1 Verified 06/07/23 09:42 KIDNEY-TOLD NEVER TO TAKE nitrofurantoin AdvReac Itching Verified 06/07/23 09:42 [From Macrobid] nitrofurantoin AdvReac Itching Verified 06/07/23 09:42 macrocrystalline [From Macrobid] Physical Exam Osteopathic Statement: *. No significant issues noted on an osteopathic structural exam other than those noted in the History and Physical/Consult. Vitals: Vital Signs Temp Pulse Resp BP Pulse Ox 06/09/23 07:00 97.4 F L 83 19 167/72 93 L 06/09/23 04:20 97.8 F 75 17 170/96 96 06/08/23 19:52 98.2 F 78 18 163/71 96 06/08/23 14:54 97.4 F L 81 16 130/85 100 06/08/23 13:56 17 06/08/23 09:44 94 L Intake and Output 06/08/23 06/09/23 06/09/23 22:59 06:59 14:59 Other: # Voids 3 No acute distress, oriented 3. Currently on 4 L of oxygen. No conversational dyspnea or use of accessory muscles. HEENT examination is grossly unremarkable. Mucous membranes are moist. No oral lesions. Neck supple. Full range of motion. No adenopathy thyromegaly or neck vein distention. Cardiovascular examination reveals regular rhythm rate. S1-S2 normal. No S3 or S4. No discernible murmur noted. Heart rate 83 bpm. Heart sounds are distant. Lungs reveal bibasilar crackles, and coarse rhonchi when the patient coughs. No wheezes. Breath sounds equal. 4 L saturation is 93%. Abdomen soft bowel sounds are heard. No masses or tenderness. Extremities are intact. No cyanosis clubbing or edema. Skin is without rash or lesion. Neurologic examination is brief but nonfocal. Results - Laboratory Findings CBC and BMP: 06/09/23 05:45 06/09/23 05:45 Abnormal lab findings: Abnormal Labs 06/07/23 06/07/23 06/07/23 10:47 10:47 10:47 Plt Count Neutrophils # 8.8 H Lymphocytes # Sodium 131 L Potassium 3.3 L Chloride 96 L BUN 21 H Glucose 110 H Calcium AST 57 H ALT 38 H Urine Appearance Cloudy H Urine Protein 1+ H Urine Blood Small H Ur Leukocyte Esterase Large H Ur Squamous Epith Cells 6 H Amorphous Sediment Rare H Urine Bacteria Rare H Urine Mucus Rare H 06/08/23 06/08/23 06/09/23 09:24 09:24 05:45 Plt Count 127 L 130 L Neutrophils # Lymphocytes # 0.7 L 0.4 L Sodium 132 L Potassium 2.9 L Chloride BUN Glucose 161 H Calcium 8.3 L AST ALT Urine Appearance Urine Protein Urine Blood Ur Leukocyte Esterase Ur Squamous Epith Cells Amorphous Sediment Urine Bacteria Urine Mucus 06/09/23 05:45 Plt Count Neutrophils # Lymphocytes # Sodium Potassium Chloride BUN Glucose 140 H Calcium AST ALT Urine Appearance Urine Protein Urine Blood Ur Leukocyte Esterase Ur Squamous Epith Cells Amorphous Sediment Urine Bacteria Urine Mucus - Diagnostic Findings Chest x-ray: image reviewed Assessment and Plan Assessment: Acute hypoxemic respiratory failure, likely on the basis of the patient's known history of COPD, and pulmonary fibrosis, and possibly complicated by infectious bronchitis. Chronic hypoxemic respiratory failure, on home O2 at 2.5 L. COPD from previous heavy tobacco use. History of hypertension. History of hyperlipidemia. History of hypothyroidism. History of GERD. Multiple other medical problems and comorbidities. Plan: Plan dated 06/09/2023. We will DC her albuterol, and instead, add duo nebs. We will also check a pro- calcitonin level. Labs, x-rays, and medications are reviewed. The patient likely has a diagnosis of chronic pulmonary fibrosis with emphysema. She is currently on Symbicort 160/4.5, 2 puffs twice a day, and Solu-Medrol, 60 mg every 6 hours. In addition, she is getting oxygen at 4 L, and saline at 75 mL an hour. Additional recommendations and suggestions are forthcoming. Doxycycline was added at 100 mg twice a day. If her pro-calcitonin level is normal, doxycycline will be decreased. Prognosis is guarded. We will continue to follow make recommendations along the way. Time with Patient: Greater than 30
[2023-06-09] MEDS: FOLIC ACID 1 MG TAB PO SCH (08:57)
[2023-06-09] MEDS: LORATADINE 10 MG TAB PO SCH (08:57)
[2023-06-09] MEDS: LOSARTAN 25 MG TAB PO SCH (08:57)
[2023-06-09] MEDS: ASPIRIN 81 MG PO SCH (08:58)
[2023-06-09] MEDS: HEPARIN SODIUM,PORCINE 5,000 UNIT/ML 1 ML VIAL SQ SCH ×2 (08:58→20:45)
[2023-06-09] MEDS: ATORVASTATIN 10 MG TAB PO SCH (08:58)
[2023-06-09] MEDS: BENZONATATE 100 MG CAP PO SCH ×3 (08:58→20:42)
[2023-06-09] MEDS: DOXYCYCLINE 100 MG CAP PO SCH ×2 (08:59→20:42)
[2023-06-09] MEDS: SYMBICORT 160-4.5 MCG INHALER INHALATION SCH ×2 (09:19→20:41)
[2023-06-09] MEDS: IPRATROPIUM-ALBUTEROL 3 ML NEB INHALATION SCH ×4 (09:19→20:41)
--- NOTE | 2023-06-09 10:47 | P.PN ---
Subjective This is a 72-year-old female well-known to me. She has a history of interstitial pulmonary fibrosis COPD, hypertension. She reports increasing coug h shortness of breath that started 1-1/2 days ago. She had profound fatigue, fever. She denied any chest pains or pressures or nausea or vomiting. She was so fatigued she could barely stand and walk and be cared by her . She saw emergency room to be dehydrated and hypokalemic. Covid, influenza testing is been negative. Vijaya after IV fluid she feels a little bit improved. She does complain of worsening cough. Her home medications have been reordered of Symbicort and albuterol updrafts. She has an 8 for anxiety, levothyroxine for hypothyroidism, loratadine for allergies, losartan for hypertension. Vital signs are stable heart rate stable she's been afebrile since her initial admission but she's remained on Tylenol regularly, she's currently on 4 L of oxygen via nasal cannula 94%. CBC is normal. Labs show potassium 2.9 sodium 132. Glucose is 161. Chest x-ray showed no acute process. 06/09/2023: Overnight patient slept poorly. She reports not feeling any better today. Denies any chest pains or pressures. As shortness of breath constantly. No nausea or vomiting. Heart rate temperature remained normal. Pulse oximetry is 95% on 4 L of O2. Blood pressure slightly elevated at 167/72. Labs show a normal CBC with exception of a platelet count. Chemistries are normal. Glucose slightly elevated at 140. Flu RSV and Covid testing are negative. Oncology consult reviewed. Objective - Vital Signs Vital signs: Vital Signs Temp 97.4 F L 06/09/23 07:00 Pulse 96 06/09/23 09:34 Resp 19 06/09/23 07:00 BP 167/72 06/09/23 07:00 Pulse Ox 95 06/09/23 09:19 FiO2 Intake & Output 06/08/23 06/09/23 06/09/23 18:59 06:59 18:59 Intake Total 829 240 Balance 829 240 Intake: Oral 829 240 Other: # Voids 3 - Exam General: The patient is awake and alert, fatigued Neck: The neck is supple, there is no thyromegaly, lymphadenopathy, tenderness or JVD. Cardiovascular: S1S2 is normal, There is a regular rate and rhythm. No murmur, rub or gallop is appreciated. Respiratory: Lungs are coarse with bilateral rhonchi consistent with her underlying interstitial pulmonary fibrosis. No wheezes this time. Gastrointestinal: Soft, non-distended, non-tender abdomen without masses or organomegaly noted. There is no rebound or guarding present. Bowel sounds are unremarkable. Musculoskeletal: Normal ROM, no tenderness, There is no pedal edema. There is no calf tenderness or swelling. No cords were appreciated. Neurological: CN II-XII intact, there are no obvious motor or sensory deficits. Coordination appears grossly intact. Speech is normal. Skin: Skin is warm and dry and no rashes or lesions are noted. - Labs CBC & Chem 7: 06/09/23 05:45 06/09/23 05:45 Labs: Abnormal Lab Results - Last 24 Hours (Table) 06/09/23 06/09/23 Range/Units 05:45 05:45 Plt Count 130 L (150-450) k/uL Lymphocytes # 0.4 L (1.0-4.8) k/uL Glucose 140 H (74-99) mg/dL Microbiology - Last 24 Hours (Table) 06/07/23 10:47 Blood Culture - Preliminary Blood 06/07/23 10:47 Blood Culture - Preliminary Blood Assessment and Plan (1) Fatigue Current Visit: Yes Status: Acute Code(s): R53.83 - OTHER FATIGUE SNOMED Code(s): 00655941 (2) Dehydration Current Visit: Yes Status: Acute Code(s): E86.0 - DEHYDRATION SNOMED Code(s): 43419182 (3) Fever Current Visit: Yes Status: Acute Code(s): R50.9 - FEVER, UNSPECIFIED SNOMED Code(s): 458590915 (4) Acute and chronic respiratory failure ([id number]) Current Visit: No Status: Acute Priority: High Code(s): J96.20 - ACUTE AND CHR RESP FAILURE, UNSP W HYPOXIA OR HYPERCAPNIA SNOMED Code(s): 63143117 (5) COPD (chronic obstructive pulmonary disease) with chronic bronchitis Current Visit: No Status: Acute Priority: High Code(s): J44.9 - CHRONIC OBSTRUCTIVE PULMONARY DISEASE, UNSPECIFIED SNOMED Code(s): 460045354 (6) Essential (primary) hypertension Current Visit: No Status: Chronic Priority: Low Code(s): I10 - ESSENTIAL (PRIMARY) HYPERTENSION SNOMED Code(s): 47814763 (7) EVA (generalized anxiety disorder) Current Visit: No Status: Chronic Priority: Medium Code(s): F41.1 - GENERALIZED ANXIETY DISORDER SNOMED Code(s): 74321273 (8) Hypothyroidism Current Visit: No Status: Chronic Priority: Low Code(s): E03.9 - HYPOTHY ROIDISM, UNSPECIFIED SNOMED Code(s): 03654790 (9) Personal history of nicotine dependence Current Visit: No Status: Chronic Priority: Low Code(s): Z87.891 - PERSONAL HISTORY OF NICOTINE DEPENDENCE SNOMED Code(s): 7336853661 (10) Hypokalemia Current Visit: Yes Status: Acute Code(s): E87.6 - HYPOKALEMIA SNOMED Code(s): 23183585 Plan: Patient will continue on IV steroids, doxycycline, DuoNeb, and her home medications as reviewed in the medical record. She'll continue on some mild IV fluids, I'll repeat labs in a.m., reevaluate her in the next 24 hours
[2023-06-09] MEDS: ALPRAZolam 0.25 MG TAB PO PRN (20:43)
[2023-06-10] MEDS: methylPREDNISolone SOD SUCCI 125 MG/2 ML VIAL IV SCH ×4 (00:16→20:07)
[2023-06-10] MEDS: LEVOTHYROXINE 50 MCG TAB PO SCH (06:29)
[2023-06-10] MEDS: IPRATROPIUM-ALBUTEROL 3 ML NEB INHALATION SCH ×4 (09:08→21:07)
[2023-06-10] MEDS: SYMBICORT 160-4.5 MCG INHALER INHALATION SCH ×2 (09:08→21:07)
[2023-06-10] MEDS: SODIUM CHLORIDE 0.9% 1,000 ML IV SCH ×2 (09:40→13:38)
[2023-06-10] MEDS: DOXYCYCLINE 100 MG CAP PO SCH ×2 (09:41→20:08)
[2023-06-10] MEDS: FOLIC ACID 1 MG TAB PO SCH (09:41)
[2023-06-10] MEDS: ASPIRIN 81 MG PO SCH (09:41)
[2023-06-10] MEDS: LOSARTAN 25 MG TAB PO SCH (09:41)
[2023-06-10] MEDS: HEPARIN SODIUM,PORCINE 5,000 UNIT/ML 1 ML VIAL SQ SCH ×2 (09:41→20:08)
[2023-06-10] MEDS: LORATADINE 10 MG TAB PO SCH (09:41)
[2023-06-10] MEDS: ATORVASTATIN 10 MG TAB PO SCH (09:41)
[2023-06-10] MEDS: BENZONATATE 100 MG CAP PO SCH ×2 (09:42→16:11)
[2023-06-10 10:15] LABS: Blood Urea Nitrogen 20.3 mg/dL (9.0-27.0); Calcium 9.1 mg/dL (8.7-10.3); Carbon Dioxide 23.7 mmol/L (21.6-31.8); Chloride 108 mmol/L (96-109); Glucose 178 mg/dL (70-110); Potassium 4.3 mmol/L (3.5-5.5); Sodium 142 mmol/L (135-145)
[2023-06-10] MEDS: guaiFENesin 600 MG TABLET.ER PO SCH ×2 (10:53→20:08)
--- NOTE | 2023-06-10 13:27 | P.PN ---
Subjective Progress Note Date: 06/10/23 72-year-old female with a history of chronic lung disease, who presents to the emergency department on June 07, at 9:30 in the morning, complaining of shortness of breath, cough, and fever. Apparently the symptoms developed the night before. She also admitted to some nausea without vomiting. No chest pain or chest discomfort. She does report some urinary frequency, without dysuria. She apparently sees one of my partners for interstitial lung disease and emphysema. She does use home oxygen at 2.5 L/m. Currently, she is on 4 L here in the hospital, and receiving saline at 75 mL an hour. The patient did smoke for many years. She has a history of COPD, pulmonary fibrosis, CVA, GERD, osteoarthritis, hypothyroidism, hyperlipidemia, and only one functioning kidney. White count 6.2, hemoglobin 13.9, hematocrit 42.8, and platelet count 130,000. Sodium 139, potassium 4.8, chlorides 107, CO2 23, BUN 17, creatinine 0.62. Her urine is yellow and cloudy. 1+ protein. Leukocyte esterase was large positive. WBCs were 5. There were rare bacteria. She tested negative for influenza, RSV, and coronavirus. Chest x-ray showed only diffuse interstitial changes. The patient is seen today 06/10/2023 in follow-up on the regular medical floor. She is currently sitting up in bed. Awake and alert in no acute distress. Maintaining O2 saturations in the mid 90s on 4 L/m per nasal cannula. She's afebrile. Hemodynamically stable. She is feeling better today compared to yesterday. She still has a loose nonproductive cough. Still dyspneic with conversation. Dyspneic with minimal exertion. Blood cultures revealing no growth thus far. Sodium 142. Potassium 4.3. Bicarb 24. BUN 20. Creatinine 0.7. Glucose 178. Pro-calcitonin was 1.34. She is continued on doxycycline. She remains on DuoNeb inhalations, Symbicort, IV Solu-Medrol. Normal saline at 75 ML's per hour. Objective - Vital Signs Vital signs: Vital Signs Temp 97.4 F L 06/10/23 07:00 Pulse 88 06/10/23 12:02 Resp 19 06/10/23 07:00 BP 168/64 06/10/23 07:00 Pulse Ox 96 06/10/23 09:10 FiO2 Intake & Output 06/09/23 06/10/23 06/10/23 18:59 06:59 18:59 Intake Total 960 Balance 960 Intake: Oral 960 - Exam GENERAL EXAM: Alert, very pleasant 72-year-old female, 4 L nasal cannula, fairly comfortable in no apparent distress. HEAD: Normocephalic. EYES: Normal reaction of pupils, equal size. NOSE: Clear with pink turbinates. THROAT: No erythema or exudates. NECK: No masses, no JVD. CHEST: No chest wall deformity. LUNGS: Equal air entry with bilateral scattered rhonchi. CVS: S1 and S2 normal with no audible murmur, regular rhythm. ABDOMEN: No hepatosplenomegaly, normal bowel sounds, no guarding or rigidity. SPINE: No scoliosis or deformity SKIN: No rashes CENTRAL NERVOUS SYSTEM: No focal deficits, tone is normal in all 4 extremities. EXTREMITIES: There is no peripheral edema. No clubbing, no cyanosis. Peripheral pulses are intact. - Labs CBC & Chem 7: 06/09/23 05:45 06/10/23 05:55 Labs: Abnormal Lab Results - Last 24 Hours (Table) 06/10/23 Range/Units 05:55 BUN/Creatinine Ratio 29.00 H (12.00-20.00) Ratio Glucose 178 H (70-110) mg/dL Microbiology - Last 24 Hours (Table) 06/07/23 10:47 Blood Culture - Preliminary Blood 06/07/23 10:47 Blood Culture - Preliminary Blood Assessment and Plan Assessment: Acute hypoxemic respiratory failure, likely on the basis of the patient's known history of COPD, and pulmonary fibrosis, and possibly complicated by infectious bronchitis. Pro-calcitonin 1.34. Currently on doxycycline Chronic hypoxemic respiratory failure, on home O2 at 2.5 L. COPD from previous heavy tobacco use. History of hypertension. History of hyperlipidemia. History of hypothyroidism. History of GERD. Multiple other medical problems and comorbidities. Plan: The patient was seen and evaluated Labs and medications reviewed Temi Perez Continue bronchodilators and steroids Continue antibiotics Titrate the FiO2 as tolerated Increase her activity as tolerated We will continue to follow This patient was seen independently by the nurse practitioner I have personally seen and examined the patient, performed the documentation and the assessment and plan as written. Number of minutes spent on the visit: 22.
--- NOTE | 2023-06-10 13:51 | P.PN ---
Subjective This is a 72-year-old female well-known to me. She has a history of interstitial pulmonary fibrosis COPD, hypertension. She reports increasing coug h shortness of breath that started 1-1/2 days ago. She had profound fatigue, fever. She denied any chest pains or pressures or nausea or vomiting. She was so fatigued she could barely stand and walk and be cared by her . She saw emergency room to be dehydrated and hypokalemic. Covid, influenza testing is been negative. Vijaya after IV fluid she feels a little bit improved. She does complain of worsening cough. Her home medications have been reordered of Symbicort and albuterol updrafts. She has an 8 for anxiety, levothyroxine for hypothyroidism, loratadine for allergies, losartan for hypertension. Vital signs are stable heart rate stable she's been afebrile since her initial admission but she's remained on Tylenol regularly, she's currently on 4 L of oxygen via nasal cannula 94%. CBC is normal. Labs show potassium 2.9 sodium 132. Glucose is 161. Chest x-ray showed no acute process. 06/09/2023: Overnight patient slept poorly. She reports not feeling any better today. Denies any chest pains or pressures. As shortness of breath constantly. No nausea or vomiting. Heart rate temperature remained normal. Pulse oximetry is 95% on 4 L of O2. Blood pressure slightly elevated at 167/72. Labs show a normal CBC with exception of a platelet count. Chemistries are normal. Glucose slightly elevated at 140. Flu RSV and Covid testing are negative. Oncology consult reviewed. 1019 2022: patient repeats she is not feeling any better. She continues to be short of breath with exertion. She has known interstitial pulmonary fibrosis.Vital signs show pulse ox symmetry, 96% on 4 L of O2.She is afebrile, Labs are normal today.Microbiology shows no growth. Objective - Vital Signs Vital signs: Vital Signs Temp 97.4 F L 06/10/23 07:00 Pulse 88 06/10/23 12:02 Resp 19 06/10/23 07:00 BP 168/64 06/10/23 07:00 Pulse Ox 96 06/10/23 09:10 FiO2 Intake & Output 10/19/23 10/20/23 10/20/23 18:59 06:59 18:59 Intake Total 960 600 Balance 960 600 Intake: Intake, IV Titration 600 Amount Sodium Chloride 0.9% 1, 600 000 ml @ 75 mls/hr IV . [id number] [facility] Rx#:[id number] Oral 960 - Exam General: The patient is awake and alert, fatigued Neck: The neck is supple, there is no thyromegaly, lymphadenopathy, tenderness or JVD. Cardiovascular: S1S2 is normal, There is a regular rate and rhythm. No murmur, rub or gallop is appreciated. Respiratory: Lungs are coarse with bilateral rhonchi consistent with her underlying interstitial pulmonary fibrosis. No wheezes this time. Gastrointestinal: Soft, non-distended, non-tender abdomen without masses or organomegaly noted. There is no rebound or guarding present. Bowel sounds are unremarkable. Musculoskeletal: Normal ROM, no tenderness, There is no pedal edema. There is no calf tenderness or swelling. No cords were appreciated. Neurological: CN II-XII intact, there are no obvious motor or sensory deficits. Coordination appears grossly intact. Speech is normal. Skin: Skin is warm and dry and no rashes or lesions are noted. - Labs CBC & Chem 7: 06/09/23 05:45 06/10/23 05:55 Labs: Abnormal Lab Results - Last 24 Hours (Table) 06/10/23 Range/Units 05:55 BUN/Creatinine Ratio 29.00 H (12.00-20.00) Ratio Glucose 178 H (70-110) mg/dL Microbiology - Last 24 Hours (Table) 06/07/23 10:47 Blood Culture - Preliminary Blood 06/07/23 10:47 Blood Culture - Preliminary Blood Assessment and Plan (1) Fatigue Current Visit: Yes Status: Acute Code(s): R53.83 - OTHER FATIGUE SNOMED Code(s): 26420686 (2) Dehydration Current Visit: Yes Status: Acute Code(s): E86.0 - DEHYDRATION SNOMED Code(s): 04336780 (3) Fever Current Visit: Yes Status: Acute Code(s): R50.9 - FEVER, UNSPECIFIED SNOMED Code(s): 488881229 (4) Acute and chronic respiratory failure ([id number]) Current Visit: No Status: Acute Priority: High Code(s): J96.20 - ACUTE AND CHR RESP FAILURE, UNSP W HYPOXIA OR HYPERCAPNIA SNOMED Code(s): 67876189 (5) COPD (chronic obstructive pulmonary disease) with chronic bronchitis Current Visit: No Status: Acute Priority: High Code(s): J44.9 - CHRONIC OBSTRUCTIVE PULMONARY DISEASE, UNSPECIFIED SNOMED Code(s): 609948495 (6) Essential (primary) hypertension Current Visit: No Status: Chronic Priority: Low Code(s): I10 - ESSENTIAL (PRIMARY) HYPERTENSION SNOMED Code(s): 64383517 (7) EVA (generalized anxiety disorder) Current Visit: No Status: Chronic Priority: Medium Code(s): F41.1 - GENERALIZED ANXIETY DISORDER SNOMED Code(s): 98655780 (8) Hypothyroidism Current Visit: No Status: Chronic Priority: Low Code(s): E03.9 - HYPOTHYROIDISM, UNSPECIFIED SNOMED Code(s): 76964713 (9) Personal history of nicotine dependence Current Visit: No Status: Chronic Priority: Low Code(s): Z87.891 - PERSONAL HISTORY OF NICOTINE DEPENDENCE SNOMED Code(s): 8693139253 (10) Hypokalemia Current Visit: Yes Status: Acute Code(s): E87.6 - HYPOKALEMIA SNOMED Code(s): 84057778 Plan: Patient will continue on IV steroids, doxycycline, DuoNeb, and her home medicati ons as reviewed in the medical record. She'll continue on some mild IV fluids, I'll repeat labs in a.m.,CXR in am, PT?OT evaluation change antibiotics to reevaluate her in the next 24 hours
[2023-06-10] MEDS ORDERED: AZITHROMYCIN 500 MG TAB PO SCH (14:00)
--- NOTE | 2023-06-10 15:17 | XR ---
EXAMINATION TYPE: XR chest 2V DATE OF EXAM: 06/10/2023 COMPARISON: 06/07/2023 TECHNIQUE: PA and lateral views submitted. HISTORY: Cough FINDINGS: The lungs are clear and there is no pneumothorax, pleural effusion, or focal pneumonia. Heart size normal and no overt failure. Osseous structures demonstrate hypertrophic and degenerative changes of the spine. Coarsened interstitium with biapical pleural thickening. Atherosclerotic change aorta. Zachary gical clips in the abdomen. IMPRESSION: 1. Pulmonary fibrosis. No definite acute infiltrate. 2. Stable pleural-based apical thickening with subcentimeter nodule in the right upper lobe.
[2023-06-10] MEDS: PANTOPRAZOLE 40 MG TABLET PO SCH (20:08)
[2023-06-11] MEDS: methylPREDNISolone SOD SUCCI 125 MG/2 ML VIAL IV SCH ×4 (00:53→17:51)
[2023-06-11] MEDS: SODIUM CHLORIDE 0.9% 1,000 ML IV SCH ×2 (00:54→12:27)
[2023-06-11] MEDS: BENZONATATE 100 MG CAP PO SCH ×4 (00:55→21:35)
[2023-06-11] MEDS: LEVOTHYROXINE 50 MCG TAB PO SCH (06:23)
--- NOTE | 2023-06-11 07:44 | P.PN ---
Subjective Progress Note Date: 06/11/23 72-year-old female with a history of chronic lung disease, who presents to the emergency department on June 07, at 9:30 in the morning, complaining of shortness of breath, cough, and fever. Apparently the symptoms developed the night before. She also admitted to some nausea without vomiting. No chest pain or chest discomfort. She does report some urinary frequency, without dysuria. She apparently sees one of my partners for interstitial lung disease and emphysema. She does use home oxygen at 2.5 L/m. Currently, she is on 4 L here in the hospital, and receiving saline at 75 mL an hour. The patient did smoke for many years. She has a history of COPD, pulmonary fibrosis, CVA, GERD, osteoarthritis, hypothyroidism, hyperlipidemia, and only one functioning kidney. White count 6.2, hemoglobin 13.9, hematocrit 42.8, and platelet count 130,000. Sodium 139, potassium 4.8, chlorides 107, CO2 23, BUN 17, creatinine 0.62. Her urine is yellow and cloudy. 1+ protein. Leukocyte esterase was large positive. WBCs were 5. There were rare bacteria. She tested negative for influenza, RSV, and coronavirus. Chest x-ray showed only diffuse interstitial changes. The patient is seen today 06/10/2023 in follow-up on the regular medical floor. She is currently sitting up in bed. Awake and alert in no acute distress. Maintaining O2 saturations in the mid 90s on 4 L/m per nasal cannula. She's afebrile. Hemodynamically stable. She is feeling better today compared to yesterday. She still has a loose nonproductive cough. Still dyspneic with conversation. Dyspneic with minimal exertion. Blood cultures revealing no growth thus far. Sodium 142. Potassium 4.3. Bicarb 24. BUN 20. Creatinine 0.7. Glucose 178. Pro-calcitonin was 1.34. She is continued on doxycycline. She remains on DuoNeb inhalations, Symbicort, IV Solu-Medrol. Normal saline at 75 ML's per hour. The patient is seen today 06/11/2023 in follow-up on the regular medical floor. She is resting comfortably in bed. Awake and alert in no acute distress. She is feeling a bit better today compared to yesterday. Still with a loose nonproductive cough. Still with some wheezing and dyspnea on exertion. M aintaining O2 saturations in the 90s on 4 L/m per nasal cannula. She has normal saline at 70. Blood cultures are revealing no growth. No new labs today. She is continued on DuoNeb inhalations, Symbicort, Solu-Medrol. Antibiotics in the form of doxycycline. Pro-calcitonin was 1.34. She is continued on Tessalon Perles and Mucinex. Objective - Vital Signs Vital signs: Vital Signs Temp 97.6 F 06/11/23 07:00 Pulse 71 06/11/23 07:00 Resp 17 06/11/23 07:00 BP 151/71 06/11/23 07:00 Pulse Ox 96 06/11/23 07:00 FiO2 Intake & Output 06/10/23 06/11/23 06/11/23 18:59 06:59 18:59 Intake Total 600 360 Balance 600 360 Intake: Intake, IV Titration 600 Amount Sodium Chloride 0.9% 1, 600 000 ml @ 75 mls/hr IV . [id number] [facility] Rx#:[id number] Oral 360 Other: # Voids 2 - Exam GENERAL EXAM: Alert, pleasant 72-year-old female, 4 L nasal cannula, resting comfortably in bed, comfortable in no apparent distress. HEAD: Normocephalic. EYES: Normal reaction of pupils, equal size. NOSE: Clear with pink turbinates. THROAT: No erythema or exudates. NECK: No masses, no JVD. CHEST: No chest wall deformity. LUNGS: Equal air entry with bilateral scattered rhonchi and end expiratory wheeze. CVS: S1 and S2 normal with no audible murmur, regular rhythm. ABDOMEN: No hepatosplenomegaly, normal bowel sounds, no guarding or rigidity. SPINE: No scoliosis or deformity SKIN: No rashes CENTRAL NERVOUS SYSTEM: No focal deficits, tone is normal in all 4 extremities. EXTREMITIES: There is no peripheral edema. No clubbing, no cyanosis. Peripheral pulses are intact. - Labs CBC & Chem 7: 06/09/23 05:45 06/10/23 05:55 Labs: Abnormal Lab Results - Last 24 Hours (Table) 06/10/23 Range/Units 05:55 BUN/Creatinine Ratio 29.00 H (12.00-20.00) Ratio Glucose 178 H (70-110) mg/dL Microbiology - Last 24 Hours (Table) 06/07/23 10:47 Blood Culture - Preliminary Blood 06/07/23 10:47 Blood Culture - Preliminary Blood Assessment and Plan Assessment: Acute on chronic hypoxemic respiratory failure, likely on the basis of the patient's known history of COPD, and pulmonary fibrosis, and complicated by infectious bronchitis. Pro-calcitonin 1.34. Currently on doxycycline Chronic hypoxemic respiratory failure, on home O2 at 2.5 L. COPD from previous heavy tobacco use. History of hypertension. History of hyperlipidemia. History of hypothyroidism. History of GERD. Multiple other medical problems and comorbidities. Plan: The patient was seen and evaluated Medications reviewed Continue the current treatment plan Titrate the FiO2 as tolerated Increase her activity as tolerated We will continue to follow This patient was seen independently by the nurse practitioner I have personally seen and examined the patient, performed the documentation and the assessment and plan as written. Number of minutes spent on the visit: 24.
[2023-06-11] MEDS: FOLIC ACID 1 MG TAB PO SCH (08:21)
[2023-06-11] MEDS: ATORVASTATIN 10 MG TAB PO SCH (08:22)
[2023-06-11] MEDS: DOXYCYCLINE 100 MG CAP PO SCH ×2 (08:22→20:44)
[2023-06-11] MEDS: ASPIRIN 81 MG PO SCH (08:22)
[2023-06-11] MEDS: guaiFENesin 600 MG TABLET.ER PO SCH ×2 (08:22→20:44)
[2023-06-11] MEDS: LOSARTAN 25 MG TAB PO SCH (08:22)
[2023-06-11] MEDS: LORATADINE 10 MG TAB PO SCH (08:23)
[2023-06-11] MEDS: HEPARIN SODIUM,PORCINE 5,000 UNIT/ML 1 ML VIAL SQ SCH ×2 (08:23→20:45)
[2023-06-11] MEDS: ACETAMINOPHEN TAB 325 MG TAB PO PRN (08:32)
[2023-06-11] MEDS: SYMBICORT 160-4.5 MCG INHALER INHALATION SCH ×2 (08:57→20:36)
[2023-06-11] MEDS: IPRATROPIUM-ALBUTEROL 3 ML NEB INHALATION SCH ×4 (08:57→20:36)
--- NOTE | 2023-06-11 09:06 | P.PN ---
Subjective This is a 72-year-old female well-known to me. She has a history of interstitial pulmonary fibrosis COPD, hypertension. She reports increasing coug h shortness of breath that started 1-1/2 days ago. She had profound fatigue, fever. She denied any chest pains or pressures or nausea or vomiting. She was so fatigued she could barely stand and walk and be cared by her . She saw emergency room to be dehydrated and hypokalemic. Covid, influenza testing is been negative. Vijaya after IV fluid she feels a little bit improved. She does complain of worsening cough. Her home medications have been reordered of Symbicort and albuterol updrafts. She has an 8 for anxiety, levothyroxine for hypothyroidism, loratadine for allergies, losartan for hypertension. Vital signs are stable heart rate stable she's been afebrile since her initial admission but she's remained on Tylenol regularly, she's currently on 4 L of oxygen via nasal cannula 94%. CBC is normal. Labs show potassium 2.9 sodium 132. Glucose is 161. Chest x-ray showed no acute process. 06/09/2023: Overnight patient slept poorly. She reports not feeling any better today. Denies any chest pains or pressures. As shortness of breath constantly. No nausea or vomiting. Heart rate temperature remained normal. Pulse oximetry is 95% on 4 L of O2. Blood pressure slightly elevated at 167/72. Labs show a normal CBC with exception of a platelet count. Chemistries are normal. Glucose slightly elevated at 140. Flu RSV and Covid testing are negative. Oncology consult reviewed. 06/10/2023: patient repeats she is not feeling any better. She continues to be short of breath with exertion. She has known interstitial pulmonary fibrosis.Vital signs show pulse ox symmetry, 96% on 4 L of O2.She is afebrile, Labs are normal today.Microbiology shows no growth. 06/11/2023: Patient remains resting comfortably on the floor. She is feeling better today. She did not receive pain medication as ordered because there is report of codeine allergy, which is false. Vital signs are stable she's afebrile. Blood pressure control pulse ox 97% on 4 L O2 at this time. Labo ratory studies are pending for this morning. Patient does complain of abdominal pain from coughing. Complains of some weakness that is improved. Objective - Vital Signs Vital signs: Vital Signs Temp 97.6 F 06/11/23 07:00 Pulse 76 06/11/23 08:58 Resp 17 06/11/23 07:00 BP 151/71 06/11/23 07:00 Pulse Ox 97 06/11/23 08:58 FiO2 Intake & Output 06/10/23 06/11/23 06/11/23 18:59 06:59 18:59 Intake Total 600 360 Balance 600 360 Intake: Intake, IV Titration 600 Amount Sodium Chloride 0.9% 1, 600 000 ml @ 75 mls/hr IV . [id number] [facility] Rx#:[id number] Oral 360 Other: # Voids 2 - Exam General: The patient is awake and alert, fatigued Neck: The neck is supple, there is no thyromegaly, lymphadenopathy, tenderness or JVD. Cardiovascular: S1S2 is normal, There is a regular rate and rhythm. No murmur, rub or gallop is appreciated. Respiratory: Lungs are coarse with bilateral rhonchi consistent with her underlying interstitial pulmonary fibrosis. No wheezes this time. Gastrointestinal: Soft, non-distended, non-tender abdomen without masses or organomegaly noted. There is no rebound or guarding present. Bowel sounds are unremarkable. Musculoskeletal: Normal ROM, no tenderness, There is no pedal edema. There is no calf tenderness or swelling. No cords were appreciated. Neurological: CN II-XII intact, there are no obvious motor or sensory deficits. Coordination appears grossly intact. Speech is normal. Skin: Skin is warm and dry and no rashes or lesions are noted. - Labs CBC & Chem 7: 06/09/23 05:45 06/10/23 05:55 Labs: Abnormal Lab Results - Last 24 Hours (Table) 06/10/23 Range/Units 05:55 BUN/Creatinine Ratio 29.00 H (12.00-20.00) Ratio Glucose 178 H (70-110) mg/dL Microbiology - Last 24 Hours (Table) 06/07/23 10:47 Blood Culture - Preliminary Blood 06/07/23 10:47 Blood Culture - Preliminary Blood Assessment and Plan (1) Fatigue Current Visit: Yes Status: Acute Code(s): R53.83 - OTHER FATIGUE SNOMED Code(s): 43258157 (2) Dehydration Current Visit: Yes Status: Acute Code(s): E86.0 - DEHYDRATION SNOMED Code(s): 54601533 (3) Fever Current Visit: Yes Status: Acute Code(s): R50.9 - FEVER, UNSPECIFIED SNOMED Code(s): 754326637 (4) Acute and chronic respiratory failure (prhfe-[id number]) Current Visit: No Status: Acute Priority: High Code(s): J96.20 - ACUTE AND CHR RESP FAILURE, UNSP W HYPOXIA OR HYPERCAPNIA SNOMED Code(s): 24179878 (5) COPD (chronic obstructive pulmonary disease) with chronic bronchitis Current Visit: No Status: Acute Priority: High Code(s): J44.9 - CHRONIC OBSTRUCTIVE PULMONARY DISEASE, UNSPECIFIED SNOMED Code(s): 459129352 (6) Essential (primary) hypertension Current Visit: No Status: Chronic Priority: Low Code(s): I10 - ESSENTIAL (PRIMARY) HYPERTENSION SNOMED Code(s): 78029727 (7) EVA (generalized anxiety disorder) Current Visit: No Status: Chronic Priority: Medium Code(s): F41.1 - GENERALIZED ANXIETY DISORDER SNOMED Code(s): 80696911 (8) Hypothyroidism Current Visit: No Status: Chronic Priority: Low Code(s): E03.9 - HYPOTHYROIDISM, UNSPECIFIED SNOMED Code(s): 14532660 (9) Personal history of nicotine dependence Current Visit: No Status: Chronic Priority: Low Code(s): Z87.891 - PERSONAL HISTORY OF NICOTINE DEPENDENCE SNOMED Code(s): 1399802320 (10) Hypokalemia Current Visit: Yes Status: Acute Code(s): E87.6 - HYPOKALEMIA SNOMED Code(s): 44106703 Plan: Patient will continue on IV steroids, doxycycline, DuoNeb, and her home medications as reviewed in the medical record. Tylenol with Codeine for pain. Wait on further recommendations from pulmonology. She'll be reevaluated in 24 hours possibly for discharge.
[2023-06-11] MEDS: Acetaminophen-Codeine 300-30mg TAB PO PRN ×2 (11:43→18:14)
[2023-06-11] MEDS: PANTOPRAZOLE 40 MG TABLET PO SCH (20:44)
[2023-06-12] MEDS: methylPREDNISolone SOD SUCCI 125 MG/2 ML VIAL IV SCH ×2 (00:09→06:06)
[2023-06-12] MEDS: SODIUM CHLORIDE 0.9% 1,000 ML IV SCH (03:14)
[2023-06-12] MEDS: LEVOTHYROXINE 50 MCG TAB PO SCH (06:06)
--- NOTE | 2023-06-12 08:15 | P.PN ---
Subjective Progress Note Date: 06/12/23 72-year-old female with a history of chronic lung disease, who presents to the emergency department on June 07, at 9:30 in the morning, complaining of shortness of breath, cough, and fever. Apparently the symptoms developed the night before. She also admitted to some nausea without vomiting. No chest pain or chest discomfort. She does report some urinary frequency, without dysuria. She apparently sees one of my partners for interstitial lung disease and emphysema. She does use home oxygen at 2.5 L/m. Currently, she is on 4 L here in the hospital, and receiving saline at 75 mL an hour. The patient did smoke for many years. She has a history of COPD, pulmonary fibrosis, CVA, GERD, osteoarthritis, hypothyroidism, hyperlipidemia, and only one functioning kidney. White count 6.2, hemoglobin 13.9, hematocrit 42.8, and platelet count 130,000. Sodium 139, potassium 4.8, chlorides 107, CO2 23, BUN 17, creatinine 0.62. Her urine is yellow and cloudy. 1+ protein. Leukocyte esterase was large positive. WBCs were 5. There were rare bacteria. She tested negative for influenza, RSV, and coronavirus. Chest x-ray showed only diffuse interstitial changes. The patient is seen today 06/10/2023 in follow-up on the regular medical floor. She is currently sitting up in bed. Awake and alert in no acute distress. Maintaining O2 saturations in the mid 90s on 4 L/m per nasal cannula. She's afebrile. Hemodynamically stable. She is feeling better today compared to yesterday. She still has a loose nonproductive cough. Still dyspneic with conversation. Dyspneic with minimal exertion. Blood cultures revealing no growth thus far. Sodium 142. Potassium 4.3. Bicarb 24. BUN 20. Creatinine 0.7. Glucose 178. Pro-calcitonin was 1.34. She is continued on doxycycline. She remains on DuoNeb inhalations, Symbicort, IV Solu-Medrol. Normal saline at 75 ML's per hour. The patient is seen today 06/11/2023 in follow-up on the regular medical floor. She is resting comfortably in bed. Awake and alert in no acute distress. She is feeling a bit better today compared to yesterday. Still with a loose nonproductive cough. Still with some wheezing and dyspnea on exertion. M aintaining O2 saturations in the 90s on 4 L/m per nasal cannula. She has normal saline at 70. Blood cultures are revealing no growth. No new labs today. She is continued on DuoNeb inhalations, Symbicort, Solu-Medrol. Antibiotics in the form of doxycycline. Pro-calcitonin was 1.34. She is continued on Tessalon Perles and Mucinex. The patient is seen today 06/12/2023 in follow-up on the regular medical floor. She is sitting up in bed. Awake and alert in no acute distress. She is feeling quite a bit better today. Feeling almost back to her baseline. Her only complaint is of abdominal pain that she attributes to coughing and pulled muscles. She is maintaining good O2 saturations in the 90s on 4 L/m per nasal cannula. She has normal saline at 75 ML's per hour. He is continued on doxycycline, bronchodilators, steroids. Continued on Mucinex and Tessalon Perles. Today's labs are pending. Objective - Vital Signs Vital signs: Vital Signs Temp 97.6 F 06/12/23 01:21 Pulse 82 06/12/23 01:21 Resp 16 06/12/23 01:21 BP 148/68 06/12/23 01:21 Pulse Ox 97 06/12/23 01:21 FiO2 Intake & Output 06/11/23 06/12/23 06/12/23 18:59 06:59 18:59 Intake Total 720 Balance 720 Intake: Oral 720 Other: # Voids 2 2 - Exam GENERAL EXAM: Alert, pleasant, thin 72-year-old female, 4 L nasal cannula, comfortable in no apparent distress. HEAD: Normocephalic. EYES: Normal reaction of pupils, equal size. NOSE: Clear with pink turbinates. THROAT: No erythema or exudates. NECK: No masses, no JVD. CHEST: No chest wall deformity. LUNGS: Equal air entry with end expiratory wheeze. CVS: S1 and S2 normal with no audible murmur, regular rhythm. ABDOMEN: No hepatosplenomegaly, normal bowel sounds, no guarding or rigidity. SPINE: No scoliosis or deformity SKIN: No rashes CENTRAL NERVOUS SYSTEM: No focal deficits, tone is normal in all 4 extremities. EXTREMITIES: There is no peripheral edema. No clubbing, no cyanosis. Peripheral pulses are intact. - Labs CBC & Chem 7: 06/09/23 05:45 06/10/23 05:55 Assessment and Plan Assessment: Acute on chronic hypoxemic respiratory failure, likely on the basis of the patient's known history of COPD, and pulmonary fibrosis, and complicated by infectious bronchitis. Pro-calcitonin 1.34. Currently on doxycycline Chronic hypoxemic respiratory failure, on home O2 at 2.5 L. COPD from previous heavy tobacco use. History of hypertension. History of hyperlipidemia. History of hypothyroidism. History of GERD. Multiple other medical problems and comorbidities. Plan: The patient was seen and evaluated Medications reviewed We'll switch from Solu medrol to a prednisone taper Titrate the FiO2 as tolerated Increase her activity as tolerated She'll follow-up in our office one week post discharge This patient was seen independently by the nurse practitioner I have personally seen and examined the patient, performed the documentation and the assessment and plan as written. Number of minutes spent on the visit: 22.
[2023-06-12 08:27] VITALS: RESP 18
[2023-06-12] MEDS: ASPIRIN 81 MG PO SCH (08:44)
[2023-06-12] MEDS: FOLIC ACID 1 MG TAB PO SCH (08:44)
[2023-06-12] MEDS: ATORVASTATIN 10 MG TAB PO SCH (08:44)
[2023-06-12] MEDS: BENZONATATE 100 MG CAP PO SCH (08:44)
[2023-06-12] MEDS: DOXYCYCLINE 100 MG CAP PO SCH (08:44)
[2023-06-12] MEDS: HEPARIN SODIUM,PORCINE 5,000 UNIT/ML 1 ML VIAL SQ SCH (08:45)
[2023-06-12] MEDS: guaiFENesin 600 MG TABLET.ER PO SCH (08:45)
[2023-06-12] MEDS: LOSARTAN 25 MG TAB PO SCH (08:45)
[2023-06-12] MEDS: LORATADINE 10 MG TAB PO SCH (08:45)
[2023-06-12] MEDS ORDERED: predniSONE 10 MG TAB PO SCH (09:00)
[2023-06-12] MEDS: SYMBICORT 160-4.5 MCG INHALER INHALATION SCH (09:11)
[2023-06-12] MEDS: IPRATROPIUM-ALBUTEROL 3 ML NEB INHALATION SCH ×2 (09:11→12:47)
[2023-06-12] MEDS ORDERED: LIDOCAINE 5% PATCH TOPICAL SCH (11:15)
[2023-06-12] MEDS ORDERED: Acetaminophen-Codeine 300-30mg TAB PO PRN (11:28)
--- NOTE | 2023-06-12 11:29 | P.DS ---
Providers Date of admission: 06/09/23 14:16 Expected date of discharge: 06/12/23 Attending physician: Jorge Luis Roman Consults: 06/08/23 11:14 Consult Physician Urgent Consulting Provider: Noam Velasquez Consult Reason/Comments: interstitial pulmonary fibrosis Do you want consulting provider notified?: Yes Primary care physician: Avery Epps - Discharge Diagnosis(es) (1) Fatigue Current Visit: Yes Status: Acute (2) Dehydration Current Visit: Yes Status: Acute (3) Fever Current Visit: Yes Status: Acute (4) Acute and chronic respiratory failure (ibrcg-fl-bxczafc) Current Visit: No Status: Acute Priority: High (5) COPD (chronic obstructive pulmonary disease) with chronic bronchitis Current Visit: No Status: Acute Priority: High (6) Essential (primary) hypertension Current Visit: No Status: Chronic Priority: Low (7) EVA (generalized anxiety disorder) Current Visit: No Status: Chronic Priority: Medium (8) Hypothyroidism Current Visit: No Status: Chronic Priority: Low (9) Personal history of nicotine dependence Current Visit: No Status: Chronic Priority: Low (10) Hypokalemia Current Visit: Yes Status: Acute Hospital Course: 06/11/23 This is a 72-year-old female well-known to me. She has a history of interstitial pulmonary fibrosis COPD, hypertension. She reports increasing cough shortness of breath that started 1-1/2 days ago. She had profound fatigue, fever. She denied any chest pains or pressures or nausea or vomiting. She was so fatigued she could barely stand and walk and be cared by her . She saw emergency room to be dehydrated and hypokalemic. Covid, influenza testing is been negative. Vijaya after IV fluid she feels a little bit improved. She does complain of worsening cough. Her home medications have been reordered of Symbicort and albuterol updrafts. She has an 8 for anxiety, levothyroxine for hypothyroidism, loratadine for allergies, losartan for hypertension. Vital signs are stable heart rate stable she's been afebrile since her initial admission but she's remained on Tylenol regularly, she's currently on 4 L of oxygen via nasal cannula 94%. CBC is normal. Labs show potassium 2.9 sodium 132. Glucose is 161. Chest x-ray showed no acute process. 06/09/2023: Overnight patient slept poorly. She reports not feeling any better today. Denies any chest pains or pressures. As shortness of breath constantly. No nausea or vomiting. Heart rate temperature remained normal. Pulse oximetry is 95% on 4 L of O2. Blood pressure slightly elevated at 167/72. Labs show a normal CBC with exception of a platelet count. Chemistries are normal. Glucose slightly elevated at 140. Flu RSV and Covid testing are negative. Oncology consult reviewed. 06/10/2023: patient repeats she is not feeling any better. She continues to be short of breath with exertion. She has known interstitial pulmonary fibrosis.Vital signs show pulse ox symmetry, 96% on 4 L of O2.She is afebrile, Labs are normal today.Microbiology shows no growth. 06/11/2023: Patient remains resting comfortably on the floor. She is feeling better today. She did not receive pain medication as ordered because there is report of codeine allergy, which is false. Vital signs are stable she's afebrile. Blood pressure control pulse ox 97% on 4 L O2 at this time. Laboratory studies are pending for this morning. Patient does complain of abdominal pain from coughing. Complains of some weakness that is improved. 06/12/2023: Patient is doing better. She does remain on oxygen, which she does have home. She complains of some minimal abdominal muscular pain with coughing only. Overall she feels a bit better would like to go home. Pulmonology is in agreement. We'll have her try an extra Tylenol with codeine and a lidocaine patch for Michelle still with her abdominal pain. Follow-up in the office in the next several days. Patient Condition at Discharge: Fair Plan - Discharge Summary New Discharge Prescriptions: New guaiFENesin [Mucinex] 1,200 mg PO Q12HR #10 tab predniSONE 30 mg PO DAILY #15 tab Acetaminophen Tab [Tylenol] 650 mg PO Q6HR PRN tab PRN Reason: Mild Pain Or Fever > 100.5 Acetaminophen-Codeine 300-30mg [Tylenol w/codeine #3] 1 each PO Q4HR PRN tab PRN Reason: Pain Doxycycline [Vibramycin] 100 mg PO BID #3 cap Benzonatate [Tessalon Perles] 200 mg PO TID #9 cap Continue Levothyroxine Sodium [Synthroid] 50 mcg PO DAILY ALPRAZolam [Xanax] 0.75 mg PO HS PRN PRN Reason: sleep Budesonide-Formot 160-4.5 Mcg [Symbicort 160-4.5 Mcg Inhaler] 2 puff INHALATION RT-BID Aspirin EC [Ecotrin Low Dose] 81 mg PO DAILY Loratadine [Claritin] 10 mg PO DAILY levalbuterol HCL [Xopenex] 1.25 mg INHALATION RT-QID PRN PRN Reason: Shortness Of Breath Ubrogepant [Ubrelvy] 50 mg PO DAILY PRN PRN Reason: Migraine Headache Alendronate Sodium 70 mg PO DIRECTED Esomeprazole Magnesium [NexIUM 24Hr] 40 mg PO HS Albuterol Inhaler [Ventolin Hfa Inhaler] 1 - 2 puff INHALATION RT-Q6H PRN PRN Reason: Shortness Of Breath predniSONE 5 mg PO DIRECTED PRN PRN Reason: lung issues Losartan [Cozaar] 12.5 mg PO DAILY Pitavastatin Calcium [Livalo] 2 mg PO DAILY Folic Acid 0.4 mg PO DAILY Discharge Medication List ALPRAZolam [Xanax] 0.75 mg PO HS PRN 02/25/14 [History] Levothyroxine Sodium [Synthroid] 50 mcg PO DAILY 02/25/14 [History] Aspirin EC [Ecotrin Low Dose] 81 mg PO DAILY 06/27/14 [History] Budesonide-Formot 160-4.5 Mcg [Symbicort 160-4.5 Mcg Inhaler] 2 puff INHALATION RT-BID 06/27/14 [History] Loratadine [Claritin] 10 mg PO DAILY 05/21/20 [History] levalbuterol HCL [Xopenex] 1.25 mg INHALATION RT-QID PRN 05/21/20 [History] Albuterol Inhaler [Ventolin Hfa Inhaler] 1 - 2 puff INHALATION RT-Q6H PRN 06/07/23 [History] Alendronate Sodium 70 mg PO DIRECTED 06/07/23 [History] Esomeprazole Magnesium [NexIUM 24Hr] 40 mg PO HS 06/07/23 [History] Folic Acid 0.4 mg PO DAILY 06/07/23 [History] Losartan [Cozaar] 12.5 mg PO DAILY 06/07/23 [History] Pitavastatin Calcium [Livalo] 2 mg PO DAILY 06/07/23 [History] Ubrogepant [Ubrelvy] 50 mg PO DAILY PRN 06/07/23 [History] predniSONE 5 mg PO DIRECTED PRN 06/07/23 [History] Acetaminophen Tab [Tylenol] 650 mg PO Q6HR PRN tab 06/12/23 [Rx] Acetaminophen-Codeine 300-30mg [Tylenol w/codeine #3] 1 each PO Q4HR PRN tab 06/12/23 [Rx] Benzonatate [Tessalon Perles] 200 mg PO TID #9 cap 06/12/23 [Rx] Doxycycline [Vibramycin] 100 mg PO BID #3 cap 06/12/23 [Rx] guaiFENesin [Mucinex] 1,200 mg PO Q12HR #10 tab 06/12/23 [Rx] predniSONE 30 mg PO DAILY #15 tab 06/12/23 [Rx] Follow up Appointment(s)/Referral(s): Avery Epps Jr, DO [Primary Care Provider] - 1-2 days Ricarda White MD [STAFF PHYSICIAN] - 3 Days Discharge Disposition: HOME SELF-CARE
[2023-06-12 13:43] LABS: BUN/Creat Ratio 29.12 Ratio (12.00-20.00); Blood Urea Nitrogen 23.3 mg/dL (9.0-27.0); Calcium 8.6 mg/dL (8.7-10.3); Carbon Dioxide 27.7 mmol/L (21.6-31.8); Chloride 104 mmol/L (96-109); Glucose 171 mg/dL (70-110); Magnesium 1.7 mg/dL (1.5-2.4); Potassium 3.9 mmol/L (3.5-5.5); Sodium 143 mmol/L (135-145)
[2023-06-12 13:58] VITALS: BP 154/73; PULSE 84; TEMP 97.8
== END 2023-06-12 15:55 | disposition home or self-care (01) | DRG 640 ==
LOC: EC 09:30 → 6NMEDSUR 15:04 → OBSVTOIN 06-09 14:16
PROVIDERS: ADMIT Family Medicine; ATTEND Family Medicine
DX: E86.0 Dehydration (principal); J96.21 Acute and chronic respiratory failure with hypoxia; J44.0 Chronic obstructive pulmonary disease with (acute) lower respiratory infection; R50.9 Fever, unspecified; Z87.891 Personal history of nicotine dependence; E03.9 Hypothyroidism, unspecified; J84.10 Pulmonary fibrosis, unspecified; E78.5 Hyperlipidemia, unspecified; M19.90 Unspecified osteoarthritis, unspecified site; K21.9 Gastro-esophageal reflux disease without esophagitis; E87.6 Hypokalemia; F41.1 Generalized anxiety disorder; K44.9 Diaphragmatic hernia without obstruction or gangrene; Z87.442 Personal history of urinary calculi; Z86.73 Personal history of transient ischemic attack (TIA), and cerebral infarction without residual deficits; Z79.51 Long term (current) use of inhaled steroids; Z79.82 Long term (current) use of aspirin; Z79.890 Hormone replacement therapy; Z90.5 Acquired absence of kidney; Z99.81 Dependence on supplemental oxygen; Z88.5 Allergy status to narcotic agent; Z88.8 Allergy status to other drugs, medicaments and biological substances; Z88.6 Allergy status to analgesic agent; Z91.041 Radiographic dye allergy status; Z20.822 Contact with and (suspected) exposure to COVID-19; Z88.1 Allergy status to other antibiotic agents
CPT/HCPCS: 36415; 71046; 80048; 80053; 81001; 83605; 83735; 84132; 84145; 85025; 87040; 87636; 94640; 94760; 96361; 96365; 96366; 99284

== ENCOUNTER → 2023-06-22 | Outpatient (CLI) | payer MEDICARE ==
--- NOTE | 2023-06-22 12:26 | CT ---
EXAMINATION TYPE: CT abdomen pelvis wo con DATE OF EXAM: 06/22/2023 COMPARISON: 01/21/2022 HISTORY: llq PAIN CT DLP: 249.8 mGycm Automated exposure control for dose reduction was used. TECHNIQUE: Helical acquisition of images was performed from the lung bases through the pelvis. FINDINGS: LUNG BASES: There is interlobular septal thickening involving the lung bases and changes of COPD. Fav or UIP type pulmonary fibrosis. LIVER/GB: Postcholecystectomy changes. PANCREAS: No significant abnormality is seen. SPLEEN: No significant abnormality is seen. ADRENALS: Normal KIDNEYS: Punctate left-sided renal calculi with findings suggestive of previous right nephrectomy. FREE AIR: No free air is visualized RETROPERITONEAL ADENOPATHY: None visualized REPRODUCTIVE ORGANS: No significant abnormality is seen URINARY BLADDER: No significant abnormality is seen. PELVIC ADENOPATHY: None visualized. OSSEOUS STRUCTURES: No significant abnormality is seen. BOWEL: Small hiatal hernia. Appendix normal. Retained fecal debris throughout the colon. Diverticulo sis with no CT evidence of diverticulitis. OTHER: Soft tissue nodules in posterior subcutaneous tissues Likely in the basis of tiny granuloma. Atherosclerotic change of the aorta. IMPRESSION: 1. Postcholecystectomy changes. 2. Left-sided nephrolithiasis with no hydronephrosis. 3. Diverticulosis with no CT evidence of diverticulitis. Correlate for constipation.
== END | disposition home or self-care (01) ==
LOC: RADCTMAIN 11:01
PROVIDERS: ATTEND Family Medicine
DX: N20.0 Calculus of kidney (principal); R10.32 Left lower quadrant pain; R53.83 Other fatigue; R53.1 Weakness; R26.9 Unspecified abnormalities of gait and mobility; K57.90 Diverticulosis of intestine, part unspecified, without perforation or abscess without bleeding; Z90.49 Acquired absence of other specified parts of digestive tract
CPT/HCPCS: 74176

== ENCOUNTER 2023-07-01 07:50 | Emergency (ER) | payer MEDICARE ==
[2023-07-01] MEDS ORDERED: METOCLOPRAMIDE 5 MG/ML 2 ML VIAL IVP STA (08:08)
[2023-07-01] MEDS ORDERED: diphenhydrAMINE 50 MG/ML 1 ML VIAL IVP STA (08:08)
[2023-07-01] MEDS ORDERED: SODIUM CHLORIDE 0.9% 1,000 ML IV STA (08:08)
[2023-07-01] MEDS ORDERED: DEXAMETHASONE SOD PHOSPHATE 10 MG/ML 1 ML VIAL IVP STA (08:08)
[2023-07-01] MEDS ORDERED: MAGNESIUM SULFATE-D5W PMX 1 GM in DEXTROSE/WATER 1 100ML.BAG IVPB ONE (08:08)
--- NOTE | 2023-07-01 08:22 | ED ---
Headache HPI - General Chief Complaint: Headache Stated Complaint: Headache Time Seen by Provider: 07/01/23 07:56 Source: patient, RN notes reviewed Mode of arrival: ambulatory Limitations: no limitations - History of Present Illness Initial Comments: This is a 72-year-old female who presents to the emergency department for a headache. Patient has a history of migraines and has been dealing with a migraine for the last 2 weeks. States that this is traveling to both sides of her head and the front of her head. This occurs in spurts of pain. This feels like a typical migraine for her, but states that she is just unable to get it to go away with her home medication. She would not describe this as the worst headache of her life. She takes Nurtec ODT and another medication that she cannot recall with no relief in symptoms. Reports nausea but no vomiting. Also has photophobia. MD Complaint: headache, "migraine" Onset/Timin -: week(s) - Related Data Home Medications Medication Instructions Recorded Confirmed ALPRAZolam [Xanax] 0.75 mg PO HS PRN 02/25/14 07/01/23 Levothyroxine Sodium [Synthroid] 50 mcg PO DAILY 02/25/14 07/01/23 Aspirin EC [Ecotrin Low Dose] 81 mg PO DAILY 06/27/14 07/01/23 Budesonide-Formot 160-4.5 Mcg 2 puff INHALATION RT-BID 06/27/14 07/01/23 [Symbicort 160-4.5 Mcg Inhaler] Loratadine [Claritin] 10 mg PO DAILY PRN 05/21/20 07/01/23 levalbuterol HCL [Xopenex] 1.25 mg INHALATION RT-QID PRN 05/21/20 07/01/23 Albuterol Inhaler [Ventolin Hfa 2 puff INHALATION RT-Q6H PRN 06/07/23 07/01/23 Inhaler] Esomeprazole Magnesium [NexIUM 40 mg PO HS 06/07/23 07/01/23 24Hr] Folic Acid 0.4 mg PO DAILY 06/07/23 07/01/23 Losartan [Cozaar] 12.5 mg PO DAILY 06/07/23 07/01/23 Pitavastatin Calcium [Livalo] 2 mg PO DAILY 06/07/23 07/01/23 Ubrogepant [Ubrelvy] 50 mg PO DAILY PRN 06/07/23 07/01/23 Lidocaine 5% Patch [Lidoderm] 1 patch TOPICAL DAILY PRN 07/01/23 07/01/23 Sucralfate [Carafate] 2 gm PO DAILY 07/01/23 07/01/23 Previous Rx's Medication Instructions Recorded Metoclopramide [Reglan] 10 mg PO Q6H PRN #20 tab 07/01/23 SUMAtriptan succinate 100 mg PO DIRECTED PRN #10 07/01/23 tablet Allergies Allergy/AdvReac Type Severity Reaction Status Date / Time barium sulfate Allergy Rash/Hives Verified 07/01/23 09:56 Iodinated Contrast Media Allergy Rash/Hives Verified 07/01/23 09:56 [Iodinated Contrast Media - Oral and] albuterol AdvReac Rapid Verified 07/01/23 09:56 Heart Rate codeine phosphate AdvReac Itching Verified 07/01/23 09:56 [From Tylenol-Codeine #3] ibuprofen AdvReac ONLY HAS 1 Verified 07/01/23 09:56 KIDNEY-TOLD NEVER TO TAKE nitrofurantoin AdvReac Itching Verified 07/01/23 09:56 [From Macrobid] nitrofurantoin AdvReac Itching Verified 07/01/23 09:56 macrocrystalline [From Macrobid] Review of Systems ROS Statement: Those systems with pertinent positive or pertinent negative responses have been documented in the HPI. ROS Other: All systems not noted in ROS Statement are negative. Past Medical History Past Medical History: Asthma, COPD, CVA/TIA, GERD/Reflux, Osteoarthritis (OA), Skin Disorder, Thyroid Disorder Additional Past Medical History / Comment(s): Heart palpitations, Varicose veins, Hx of kidney stones (only Lt kidney), diverticulitis, hiatal hernia, hemorrhoids, "under active gallbladder", sun damaged skin, pt states she had a TIA on 2015, Pulmonary fibrosis History of Any Multi-Drug Resistant Organisms: None Reported Past Surgical History: Cholecystectomy, Hysterectomy, Orthopedic Surgery, Tonsillectomy Additional Past Surgical History / Comment(s): L and R foot surgery, right nephrectomy, laparascopy, skin lesions, rt hand trigger finger, rt shoulder rotator cuff, CALLUS REMOVED FROM LT SMALL TOE, COLONOSCOPY, BILAT CATARACTS REMOVED WITH LENS IMPLANTS Past Anesthesia/Blood Transfusion Reactions: No Reported Reaction Past Psychological History: Anxiety Smoking Status: Former smoker Past Alcohol Use History: None Reported Past Drug Use History: None Reported - Past Family History Father Family Medical History: Cancer Additional Family Medical History / Comment(s): Prostate cancer, brain tumor. Father is . Mother Family Medical History: Cancer, Renal Disease Additional Family Medical History / Comment(s): Mother when pt was 9yrs old and pt does not know much of mother's health hx. Mother had cancer-pt unaware of type, had kidney removed. General Exam Limitations: no limitations General appearance: alert, in no apparent distress Head exam: Present: atraumatic, normocephalic, normal inspection Eye exam: Present: normal appearance, PERRL, EOMI. Absent: scleral icterus, conjunctival injection, periorbital swelling Respiratory exam: Present: normal lung sounds bilaterally. Absent: respiratory distress, wheezes, rales, rhonchi, stridor Cardiovascular Exam: Present: regular rate, normal rhythm, normal heart sounds. Absent: systolic murmur, diastolic murmur, rubs, gallop, clicks Neurological exam: Present: alert, oriented X3, CN II-XII intact Psychiatric exam: Present: normal affect, normal mood Skin exam: Present: warm, dry, intact, normal color. Absent: rash Course Vital Signs 07/01/23 07/01/23 07/01/23 07:52 09:46 11:01 Temperature 98.6 F Pulse Rate 122 H 82 74 Respiratory 24 18 18 Rate Blood Pressure 95/60 128/58 O2 Sat by Pulse 96 95 92 L Oximetry 07/01/23 07/01/23 07/01/23 11:24 11:39 12:10 Temperature Pulse Rate Respiratory Rate Blood Pressure 111/52 96/44 109/53 O2 Sat by Pulse 95 Oximetry 07/01/23 07/01/23 12:20 12:42 Temperature 98.0 F Pulse Rate 78 Respiratory 18 Rate Blood Pressure O2 Sat by Pulse 97 Oximetry Medical Decision Making - Medical Decision Making This is a 72-year-old female who presents to the emergency department for a headache. Was pt. sent in by a medical professional or institution? @ -No Did you speak to anyone other than the patient for history? @ -No Did you review nursing and triage notes? @ -Yes, and I agree, it is accurate with regards to the patient's symptoms. Were old charts reviewed? @ -No Differential Diagnosis? @ -Differential Headache: Migraine, tension, cluster, carbon monoxide, central venous thrombosis, pension karma temporal arteritis, acute closure glaucoma, intercranial hemorrhage, mastoiditis, sinusitis, head injury, this is not meant to be an all-inclusive list. EKG interpreted by me (3pts min.)? @ -Not obtained X-rays interpreted by me (1pt min.)? @ -Not obtained CT interpreted by me (1pt min.)? @ -Not obtained U/S interpreted by me (1pt. min.)? @ -Not obtained What testing was considered but not performed? (CT, X-rays, U/S, labs)? Why? @ -None What meds were considered but not given? Why? @ -None Did you discuss the management of the patient with other professionals? @ -No Did you reconcile home meds? @ -No Was smoking cessation discussed for >3mins.? @ -No Was critical care preformed (if so, how long)? @ -No Were there social determinants of health that impacted care today? How? (Homelessness, low income, unemployed, alcoholism, drug addiction, transportation, low edu. Level, literacy, decrease access to med. care, care home, rehab)? @ -No Was there de-escalation of care discussed even if they declined? (Discuss DNR or withdrawal of care, Hospice)? @ -No What co-morbidities impacted this encounter? (DM, HTN, Smoking, COPD, CAD, Cancer, CVA, Hep., AIDS, mental health diagnosis, sleep apnea, morbid obesity)? @ -Migraines, one kidney Was patient admitted / discharged? @ -Discharged. Lab work obtained and found to be nonactionable. Patient did test positive for COVID-19. She was initially treated with IV fluids, Decadron, Reglan, magnesium, and Benadryl, but continued to be in severe pain. We cannot use NSAIDs, as the patient only has one kidney. We then did a trial with morphine and Tylenol with only mild improvement in symptoms. She was then given Droperidol and dihydroergotamine and essentially had resolution of symptoms afterwards felt stable for discharge home. Prescription for Reglan and sumatriptan and provided with dosing instructions reviewed and advised close follow-up with her primary care provider. It is unclear when she developed Covid, and we will avoid antiviral treatment at this time. She was advised that she will need to quarantine for 5 days and practice extra precautions for an additional 5 days, including always wearing a mask around others and avoiding travel. She was otherwise discharged home in stable condition. Undiagnosed new problem with uncertain prognosis? @ -None Drug Therapy requiring intensive monitoring for toxicity (Heparin, Nitro, Insulin, Cardizem)? @ -None Were any procedures done? @ -None Diagnosis/symptom? @ -Headache, COVID-19 Acute, or Chronic, or Acute on Chronic? @ -Acute Uncomplicated (without systemic symptoms) or Complicated (systemic symptoms)? @ -Uncomplicated Side effects of treatment? @ -None Exacerbation, Progression, or Severe Exacerbation] @ -Not applicable Poses a threat to life or bodily function? @ -Unlikely Return precautions reviewed in depth, the patient is instructed to return to the emergency department with any new, worsening, or concerning symptoms. Patient verbalized understanding. This case was discussed in detail with the attending ED physician, Dr. Vegas. Presentation, findings, and treatment plan discussed in detail as well. - Lab Data Result diagrams: 07/01/23 08:14 07/01/23 08:14 Lab Results 07/01/23 07/01/23 07/01/23 Range/Units 08:14 08:14 08:14 WBC 4.6 (3.8-10.6) k/uL RBC 4.46 (3.80-5.40) m/uL Hgb 14.3 (11.4-16.0) gm/dL Hct 42.7 (34.0-46.0) % MCV 95.9 (80.0-100.0) fL MCH 32.0 (25.0-35.0) pg MCHC 33.4 (31.0-37.0) g/dL RDW 14.0 (11.5-15.5) % Plt Count 168 (150-450) k/uL MPV 7.2 Neutrophils % 64 % Lymphocytes % 25 % Monocytes % 6 % Eosinophils % 0 % Basophils % 1 % Neutrophils # 3.0 (1.3-7.7) k/uL Lymphocytes # 1.1 (1.0-4.8) k/uL Monocytes # 0.3 (0-1.0) k/uL Eosinophils # 0.0 (0-0.7) k/uL Basophils # 0.0 (0-0.2) k/uL Sodium 135 L (137-145) mmol/L Potassium 3.9 (3.5-5.1) mmol/L Chloride 102 (98-107) mmol/L Carbon Dioxide 23 (22-30) mmol/L Anion Gap 10 mmol/L BUN 14 (7-17) mg/dL Creatinine 0.75 (0.52-1.04) mg/dL Est GFR (CKD-EPI)AfAm >90 (>60 ml/min/1.73 sqM) Est GFR (CKD-EPI)NonAf 79 (>60 ml/min/1.73 sqM) Glucose 95 (74-99) mg/dL Calcium 9.0 (8.4-10.2) mg/dL Total Bilirubin 0.5 (0.2-1.3) mg/dL AST 32 (14-36) U/L ALT 25 (4-34) U/L Alkaline Phosphatase 75 (38-126) U/L Total Protein 6.4 (6.3-8.2) g/dL Albumin 3.6 (3.5-5.0) g/dL Influenza Type A (PCR) Not Detected (Not Detectd) Influenza Type B (PCR) Not Detected (Not Detectd) RSV (PCR) Not Detected (Not Detectd) SARS-CoV-2 (PCR) Detected A (Not Detectd) Disposition Clinical Impression: Migraine headache, COVID-19 Disposition: HOME SELF-CARE Instructions (If sedation given, give patient instructions): Migraine Headache (ED), Acute Headache (ED) Additional Instructions: Return to the emergency department with any new, worsening, or concerning symptoms. If the headache returns, try taking the sumatriptan tablet at the onset of symptoms. You can take an additional tablet 1 hour later if the head ache persists. Do not take more than 2 tablets in 24 hours. You can take the Reglan up to every 6 hours as needed for nausea and vomiting. Continue to take your other migraine medication as prescribed. You can also use [id number] Tylenol and caffeine. Follow up with your primary care provider in 1-2 days. Prescriptions: Metoclopramide [Reglan] 10 mg PO Q6H PRN #20 tab PRN Reason: Nausea And Vomiting SUMAtriptan succinate 100 mg PO DIRECTED PRN #10 tablet PRN Reason: Migraine Headache Is patient prescribed a controlled substance at d/c from ED?: No Referrals: Avery Epps Jr, DO [Primary Care Provider] - 1-2 days
[2023-07-01 08:30] LABS: Basophils % (A) 1 %; Eosinophils % (A) 0 %; HCT 42.7 % (34.0-46.0); HGB 14.3 gm/dL (11.4-16.0); Lymphocytes # (A) 1.1 k/uL (1.0-4.8); Lymphocytes % (A) 25 %; MCHC 33.4 g/dL (31.0-37.0); MCV 95.9 fL (80.0-100.0); Mean Platelet Volume 7.2; Monocytes # (A) 0.3 k/uL (0-1.0); Monocytes % (A) 6 %; Neutrophils % (A) 64 %; Platelet Count 168 k/uL (150-450); RBC 4.46 m/uL (3.80-5.40); WBC 4.6 k/uL (3.8-10.6)
[2023-07-01 08:46] LABS: ALT 25 U/L (4-34); AST 32 U/L (14-36); African American GFR (CKD) >90 (>60 ml/min/1.73 sqM); Albumin 3.6 g/dL (3.5-5.0); Alkaline Phosphatase 75 U/L (38-126); Anion Gap 10 mmol/L; Blood Urea Nitrogen 14 mg/dL (7-17); Carbon Dioxide 23 mmol/L (22-30); Chloride 102 mmol/L (98-107); Glucose 95 mg/dL (74-99); Non-African American GFR(CKD) 79 (>60 ml/min/1.73 sqM); Potassium 3.9 mmol/L (3.5-5.1); Sodium 135 mmol/L (137-145); Total Bilirubin 0.5 mg/dL (0.2-1.3); Total Protein 6.4 g/dL (6.3-8.2)
[2023-07-01] MEDS ORDERED: ACETAMINOPHEN IV (For NPO) 1,000 MG in EMPTY BAG 1 BAG IVPB STA (09:16)
[2023-07-01] MEDS ORDERED: MORPHINE SULFATE 4 MG/ML SYRINGE IVP STA (09:16)
[2023-07-01 10:01] VITALS: RESP 18
[2023-07-01] MEDS ORDERED: droPERidol 5 MG/2 ML VIAL IVP ONE (10:33)
[2023-07-01] MEDS ORDERED: DIHYDROERGOTAMINE MESYLATE 1 MG/ML 1 ML AMP IVP ONE (10:40)
[2023-07-01] MEDS ORDERED: ONDANSETRON 4 MG ODT STARTER PACK 2 TAB BTL PO STA (11:56)
[2023-07-01] MEDS ORDERED: traMADol 50 MG STARTER PACK 3 TAB BTL PO STA (11:57)
[2023-07-01 12:53] VITALS: BP 109/53; TEMP 98
[2023-07-01 12:54] VITALS: PULSE 78
== END 2023-07-01 12:42 | disposition home or self-care (01) ==
LOC: EC 07:50
DX: U07.1 COVID-19 (principal); G43.909 Migraine, unspecified, not intractable, without status migrainosus; J44.89 Other specified chronic obstructive pulmonary disease; M19.90 Unspecified osteoarthritis, unspecified site; E07.9 Disorder of thyroid, unspecified; F41.9 Anxiety disorder, unspecified; Z79.51 Long term (current) use of inhaled steroids; Z79.890 Hormone replacement therapy; Z79.899 Other long term (current) drug therapy; Z88.1 Allergy status to other antibiotic agents; Z88.5 Allergy status to narcotic agent; Z88.6 Allergy status to analgesic agent; Z88.8 Allergy status to other drugs, medicaments and biological substances; Z91.041 Radiographic dye allergy status; Z87.891 Personal history of nicotine dependence; Z90.49 Acquired absence of other specified parts of digestive tract; Z20.822 Contact with and (suspected) exposure to COVID-19
CPT/HCPCS: 36415; 80053; 85025; 87636; 99284; 96365; 96367; 96375 ×6; J1110; J2270; J1200; J1100; J2765; J3475; J0131; S0119; J1790

== ENCOUNTER 2023-07-04 04:57 | Inpatient (IN) | payer MEDICARE ==
[2023-07-04] MEDS ORDERED: MORPHINE SULFATE 4 MG/ML SYRINGE IV STA (05:34)
[2023-07-04] MEDS ORDERED: SODIUM CHLORIDE 0.9% 500 ML 500 ML IV STA (05:34)
--- NOTE | 2023-07-04 05:39 | ED ---
Fall HPI - General Chief Complaint: Fall Stated Complaint: Fall Time Seen by Provider: 07/04/23 05:04 Source: patient, EMS Mode of arrival: EMS - History of Present Illness Initial Comments: This patient is a 72-year-old woman recently diagnosed with Coban infection. Patient has been very weak and in attempting to get out of bed she slipped and fell. Patient states she struck her head and chest. She did not have loss consciousness. She did have pre-existing headache but states that it is bit worse. Patient denies focal weakness. Denies other injuries. MD Complaint: fall Onset/Timin -: hour(s) Fall From: out of bed When Fall Occurred: 1 hour [employer] Fall Witnessed: yes, by family Place Fall Occurred: home Loss of Consciousness: none Prolonged Down Time?: no Symptoms Prior to Fall: other Location: head Severity: moderate Context: recent illness Associated Symptoms: headache - Related Data Home Medications Medication Instructions Recorded Confirmed ALPRAZolam [Xanax] 0.75 mg PO HS PRN 02/25/14 07/04/23 Levothyroxine Sodium [Synthroid] 50 mcg PO DAILY 02/25/14 07/04/23 Aspirin EC [Ecotrin Low Dose] 81 mg PO DAILY 06/27/14 07/04/23 Budesonide-Formot 160-4.5 Mcg 2 puff INHALATION RT-BID 06/27/14 07/04/23 [Symbicort 160-4.5 Mcg Inhaler] Loratadine [Claritin] 10 mg PO DAILY PRN 05/21/20 07/04/23 levalbuterol HCL [Xopenex] 1.25 mg INHALATION RT-QID PRN 05/21/20 07/04/23 Albuterol Inhaler [Ventolin Hfa 2 puff INHALATION RT-Q6H PRN 06/07/23 07/04/23 Inhaler] Esomeprazole Magnesium [NexIUM 40 mg PO HS 06/07/23 07/04/23 24Hr] Folic Acid 0.4 mg PO DAILY 06/07/23 07/04/23 Losartan [Cozaar] 12.5 mg PO DAILY 06/07/23 07/04/23 Pitavastatin Calcium [Livalo] 2 mg PO DAILY 06/07/23 07/04/23 Ubrogepant [Ubrelvy] 50 mg PO DAILY PRN 06/07/23 07/04/23 Lidocaine 5% Patch [Lidoderm 5% 1 patch TOPICAL DAILY PRN 07/01/23 07/04/23 Patch] Sucralfate [Carafate] 2 gm PO DAILY 07/01/23 07/04/23 Previous Rx's Medication Instructions Recorded Metoclopramide [Reglan] 10 mg PO Q6H PRN #20 tab 07/01/23 SUMAtriptan succinate 100 mg PO DIRECTED PRN #10 07/01/23 tablet Ascorbic Acid [Vitamin C] 500 mg PO BID tab 07/06/23 Cholecalciferol [Vitamin D3 (125 125 mcg PO DAILY tab 07/06/23 Mcg = 5000 Iu)] Zinc Sulfate [Orazinc] 220 mg PO DAILY #30 cap 07/06/23 dexAMETHasone ORAL [Hexadrol] 6 mg PO DAILY 7 Days #21 tablet 07/06/23 Allergies Allergy/AdvReac Type Severity Reaction Status Date / Time barium sulfate Allergy Rash/Hives Verified 07/01/23 09:56 Iodinated Contrast Media Allergy Rash/Hives Verified 07/01/23 09:56 [Iodinated Contrast Media - Oral and] albuterol AdvReac Rapid Verified 07/01/23 09:56 Heart Rate codeine phosphate AdvReac Itching Verified 07/01/23 09:56 [From Tylenol-Codeine #3] ibuprofen AdvReac ONLY HAS 1 Verified 07/01/23 09:56 KIDNEY-TOLD NEVER TO TAKE nitrofurantoin AdvReac Itching Verified 07/01/23 09:56 [From Macrobid] nitrofurantoin AdvReac Itching Verified 07/01/23 09:56 macrocrystalline [From Macrobid] Review of Systems ROS Statement: Those systems with pertinent positive or pertinent negative responses have been documented in the HPI. ROS Other: All systems not noted in ROS Statement are negative. Constitutional: Reports: fever, weakness Eyes: Denies: eye pain, vision change ENT: Denies: epistaxis Respiratory: Reports: cough, dyspnea Cardiovascular: Reports: chest pain. Denies: palpitations, orthopnea, edema, syncope Gastrointestinal: Reports: nausea. Denies: abdominal pain, vomiting, diarrhea Genitourinary: Denies: dysuria, hematuria Musculoskeletal: Reports: myalgia. Denies: back pain Skin: Denies: rash Neurological: Denies: headache, weakness Past Medical History Past Medical History: Asthma, COPD, CVA/TIA, GERD/Reflux, Osteoarthritis (OA), Skin Disorder, Thyroid Disorder Additional Past Medical History / Comment(s): Heart palpitations, Varicose veins, Hx of kidney stones (only Lt kidney), diverticulitis, hiatal hernia, hemorrhoids, "under active gallbladder", sun damaged skin, pt states she had a TIA on 2015, Pulmonary fibrosis History of Any Multi-Drug Resistant Organisms: None Reported Past Surgical History: Cholecystectomy, Hysterectomy, Orthopedic Surgery, Tons illectomy Additional Past Surgical History / Comment(s): L and R foot surgery, right nephrectomy, laparascopy, skin lesions, rt hand trigger finger, rt shoulder rotator cuff, CALLUS REMOVED FROM LT SMALL TOE, COLONOSCOPY, BILAT CATARACTS REMOVED WITH LENS IMPLANTS Past Anesthesia/Blood Transfusion Reactions: No Reported Reaction Past Psychological History: Anxiety Smoking Status: Former smoker Past Alcohol Use History: None Reported Past Drug Use History: None Reported - Past Family History Father Family Medical History: Cancer Additional Family Medical History / Comment(s): Prostate cancer, brain tumor. Father is . Mother Family Medical History: Cancer, Renal Disease Additional Family Medical History / Comment(s): Mother when pt was 9yrs old and pt does not know much of mother's health hx. Mother had cancer-pt unaware of type, had kidney removed. General Exam Limitations: no limitations General appearance: alert, in no apparent distress, cachectic Head exam: Present: atraumatic, normocephalic Eye exam: Present: normal appearance. Absent: scleral icterus, conjunctival injection ENT exam: Present: mucous membranes dry Neck exam: Present: normal inspection Respiratory exam: Present: normal lung sounds bilaterally. Absent: respiratory distress, wheezes, rales, rhonchi, stridor Cardiovascular Exam: Present: regular rate, normal rhythm, normal heart sounds. Absent: systolic murmur, diastolic murmur, rubs GI/Abdominal exam: Present: soft. Absent: distended, tenderness, guarding, rebound, rigid, mass Extremities exam: Present: normal inspection, normal capillary refill. Absent: pedal edema, calf tenderness Back exam: Present: normal inspection. Absent: CVA tenderness (R), CVA ten derness (L), vertebral tenderness Neurological exam: Present: alert Skin exam: Present: warm, dry, intact, normal color. Absent: rash Course Vital Signs 07/04/23 07/04/23 07/04/23 04:58 05:08 06:09 Temperature 99.0 F 101.2 F H Pulse Rate 98 88 Respiratory 16 18 Rate Blood Pressure 149/83 100/41 O2 Sat by Pulse 94 L 94 L Oximetry Fraction of Inspired Oxygen (FIO2) 07/04/23 07/04/23 07/04/23 06:59 07:19 07:33 Temperature 99.7 F H 98.6 F Pulse Rate 78 85 80 Respiratory 16 16 18 Rate Blood Pressure 110/47 110/47 O2 Sat by Pulse 98 100 99 Oximetry Fraction of Inspired Oxygen (FIO2) 07/04/23 07/04/23 07/04/23 08:42 08:59 09:22 Temperature 97.8 F Pulse Rate 73 66 Respiratory 18 18 Rate Blood Pressure 93/45 O2 Sat by Pulse 90 L 99 95 Oximetry Fraction of 2 Inspired Oxygen (FIO2) 07/04/23 07/04/23 07/04/23 10:16 12:01 17:27 Temperature 97.7 F Pulse Rate 64 71 63 Respiratory 18 19 18 Rate Blood Pressure 97/42 112/45 110/50 O2 Sat by Pulse 99 99 100 Oximetry Fraction of Inspired Oxygen (FIO2) 07/04/23 20:06 Temperature Pulse Rate 58 L Respiratory 18 Rate Blood Pressure 108/61 O2 Sat by Pulse 99 Oximetry Fraction of Inspired Oxygen (FIO2) Medical Decision Making - Medical Decision Making The patient had computed tomography scan of the brain which I interpreted as negative for acute bony injury and intracranial hemorrhage. The patient had chest x-ray which I interpreted as negative for acute infiltrate, congestive heart failure, pneumothorax. Was pt. sent in by a medical professional or institution (, PA, RN CLINICIAN, urgent care, hospital, or half-way...) When possible be specific @ -[No] Did you speak to anyone other than the patient for history (EMS, parent, family, police, friend...)? What history was obtained from this source @ -[No] Did you review nursing and triage notes (agree or disagree)? Why? @ -[I reviewed and agree with nursing and triage notes] Were old charts reviewed (outside hosp., previous admission, EMS record, old EKG, old radiological studies, urgent care reports/EKG's, half-way records)? Report findings @ -[No old charts were reviewed] Differential Diagnosis (chest pain, altered mental status, abdominal pain women, abdominal pain men, vaginal bleeding, weakness, fever, dyspnea, syncope, headache, dizziness, GI bleed, back pain, seizure, CVA, palpatations, mental health, musculoskeletal)? @ -[not applicable] EKG interpreted by me (3pts min.). @ -[As above] X-rays interpreted by me (1pt min.). @ -[I interpreted as above CT interpreted by me (1pt min.). @ -[I interpreted as above U/S interpreted by me (1pt. min.). @ -[None done] What testing was considered but not performed or refused? (CT, X-rays, U/S, labs)? Why? @ -[None] What meds were considered but not given or refused? Why? @ -[None] Did you discuss the management of the patient with other professionals (professionals i.e. , PA, RN CLINICIAN, lab, RT, psych nurse, geriatric social work professor, soldering inspector, teacher, radiological defense officer, case assistant)? Give summary @ -[Case discussed with admitting physician and treatment recommendations incorporated Was smoking cessation discussed for >3mins.? @ -[No] Was critical care preformed (if so, how long)? @ -[No] Were there social determinants of health that impacted care today? How? (Homelessness, low income, unemployed, alcoholism, drug addiction, transp ortation, low edu. Level, literacy, decrease access to med. care, prison, rehab)? @ -[No] Was there de-escalation of care discussed even if they declined (Discuss DNR or withdrawal of care, Hospice)? DNR status @ -[No] What co-morbidities impacted this encounter? (DM, HTN, Smoking, COPD, CAD, Cancer, CVA, ARF, Chemo, Hep., AIDS, mental health diagnosis, sleep apnea, morbid obesity)? @ -[None] Was patient admitted / discharged? Hospital course, mention meds given and route, prescriptions, significant lab abnormalities, going to OR and other pertinent info. @ -[Patient is 72-year-old woman recent diagnosis of COVID-19 who had fall attempting to get into vehicle. Patient does have generalized weakness and fatigue and will admit for possible rehab placement Undiagnosed new problem with uncertain prognosis? @ -[No] Drug Therapy requiring intensive monitoring for toxicity (Heparin, Nitro, Insulin, Cardizem)? @ -[No] Were any procedures done? @ -[No] Diagnosis/symptom? @ -[Acute fall injury Acute generalized weakness COVID-19 infection Acute, or Chronic, or Acute on Chronic? @ -[Acute Uncomplicated (without systemic symptoms) or Complicated (systemic symptoms)? @ -[Uncomplicated Side effects of treatment? @ -[No] Exacerbation, Progression, or Severe Exacerbation? @ -[No] Poses a threat to life or bodily function? How? (Chest pain, [place], [place], pneumonia, PE, COPD, DKA, ARF, appy, cholecystitis, CVA, Diverticulitis, Homicidal, Suicid al, threat to staff... and all critical care pts) @ -[No] - Lab Data Result diagrams: 07/04/23 06:03 07/04/23 06:03 Lab Results 07/04/23 07/04/23 07/04/23 Range/Units 06:03 06:03 06:03 WBC 3.4 L (3.8-10.6) k/uL RBC 4.04 (3.80-5.40) m/uL Hgb 13.0 (11.4-16.0) gm/dL Hct 38.2 (34.0-46.0) % MCV 94.7 (80.0-100.0) fL MCH 32.1 (25.0-35.0) pg MCHC 33.9 (31.0-37.0) g/dL RDW 13.8 (11.5-15.5) % Plt Count 156 (150-450) k/uL MPV 7.4 Neutrophils % 65 % Lymphocytes % 25 % Monocytes % 7 % Eosinophils % 0 % Basophils % 0 % Neutrophils # 2.2 (1.3-7.7) k/uL Lymphocytes # 0.9 L (1.0-4.8) k/uL Monocytes # 0.2 (0-1.0) k/uL Eosinophils # 0.0 (0-0.7) k/uL Basophils # 0.0 (0-0.2) k/uL Sodium 136 L (137-145) mmol/L Potassium 3.6 (3.5-5.1) mmol/L Chloride 104 (98-107) mmol/L Carbon Dioxide 24 (22-30) mmol/L Anion Gap 8 mmol/L BUN 20 H (7-17) mg/dL Creatinine 0.61 (0.52-1.04) mg/dL Est GFR (CKD-EPI)AfAm >90 (>60 ml/min/1.73 sqM) Est GFR (CKD-EPI)NonAf 90 (>60 ml/min/1.73 sqM) Glucose 87 (74-99) mg/dL Plasma Lactic Acid Ilan 1.0 (0.7-2.0) mmol/L Calcium 8.0 L (8.4-10.2) mg/dL Total Bilirubin 0.4 (0.2-1.3) mg/dL AST 28 (14-36) U/L ALT 20 (4-34) U/L Alkaline Phosphatase 73 (38-126) U/L Total Protein 5.2 L (6.3-8.2) g/dL Albumin 2.8 L (3.5-5.0) g/dL Disposition Clinical Impression: Fall, COVID-19 Disposition: ADMITTED IP TO THIS HOSP Condition: Stable Is patient prescribed a controlled substance at d/c from ED?: No
[2023-07-04] MEDS ORDERED: ACETAMINOPHEN TAB 325 MG TAB PO STA (06:11)
[2023-07-04 06:24] LABS: Basophils % (A) 0 %; Eosinophils % (A) 0 %; HCT 38.2 % (34.0-46.0); Lymphocytes # (A) 0.9 k/uL (1.0-4.8); Lymphocytes % (A) 25 %; MCH 32.1 pg (25.0-35.0); MCHC 33.9 g/dL (31.0-37.0); MCV 94.7 fL (80.0-100.0); Mean Platelet Volume 7.4; Monocytes # (A) 0.2 k/uL (0-1.0); Monocytes % (A) 7 %; Neutrophils # (A) 2.2 k/uL (1.3-7.7); Neutrophils % (A) 65 %; Platelet Count 156 k/uL (150-450); RBC 4.04 m/uL (3.80-5.40); RDW 13.8 % (11.5-15.5); WBC 3.4 k/uL (3.8-10.6)
[2023-07-04 06:58] LABS: ALT 20 U/L (4-34); AST 28 U/L (14-36); African American GFR (CKD) >90 (>60 ml/min/1.73 sqM); Albumin 2.8 g/dL (3.5-5.0); Alkaline Phosphatase 73 U/L (38-126); Anion Gap 8 mmol/L; Blood Urea Nitrogen 20 mg/dL (7-17); Carbon Dioxide 24 mmol/L (22-30); Chloride 104 mmol/L (98-107); Glucose 87 mg/dL (74-99); Non-African American GFR(CKD) 90 (>60 ml/min/1.73 sqM); Potassium 3.6 mmol/L (3.5-5.1); Sodium 136 mmol/L (137-145); Total Bilirubin 0.4 mg/dL (0.2-1.3); Total Protein 5.2 g/dL (6.3-8.2)
--- NOTE | 2023-07-04 07:15 | XR ---
EXAM: XR Chest, 1 View CLINICAL HISTORY: ITS.REASON XR Reason: fall injury TECHNIQUE: Frontal view of the chest. COMPARISON: No relevant prior studies available. FINDINGS: Lungs: Increased interstitial markings. Pleural space: Unremarkable. No pneumothorax. Heart: Unremarkable. No cardiomegaly. Mediastinum: Unremarkable. Bones/joints: Unremarkable. IMPRESSION: 1. No evidence of acute cardiopulmonary disease. 2. Increased interstitial markings. Possible chronic fibrotic changes.
[2023-07-04] MEDS ORDERED: NALOXONE 0.4 MG/ML 1 ML VIAL IV PRN (07:20)
--- NOTE | 2023-07-04 07:20 | CT ---
EXAM: CT Head Without Intravenous Contrast CLINICAL HISTORY: ITS.REASON CT Reason: fall injury TECHNIQUE: Axial computed tomography images of the head/brain without intravenous contrast. CTDI is 45.2 mGy and DLP is 1071 mGy-cm. This CT exam was performed using one or more of the following dose reduction techniques: automated exposure control, adjustment of the mA and/or kV according to patient size, and/or use of iterative reconstruction technique. COMPARISON: No relevant prior studies available. FINDINGS: Brain: Mild volume loss with prominent ventricles and sulci. Periventricular and subcortical white matter hypoattenuation likely reflects chronic small vessel disease. No hemorrhage. Ventricles: See above. Bones/joints: Unremarkable. No acute fracture. Soft tissues: Unremarkable. Sinuses: Paranasal sinus coastal thickening. Fluid levels in the right maxillary and bilateral sphenoid sinuses. Mastoid air cells: Unremarkable as visualized. No mastoid effusion. IMPRESSION: 1. No evidence of acute intracranial abnormality or skull fracture. 2. Fluid levels in the right maxillary and bilateral sphenoid sinuses. May relate to sinusitis versus occult fracture. EXAM: CT Cervical Spine Without Intravenous Contrast CLINICAL HISTORY: ITS.REASON CT Reason: fall injury TECHNIQUE: Axial computed tomography images of the cervical spine without intravenous contrast. CTDI is 7 mGy and DLP is 194.5 mGy-cm. This CT exam was performed using one or more of the following dose reduction techniques: automated exposure control, adjustment of the mA and/or kV according to patient size, and/or use of iterative reconstruction technique. COMPARISON: No relevant prior studies available. FINDINGS: Vertebrae: Mild reversal of the cervical lordosis. Mild anterolisthesis of C3 on C4 and C4 on C5. Mild retrolisthesis of C5 on C6. No acute fracture. Discs/spinal canal/neural foramina: Multilevel degenerative changes. Moderate to severe central canal and foraminal stenoses at C5-6. Soft tissues: Unremarkable. Lung apices: Emphysema. Peripheral chronic appearing fibrotic changes in the lung apices. IMPRESSION: 1. No evidence of acute fracture or malalignment. 2. Degenerative changes.
[2023-07-04] MEDS ORDERED: ALPRAZolam 0.25 MG TAB PO PRN (07:22)
[2023-07-04] MEDS ORDERED: ALBUTEROL NEBULIZED 2.5 MG/3 ML INHALATION PRN (07:22)
[2023-07-04] MEDS: SODIUM CHLORIDE 0.9% 1,000 ML IV SCH ×2 (07:35→20:04)
[2023-07-04] MEDS: SUCRALFATE 1 GM TAB PO SCH (08:53)
[2023-07-04] MEDS: LEVOTHYROXINE 50 MCG TAB PO SCH (08:53)
[2023-07-04] MEDS: FAMOTIDINE 20 MG TAB PO SCH ×2 (08:53→23:09)
[2023-07-04] MEDS: LOSARTAN 25 MG TAB PO SCH (08:53)
[2023-07-04] MEDS: ASPIRIN 81 MG PO SCH (08:53)
[2023-07-04] MEDS: ATORVASTATIN 10 MG TAB PO SCH (08:53)
[2023-07-04] MEDS: SYMBICORT 160-4.5 MCG INHALER INHALATION SCH ×2 (09:18→21:06)
[2023-07-04] MEDS: SUMAtriptan succinate 50 MG TAB PO PRN (10:18)
[2023-07-04] MEDS ORDERED: DEXTROSE 50% SYRINGE 50 ML IVP PRN ×2 (11:46)
[2023-07-04] MEDS: DEXAMETHASONE SOD PHOSPHATE 10 MG/ML 1 ML VIAL IVP SCH (11:56)
[2023-07-04] MEDS: CHOLECALCIFEROL 125 MCG (5000 IU) TABLET PO SCH (11:57)
[2023-07-04] MEDS: ASCORBIC ACID 500 MG TAB PO SCH ×2 (11:57→23:09)
[2023-07-04] MEDS: ZINC SULFATE 220 MG CAP PO SCH (11:58)
[2023-07-04] MEDS: INSULIN ASPART (NovoLOG) 100 UNIT/ML VIAL SQ SCH ×3 (11:59→23:08)
[2023-07-04 12:07] LABS: Glucose,Whole Blood 88 mg/dL (70-110)
--- NOTE | 2023-07-04 13:21 | P.HPIM ---
History of Present Illness H&P Date: 07/05/23 Chief Complaint: Dyspnea, generalized weakness, status post fall This is a 72-year-old female with past medical history significant for interstitial pulmonary fibrosis COPD, hypertension, migraines, recently discharged on 06/12/2023 with acute on chronic hypoxic respiratory failure, COPD, infectious bronchitis. The patient reports she believes she picked up Covid at her sister's . Initially came into the ER on the with complaints of migraine headache and tested positive for Covid. It was unclear when she developed Covid and therefore no antiviral treatment was prescribed at that time. Reports increased weakness, dyspnea, status post fall hitting her head and chest. Denies syncope. Head/cervical spine CT reported no evidence of acute intracranial abnormality or skull fracture, fluid levels in the right maxillary bilateral sphenoid sinuses, mainly related to sinusitis versus occult fracture. Degenerative changes, no evidence of acute fracture or malalignment. Chest x-ray reported no evidence of acute cardiopulmonary disease, increased interstitial markings, possible chronic fibrotic changes. T- max 101.2, WBC 3.4. Hemoglobin 13, platelets 156. Sodium 136, potassium 3.6, bicarb 24, BUN 20, creatinine 0.61. Maintaining O2 sats in the mid 90s on 2 L nasal cannula. Review of Systems ROS Statement: Those systems with pertinent positive or pertinent negative responses have been documented in the HPI. ROS Other: All systems not noted in ROS Statement are negative. Past Medical History Past Medical History: Asthma, COPD, CVA/TIA, GERD/Reflux, Osteoarthritis (OA), Skin Disorder, Thyroid Disorder Additional Past Medical History / Comment(s): Heart palpitations, Varicose veins, Hx of kidney stones (only Lt kidney), diverticulitis, hiatal hernia, hemorrhoids, "under active gallbladder", sun damaged skin, pt states she had a TIA on 2015, Pulmonary fibrosis History of Any Multi-Drug Resistant Organisms: None Reported Past Surgical History: Cholecystectomy, Hysterectomy, Orthopedic Surgery, Tonsillectomy Additional Past Surgical History / Comment(s): L and R foot surgery, right nephrectomy, laparascopy, skin lesions, rt hand trigger finger, rt shoulder rotator cuff, CALLUS REMOVED FROM LT SMALL TOE, COLONOSCOPY, BILAT CATARACTS REMOVED WITH LENS IMPLANTS Past Anesthesia/Blood Transfusion Reactions: No Reported Reaction Past Psychological History: Anxiety Smoking Status: Former smoker Past Alcohol Use History: None Reported Past Drug Use History: None Reported - Past Family History Father Family Medical History: Cancer Additional Family Medical History / Comment(s): Prostate cancer, brain tumor. Father is . Mother Family Medical History: Cancer, Renal Disease Additional Family Medical History / Comment(s): Mother when pt was 9yrs old and pt does not know much of mother's health hx. Mother had cancer-pt unaware of type, had kidney removed. Medications and Allergies Home Medications Medication Instructions Recorded Confirmed Type ALPRAZolam [Xanax] 0.75 mg PO HS PRN 02/25/14 07/04/23 History Levothyroxine Sodium [Synthroid] 50 mcg PO DAILY 02/25/14 07/04/23 History Aspirin EC [Ecotrin Low Dose] 81 mg PO DAILY 06/27/14 07/04/23 History Budesonide-Formot 160-4.5 Mcg 2 puff INHALATION RT-BID 06/27/14 07/04/23 History [Symbicort 160-4.5 Mcg Inhaler] Loratadine [Claritin] 10 mg PO DAILY PRN 05/21/20 07/04/23 History levalbuterol HCL [Xopenex] 1.25 mg INHALATION RT-QID PRN 05/21/20 07/04/23 History Albuterol Inhaler [Ventolin Hfa 2 puff INHALATION RT-Q6H PRN 06/07/23 07/04/23 History Inhaler] Esomeprazole Magnesium [NexIUM 40 mg PO HS 06/07/23 07/04/23 History 24Hr] Folic Acid 0.4 mg PO DAILY 06/07/23 07/04/23 History Losartan [Cozaar] 12.5 mg PO DAILY 06/07/23 07/04/23 History Pitavastatin Calcium [Livalo] 2 mg PO DAILY 06/07/23 07/04/23 History Ubrogepant [Ubrelvy] 50 mg PO DAILY PRN 06/07/23 07/04/23 History Lidocaine 5% Patch [Lidoderm] 1 patch TOPICAL DAILY PRN 07/01/23 07/04/23 History Metoclopramide [Reglan] 10 mg PO Q6H PRN #20 tab 07/01/23 07/04/23 Rx SUMAtriptan succinate 100 mg PO DIRECTED PRN #10 07/01/23 07/04/23 Rx tablet Sucralfate [Carafate] 2 gm PO DAILY 07/01/23 07/04/23 History Allergies Allergy/AdvReac Type Severity Reaction Status Date / Time barium sulfate Allergy Rash/Hives Verified 07/01/23 09:56 Iodinated Contrast Media Allergy Rash/Hives Verified 07/01/23 09:56 [Iodinated Contrast Media - Oral and] albuterol AdvReac Rapid Verified 07/01/23 09:56 Heart Rate codeine phosphate AdvReac Itching Verified 07/01/23 09:56 [From Tylenol-Codeine #3] ibuprofen AdvReac ONLY HAS 1 Verified 07/01/23 09:56 KIDNEY-TOLD NEVER TO TAKE nitrofurantoin AdvReac Itching Verified 07/01/23 09:56 [From Macrobid] nitrofurantoin AdvReac Itching Verified 07/01/23 09:56 macrocrystalline [From Macrobid] Physical Exam Vitals: Vital Signs Temp Pulse Resp BP Pulse Ox FiO2 07/04/23 10:16 64 18 97/42 99 07/04/23 09:22 95 2 07/04/23 08:59 66 18 99 07/04/23 08:42 97.8 F 73 18 93/45 90 L 07/04/23 07:33 98.6 F 80 18 99 07/04/23 07:19 85 16 110/47 100 07/04/23 06:59 99.7 F H 78 16 110/47 98 07/04/23 06:09 101.2 F H 88 18 100/41 07/04/23 05:08 94 L 07/04/23 04:58 99.0 F 98 16 149/83 94 L Intake and Output 07/03/23 07/04/23 07/04/23 22:59 06:59 14:59 Other: Weight 51.256 kg GENERAL: Fatigued elderly female, sitting up on stretcher, no acute distress HEAD: Atraumatic, normocephalic. EYES: Pupils equal round and reactive to light, extraocular movements intact, sclera anicteric, conjunctiva are normal. ENT:nares patent, oropharynx clear without exudates. Moist mucous membranes. NECK: Normal range of motion, supple without lymphadenopathy or JVD, no thyromegaly LUNGS: Breath sounds coarse with fine end expiratory wheeze. HEART: Regular rate and rhythm without murmurs, rubs or gallops.S1S2 Normal ABDOMEN: Soft, nontender, normoactive bowel sounds. No guarding, no rebound. No masses appreciated. EXTREMITIES: Normal range of motion, no pitting or edema. No clubbing or cyanosis. NEUROLOGICAL: Cranial nerves II through XII grossly intact. Normal speech. PSYCH: Normal mood, normal affect. SKIN: Warm, Dry, normal turgor, no rashes noted. Results CBC & Chem 7: 07/04/23 06:03 07/04/23 06:03 Labs: Abnormal Lab Results - Last 24 Hours (Table) 07/04/23 07/04/23 Range/Units 06:03 06:03 WBC 3.4 L (3.8-10.6) k/uL Lymphocytes # 0.9 L (1.0-4.8) k/uL Sodium 136 L (137-145) mmol/L BUN 20 H (7-17) mg/dL Calcium 8.0 L (8.4-10.2) mg/dL Total Protein 5.2 L (6.3-8.2) g/dL Albumin 2.8 L (3.5-5.0) g/dL Assessment and Plan Assessment: Acute Covid infection, tested positive on 07/01/2023 Acute on chronic hypoxic respiratory failure secondary to the above. Wears 2 L nasal cannula home Generalized weakness secondary to the above, status post fall COPD, interstitial pulmonary fibrosis Gastroesophageal reflux disease Essential hypertension Hyperlipidemia EVA Hypothyroidism Prior nicotine dependence Plan: Continue on current medication regime, monitoring and symptomatic treatment. Covid cocktail initiated. Pulmonary consulted. D-dimer pending .Aggressive pulmonary toileting. The impression and plan of care has been dictated as directed. : I performed a history and examination of this patient, discussed the same with the dictator. I agree with the dictator's note ,documented as a scribe. Any additional findings or plans will be noted.
--- NOTE | 2023-07-04 14:11 | P.CNPUL ---
History of Present Illness Consult date: 07/04/23 Reason for consult: dyspnea History of present illness: this is a very pleasant 72-year-old female patient with known history of COPD and pulmonary fibrosis, presented to the hospital because of generalized weakness, headaches, tiredness, low appetite, dehydration, increased chest congestion and shortness of breath. The patient was in the hospital in May 2023 and the patient was discharged on 06/12/2023 after being treated for an acute bronchitis and COPD exacerbation. At that time, her Covid 19 testing was negative. She was not a curable and she was exposed to Covid 19 and subsequently her symptoms started approximately 3 days ago. The patient tested positive for Covid 19 and currently she is on Decadron. No altered mentation. She was febrile at time of admission with a T-max of 101.2. The patient is currently on 2 L of Oxymizer nasal cannula to maintain a saturation above 90%. Chest x-ray shows no acute cardiac pulmonary process. she was noted to be comfortable in the emergency department. No altered mentation. No swelling lower extremities. Sodium level is at 136, potassium level is at 3.6, bicarb is at 24 with a BUN of 20 and a creatinine of 0.6. The white cell count is at 3.4 with a hemoglobin 15.0 and a platelet count of 156. Review of Systems Constitutional: Reports daytime sleepiness, Reports fatigue, Reports weakness Eyes: denies as per HPI, denies blurred vision, denies bulging eye, denies decreased vision, denies diplopia, denies discharge, denies dry eye, denies irritation, denies itching, denies pain, denies photophobia, denies loss of peripheral vision, denies loss of vision, denies tunnel vision/blind spots Ears: deny: decreased hearing, ear discharge, earache, tinnitus Ears, nose, mouth and throat: Reports as per HPI Breasts: absent: as per HPI, change in shape, gynecomastia, masses, nipple discharge, pain, skin changes, swelling Breasts: Reports as per HPI Cardiovascular: Reports decreased exercise tolerance, Reports dyspnea on exertion Respiratory: Reports congestion, Reports dyspnea, Reports home oxygen Gastrointestinal: Reports as per HPI Genitourinary: Reports as per HPI Menstruation: Reports as per HPI Musculoskeletal: Reports as per HPI Musculoskeletal: absent: ankle pain, ankle stiffness, ankle swelling Integumentary: Reports as per HPI Neurological: Reports as per HPI, Reports headaches Psychiatric: Reports as per HPI Endocrine: Reports as per HPI Hematologic/Lymphatic: Reports as per HPI Allergic/Immunologic: Reports as per HPI Past Medical History Past Medical History: Asthma, COPD, CVA/TIA, GERD/Reflux, Osteoarthritis (OA), Skin Disorder, Thyroid Disorder Additional Past Medical History / Comment(s): Heart palpitations, Varicose veins, Hx of kidney stones (only Lt kidney), diverticulitis, hiatal hernia, hemorrhoids, "under active gallbladder", sun damaged skin, pt states she had a TIA on 2015, Pulmonary fibrosis History of Any Multi-Drug Resistant Organisms: None Reported Past Surgical History: Cholecystectomy, Hysterectomy, Orthopedic Surgery, Tonsillectomy Additional Past Surgical History / Comment(s): L and R foot surgery, right nephrectomy, laparascopy, skin lesions, rt hand trigger finger, rt shoulder rotator cuff, CALLUS REMOVED FROM LT SMALL TOE, COLONOSCOPY, BILAT CATARACTS REMOVED WITH LENS IMPLANTS Past Anesthesia/Blood Transfusion Reactions: No Reported Reaction Past Psychological History: Anxiety Smoking Status: Former smoker Past Alcohol Use History: None Reported Past Drug Use History: None Reported - Past Family History Father Family Medical History: Cancer Additional Family Medical History / Comment(s): Prostate cancer, brain tumor. Father is . Mother Family Medical History: Cancer, Renal Disease Additional Family Medical History / Comment(s): Mother when pt was 9yrs old and pt does not know much of mother's health hx. Mother had cancer-pt unaware of type, had kidney removed. Medications and Allergies Home Medications Medication Instructions Recorded Confirmed Type ALPRAZolam [Xanax] 0.75 mg PO HS PRN 02/25/14 07/04/23 History Levothyroxine Sodium [Synthroid] 50 mcg PO DAILY 02/25/14 07/04/23 History Aspirin EC [Ecotrin Low Dose] 81 mg PO DAILY 06/27/14 07/04/23 History Budesonide-Formot 160-4.5 Mcg 2 puff INHALATION RT-BID 06/27/14 07/04/23 History [Symbicort 160-4.5 Mcg Inhaler] Loratadine [Claritin] 10 mg PO DAILY PRN 05/21/20 07/04/23 History levalbuterol HCL [Xopenex] 1.25 mg INHALATION RT-QID PRN 05/21/20 07/04/23 History Albuterol Inhaler [Ventolin Hfa 2 puff INHALATION RT-Q6H PRN 06/07/23 07/04/23 History Inhaler] Esomeprazole Magnesium [NexIUM 40 mg PO HS 06/07/23 07/04/23 History 24Hr] Folic Acid 0.4 mg PO DAILY 06/07/23 07/04/23 History Losartan [Cozaar] 12.5 mg PO DAILY 06/07/23 07/04/23 History Pitavastatin Calcium [Livalo] 2 mg PO DAILY 06/07/23 07/04/23 History Ubrogepant [Ubrelvy] 50 mg PO DAILY PRN 06/07/23 07/04/23 History Lidocaine 5% Patch [Lidoderm] 1 patch TOPICAL DAILY PRN 07/01/23 07/04/23 History Metoclopramide [Reglan] 10 mg PO Q6H PRN #20 tab 07/01/23 07/04/23 Rx SUMAtriptan succinate 100 mg PO DIRECTED PRN #10 07/01/23 07/04/23 Rx tablet Sucralfate [Carafate] 2 gm PO DAILY 07/01/23 07/04/23 History Allergies Allergy/AdvReac Type Severity Reaction Status Date / Time barium sulfate Allergy Rash/Hives Verified 07/01/23 09:56 Iodinated Contrast Media Allergy Rash/Hives Verified 07/01/23 09:56 [Iodinated Contrast Media - Oral and] albuterol AdvReac Rapid Verified 07/01/23 09:56 Heart Rate codeine phosphate AdvReac Itching Verified 07/01/23 09:56 [From Tylenol-Codeine #3] ibuprofen AdvReac ONLY HAS 1 Verified 07/01/23 09:56 KIDNEY-TOLD NEVER TO TAKE nitrofurantoin AdvReac Itching Verified 07/01/23 09:56 [From Macrobid] nitrofurantoin AdvReac Itching Verified 07/01/23 09:56 macrocrystalline [From Macrobid] Physical Exam Vitals: Vital Signs Temp Pulse Resp BP Pulse Ox FiO2 07/04/23 10:16 64 18 97/42 99 07/04/23 09:22 95 2 07/04/23 08:59 66 18 99 07/04/23 08:42 97.8 F 73 18 93/45 90 L 07/04/23 07:33 98.6 F 80 18 99 07/04/23 07:19 85 16 110/47 100 07/04/23 06:59 99.7 F H 78 16 110/47 98 07/04/23 06:09 101.2 F H 88 18 100/41 07/04/23 05:08 94 L 07/04/23 04:58 99.0 F 98 16 149/83 94 L Intake and Output 07/03/23 07/04/23 07/04/23 22:59 06:59 14:59 Other: Weight 51.256 kg GENERAL EXAM: Alert, pleasant, thin 72-year-old female, 2 L nasal cannula, comfortable in no apparent distress. HEAD: Normocephalic. EYES: Normal reaction of pupils, equal size. NOSE: Clear with pink turbinates. THROAT: No erythema or exudates. NECK: No masses, no JVD. CHEST: No chest wall deformity. LUNGS: Equal air entry with end expiratory wheeze. CVS: S1 and S2 normal with no audible murmur, regular rhythm. ABDOMEN: No hepatosplenomegaly, normal bowel sounds, no guarding or rigidity. SPINE: No scoliosis or deformity SKIN: No rashes CENTRAL NERVOUS SYSTEM: No focal deficits, tone is normal in all 4 extremities. EXTREMITIES: There is no peripheral edema. No clubbing, no cyanosis. Peripheral pulses are intact. Results - Laboratory Findings CBC and BMP: 07/04/23 06:03 07/04/23 06:03 Abnormal lab findings: Abnormal Labs 07/04/23 07/04/23 06:03 06:03 WBC 3.4 L Lymphocytes # 0.9 L Sodium 136 L BUN 20 H Calcium 8.0 L Total Protein 5.2 L Albumin 2.8 L - Diagnostic Findings Chest x-ray: image reviewed Assessment and Plan Plan: Acute on chronic hypoxemic respiratory failure, likely on the basis of the patient's known history of COPD, and pulmonary fibrosis, and complicated by COVID 19 infection and she is on 2 liters COVID 19 infection, symptoms started on 07/01/2023, symptoms are quite systemic. The patient is also expressing some worsening shortness of breath.this is the patient's first infection and she has been vaccinated in the past Chronic hypoxemic respiratory failure, on home O2 at 2.0 L. COPD from previous heavy tobacco use. Bibasilar pulmonary fibrosis History of hypertension. History of hyperlipidemia. History of hypothyroidism. History of GERD. Multiple other medical problems and comorbidities. Plan: check d-dimer Check LDH and CRP Titrate the FiO2 as tolerated, currently on 2 L continue Symbicort Albuterol HFA 4 times a day Resume all medications Increase her activity as tolerated we'll continue to follow
[2023-07-04 16:47] LABS: Glucose,Whole Blood 194 mg/dL (70-110)
[2023-07-04 22:02] LABS: Glucose,Whole Blood 152 mg/dL (70-110)
[2023-07-04] MEDS: PANTOPRAZOLE 40 MG TABLET PO SCH (23:10)
[2023-07-05 06:23] LABS: Glucose,Whole Blood 150 mg/dL (70-110)
[2023-07-05] MEDS: INSULIN ASPART (NovoLOG) 100 UNIT/ML VIAL SQ SCH ×4 (06:23→21:17)
[2023-07-05] MEDS: LEVOTHYROXINE 50 MCG TAB PO SCH (06:26)
[2023-07-05] MEDS: FAMOTIDINE 20 MG TAB PO SCH ×2 (08:43→21:21)
[2023-07-05] MEDS: ASCORBIC ACID 500 MG TAB PO SCH ×2 (08:43→21:21)
[2023-07-05] MEDS: LOSARTAN 25 MG TAB PO SCH (08:43)
[2023-07-05] MEDS: SUCRALFATE 1 GM TAB PO SCH (08:43)
[2023-07-05] MEDS: ASPIRIN 81 MG PO SCH (08:43)
[2023-07-05] MEDS: CHOLECALCIFEROL 125 MCG (5000 IU) TABLET PO SCH (08:43)
[2023-07-05] MEDS: ZINC SULFATE 220 MG CAP PO SCH (08:43)
[2023-07-05] MEDS: ATORVASTATIN 10 MG TAB PO SCH (08:43)
[2023-07-05] MEDS: ACETAMINOPHEN TAB 325 MG TAB PO PRN ×3 (08:57→21:21)
[2023-07-05] MEDS: DEXAMETHASONE SOD PHOSPHATE 10 MG/ML 1 ML VIAL IVP SCH (09:00)
[2023-07-05] MEDS: SYMBICORT 160-4.5 MCG INHALER INHALATION SCH ×2 (09:12→20:31)
[2023-07-05] MEDS: ALBUTEROL HFA INHALER INHALATION PRN ×2 (09:12→15:59)
[2023-07-05 11:18] LABS: Glucose,Whole Blood 131 mg/dL (70-110)
[2023-07-05] MEDS: ENOXAPARIN 30 MG/0.3 ML SYRINGE SQ SCH (11:34)
--- NOTE | 2023-07-05 11:41 | P.PN ---
Subjective Progress Note Date: 07/05/23 this is a very pleasant 72-year-old female patient with known history of COPD and pulmonary fibrosis, presented to the hospital because of generalized weakness, headaches, tiredness, low appetite, dehydration, increased chest congestion and shortness of breath. The patient was in the hospital in May 2023 and the patient was discharged on 06/12/2023 after being treated for an acute bronchitis and COPD exacerbation. At that time, her Covid 19 testing was negative. She was not a curable and she was exposed to Covid 19 and subsequently her symptoms started approximately 3 days ago. The patient tested positive for Covid 19 and currently she is on Decadron. No altered mentation. She was febrile at time of admission with a T-max of 101.2. The patient is currently on 2 L of Oxymizer nasal cannula to maintain a saturation above 90%. Chest x-ray shows no acute cardiac pulmonary process. she was noted to be comfortable in the emergency department. No altered mentation. No swelling lower extremities. Sodium level is at 136, potassium level is at 3.6, bicarb is at 24 with a BUN of 20 and a creatinine of 0.6. The white cell count is at 3.4 with a hemoglobin 15.0 and a platelet count of 156. On today's evaluation of 07/05/2023, the patient is feeling better compared to yesterday. She is on 3 L O2 nasal cannula with a pulse ox of 97%. Blood pressure is slightly elevated.. She is not having any significant respiratory distress. She feels she is gradually improving. She has better energy and she is on Decadron 6 milligrams IV every 24 hours. Her d-dimer is at 0.77. Aggr essively electrolytes the time of admission were within normal limits. No reported nausea. No emesis. No diarrhea. No altered mentation. No chest pain. No pleurisy. No hemoptysis. Objective - Vital Signs Vital signs: Vital Signs Temp 97.5 F L 07/05/23 07:17 Pulse 66 07/05/23 07:17 Resp 18 07/05/23 07:17 BP 177/72 07/05/23 07:17 Pulse Ox 97 07/05/23 07:17 FiO2 2 07/04/23 09:22 Intake & Output 07/04/23 07/05/23 07/05/23 18:59 06:59 18:59 Weight 51.256 kg Other: # Voids 2 - Exam GENERAL EXAM: Alert, pleasant, thin 72-year-old female, 2 L nasal cannula, comfortable in no apparent distress. HEAD: Normocephalic. EYES: Normal reaction of pupils, equal size. NOSE: Clear with pink turbinates. THROAT: No erythema or exudates. NECK: No masses, no JVD. CHEST: No chest wall deformity. LUNGS: Equal air entry with end expiratory wheeze. CVS: S1 and S2 normal with no audible murmur, regular rhythm. ABDOMEN: No hepatosplenomegaly, normal bowel sounds, no guarding or rigidity. SPINE: No scoliosis or deformity SKIN: No rashes CENTRAL NERVOUS SYSTEM: No focal deficits, tone is normal in all 4 extremities. EXTREMITIES: There is no peripheral edema. No clubbing, no cyanosis. Peripheral pulses are intact. - Labs CBC & Chem 7: 07/04/23 06:03 07/04/23 06:03 Labs: Abnormal Lab Results - Last 24 Hours (Table) 07/04/23 07/04/23 07/04/23 Range/Units 12:25 16:45 21:59 D-Dimer 0.77 H (<0.60) mg/L FEU POC Glucose (mg/dL) 194 H 152 H (70-110) mg/dL Hemoglobin A1c (<=6.0) % 07/05/23 07/05/23 Range/Units 05:16 06:20 D-Dimer (<0.60) mg/L FEU POC Glucose (mg/dL) 150 H (70-110) mg/dL Hemoglobin A1c 6.1 H (<=6.0) % Assessment and Plan Plan: Acute on chronic hypoxemic respiratory failure, likely on the basis of the patient's known history of COPD, and pulmonary fibrosis, and complicated by COVID 19 infection and she is 3 L O2 nasal cannula COVID 19 infection, symptoms started on 07/01/2023, symptoms are quite systemic. The patient is also expressing some worsening shortness of breath.this is the patient's first infection and she has been vaccinated in the past Chronic hypoxemic respiratory failure, on home O2 at 2.0 L. COPD from previous heavy tobacco use. Bibasilar pulmonary fibrosis History of hypertension. History of hyperlipidemia. History of hypothyroidism. History of GERD. Multiple other medical problems and comorbidities. Plan: Continue Decadron check d-dimer, level is at 0.77 Check LDH and CRP, levels are pending Titrate the FiO2 as tolerated, currently on 2-3 L and wean it down as tolerated continue Symbicort Albuterol HFA 4 times a day Resume all medications Increase her activity as tolerated we'll continue to follow
[2023-07-05] MEDS: SODIUM CHLORIDE 0.9% 1,000 ML IV SCH ×2 (12:17→23:41)
--- NOTE | 2023-07-05 16:14 | P.PN ---
Subjective Progress Note Date: 07/05/23 H&P Date: 07/04/23 Chief Complaint: Dyspnea, generalized weakness, status post fall This is a 72-year-old female with past medical history significant for interstitial pulmonary fibrosis COPD, hypertension, migraines, recently discharged on 06/12/2023 with acute on chronic hypoxic respiratory failure, COPD, infectious bronchitis. The patient reports she believes she picked up Covid at her sister's . Initially came into the ER on the with complaints of migraine headache and tested positive for Covid. It was unclear when she developed Covid and therefore no antiviral treatment was prescribed at that time. Reports increased weakness, dyspnea, status post fall hitting her head and chest. Denies syncope. Head/cervical spine CT reported no evidence of acute intracranial abnormality or skull fracture, fluid levels in the right maxillary bilateral sphenoid sinuses, mainly related to sinusitis versus occult fracture. Degenerative changes, no evidence of acute fracture or malalignment. Chest x-ray reported no evidence of acute cardiopulmonary disease, increased interstitial markings, possible chronic fibrotic changes. T- max 101.2, WBC 3.4. Hemoglobin 13, platelets 156. Sodium 136, potassium 3.6, bicarb 24, BUN 20, creatinine 0.61. Maintaining O2 sats in the mid 90s on 2 L nasal cannula. 07/05/2023 significant clinical improvement, maintained on Covid cocktail, Decadron IV push, maintaining O2 sats in the high 90s on 3 L nasal cannula. Afebrile. Blood sugars controlled, hemoglobin A1c 6.1. Denies chest pain, pal pitations or increased shortness of breath. Denies nausea vomiting or diarrhea. Denies abdominal pain. Feeling better. D-dimer 0.77, LDH and CRP pending. Objective - Vital Signs Vital signs: Vital Signs Temp 97.5 F L 07/05/23 07:17 Pulse 66 07/05/23 07:17 Resp 18 07/05/23 07:17 BP 177/72 07/05/23 07:17 Pulse Ox 97 07/05/23 07:17 FiO2 2 07/04/23 09:22 Intake & Output 07/04/23 07/05/23 07/05/23 18:59 06:59 18:59 Weight 51.256 kg Other: # Voids 2 - Exam GENERAL: Alert and oriented 3, sitting up in bed,, no acute distress HEENT:: Atraumatic, normocephalic ,pupils equal and reactive,MMM NECK: Supple,no JVD. LUNGS: Equal air entry, bilateral bases with fine expiratory wheeze HEART: Regular rate and rhythm without murmurs, rubs or gallops.S1S2 Normal ABDOMEN: Soft, nontender, normoactive bowel sounds. No guarding. EXTREMITIES: Normal range of motion, no pitting or edema. No clubbing or cyanosis. NEUROLOGICAL: Cranial nerves II through XII grossly intact. No focal deficits SKIN: Warm, Dry, normal turgor, no rashes noted. - Labs CBC & Chem 7: 07/04/23 06:03 07/04/23 06:03 Labs: Abnormal Lab Results - Last 24 Hours (Table) 07/04/23 07/04/23 07/04/23 Range/Units 12:25 16:45 21:59 D-Dimer 0.77 H (<0.60) mg/L FEU POC Glucose (mg/dL) 194 H 152 H (70-110) mg/dL Hemoglobin A1c (<=6.0) % 07/05/23 07/05/23 07/05/23 Range/Units 05:16 06:20 11:16 D-Dimer (<0.60) mg/L FEU POC Glucose (mg/dL) 150 H 131 H (70-110) mg/dL Hemoglobin A1c 6.1 H (<=6.0) % Assessment and Plan Assessment: Acute Covid infection, tested positive on 07/01/2023 Acute on chronic hypoxic respiratory failure secondary to the above. Wears 2 L nasal cannula home Generalized weakness secondary to the above, status post fall COPD, interstitial pulmonary fibrosis Diabetes mellitus, hemoglobin A1c 6.1 Gastroesophageal reflux disease Essential hypertension Hyperlipidemia EVA Hypothyroidism Prior nicotine dependence Plan: Continue on current medication regime, monitoring and symptomatic treatment. Maintain Covid cocktail. Aggressive pulmonary toileting. Increase activity as tolerated. Follow closely with pulmonary. Discharge planning in progress possibly in the next 24-48 hours. The impression and plan of care has been dictated as directed. : I performed a history and examination of this patient, discussed the same with the dictator. I agree with the dictator's note ,documented as a scribe. Any additional findings or plans will be noted.
[2023-07-05 16:29] LABS: Glucose,Whole Blood 159 mg/dL (70-110)
[2023-07-05 21:14] LABS: Glucose,Whole Blood 132 mg/dL (70-110)
[2023-07-05] MEDS: PANTOPRAZOLE 40 MG TABLET PO SCH (21:21)
[2023-07-06 06:22] LABS: Glucose,Whole Blood 121 mg/dL (70-110)
[2023-07-06] MEDS: INSULIN ASPART (NovoLOG) 100 UNIT/ML VIAL SQ SCH ×4 (06:27→21:16)
[2023-07-06] MEDS: LEVOTHYROXINE 50 MCG TAB PO SCH (06:28)
[2023-07-06] MEDS: ALBUTEROL HFA INHALER INHALATION PRN (08:25)
[2023-07-06] MEDS: SYMBICORT 160-4.5 MCG INHALER INHALATION SCH ×2 (08:26→20:34)
[2023-07-06] MEDS: DEXAMETHASONE SOD PHOSPHATE 10 MG/ML 1 ML VIAL IVP SCH (09:01)
[2023-07-06] MEDS: FAMOTIDINE 20 MG TAB PO SCH ×2 (09:02→21:16)
[2023-07-06] MEDS: ATORVASTATIN 10 MG TAB PO SCH (09:02)
[2023-07-06] MEDS: ASCORBIC ACID 500 MG TAB PO SCH ×2 (09:02→21:16)
[2023-07-06] MEDS: ASPIRIN 81 MG PO SCH (09:02)
[2023-07-06] MEDS: ZINC SULFATE 220 MG CAP PO SCH (09:02)
[2023-07-06] MEDS: CHOLECALCIFEROL 125 MCG (5000 IU) TABLET PO SCH (09:02)
[2023-07-06] MEDS: LOSARTAN 25 MG TAB PO SCH (09:02)
[2023-07-06] MEDS: SUCRALFATE 1 GM TAB PO SCH (09:02)
[2023-07-06] MEDS: ENOXAPARIN 30 MG/0.3 ML SYRINGE SQ SCH (09:02)
[2023-07-06] MEDS: FOLIC ACID 1 MG TAB PO SCH (09:07)
[2023-07-06 11:26] LABS: Glucose,Whole Blood 143 mg/dL (70-110)
[2023-07-06] MEDS ORDERED: ACETAMINOPHEN IV (For NPO) 1,000 MG in EMPTY BAG 1 BAG IVPB STA (12:11)
--- NOTE | 2023-07-06 12:33 | P.PN ---
Subjective Progress Note Date: 07/06/23 H&P Date: 07/04/23 Chief Complaint: Dyspnea, generalized weakness, status post fall This is a 72-year-old female with past medical history significant for interstitial pulmonary fibrosis COPD, hypertension, migraines, recently discharged on 06/12/2023 with acute on chronic hypoxic respiratory failure, COPD, infectious bronchitis. The patient reports she believes she picked up Covid at her sister's . Initially came into the ER on the with complaints of migraine headache and tested positive for Covid. It was unclear when she developed Covid and therefore no antiviral treatment was prescribed at that time. Reports increased weakness, dyspnea, status post fall hitting her head and chest. Denies syncope. Head/cervical spine CT reported no evidence of acute intracranial abnormality or skull fracture, fluid levels in the right maxillary bilateral sphenoid sinuses, mainly related to sinusitis versus occult fracture. Degenerative changes, no evidence of acute fracture or malalignment. Chest x-ray reported no evidence of acute cardiopulmonary disease, increased interstitial markings, possible chronic fibrotic changes. T- max 101.2, WBC 3.4. Hemoglobin 13, platelets 156. Sodium 136, potassium 3.6, bicarb 24, BUN 20, creatinine 0.61. Maintaining O2 sats in the mid 90s on 2 L nasal cannula. 07/05/2023 significant clinical improvement, maintained on , maintaining O2 sats in the high 90s on 3 L nasal cannula. Afebrile. Blood sugars controlled, hemoglobin A1c 6.1. Denies chest pain, palpitations or increased shortness of breath. Denies nausea vomiting or diarrhea. Denies abdominal pain. Feeling better. D-dimer 0.77, LDH and CRP pending. 07/06/2023 earlier this morning hypertensive with complaints of migraine headache. Headaches still present but improved, blood pressure controlled. Maintaining O2 sats in the 90s on room air. Continues on Covid cocktail, Decadron IV push. Denies chest pain, palpitations or shortness of breath. Denies nausea, vomiting or diarrhea. Blood Sugars controlled. Objective - Vital Signs Vital signs: Vital Signs Temp 98.7 F 07/06/23 11:18 Pulse 69 07/06/23 11:18 Resp 19 07/06/23 07:19 BP 118/65 07/06/23 11:18 Pulse Ox 98 07/06/23 11:18 FiO2 2 07/04/23 09:22 Intake & Output 07/05/23 07/06/23 07/06/23 18:59 06:59 18:59 Other: # Voids 4 3 - Exam GENERAL: Alert and oriented 3, sitting up in bed,, no acute distress HEENT:: Atraumatic, normocephalic ,pupils equal and reactive,MMM NECK: Supple,no JVD. LUNGS: Unlabored, Equal air entry, CTA. HEART: Regular rate and rhythm without murmurs, rubs or gallops.S1S2 Normal ABDOMEN: Soft, nontender, normoactive bowel sounds. No guarding. EXTREMITIES: Normal range of motion, no pitting or edema. No clubbing or cyanosis. NEUROLOGICAL: Cranial nerves II through XII grossly intact. No focal deficits SKIN: Warm, Dry, no rashes noted. - Labs CBC & Chem 7: 07/04/23 06:03 07/04/23 06:03 Labs: Abnormal Lab Results - Last 24 Hours (Table) 07/05/23 07/05/23 07/06/23 Range/Units 16:28 21:13 06:22 POC Glucose (mg/dL) 159 H 132 H 121 H (70-110) mg/dL 07/06/23 Range/Units 11:25 POC Glucose (mg/dL) 143 H (70-110) mg/dL Assessment and Plan Assessment: Acute Covid infection, tested positive on 07/01/2023 Acute on chronic hypoxic respiratory failure secondary to the above. Wears 2 L nasal cannula home Generalized weakness secondary to the above, status post fall COPD, interstitial pulmonary fibrosis Diabetes mellitus, hemoglobin A1c 6.1 Gastroesophageal reflux disease Essential hypertension Hyperlipidemia EVA Hypothyroidism Prior nicotine dependence History of migraine headaches Plan: Continue on current medication regime, monitoring and symptomatic treatment. Magnesium 1 g IV and Ofirmev 1gm IV for headache. Continue Covid cocktail. Aggressive pulmonary toileting. Increase activity as tolerated. PT consulted. Discharge planning in progress possibly in the next 24 hours. The impression and plan of care has been dictated as directed. : I performed a history and examination of this patient, discussed the same with the dictator. I agree with the dictator's note ,documented as a scribe. Any additional findings or plans will be noted.
[2023-07-06] MEDS: MAGNESIUM SULFATE-D5W PMX 1 GM in DEXTROSE/WATER 1 100ML.BAG IVPB ONE ×2 (13:06→13:09)
--- NOTE | 2023-07-06 14:13 | P.PN ---
Subjective Progress Note Date: 07/06/23 this is a very pleasant 72-year-old female patient with known history of COPD and pulmonary fibrosis, presented to the hospital because of generalized weakness, headaches, tiredness, low appetite, dehydration, increased chest congestion and shortness of breath. The patient was in the hospital in May 2023 and the patient was discharged on 06/12/2023 after being treated for an acute bronchitis and COPD exacerbation. At that time, her Covid 19 testing was negative. She was not a curable and she was exposed to Covid 19 and subsequently her symptoms started approximately 3 days ago. The patient tested positive for Covid 19 and currently she is on Decadron. No altered mentation. She was febrile at time of admission with a T-max of 101.2. The patient is currently on 2 L of Oxymizer nasal cannula to maintain a saturation above 90%. Chest x-ray shows no acute cardiac pulmonary process. she was noted to be comfortable in the emergency department. No altered mentation. No swelling lower extremities. Sodium level is at 136, potassium level is at 3.6, bicarb is at 24 with a BUN of 20 and a creatinine of 0.6. The white cell count is at 3.4 with a hemoglobin 15.0 and a platelet count of 156. On today's evaluation of 07/05/2023, the patient is feeling better compared to yesterday. She is on 3 L O2 nasal cannula with a pulse ox of 97%. Blood pressure is slightly elevated.. She is not having any significant respiratory distress. She feels she is gradually improving. She has better energy and she is on Decadron 6 milligrams IV every 24 hours. Her d-dimer is at 0.77. Aggr essively electrolytes the time of admission were within normal limits. No reported nausea. No emesis. No diarrhea. No altered mentation. No chest pain. No pleurisy. No hemoptysis. On 07/06/2023, seeing the patient for a follow-up. Still weak. Occasional cough. No significant sputum production. No oxygen desaturations. She remains on room air oxygen. She remains on Decadron. She remains on Lovenox 30 mg subcu for DVT prophylaxis. No significant hyperglycemia. No nausea. No emesi s. No other complaints otherwise for now. Objective - Vital Signs Vital signs: Vital Signs Temp 98.7 F 07/06/23 11:18 Pulse 69 07/06/23 11:18 Resp 19 07/06/23 07:19 BP 118/65 07/06/23 11:18 Pulse Ox 98 07/06/23 11:18 FiO2 2 07/04/23 09:22 Intake & Output 07/05/23 07/06/23 07/06/23 18:59 06:59 18:59 Other: # Voids 4 3 - Exam GENERAL EXAM: Alert, pleasant, thin 72-year-old female, 2 L nasal cannula, comfortable in no apparent distress. HEAD: Normocephalic. EYES: Normal reaction of pupils, equal size. NOSE: Clear with pink turbinates. THROAT: No erythema or exudates. NECK: No masses, no JVD. CHEST: No chest wall deformity. LUNGS: Equal air entry with end expiratory wheeze. CVS: S1 and S2 normal with no audible murmur, regular rhythm. ABDOMEN: No hepatosplenomegaly, normal bowel sounds, no guarding or rigidity. SPINE: No scoliosis or deformity SKIN: No rashes CENTRAL NERVOUS SYSTEM: No focal deficits, tone is normal in all 4 extremities. EXTREMITIES: There is no peripheral edema. No clubbing, no cyanosis. Peripheral pulses are intact. - Labs CBC & Chem 7: 07/04/23 06:03 07/04/23 06:03 Labs: Abnormal Lab Results - Last 24 Hours (Table) 07/05/23 07/05/23 07/06/23 Range/Units 16:28 21:13 06:22 POC Glucose (mg/dL) 159 H 132 H 121 H (70-110) mg/dL 07/06/23 Range/Units 11:25 POC Glucose (mg/dL) 143 H (70-110) mg/dL Assessment and Plan Plan: Acute on chronic hypoxemic respiratory failure, likely on the basis of the patient's known history of COPD, and pulmonary fibrosis, and complicated by COVID 19 infection and she is 3 L O2 nasal cannula COVID 19 infection, symptoms started on 07/01/2023, symptoms are quite systemic. The patient is also expressing some worsening shortness of breath.this is the patient's first infection and she has been vaccinated in the past Chronic hypoxemic respiratory failure, on home O2 at 2.0 L. COPD from previous heavy tobacco use. Bibasilar pulmonary fibrosis History of hypertension. History of hyperlipidemia. History of hypothyroidism. History of GERD. Multiple other medical problems and comorbidities. Plan: Clinically stable and the patient is gradually improving. Increase mobility Continue Decadron check d-dimer, level is at 0.77 Check LDH and CRP, levels are pending Titrate the FiO2 as tolerated, and the patient is currently on room air oxygen. continue Symbicort Albuterol HFA 4 times a day Resume all medications Increase her activity as tolerated we'll continue to follow
[2023-07-06 16:18] LABS: Glucose,Whole Blood 178 mg/dL (70-110)
[2023-07-06] MEDS: SODIUM CHLORIDE 0.9% 1,000 ML IV SCH (18:23)
[2023-07-06 21:13] LABS: Glucose,Whole Blood 151 mg/dL (70-110)
[2023-07-06] MEDS: PANTOPRAZOLE 40 MG TABLET PO SCH (21:16)
[2023-07-07] MEDS: SODIUM CHLORIDE 0.9% 1,000 ML IV SCH ×2 (03:51→20:16)
[2023-07-07 06:31] LABS: Glucose,Whole Blood 130 mg/dL (70-110)
[2023-07-07] MEDS: INSULIN ASPART (NovoLOG) 100 UNIT/ML VIAL SQ SCH ×4 (06:34→21:54)
[2023-07-07] MEDS: LEVOTHYROXINE 50 MCG TAB PO SCH (06:35)
[2023-07-07] MEDS: SYMBICORT 160-4.5 MCG INHALER INHALATION SCH ×2 (08:42→20:21)
[2023-07-07] MEDS: ALBUTEROL HFA INHALER INHALATION PRN (08:42)
[2023-07-07] MEDS: ASPIRIN 81 MG PO SCH (10:26)
[2023-07-07] MEDS: FOLIC ACID 1 MG TAB PO SCH (10:26)
[2023-07-07] MEDS: FAMOTIDINE 20 MG TAB PO SCH ×2 (10:27→21:55)
[2023-07-07] MEDS: ATORVASTATIN 10 MG TAB PO SCH (10:27)
[2023-07-07] MEDS: ZINC SULFATE 220 MG CAP PO SCH (10:27)
[2023-07-07] MEDS: CHOLECALCIFEROL 125 MCG (5000 IU) TABLET PO SCH (10:27)
[2023-07-07] MEDS: SUCRALFATE 1 GM TAB PO SCH (10:28)
[2023-07-07] MEDS: ASCORBIC ACID 500 MG TAB PO SCH ×2 (10:28→21:55)
[2023-07-07] MEDS: ENOXAPARIN 30 MG/0.3 ML SYRINGE SQ SCH (10:28)
[2023-07-07] MEDS: LOSARTAN 25 MG TAB PO SCH (10:29)
[2023-07-07] MEDS: DEXAMETHASONE SOD PHOSPHATE 10 MG/ML 1 ML VIAL IVP SCH (10:35)
[2023-07-07] MEDS ORDERED: HYDROcodone/APAP 7.5-325MG 1 EACH TAB PO PRN (11:17)
[2023-07-07 12:02] LABS: Glucose,Whole Blood 97 mg/dL (70-110)
--- NOTE | 2023-07-07 13:33 | P.DS ---
Providers Date of admission: 07/04/23 07:20 Expected date of discharge: 07/07/23 Attending physician: Avery Epps Consults: 07/04/23 07:20 Consult Physician Routine Consulting Provider: Ricarda White Consult Reason/Comments: Covid 19 infection Do you want consulting provider notified?: Yes Primary care physician: [facility] Hospital Course: Final Diagnoses: Acute Covid infection, tested positive on 07/01/2023 Acute on chronic hypoxic respiratory failure secondary to the above. Wears 2 L nasal cannula home Generalized weakness secondary to the above, status post fall COPD, interstitial pulmonary fibrosis Diabetes mellitus, hemoglobin A1c 6.1 Gastroesophageal reflux disease Essential hypertension Hyperlipidemia EVA Hypothyroidism Prior nicotine dependence History of migraine headaches Hospital course:This is a 72-year-old female with past medical history significant for interstitial pulmonary fibrosis COPD, hypertension, migraines, recently discharged on 06/12/2023 with acute on chronic hypoxic respiratory failure, COPD, infectious bronchitis. The patient reports she believes she picked up Covid at her sister's . Initially came into the ER on the with complaints of migraine headache and tested positive for Covid. It was unclear when she developed Covid and therefore no antiviral treatment was prescribed at that time. Reports increased weakness, dyspnea, status post fall hitting her head and chest. Denies syncope. Head/cervical spine CT reported no evidence of acute intracranial abnormality or skull fracture, fluid levels in the right maxillary bilateral sphenoid sinuses, mainly related to sinusitis versus occult fracture. Degenerative changes, no evidence of acute fracture or malalignment. Chest x-ray reported no evidence of acute cardiopulmonary disease, increased interstitial markings, possible chronic fibrotic changes. T- max 101.2, WBC 3.4. Hemoglobin 13, platelets 156. Sodium 136, potassium 3.6, bicarb 24, BUN 20, creatinine 0.61. Maintaining O2 sats in the mid 90s on 2 L nasal cannula. 07/05/2023 significant clinical improvement, maintained on , maintaining O2 sats in the high 90s on 3 L nasal cannula. Afebrile. Blood sugars controlled, hemoglobin A1c 6.1. Denies chest pain, palpitations or increased shortness of breath. Denies nausea vomiting or diarrhea. Denies abdominal pain. Feeling better. D-dimer 0.77, LDH and CRP pending. 07/06/2023 earlier this morning hypertensive with complaints of migraine headache. Headaches still present but improved, blood pressure controlled. Linda landis O2 sats in the 90s on room air. Continues on Covid cocktail, Decadron IV push. Denies chest pain, palpitations or shortness of breath. Denies nausea, vomiting or diarrhea. Blood Sugars controlled. Significant clinical improvement. Denies chest pain, palpitations or increasing shortness of breath. Afebrile. Patient will be discharged home today in a stable condition with guarded prognosis pending final DC recommendations and clearance per pulmonary. The impression and plan of care has been dictated as directed. : I performed a history and examination of this patient, discussed the same with the dictator. I agree with the dictator's note ,documented as a scribe. Any additional findings or plans will be noted. Patient Condition at Discharge: Stable Plan - Discharge Summary Discharge Rx Participant: Yes New Discharge Prescriptions: New Zinc Sulfate [Orazinc] 220 mg PO DAILY #30 cap Cholecalciferol [Vitamin D3 (125 Mcg = 5000 Iu)] 125 mcg PO DAILY tab dexAMETHasone ORAL [Hexadrol] 6 mg PO DAILY 7 Days #21 tablet Ascorbic Acid [Vitamin C] 500 mg PO BID tab Continue Levothyroxine Sodium [Synthroid] 50 mcg PO DAILY ALPRAZolam [Xanax] 0.75 mg PO HS PRN PRN Reason: sleep Budesonide-Formot 160-4.5 Mcg [Symbicort 160-4.5 Mcg Inhaler] 2 puff INHALATION RT-BID Aspirin EC [Ecotrin Low Dose] 81 mg PO DAILY Loratadine [Claritin] 10 mg PO DAILY PRN PRN Reason: Allergy Symptoms levalbuterol HCL [Xopenex] 1.25 mg INHALATION RT-QID PRN PRN Reason: Shortness Of Breath Ubrogepant [Ubrelvy] 50 mg PO DAILY PRN PRN Reason: Migraine Headache Esomeprazole Magnesium [NexIUM 24Hr] 40 mg PO HS Albuterol Inhaler [Ventolin Hfa Inhaler] 2 puff INHALATION RT-Q6H PRN PRN Reason: Shortness Of Breath Losartan [Cozaar] 12.5 mg PO DAILY Pitavastatin Calcium [Livalo] 2 mg PO DAILY Folic Acid 0.4 mg PO DAILY Sucralfate [Carafate] 2 gm PO DAILY Lidocaine 5% Patch [Lidoderm 5% Patch] 1 patch TOPICAL DAILY PRN PRN Reason: Pain Metoclopramide [Reglan] 10 mg PO Q6H PRN #20 tab PRN Reason: Nausea And Vomiting SUMAtriptan succinate 100 mg PO DIRECTED PRN #10 tablet PRN Reason: Migraine Headache Discharge Medication List ALPRAZolam [Xanax] 0.75 mg PO HS PRN 02/25/14 [History] Levothyroxine Sodium [Synthroid] 50 mcg PO DAILY 02/25/14 [History] Aspirin EC [Ecotrin Low Dose] 81 mg PO DAILY 06/27/14 [History] Budesonide-Formot 160-4.5 Mcg [Symbicort 160-4.5 Mcg Inhaler] 2 puff INHALATION RT-BID 06/27/14 [History] Loratadine [Claritin] 10 mg PO DAILY PRN 05/21/20 [History] levalbuterol HCL [Xopenex] 1.25 mg INHALATION RT-QID PRN 05/21/20 [History] Albuterol Inhaler [Ventolin Hfa Inhaler] 2 puff INHALATION RT-Q6H PRN 06/07/23 [History] Esomeprazole Magnesium [NexIUM 24Hr] 40 mg PO HS 06/07/23 [History] Folic Acid 0.4 mg PO DAILY 06/07/23 [History] Losartan [Cozaar] 12.5 mg PO DAILY 06/07/23 [History] Pitavastatin Calcium [Livalo] 2 mg PO DAILY 06/07/23 [History] Ubrogepant [Ubrelvy] 50 mg PO DAILY PRN 06/07/23 [History] Lidocaine 5% Patch [Lidoderm 5% Patch] 1 patch TOPICAL DAILY PRN 07/01/23 [History] Metoclopramide [Reglan] 10 mg PO Q6H PRN #20 tab 07/01/23 [Rx] SUMAtriptan succinate 100 mg PO DIRECTED PRN #10 tablet 07/01/23 [Rx] Sucralfate [Carafate] 2 gm PO DAILY 07/01/23 [History] Ascorbic Acid [Vitamin C] 500 mg PO BID tab 07/06/23 [Rx] Cholecalciferol [Vitamin D3 (125 Mcg = 5000 Iu)] 125 mcg PO DAILY tab 11/15/23 [Rx] Zinc Sulfate [Orazinc] 220 mg PO DAILY #30 cap 07/06/23 [Rx] dexAMETHasone ORAL [Hexadrol] 6 mg PO DAILY 7 Days #21 tablet 07/06/23 [Rx] Follow up Appointment(s)/Referral(s): Avery Epps Jr, DO [Primary Care Provider] - 07/13/23 2:30 pm Activity/Diet/Wound Care/Special Instructions: Complete quarantine for 5 more days.
--- NOTE | 2023-07-07 15:20 | P.PN ---
Subjective Progress Note Date: 07/07/23 this is a very pleasant 72-year-old female patient with known history of COPD and pulmonary fibrosis, presented to the hospital because of generalized weakness, headaches, tiredness, low appetite, dehydration, increased chest congestion and shortness of breath. The patient was in the hospital in May 2023 and the patient was discharged on 06/12/2023 after being treated for an acute bronchitis and COPD exacerbation. At that time, her Covid 19 testing was negative. She was not a curable and she was exposed to Covid 19 and subsequently her symptoms started approximately 3 days ago. The patient tested positive for Covid 19 and currently she is on Decadron. No altered mentation. She was febrile at time of admission with a T-max of 101.2. The patient is currently on 2 L of Oxymizer nasal cannula to maintain a saturation above 90%. Chest x-ray shows no acute cardiac pulmonary process. she was noted to be comfortable in the emergency department. No altered mentation. No swelling lower extremities. Sodium level is at 136, potassium level is at 3.6, bicarb is at 24 with a BUN of 20 and a creatinine of 0.6. The white cell count is at 3.4 with a hemoglobin 15.0 and a platelet count of 156. On today's evaluation of 07/05/2023, the patient is feeling better compared to yesterday. She is on 3 L O2 nasal cannula with a pulse ox of 97%. Blood pressure is slightly elevated.. She is not having any significant respiratory distress. She feels she is gradually improving. She has better energy and she is on Decadron 6 milligrams IV every 24 hours. Her d-dimer is at 0.77. Aggr essively electrolytes the time of admission were within normal limits. No reported nausea. No emesis. No diarrhea. No altered mentation. No chest pain. No pleurisy. No hemoptysis. On 07/06/2023, seeing the patient for a follow-up. Still weak. Occasional cough. No significant sputum production. No oxygen desaturations. She remains on room air oxygen. She remains on Decadron. She remains on Lovenox 30 mg subcu for DVT prophylaxis. No significant hyperglycemia. No nausea. No emesi s. No other complaints otherwise for now. On 07/07/2023, the patient is still feeling weak. She feels that her blood pressure is fluctuating. No respiratory difficulties. She has a limited cough. No significant sputum production. She remains on Decadron. No new labs are available from today. No hyperglycemia. Objective - Vital Signs Vital signs: Vital Signs Temp 97.8 F 07/07/23 07:15 Pulse 61 07/07/23 07:15 Resp 19 07/07/23 07:15 BP 156/58 07/07/23 07:15 Pulse Ox 98 07/07/23 08:42 FiO2 2 07/04/23 09:22 Intake & Output 07/06/23 07/07/23 07/07/23 18:59 06:59 18:59 Other: # Voids 4 3 # Bowel Movements 2 - Exam GENERAL EXAM: Alert, pleasant, thin 72-year-old female, 2 L nasal cannula, comfortable in no apparent distress. HEAD: Normocephalic. EYES: Normal reaction of pupils, equal size. NOSE: Clear with pink turbinates. THROAT: No erythema or exudates. NECK: No masses, no JVD. CHEST: No chest wall deformity. LUNGS: Equal air entry with end expiratory wheeze. CVS: S1 and S2 normal with no audible murmur, regular rhythm. ABDOMEN: No hepatosplenomegaly, normal bowel sounds, no guarding or rigidity. SPINE: No scoliosis or deformity SKIN: No rashes CENTRAL NERVOUS SYSTEM: No focal deficits, tone is normal in all 4 extremities. EXTREMITIES: There is no peripheral edema. No clubbing, no cyanosis. Peripheral pulses are intact. - Labs CBC & Chem 7: 07/04/23 06:03 07/04/23 06:03 Labs: Abnormal Lab Results - Last 24 Hours (Table) 07/06/23 07/06/23 07/07/23 Range/Units 16:17 21:12 06:29 POC Glucose (mg/dL) 178 H 151 H 130 H (70-110) mg/dL Assessment and Plan Plan: Acute on chronic hypoxemic respiratory failure, likely on the basis of the patient's known history of COPD, and pulmonary fibrosis, and complicated by COVID 19 infection and she is 2 L of oxygen by nasal cannula. The patient also can be weaned down to room air oxygen. His oxygen she is stable for now. COVID 19 infection, symptoms started on 07/01/2023, symptoms are quite systemic. The patient is also expressing some worsening shortness of breath.this is the patient's first infection and she has been vaccinated in the past. The patient is having constant symptoms of generalized weakness related to Covid 19. No signs of any acute respiratory insufficiency at this point in time. Chronic hypoxemic respiratory failure, on home O2 at 2.0 L. COPD from previous heavy tobacco use. Bibasilar pulmonary fibrosis History of hypertension. History of hyperlipidemia. History of hypothyroidism. History of GERD. Multiple other medical problems and comorbidities. Plan: Clinically stable and the patient is gradually improving. Increase mobility Continue Decadron Recommend Decadron in time of discharge complete a 10 day course. Recommended vitamin C and vitamin D. This is addition to her rest of the medications.
[2023-07-07 16:52] LABS: Glucose,Whole Blood 150 mg/dL (70-110)
[2023-07-07 20:43] LABS: Glucose,Whole Blood 159 mg/dL (70-110)
[2023-07-07 20:43] LABS: Glucose,Whole Blood 156 mg/dL (70-110)
[2023-07-07] MEDS: PANTOPRAZOLE 40 MG TABLET PO SCH (21:55)
[2023-07-08] MEDS: SUMAtriptan succinate 50 MG TAB PO PRN (05:52)
[2023-07-08] MEDS: LEVOTHYROXINE 50 MCG TAB PO SCH (05:53)
[2023-07-08 05:57] LABS: Glucose,Whole Blood 138 mg/dL (70-110)
[2023-07-08] MEDS: SODIUM CHLORIDE 0.9% 1,000 ML IV SCH (05:57)
[2023-07-08] MEDS: INSULIN ASPART (NovoLOG) 100 UNIT/ML VIAL SQ SCH ×2 (07:38→11:52)
[2023-07-08] MEDS: LOSARTAN 25 MG TAB PO SCH (07:38)
[2023-07-08] MEDS: FAMOTIDINE 20 MG TAB PO SCH (07:38)
[2023-07-08] MEDS: ASCORBIC ACID 500 MG TAB PO SCH (07:38)
[2023-07-08] MEDS: CHOLECALCIFEROL 125 MCG (5000 IU) TABLET PO SCH (07:38)
[2023-07-08] MEDS: ASPIRIN 81 MG PO SCH (07:38)
[2023-07-08] MEDS: FOLIC ACID 1 MG TAB PO SCH (07:38)
[2023-07-08] MEDS: SUCRALFATE 1 GM TAB PO SCH (07:38)
[2023-07-08] MEDS: ZINC SULFATE 220 MG CAP PO SCH (07:39)
[2023-07-08] MEDS: ATORVASTATIN 10 MG TAB PO SCH (07:39)
[2023-07-08] MEDS: ENOXAPARIN 30 MG/0.3 ML SYRINGE SQ SCH (07:39)
[2023-07-08] MEDS: DEXAMETHASONE SOD PHOSPHATE 10 MG/ML 1 ML VIAL IVP SCH (07:39)
[2023-07-08 08:17] VITALS: RESP 14; TEMP 97.7
[2023-07-08] MEDS: SYMBICORT 160-4.5 MCG INHALER INHALATION SCH (08:22)
[2023-07-08 11:26] LABS: Glucose,Whole Blood 124 mg/dL (70-110)
[2023-07-08 11:48] VITALS: BP 136/74; PULSE 71
--- NOTE | 2023-07-08 13:11 | P.PN ---
Subjective Progress Note Date: 07/08/23 this is a very pleasant 72-year-old female patient with known history of COPD and pulmonary fibrosis, presented to the hospital because of generalized weakness, headaches, tiredness, low appetite, dehydration, increased chest congestion and shortness of breath. The patient was in the hospital in May 2023 and the patient was discharged on 06/12/2023 after being treated for an acute bronchitis and COPD exacerbation. At that time, her Covid 19 testing was negative. She was not a curable and she was exposed to Covid 19 and subsequently her symptoms started approximately 3 days ago. The patient tested positive for Covid 19 and currently she is on Decadron. No altered mentation. She was febrile at time of admission with a T-max of 101.2. The patient is currently on 2 L of Oxymizer nasal cannula to maintain a saturation above 90%. Chest x-ray shows no acute cardiac pulmonary process. she was noted to be comfortable in the emergency department. No altered mentation. No swelling lower extremities. Sodium level is at 136, potassium level is at 3.6, bicarb is at 24 with a BUN of 20 and a creatinine of 0.6. The white cell count is at 3.4 with a hemoglobin 15.0 and a platelet count of 156. On today's evaluation of 07/05/2023, the patient is feeling better compared to yesterday. She is on 3 L O2 nasal cannula with a pulse ox of 97%. Blood pressure is slightly elevated.. She is not having any significant respiratory distress. She feels she is gradually improving. She has better energy and she is on Decadron 6 milligrams IV every 24 hours. Her d-dimer is at 0.77. Aggr essively electrolytes the time of admission were within normal limits. No reported nausea. No emesis. No diarrhea. No altered mentation. No chest pain. No pleurisy. No hemoptysis. On 07/06/2023, seeing the patient for a follow-up. Still weak. Occasional cough. No significant sputum production. No oxygen desaturations. She remains on room air oxygen. She remains on Decadron. She remains on Lovenox 30 mg subcu for DVT prophylaxis. No significant hyperglycemia. No nausea. No emesi s. No other complaints otherwise for now. On 07/07/2023, the patient is still feeling weak. She feels that her blood pressure is fluctuating. No respiratory difficulties. She has a limited cough. No significant sputum production. She remains on Decadron. No new labs are available from today. No hyperglycemia. On 07/08/2023, the patient has no new complaints. Blood pressure was running h igher. The patient was given losartan 12.5 mg by mouth. Subsequently improved blood pressure control. The most recent BP is 136/74. Pulse ox 90% on room air oxygen. She remains on Decadron. No fever or chills. She is active. She's feeling a bit fatigued. She is afebrile. No nausea or emesis. No altered mentation. She is considering home discharge today. I think it's reasonable Objective - Vital Signs Vital signs: Vital Signs Temp 97.7 F 07/08/23 07:37 Pulse 62 07/08/23 07:37 Resp 14 07/08/23 07:37 BP 190/51 07/08/23 07:37 Pulse Ox 93 L 07/08/23 07:37 FiO2 2 07/04/23 09:22 Intake & Output 07/07/23 07/08/23 07/08/23 18:59 06:59 18:59 Other: # Voids 2 2 - Exam GENERAL EXAM: Alert, pleasant, thin 72-year-old female, 2 L nasal cannula, comfortable in no apparent distress. HEAD: Normocephalic. EYES: Normal reaction of pupils, equal size. NOSE: Clear with pink turbinates. THROAT: No erythema or exudates. NECK: No masses, no JVD. CHEST: No chest wall deformity. LUNGS: Equal air entry with end expiratory wheeze. CVS: S1 and S2 normal with no audible murmur, regular rhythm. ABDOMEN: No hepatosplenomegaly, normal bowel sounds, no guarding or rigidity. SPINE: No scoliosis or deformity SKIN: No rashes CENTRAL NERVOUS SYSTEM: No focal deficits, tone is normal in all 4 extremities. EXTREMITIES: There is no peripheral edema. No clubbing, no cyanosis. Peripheral pulses are intact. - Labs CBC & Chem 7: 07/04/23 06:03 07/04/23 06:03 Labs: Abnormal Lab Results - Last 24 Hours (Table) 07/07/23 07/07/23 07/07/23 Range/Units 16:51 20:33 20:36 POC Glucose (mg/dL) 150 H 156 H 159 H (70-110) mg/dL 07/08/23 Range/Units 05:56 POC Glucose (mg/dL) 138 H (70-110) mg/dL Assessment and Plan Plan: Acute on chronic hypoxemic respiratory failure, likely on the basis of the patient's known history of COPD, and pulmonary fibrosis, and complicated by COVID 19 infection and she is 2 L of oxygen by nasal cannula. The patient also can be weaned down to room air oxygen. His oxygen she is stable for now. COVID 19 infection, symptoms started on 07/01/2023, symptoms are quite systemic. The patient is also expressing some worsening shortness of breath.this is the patient's first infection and she has been vaccinated in the past. The patient is having constant symptoms of generalized weakness related to Covid 19. No signs of any acute respiratory insufficiency at this point in time. Chronic hypoxemic respiratory failure, on home O2 at 2.0 L. COPD from previous heavy tobacco use. Bibasilar pulmonary fibrosis History of hypertension. History of hyperlipidemia. History of hypothyroidism. History of GERD. Multiple other medical problems and comorbidities. Plan: Clinically stable and the patient is gradually improving. Increase mobility Continue Decadron Monitor the blood pressure at home Recommend Decadron in time of discharge complete a 10 day course. Recommended vitamin C and vitamin D. We'll see the patient following her discharge within the week in my office.
== END 2023-07-08 13:11 | disposition home or self-care (01) | DRG 177 ==
LOC: EC 04:57 → 4SSUR 07:20
PROVIDERS: ADMIT Family Medicine; ATTEND Family Medicine
DX: U07.1 COVID-19 (principal); J96.21 Acute and chronic respiratory failure with hypoxia; J84.10 Pulmonary fibrosis, unspecified; E11.9 Type 2 diabetes mellitus without complications; E86.0 Dehydration; J44.89 Other specified chronic obstructive pulmonary disease; R53.1 Weakness; I10 Essential (primary) hypertension; E78.5 Hyperlipidemia, unspecified; E03.9 Hypothyroidism, unspecified; K21.9 Gastro-esophageal reflux disease without esophagitis; F41.1 Generalized anxiety disorder; G43.909 Migraine, unspecified, not intractable, without status migrainosus; I83.90 Asymptomatic varicose veins of unspecified lower extremity; K44.9 Diaphragmatic hernia without obstruction or gangrene; K64.9 Unspecified hemorrhoids; M19.90 Unspecified osteoarthritis, unspecified site; L98.9 Disorder of the skin and subcutaneous tissue, unspecified; Z99.81 Dependence on supplemental oxygen; Z79.82 Long term (current) use of aspirin; Z79.51 Long term (current) use of inhaled steroids; Z79.890 Hormone replacement therapy; Z79.899 Other long term (current) drug therapy; Z87.891 Personal history of nicotine dependence; Z87.442 Personal history of urinary calculi; Z90.5 Acquired absence of kidney; Z86.73 Personal history of transient ischemic attack (TIA), and cerebral infarction without residual deficits; W06.XXXA Fall from bed, initial encounter; Y92.002 Bathroom of unspecified non-institutional (private) residence as the place of occurrence of the external cause; Z88.5 Allergy status to narcotic agent; Z88.2 Allergy status to sulfonamides; Z88.8 Allergy status to other drugs, medicaments and biological substances; Z88.6 Allergy status to analgesic agent; Z91.041 Radiographic dye allergy status
CPT/HCPCS: 36415; 70450; 71045; 72125; 80053; 83036; 83605; 85025; 85379; 94640; 94760; 96361; 96374; 96375; 99285

== ENCOUNTER → 2023-09-23 | Outpatient (CLI) | payer MEDICARE ==
--- NOTE | 2023-09-23 14:15 | XR ---
EXAMINATION TYPE: XR Hip Complete LT DATE OF EXAM: 09/23/2023 2:09 PM CLINICAL INDICATION:Female, 73 years old with history of R42 DIZZINESS AND GIDDINESS; PHH COMPARISON: None. TECHNIQUE: XR Hip Complete LT; hip was examined in the frontal and lateral projections and a AP pelvi s. FINDINGS: No evidence for acute process, joint dislocation or significant soft tissue swelling. Osteo phyte formation of the superior acetabulum of the hip. IMPRESSION: 1. No evidence for acute process. 2. Mild hip osteoarthrosis.
== END | disposition home or self-care (01) ==
LOC: RADXRMAIN 13:56
PROVIDERS: ATTEND Family Medicine
DX: M16.12 Unilateral primary osteoarthritis, left hip (principal)
CPT/HCPCS: 73502

== ENCOUNTER → 2024-04-30 | Outpatient (CLI) | payer MEDICARE ==
--- NOTE | 2024-04-30 10:42 | MM ---
Reason for Exam: Screening (asymptomatic). Last mammogram was performed 1 year(s) and 1 month(s) ago. Patient History: Menarche at age 12. First Full-Term at age 16. Left ovary removed at age 33. Right ovary removed at age 33. Hysterectomy at age 33. Postmenopausal. Estrogen for 20 years from age 30 until age 50. Patient used Hormonal Contraceptives for 20 years. Unspecified Hormone, from age 47 until age 55. Risk Values: Gloria 5 year model risk: 1.2%. NCI Lifetime model risk: 2.5%. Prior Study Comparison: 03/22/2022 Bilateral MG 3D screening mammo w/cad, [facility]. 04/15/2023 Bilateral MG 3D screening mammo w/cad, [facility]. 04/27/2023 Left MG 3D work up w/cad , [facility]. Tissue Density: There are scattered areas of fibroglandular density. Findings: Analyzed By CAD. There is no suspicious group of microcalcifications or new suspicious mass in either breast. Overall Assessment: Negative, BI-RAD 1 Management: Screening Mammogram of both breasts in 1 year. . Patient should continue monthly self-breast exams. A clinical breast exam by your physician is recommended on an annual basis. This exam should not preclude additional follow-up of suspicious palpable abnormalities. Note on Gloria scores and lifetime risk: 1. A Gloria score greater than 3% is considered moderate risk. If this is the case, consider specialist referral to assess eligibility for a risk reducing agent. 2. If overall lifetime risk for the development of breast cancer is 20% or higher, the patient may qualify for future screening with alternating mammogram and breast MRI. Electronically signed and approved by: David Ureña M.D. Radiologis
== END | disposition home or self-care (01) ==
LOC: RADMAMWWP 07:34
PROVIDERS: ATTEND Family Medicine
DX: Z12.31 Encounter for screening mammogram for malignant neoplasm of breast
CPT/HCPCS: 77063; 77067

== ENCOUNTER → 2024-05-18 | Outpatient (CLI) | payer MEDICARE ==
--- NOTE | 2024-05-18 14:08 | XR ---
EXAMINATION TYPE: XR chest 2V DATE OF EXAM: 05/18/2024 COMPARISON: 07/04/2023 TECHNIQUE: PA and lateral views submitted. HISTORY: Cough FINDINGS: A diffuse interstitial thickening compatible with pulmonary fibrosis. Linear subsegmental basilar sca rring or atelectasis. Heart size normal. Atherosclerotic change aorta. Osteopenia and degenerative ch yair of the spine. There is a nodular density in the right lung apex recommend CT chest to exclude no dule. Additional smaller nodule right upper lobe laterally is stable. Reticular clips in the abdomen. Hyperexpansion the lungs compatible with COPD. IMPRESSION: 1. Nodule in the right lung apex recommend CT of the chest to exclude pulmonary nodule or mass. 2. COPD and pulmonary fibrosis. [facility], , 05/18/2024 2:05 PM
== END | disposition home or self-care (01) ==
LOC: RADXRMAIN 13:51
PROVIDERS: ATTEND Family Medicine
DX: J44.9 Chronic obstructive pulmonary disease, unspecified (principal); J84.10 Pulmonary fibrosis, unspecified; J18.9 Pneumonia, unspecified organism; R91.1 Solitary pulmonary nodule; R09.89 Other specified symptoms and signs involving the circulatory and respiratory systems
CPT/HCPCS: 71046

== ENCOUNTER → 2024-06-22 | Outpatient (CLI) | payer MEDICARE ==
--- NOTE | 2024-06-22 15:22 | CT ---
EXAMINATION TYPE: CT abdomen pelvis wo con CT DLP: 578 mGycm, Automated exposure control for dose reduction was used. DATE OF EXAM: 06/22/2024 3:00 PM COMPARISON: CT abdomen pelvis 06/22/2023 CLINICAL INDICATION:Female, 73 years old with history of R35.0 M54.50 LOW BACK R31.9 HEMATURIA, UNSPE CIFIED; Lower abdominal/back pain 3 days ago. Hx of kidney stones TECHNIQUE: Standard CT of the abdomen and pelvis without IV or oral contrast. Lack of IV or oral co ntrast limits evaluation of solid and hollow organ viscera. Coronal and sagittal reformats were perfo rmed. FINDINGS: LOWER CHEST: Redemonstration of intralobular septal thickening of the visualized bilateral lung bases with peripheral traction bronchiectasis. Most consistent with pulmonary fibrosis. Coronary artery ca lcifications. ABDOMEN LIVER: Unremarkable noncontrast appearance GALLBLADDER AND BILE DUCTS: The gallbladder is surgically absent. No biliary ductal dilatation. PANCREAS: Unremarkable noncontrast appearance SPLEEN: Unremarkable noncontrast appearance ADRENAL GLANDS: Unremarkable noncontrast appearance. KIDNEYS AND URETERS: Postsurgical changes from right nephrectomy. No suspicious soft tissue within th e nephrectomy bed. No evidence of hydronephrosis. Punctate nonobstructive left lower pole 3 mm calcul us. PELVIS BLADDER: Unremarkable REPRODUCTIVE: The uterus is surgically absent. ABDOMEN & PELVIS STOMACH AND BOWEL: Small hiatal hernia, duodenum is unremarkable. Sigmoid diverticulosis without evid ence for acute diverticulitis. The appendix is within normal limits. No evidence of bowel obstruction . PERITONEUM: No evidence of pneumoperitoneum or free fluid. VASCULATURE: Moderate atherosclerotic calcifications are present throughout the abdominal aorta and i ts branches. No evidence of aortic aneurysm. Few pelvic phleboliths. MUSCULOSKELETAL: No acute osseous abnormalities. Diffuse bone demineralization. LYMPH NODES: No gross evidence for lymphadenopathy. SOFT TISSUE/ABDOMINAL WALL: Bilateral gluteal granulomas. IMPRESSION: 1. No evidence of obstructive uropathy. 2. Nonobstructive left renal punctate calculus. 3. Postsurgical changes from right nephrectomy. 4. Sigmoid diverticulosis without evidence for acute diverticulitis. 5. Similar findings of pulmonary fibrosis. [facility], , 06/22/2024 3:20 PM
== END | disposition home or self-care (01) ==
LOC: RADCTMAIN 14:37
PROVIDERS: ATTEND Family Medicine
DX: J84.10 Pulmonary fibrosis, unspecified (principal); K57.30 Diverticulosis of large intestine without perforation or abscess without bleeding; R31.9 Hematuria, unspecified; M54.50 Low back pain, unspecified; R35.0 Frequency of micturition; Z90.5 Acquired absence of kidney; Z87.442 Personal history of urinary calculi
CPT/HCPCS: 74176